=== PATIENT | female | born 1995 | race Caucasian/White ===

== ENCOUNTER 2024-03-01 08:25 | Outpatient (REF) | payer BC, SELFPAY ==
[2024-03-07 12:10] LABS: Age Gdln ACOG Testing Note (.); HPV Aptima Negative (Negative); IGP, Aptima HPV, rfx 16/18,45 Note (.)
== END 2024-03-01 08:26 | disposition home or self-care (01) ==
LOC: LAB 08:25
PROVIDERS: PCP Nurse Practitioner; Visit Provider Obstetrics & Gynecology
DX: Z01.419 Encounter for gynecological examination (general) (routine) without abnormal findings (principal)
CPT/HCPCS: 87624; 88175

== ENCOUNTER 2024-03-02 12:10 | Outpatient (OUT) | payer BC, SELFPAY ==
[2024-03-02 12:32] LABS: Basophils Absolute Auto 0.1 10^3/uL (0.0-0.1); Basophils Percent Auto 0.6 % (0.2-2.0); Eosinophils Absolute Auto 0.1 10^3/uL (0.0-0.7); Eosinophils Percent Auto 0.9 % (0.9-7.0); Hematocrit 43.4 % (36.0-48.0); Hemoglobin 14.5 g/dL (12.0-16.0); Immature Granulocytes Abs Auto 0.02 10^3/uL (0.00-0.03); Immature Granulocytes Pct Auto 0.2 % (0.0-0.5); Lymphocytes Absolute Auto 2.1 10^3/uL (1.2-3.8); Lymphocytes Percent Auto 23.8 % (20.5-60.0); Mean Corpuscular HGB Conc 33.4 g/dL (29.9-35.2); Mean Corpuscular Hemoglobin 29.8 pg (26.7-34.0); Mean Corpuscular Volume 89.1 fL (81.0-99.0); Mean Platelet Volume 10.6 fL (9.5-13.5); Monocytes Absolute Auto 0.6 10^3/uL (0.3-0.8); Monocytes Percent Auto 6.9 % (1.7-12.0); Neutrophils Absolute Auto 6.1 10^3/uL (1.4-6.5); Neutrophils Percent Auto 67.6 % (43.0-75.0); Platelet Count 177 10^3/uL (150-450); Red Blood Count 4.87 10^6/uL (4.20-5.40)
[2024-03-02 13:46] LABS: Free T4 0.86 ng/dL (0.76-1.46)
[2024-03-02 15:22] LABS: Thyroid Stimulating Hormone 0.876 uIU/mL (0.358-3.740)
== END 2024-03-02 12:11 | disposition home or self-care (01) ==
PROVIDERS: PCP Nurse Practitioner; Visit Provider Obstetrics & Gynecology
DX: N92.6 Irregular menstruation, unspecified (principal)
CPT/HCPCS: 36415; 84439; 84443; 85025

== ENCOUNTER 2024-03-05 07:34 | Outpatient (OUT) | payer BC, SELFPAY ==
--- NOTE | 2024-03-05 07:36 | US_ITS ---
[address] [address] Patient Name: GEORGE RUFF MRN: [id number] date: 1995 Sex: F Assigned Patient Location: Current Patient Location: [facility] Accession/Order Number: [id number] Exam Date: 03/05/2024 07:36 Report Date: 03/05/2024 12:10 At the request of: JUSTICE JUDD Procedure: US pelvis EXAMINATION: US pelvis HISTORY: IRREGULAR MENSTRUAL CYCLE COMPARISON: No relevant comparison available. TECHNIQUE: Transabdominal and/or transvaginal sonographic examination was performed as indicated by examination type. FINDINGS: UTERUS: Normal size and appearance. Uterus size: 11.2 x 2.5 x 6.1 cm ENDOMETRIUM: Normal homogeneous appearance. Endometrial thickness: 6 mm RIGHT OVARY: Normal size and appearance. Duplex Doppler demonstrates normal waveform and flow; resistive index 0.6. Ovary size: 3.7 x 1.5 x 3.2 cm LEFT OVARY: Normal size and appearance. Blood flow present within ovary on color Doppler. Ovary size: 3.1 x 1.7 x 2.0 cm CUL-DE-SAC: Trace amount of free fluid, likely physiologic. BLADDER: Unremarkable. OTHER: None. US/US pelvis IMPRESSION: 1. No abnormal or suspicious findings to account for patient's symptoms. Electronically authenticated by: MIGUEL BRONSON Date: 03/05/2024 12:10
--- OUTSIDE RECORDS SUMMARY | 2024-03-05 07:39 | XMS_ITS | CCD ---
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 Name Role Phone DR JUSTICE WHITMAN Admitting Unavailable DUTCH, DR RENDON Consulting Unavailable DUTCH, DR RENDON Attending Unavailable MISC, DR DOE Primary Care Unavailable AMY, JOSELINE Consulting Unavailable AMY, JOSELINE Attending Unavailable AMY, JOSELINE Admitting Unavailable MISC, DR DOE Primary Care Unavailable AMY, JOSELINE Consulting Unavailable AMY, JOSELINE Attending Unavailable AMY, JOSELINE Admitting Unavailable MISC, DR DOE Primary Care Unavailable AMY, JOSELINE Admitting Unavailable AMY, JOSELINE Consulting Unavailable AMY, JOSELINE Attending Unavailable MISC, DR DOE Primary Care Unavailable DUTCH, DR RENDON Admitting Unavailable DUTCH, DR RENDON Consulting Unavailable DUTCH, DR RENDON Attending Unavailable MISC, DR DOE Primary Care Unavailable Keily, Seble L Attending Unavailable Keily, Seble L Attending Unavailable Keily, Seble L Attending Unavailable Keily, Seble Clayton Attending Unavailable DUTCHJUSTICE Attending Unavailable Allergies Allergy Classification Reported Allergen(s) Allergy Type Date of Onset Reaction(s) Facility (1 source) No Known Medication Allergies; Translations: [No Known Medication Allergies] Propensity to adverse reactions (disorder) [facility] Repository Problems Active Problems Problem Classification Problem Date Documented Da te Episodic/Chronic Other screening for suspected conditions (not mental disorders or infectious disease) (5 sources) Encounter for screening for malignant neoplasm of cervix; Translations: [Encounter for screening for diseases of the blood and blood-forming organs and certain disorders involving the immune mechanism] Onset: 12-21-2021 Episodic Unclassified (3 sources) CONTACT W/AND (SUSP) EXPOS COVID-19; Translations: [CONTACT W/AND (SUSP) EXPOS COVID-19] Onset: 03-25-2022 Past or Other Problems Problem Classification Problem Date Documented Da te Episodic/Chronic Residual codes; unclassified (4 sources) Family history of diseases of the blood and blood-forming organs and certain disorders involving the immune mechanism; Translations: [FAM HX DZ BLOOD AND BFO D/O IMMUNE MECH] Onset: 12-09-2021 Episodic Unclassified (1 source) CONTACT W/AND (SUSP) EXPOS COVID-19; Translations: [CONTACT W/AND (SUSP) EXPOS COVID-19] Onset: 03-23-2022 Results Test Name Value Interpretation Reference Range Facil ity [facility] 01-23-2024 Consent [id number] 0TIFF Normal [facility] 07-14-2023 Consent [id number] 0TIFF Normal [facility] Family Medicine Office/Clini c Noteon 07-14-2023 Family Medicine Office/Clinic Note HPI Staff Rhea is a 27 year old female presenting for acute sick visit allergies Questions/Concerns: Had Kenalog in 01/2023 pt states this did work well. had been taking Benadryl every night for the last 5 days. Eyes were very red and swelled and c/o itching , congestion with dry cough having post nasal drip. Pt hasn't seen an corporate strategy intern before. States they are taking crops off of the [place] and here allergies are a lot worse. History of Present Illness pt presents with worsening allergy symptoms. Review of Systems PHQ Score Initial Depression Screen Score: 0 ROS - Provider Constitutional: no fever, no chills, no sweats, no fatigue Respiratory: no shortness of breath, no cough, no orthopnea, no wheezing. Cardiovascular: no chest pain, no palpitations, no edema. Neurologic: no headache, no dizziness, no numbness, no weakness. red swollen watery eyes Physical Exam Vitals & Measurements T: 37.1 ?C(Tympanic) HR: 98(Peripheral) RR: 18 BP: 118/68 SpO2: 98% HT: 62 in HT: 157.4 cm WT: 58.87 kg WT: 129.514 lb BMI: 23.76 General: alert, no acute distress ENMT: oral mucosa moist, no pharyngeal erythema or exudate Cardiovascular: regular rate and rhythm, normal peripheral perfusion Respiratory: Lungs CTA, respirations non labored Extremities: no deformity, no trauma Neurological: oriented x 4, LOC appropriate for age, CN II-XII intact, motor strength equal & normal bilaterally, speech normal eyes red, watery and swollen Assessment/Plan 1. Seasonal allergies (J30.2: Other seasonal allergic rhinitis) pt presents today with worsening allergy symptoms[place] which is causing eyes to be red and severely swollen. will give kenalog 40mg in office today. all questions answered. pt encouraged to just schedule nurse visit kenalog injection in 6 months Ordered: triamcinolone, 40 mg = 1 mL, Injection, IntraMuscular, Once, Stop date 07/13/23 17:48:00 EDT, Routine, Start date 07/13/23 17:48:00 EDT, 07/13/23 17:48:00 EDT Follow-up No qualifying data available Problem List/Past Medical History Ongoing No qualifying data Historical No qualifying data Procedure/Surgical History section, History of tooth extraction, Laparoscope. Medications No active medications Allergies No Known Medication Allergies Social History Tobacco Never (less than 100 in lifetime) Tobacco Use:. Never, Current vaping or e-cigarette use Smokeless Tobacco Use:. Household tobacco concerns: No., 07/13/2023 Family History Congenital heart disease: Grandparent. Immunizations Vaccine Date Status influenza virus vaccine, inactivated 07/18/2018 Recorded measles/mumps/rubella virus vaccine 02/06/1999 Recorded DTaP, unspecified formulation 02/06/1999 Recorded DTaP, unspecified formulation 05/09/1998 Recorded measles/mumps/rubella virus vaccine 05/25/1996 Recorded hepatitis B pediatric vaccine 05/25/1996 Recorded DTP-Hib 05/25/1996 Recorded hepatitis B pediatric vaccine 02/05/1994 Recorded Hib, unspecified formulation 02/05/1994 Recorded Normal [facility] Comment on above: Result Comment: Elec tronically Signed By: Seble Luna.romel\Date and Time Signed: 07/14/23 15:24 EDT Ambulatory Visit Summaryon 1 Ambulatory Visit Summary JESSICARHEA YOUSIF :1995 Visit Date:07/13/2023 Ambulatory Visit Instructions Your Diagnosis Seasonal allergies Your Care Team Attending Physician Seble oNrth Primary Care Physician - Seble Luna Procedures Performed section, History of tooth extraction, Laparoscope. Discharge Vitals Temperature (Tympanic) 37.1 ?C Heart Rate (Peripheral) 98 Respiratory Rate 18 Blood Pressure 118/68 Height 157.4 cm Height 62 in Weight 58.87 kg Weight 129.514 lb BMI 23.76 Allergies No Known Medication Allergies [facility] Ambulatory Visit Summary RHEA RUFF :1995 Visit Date:07/13/2023 Ambulatory Visit Instructions Your Diagnosis Seasonal allergies Your Care Team Attending Physician - Seble Luna Primary Care Physician - Seble Luna Procedures Performed section, History of tooth extraction, Laparoscope. Discharge Vitals Temperature (Tympanic) 37.1 ?C Heart Rate (Peripheral) 98 Respiratory Rate 18 Blood Pressure 118/68 Height 157.4 cm Height 62 in Weight 58.87 kg Weight 129.514 lb BMI 23.76 Allergies No Known Medication Allergies [facility] 01-31-2023 Consent [id number] 0CD:127 [facility] Ambulatory Visit Summaryon 0 01-28-2023 Ambulatory Visit Summary RHEA RUFF :1995 Visit Date:01/28/2023 Ambulatory Visit Instructions Your Diagnosis Conjunctivitis, viral Seasonal allergies BMI 23.0-23.9, adult Your Care Team Attending Physician - Seble Luna Primary Care Physician - Seble Luna Procedures Performed section, History of tooth extraction, Laparoscope. Discharge Vitals Heart Rate (Peripheral) 74 Respiratory Rate 16 Blood Pressure 118/76 Height 157.48 cm Height 62 in Weight 58.9 kg Weight 129.58 lb BMI 23.75 Medications and Immunizations Administered Given triamcinolone acetonide 40 mg/mL Inj Susp, 40 mg, IntraMuscular. For: Conjunctivitis, viral, Seasonal allergies triamcinolone acetonide 40 mg/mL Inj Susp, 40 mg, IntraMuscular. For: BMI 23.0-23.9, adult Allergies No Known Medication Allergies [facility] Medicine Office/Clini c Noteon 01-28-2023 Family Medicine Office/Clinic Note Chief Complaint pink eye vs allergies HPI Staff Establish Care: History: none Last provider:Dr. White Any recent labs: none Health Maintenance UTD: Pelvic/Pap: Nov 2022 Acute: Current issues/complaints:Poss ible pink eye or allergies currently on neomycin,polymyxin eye drops, saw you earlier this week with same sxs. dxed with allergies so she needs to be sure she does or doesn't have pink eye History of Present Illness pt presents today with MIREILLE eye redness and drainage Review of Systems PHQ Score Initial Depression Screen Score: 0 ROS - Provider Constitutional: no fever, no chills, no sweats, no fatigue Respiratory: no shortness of breath, no cough, no orthopnea, no wheezing. Cardiovascular: no chest pain, no palpitations, no edema. Neurologic: no headache, no dizziness, no numbness, no weakness. EENT: MIREILLE conjunctiva and sclera very red and itchy Physical Exam Vitals & Measurements HR: 74(Peripheral) RR: 16 BP: 118/76 SpO2: 98% HT: 62 in HT: 157.48 cm WT: 58.9 kg WT: 129.58 lb BMI: 23.75 General: alert, no acute distress EENMT: oral mucosa moist, no pharyngeal erythema or exudate, MIREILLE erythema to conjunctiva and sclera Cardiovascular: regular rate and rhythm, normal peripheral perfusion Respiratory: Lungs CTA, respirations non labored Extremities: no deformity, no trauma Neurological: oriented x 4, LOC appropriate for age, CN II-XII intact, motor strength equal & normal bilaterally, speech normal Assessment/Plan 1. Conjunctivitis, viral (B30.9: Viral conjunctivitis, unspecified) MIREILLE scleara and conjunctiva erythematous and watery. pt states they are very itchy too. she has eye drops that Dr. Whitman ordered for her yesterday. will give kenalog injection in office. she will continue eye drops Ordered: triamcinolone, 40 mg = 1 mL, Injection, IntraMuscular, Once, Stop date 01/28/23 15:13:00 EDT, Routine, Start date 01/28/23 15:13:00 EDT, 01/28/23 15:13:00 EDT 2. Seasonal allergies (J30.2: Other seasonal allergic rhinitis) kenalog given in office today Ordered: triamcinolone, 40 mg = 1 mL, Injection, IntraMuscular, Once, Stop date 01/28/23 15:13:00 EDT, Routine, Start date 01/28/23 15:13:00 EDT, 01/28/23 15:13:00 EDT 3. BMI 23.0-23.9, adult (Z68.23: Body mass index [BMI] 23.0-23.9, adult) BMI education complete Ordered: triamcinolone, 40 mg = 1 mL, Injection, IntraMuscular, Once, Stop date 01/28/23 15:13:00 EDT, Routine, Start date 01/28/23 15:13:00 EDT, 01/28/23 15:13:00 EDT triamcinolone, 40 mg = 1 mL, Injection, IntraMuscular, Once, Stop date 01/28/23 15:03:00 EDT, Routine, Start date 01/28/23 15:03:00 EDT, 01/28/23 15:03:00 EDT Follow-up No qualifying data available Problem List/Past Medical History Ongoing No qualifying data Historical No qualifying data Procedure/Surgical History section, History of tooth extraction, Laparoscope. Medications No active medications Allergies No Known Medication Allergies Social History Tobacco Never, Current vaping or e-cigarette use Smokeless Tobacco Use:., 01/28/2023 Family History Congenital heart disease: Grandparent. Immunizations Vaccine Date Status influenza virus vaccine, inactivated 07/18/2018 Recorded measles/mumps/rubella virus vaccine 02/06/1999 Recorded DTaP, unspecified formulation 02/06/1999 Recorded DTaP, unspecified formulation 05/09/1998 Recorded measles/mumps/rubella virus vaccine 05/25/1996 Recorded hepatitis B pediatric vaccine 05/25/1996 Recorded DTP-Hib 05/25/1996 Recorded hepatitis B pediatric vaccine 02/05/1994 Recorded Hib, unspecified formulation 02/05/1994 Recorded Normal [facility] Comment on above: Result Comment: Elec tronically Signed By: Keily ESPINOSA, Seble Clayton\.br\Date and Time Signed: 01/28/23 15:35 EDT PAP ACOG PANEL 2: 21 to 29on 11-18-2022 . . Normal [facility] Comment on above: Performed By: #### [id number] #### [facility] [address] [place] [address] Dr. Prashant Fletcher Age Gdln ACOG Testing 21-29 [facility] Comment on above: Performed By: #### [id number] #### [facility] [address] [place] [address] Dr. Prashant Fletcher DIAGNOSIS: Comment [facility] Comment on above: Result Comment: NEGA TIVE FOR INTRAEPITHELIAL LESION OR MALIGNANCY. Performed By: #### [id number] #### [facility] [address] [place] [address] Dr. Prashant Fletcher Methodology: Comment [facility] Comment on above: Result Comment: This liquid based ThinPrep(R) pap test was screened with the use of an image guided system. Performed By: #### [id number] #### [facility] [address] [place] [address] Dr. Prashant Fletcher Note: Comment [facility] Comment on above: Result Comment: The Pap smear is a screening test designed to aid in the detection of premalignant and malignant conditions of the uterine cervix. It is not a diagnostic procedure and should not be used as the sole means of detecting cervical cancer. Both false-positive and false-negative reports do occur. . Performed By: #### [id number] #### [facility] [address] [place] [address] Dr. Prashant Fletcher Performed by: Comment Normal [facility] Comment on above: Result Comment: Pati Johnson User Interface Artist (ASCP) Performed By: #### [id number] #### [facility] [address] [place] [address] Dr. Prashant Fletcher Reflex Criteria: Comment [facility] Comment on above: Result Comment: The HPV DNA reflex criteria were not met with this specimen result therefore, no HPV testing was performed. . Performed By: #### [id number] #### [facility] [address] [place] [address] Dr. Prashant Fletcher Specimen adequacy: Comment Normal [facility] Comment on above: Result Comment: Sati sfactory for evaluation. Endocervical and/or squamous metaplastic cells (endocervical component) are present. Performed By: #### [id number] #### [facility] [address] [place] [address] Dr. Prashant Fletcher SYMPTOMATIC COVID-19 ANTIGEN on 03-23-2022 EUA Statement SEE BELOW Normal [facility] Comment on above: Result Comment: This test has not been FDA cleared or approved, but has been authorized by the FDA under an Emergency Use Authorization (EUA) for use by authorized laboratories certified under CLIA that meet the requirements to perform moderate or high complexity testing. This test has been authorized only for the detection of proteins from SARS-CoV-2, not for any other viruses or pathogens. The emergency use of this test is authorized for the duration of the declaration that circumstances exist justifying the authorization of emergency use of in vitro diagnostic tests for detection and/or diagnosis of Covid-19 under section 564(b)(1) of the Act, 21 U.S.C. 360bbb-3(b)(1), unless the declaration is terminated or authorization is revoked sooner. Performed By: #### C VDAGS #### [facility] [address] [place] [address] Dr. Prashant Fletcher SARS-CoV-2 (COVID-19) RNA DIAMOND+probe Ql (Unsp spec) Negative Normal NEGATIVE [facility] Comment on above: Performed By: #### C VDAGS #### [facility] [address] [place] [address] Dr. Prashant Fletcher SYMPTOMATIC COVID-19 ANTIGEN on 03-22-2022 EUA Statement SEE BELOW Normal [facility] Comment on above: Result Comment: This test has not been FDA cleared or approved, but has been authorized by the FDA under an Emergency Use Authorization (EUA) for use by authorized laboratories certified under CLIA that meet the requirements to perform moderate or high complexity testing. This test has been authorized only for the detection of proteins from SARS-CoV-2, not for any other viruses or pathogens. The emergency use of this test is authorized for the duration of the declaration that circumstances exist justifying the authorization of emergency use of in vitro diagnostic tests for detection and/or diagnosis of Covid-19 under section 564(b)(1) of the Act, 21 U.S.C. 360bbb-3(b)(1), unless the declaration is terminated or authorization is revoked sooner. Performed By: #### C VDAGS #### [facility] [address] [place] [address] Dr. Prashant Fletcher SARS-CoV-2 (COVID-19) RNA DIAMOND+probe Ql (Unsp spec) Negative Normal NEGATIVE [facility] Comment on above: Performed By: #### C VDAGS #### [facility] [address] [place] [address] Dr. Prashant Fletcher Covid-19 PCR ([facility])on 01-01 SARS-CoV-2 (COVID-19) RNA DIAMOND+probe Ql (Unsp spec) Not detected Normal NOT DETECTED [facility] Comment on above: Result Comment: When diagnostic testing is negative, the possibility of a false negative should be considered in the context of a patient's recent exposures and the presence of clinical signs and symptoms consistent with SARS-CoV-2. This test is not yet approved or cleared by the [place] FDA. When there are no FDA-approved or cleared tests available, and other criteria are met, FDA can make tests available under an emergency access mechanism called an Emergency Use Authorization (EUA). The EUA for this test is supported by the [place] of Health and Human Service's declaration that circumstances exist to justify the emergency use of in vitro diagnostics for the detection and/or diagnosis of the virus that causes COVID-19. This EUA will remain in effect for the duration of the COVID-19 declaration justifying emergency of IVDs, unless it is terminated or revoked by the FDA (after which the test may no longer be used). Performed By: #### C VDTBH #### [facility] [address] [place] [address] Dr. Prashant Fletcher CBC AUTO DIFFon 12-09-2021 BASO # 0.0 103/ul Normal 0.0-0.1 [facility] Comment on above: Performed By: #### C BC #### [facility] [address] [address] [address] Prashant Fletcher Basophils/100 WBC (Bld) 0.7 % Normal 0.2-2.0 [facility] Comment on above: Performed By: #### C BC #### [facility] [address] [place] [address] Dr. Prashant Fletcher EO # 0.2 103/ul Normal 0.0-0.7 [facility] Comment on above: Performed By: #### C BC #### [facility] [address] [place] [address] Dr. Prashant Fletcher Eosinophils/100 WBC (Bld) 4.4 % Normal 0.9-7.0 [facility] Comment on above: Performed By: #### C BC #### [facility] [address] [place] [address] Dr. Prashant Fletcher Erythrocyte distribution width (RBC) [Ratio] 15.5 % Critically high 11.0-15.0 [facility] Comment on above: Performed By: #### C BC #### [facility] [address] [place] [address] Dr. Prashant Fletcher Hematocrit (Bld) [Volume fraction] 40.1 % Normal 36.0-48.0 [facility] Comment on above: Performed By: #### C BC #### [facility] [address] [place] [address] Dr. Prashant Fletcher Hemoglobin (Bld) [Mass/Vol] 12.4 g/dL Normal 12.0-16.0 [facility] Comment on above: Performed By: #### C BC #### [facility] [address] [place] [address] Dr. Prashant Fletcher IG # 0.01 10e3/ul Normal 0.00-0.03 [facility] Comment on above: Performed By: #### C BC #### [facility] [address] [place] [address] Dr. Prashant Fletcher IG % 0.2 % Normal 0.0-0.5 [facility] Comment on above: Performed By: #### C BC #### [facility] [address] [place] [address] Dr. Prashant Fletcher LYMPH # 1.8 103/ul Normal 1.2-3.8 [facility] Comment on above: Performed By: #### C BC #### [facility] [address] [place] [address] Dr. Prashant Fletcher Lymphocytes/100 WBC (Bld) 33.3 % Normal 20.5-60.0 [facility] Comment on above: Performed By: #### C BC #### [facility] [address] [place] [address] Dr. Prashant Fletcher MANUAL DIFF REQ NO Normal [facility] Comment on above: Performed By: #### C BC #### [facility] [address] [place] [address] Dr. Prashant Fletcher MCH (RBC) [Entitic mass] 26.1 pg Critically low 26.7-34.0 [facility] Comment on above: Performed By: #### C BC #### [facility] [address] [place] [address] Dr. Prashant Fletcher MCHC (RBC) [Mass/Vol] 30.9 g/dL Normal 29.9-35.2 [facility] Comment on above: Performed By: #### C BC #### [facility] [address] [place] [address] Dr. Prashant Fletcher MCV (RBC) [Entitic vol] 84.4 fL Normal 81.0-99.0 [facility] Comment on above: Performed By: #### C BC #### [facility] [address] [place] [address] Dr. Prashant Fletcher MONO # 0.6 103/ul Normal 0.3-0.8 [facility] Comment on above: Performed By: #### C BC #### [facility] [address] [place] [address] Dr. Prashant Fletcher Monocytes/100 WBC (Bld) 10.4 % Normal 1.7-12.0 [facility] Comment on above: Performed By: #### C BC #### [facility] [address] [address] [address] Prashant Fletcher NEUT # 2.8 103/ul Normal 1.4-6.5 [facility] Comment on above: Performed By: #### C BC #### [facility] [address] [address] [address] Prashant Fletcher Neutrophils/100 WBC (Bld) 51.0 % Normal 43.0-75.0 [facility] Comment on above: Performed By: #### C BC #### [facility] [address] [place] [address] Dr. Prashant Fletcher Platelet mean volume (Bld) [Entitic vol] 9.4 fL Critically low 9.5-13.5 [facility] Comment on above: Performed By: #### C BC #### [facility] [address] [place] [address] Dr. Prashant Fletcher PLT 184 103/ul Normal 150-450 [facility] Comment on above: Performed By: #### C BC #### [facility] [address] [place] [address] Dr. Prashant Fletcher RBC 4.75 106/ul Normal 4.20-5.40 [facility] Comment on above: Performed By: #### C BC #### [facility] [address] [place] [address] Dr. Prashant Fletcher WBC 5.5 103/ul Normal 4.0-11.0 [facility] Comment on above: Performed By: #### C BC #### [facility] [address] [place] [address] Dr. Prashant Fletcher FERRITINon 12-09-2021 Ferritin [Mass/Vol] 10.0 ng/mL Normal 6.2-137.0 [facility] Comment on above: Performed By: #### F ERR #### [facility] [address] [place] [address] Dr. Prashant Fletcher Encounters Encounter Date Encounter Type Care Provider Facility Start: 07-20-2024 ambulatory Seble Michaud Facility: [facility] Start: 03-01-2024 End: 03-01-2024 ambulatory JUSTICE WHITMAN Not Available Start: 01-20-2024 End: 01-21-2024 ambulatory Seble L Keily [facility] [facility] Start: 07-13-2023 End: 07-14-2023 ambulatory Seble L Keily [facility] [place] [facility] Start: 01-28-2023 End: 01-29-2023 ambulatory Seble L Keily [facility] [place] [facility] Start: 01-27-2023 ambulatory Seble Keily Facility:[facility] Start: 11-10-2022 End: 11-10-[address] JUSTICE WHITMAN Facility:[facility] Start: 03-23-2022 End: 03-23-2022 ambulatory JOSELINE REYES Facility:[facility] Start: 03-22-2022 End: 03-22-2022 ambulatory JOSELINE REYES Facility:[facility] Start: 01-12-2022 End: 01-12-2022 ambulatory JOSELINE REYES Facility:[facility] Start: 12-09-2021 End: 12-10-[address] JUSTICE WHITMAN Facility:[facility] Payers Date Payer Category Payer Unknown [id number] 1995 Unknown [id number] [id number] [id number] 1995 Unknown [id number] [id number] [id number] 1995 Unknown [id number] 2.16.84 0.1.987243.3.579.2.593 1993 Unknown [id number] 2.16.84 0.1.562723.3.579.2.593 1993 Unknown [id number] 2.16.84 0.1.248461.3.579.2.593 1993 Unknown [id number] 2.16.8 40.1.020480.3.579.2.727 1993 Unknown [id number] 2.16.8 40.1.216841.3.579.2.727 1993 Unknown [id number] 2.16.8 40.1.400496.3.579.2.727 1993 Unknown [id number] 2.16.8 40.1.413504.3.579.2.727 1993 Unknown [id number] 2.16.84 0.1.515931.3.579.2.1259 1959 Self-pay 1959 Unknown [id number] Summary Purpose Family History No Family History Records FoundNo Family History Records FoundNo Family History Records Found Advance Directives No Advanced Directives Records FoundNo Advanced Directives Records FoundNo Advanced Directives Records Found Additional Source Comments INFORMATION SOURCE (unrecogn ized section and content) DATE CREATED AUTHOR 11/19/[address] [facility] DATE CREATED AUTHOR AUTHOR'S ORGANIZ ATION 01/23/2024 [facility] DATE CREATED AUTHOR AUTHOR'S ORGANIZ ATION 03/02/2024 [facility] FOR RECORDS PERTAINING TO PATIENTS WHO ARE OR HAVE BEEN ENROLLED IN A CHEMICAL DEPENDENCY/SUBSTANCEABUSE PROGRAM, SOME INFORMATION MAY BE OMITTED. This clinical summary was aggregated from multiple sources. Caution should be exercised in using it in the provision of clinical care. This summary normalizes information from multiple sources, and as a consequence, information in this document may materially change the coding, format and clinical context of patient data. In addition, data may be omitted in some cases. CLINICAL DECISIONS SHOULD BE BASED ON THE PRIMARY CLINICAL RECORDS. [facility] [employer] provides no warranty or guarantee of the accuracy or completeness of information in this document.
== END 2024-03-05 07:35 | disposition home or self-care (01) ==
LOC: US 07:34 → NOMS 08:09
PROVIDERS: PCP Nurse Practitioner; Visit Provider Obstetrics & Gynecology
DX: N92.6 Irregular menstruation, unspecified (principal)
CPT/HCPCS: 76856; 88175

== ENCOUNTER 2024-12-25 09:23 | Outpatient (OUT) | payer BC, SELFPAY ==
--- OUTSIDE RECORDS SUMMARY | 2024-12-25 09:36 | XMS_ITS | CCD ---
Author Organization [facility] Care Team Providers Care Diversity Intern Name Role Phone DR JUSTICE JUDD Admitting Unavailable J CARLOS, DR RENDON Consulting Unavailable J CARLOS, DR RENDON Attending Unavailable MISC, DR DOE [...] Unavailable MISC, DR DOE Primary Care Unavailable J CARLOS, DR RENDON Admitting Unavailable J CARLOS, DR RENDON Consulting Unavailable J CARLOS, DR RENDON Attending Unavailable MISC, DR DOE Primary Care Unavailable Keily, CAN FEEDER Seble L Attending Unavailable Keily, CAN FEEDER Seble L Attending Unavailable Keily, JESÚS Seble L Attending Unavailable Unavailable Primary Care Provider Unavailabl e JUSTICE JUDD Attending Unavailable Allergies Allergy Classification Reported Allergen(s) Allergy Type Date of Onset Reaction(s) Facility (4 sources) Latex; Translations: [Latex] Propensity to adverse reactions (disorder) 4 Rash [facility] Repository (1 source) No Known Medication Allergies; Translations: [No Known Medication Allergies] Propensity to adverse reactions (disorder) [facility] Repository (1 source) Other Allergy to substance 3 [facility] Medications Current Medications Medication Drug Class(es) Dates Sig (Normalized) Sig (Original) methylPREDNISolone (3 sources) Corticosteroid Start: 07-10-2024 End: 11-23-2024 methylPREDNISolone (Medrol Dospak) 4 MG tablets Indications: Rash Day 1: 6 tablets Day 2: 5 tablets Day 3: 4 tablets Day 4: 3 tablets Day 5: 2 tablets Day 6: 1 tablet 21 tablet 07/10/2024 11/23/2024 Discontinued (Therapy completed) Start: 07-10-2024 methylPREDNISo lone (Medrol Dospak) 4 MG tablets Indications: Rash Day 1: 6 tablets Day 2: 5 tablets Day 3: 4 tablets Day 4: 3 tablets Day 5: 2 tablets Day 6: 1 tablet 21 tablet 07/10/2024 Active ondansetron 4 mg oral tablet (3 sources) Serotonin-3 Receptor Antagonist Start: 11-13-2024 End: 12-13-2024 take 1 tablet by mouth twice daily as needed for nausea ondansetron (Zofran) 4 MG tablet Indications: Nausea Take 1 tablet (4 mg) by mouth 2 (two) times a day as needed for nausea 20 tablet 5 11/13/2024 12/13/2024 Active Problems Active Problems Problem Classification Problem Date Documented Da te Episodic/Chronic Menstrual disorders (1 source) Missed period; Translations: [Irregular menstruation, unspecified] 11-23-2024 Chronic Nausea and vomiting (1 source) Nausea; Translations: [Nausea] 11-13-2024 Episodic Other and delivery including normal (2 sources) ; Translations: [Encounter for supervision of normal , unspecified, unspecified trimester] 11-23-2024 Episodic Other screening for suspected conditions (not mental disorders or infectious disease) (7 sources) Encounter for screening for malignant neoplasm [...] Results Test Name Value Interpretation Reference Range Facility US OB TRANSVAGINALon 025 US OB TRANSVAGINAL EXAM: US OB TRANSVAGINAL HISTORY: Dating. COMPARISON: None available. TECHNIQUE: Two-dimensional transabdominal grayscale ultrasound imaging of the pelvis was performed. Color Doppler evaluation of the ovaries was also performed. FINDINGS: The uterus demonstrates a normal homogeneous echotexture. The cervix measures 4.2 cm in length and the cervical os is closed. The right ovary measures 3.6 x 1.8 x 3.4 cm and demonstrates a normal echotexture. There is normal color Doppler flow. The left ovary measures 3.5 x 1.1 x 2.8 cm and demonstrates a normal echotexture. There is normal color Doppler flow. No fluid is present within the cul-de-sac. There is a single, live intrauterine gestation identified with a heart rate of 176 beats per minute and a crown-rump length measurement of 2.4 cm, correlating to a gestational age of 9 weeks 1 days (+/- 6 days). There is no subchorionic hemorrhage visualized. A yolk sac is visualized. IMPRESSION: 1. Single, live intrauterine gestation 9 weeks, 2 days by LMP. Today's ultrasound measurements correlate with a gestational age of 9 weeks 1 days (+/- 6 days). CLARISSA by today's ultrasound is 07/04/2025. 2. Normal color Doppler evaluation of the bilateral ovaries. Electronically Signed:Electronically signed by CAYLA SILVA II, MD, PHD at 01-Dec-2024 07:22:16 AM [facility] Normal Not Available Comment on above: Order Comment: US OB TRANSVAGINAL Patient's last menstrual period was 09/26/2024. HCG ( test) Ql (U)o n 11-23-2024 Interpretation and review of laboratory results Abnormal [facility] Preg Test, Ur Positive Negative [facility] CARDIOCHECK - LIPID AND GLUC OSEon 11-20-2024 Cholesterol [Mass/Vol] 115 mg/dL NINF - 200 [facility] Cholesterol in HDL [Mass/Vol] 55 mg/dL M: 35-65 F: 35-80 [facility]olesterol in LDL [Mass/Vol] 60 mg/dL NINF - 100 [facility] Glucose [Mass/Vol] 102 mg/dL NINF - 100 [facility] Interpretation and review of laboratory results [facility] [Mass/Vol] 170 mg/dL NINF - 150 [facility] Family Medicine Office/Clini c Noteon 07-20-2024 Family Medicine Office/Clinic Note Family Medicine Office/Clinic Note HPI Staff George is a 28 year old female presenting with kenalog shot For allergies started at beginning of June History of Present Illness pt presents today for kenalog injection due to allergy flare up Review of Systems PHQ Score Initial Depression Screen Score: 0 SCORE Physical Exam Vitals & Measurements T: 36.9 ?C(Temporal Artery) HR: 92(Peripheral) RR: 18 BP: 124/78 SpO2: 99% HT: 62 in HT: 157.4 cm WT: 49.3 kg WT: 108.46 lb BMI: 19.9 General: alert, no acute distress ENMT: oral mucosa moist, no pharyngeal erythema or exudate Cardiovascular: regular rate and rhythm, normal peripheral perfusion Respiratory: Lungs CTA, respirations non labored Extremities: no deformity, no trauma Neurological: oriented x 4, LOC appropriate for age, CN II-XII intact, motor strength equal & normal bilaterally, speech normal Assessment/Plan 1. Seasonal allergies (J30.2: Other seasonal allergic rhinitis) pt presents today for allergy shot. due to allergy flare up. 40mg kenalog given. she also has an area on her left hand that is red, dry and appears to be somewhat yeasty. will send in steroid/anti fungal cream to see if that helps. RTC 6 months for next kenalog injection. Ordered: betamethasone-clotrim azole topical, 1 glen, Topical, BID, 45 gram, Refill(s) 0, [facility] #[id number], 157.4, cm, 07/20/24 14:43:00 EDT, Height/Length Dosing, 49.3, kg, 07/20/24 14:43:00 EDT, Weight Dosing triamcinolone, 40 mg = 1 mL, Injection, IntraARTICULAR, Once, Stop date 07/20/24 14:52:00 EDT, Routine, Start date 07/20/24 14:52:00 EDT, 07/20/24 14:52:00 EDT 2. BMI less than 19,adult (Z68.1: Body mass index [BMI] 19.9 or less, adult) BMI education given 3. Vapes non-nicotine containing substance (Z72.89: Other problems related to lifestyle) consider not vaping Follow-up No qualifying data available Problem List/Past Medical History Ongoing Eczema Screening for malignant neoplasm of cervix done Seasonal allergies Historical No qualifying data Procedure/Surgical History section, History of tooth extraction, Laparoscope. Medications betamethasone-clotrim azole Top 0.05%-1% Crm 15 gram, 1 glen, Topical, BID Allergies Latex (Eruption) No Known Medication Allergies Social History Alcohol Never., 07/20/2024 Substance Abuse Never., 07/20/2024 Tobacco Vapes Tobacco Use:. Vaping, 07/20/2024 Family History Congenital heart disease: Grandparent. Immunizations Vaccine Date Status influenza virus vaccine, inactivated 07/18/2018 Recorded measles/mumps/rubella virus vaccine 02/06/1999 Recorded DTaP, unspecified formulation 02/06/1999 Recorded DTaP, unspecified formulation 05/09/1998 Recorded measles/mumps/rubella virus vaccine 05/25/1996 Recorded hepatitis B pediatric vaccine 05/25/1996 Recorded DTP-Hib 05/25/1996 Recorded hepatitis B pediatric vaccine 02/05/1994 Recorded Hib, unspecified formulation 02/05/1994 Recorded Normal [facility] Comment on above: Result Comment: Elec tronically Signed By: Seble Luna\.br\Date and Time Signed: 07/20/24 14:56 EDT RAD - Ultrasound Reporton RAD - Ultrasound Report [id number]. 00TIFF Normal [facility] Consenton 01-23-2024 Consent [id number] .[id number] Normal [facility] PAP ACOG PANEL 2: 21 to 29on 11-18-2022 . . Normal [facility] Comment on above: Performed By: #### [id number] #### [facility] [address] [place] [address] Dr. Prashant Fletcher Age Gdln ACOG Testing 21-29 Normal [facility] Comment on above: Performed By: #### 4 [id number] #### [facility] [address] [place] [address] Dr. Prashant Fletcher DIAGNOSIS: Comment Normal [facility] Comment on above: Result Comment: NEGA TIVE FOR INTRAEPITHELIAL LESION OR MALIGNANCY. Performed By: #### [id number] #### [facility] [address] [place] [address] Dr. Prashant Fletcher Methodology: Comment Normal [facility] Comment on above: Result Comment: This liquid based ThinPrep(R) pap test was screened with the use of an image guided system. Performed By: #### [id number] #### [facility] [address] [place] [address] Dr. Prashant Fletcher Note: Comment Normal [facility] Comment on above: Result Comment: The Pap smear is a screening test designed to aid in the detection of premalignant and malignant conditions of the uterine cervix. It is not a diagnostic procedure and should not be used as the sole means of detecting cervical cancer. Both false-positive and false-negative reports do occur. . Performed By: #### [id number] #### [facility] [address] [place] [address] Dr. Prashant Fletcher Performed by: Comment Normal [facility] Comment on above: Result Comment: Pati Johnson, Bingo Checker (ASCP) Performed By: #### [id number] #### [facility] [address] [place] [address] Dr. Prashant Fletcher Reflex Criteria: Comment Normal [facility] Comment on above: Result Comment: The HPV DNA reflex criteria were not met with this specimen result therefore, no HPV testing was performed. . Performed By: #### [id number] #### [facility] [address] [place] [address] Dr. Prashant Fletcher Specimen adequacy: Comment Normal [facility] Comment on above: Result Comment: Sati sfactory for evaluation. Endocervical and/or squamous metaplastic cells (endocervical component) are present. Performed By: #### [id number] #### [facility] [address] [place] [address] Dr. Prashant Fletcher SYMPTOMATIC COVID-19 ANTIGEN on 03-23-2022 EUA Statement SEE BELOW Normal [facility] Comment on above: Result Comment: This [...] sooner. Performed By: #### C VDAGS #### [facility] [address] [place] [address] Dr. Prashant Fletcher SARS-CoV-2 (COVID-19) RNA DIAMOND+probe Ql (Unsp spec) Negative Normal NEGATIVE [facility] Comment on above: Performed By: #### C VDAGS #### [facility] [address] [place] [address] Dr. Prashant Fletcher SYMPTOMATIC COVID-19 ANTIGEN on 03-22-2022 EUA Statement SEE BELOW Normal [facility] Comment on above: Result Comment: This [...] sooner. Performed By: #### C VDAGS #### [facility] [address] [place] [address] Dr. Prashant Fletcher SARS-CoV-2 (COVID-19) RNA DIAMOND+probe Ql (Unsp spec) Negative Normal NEGATIVE [facility] Comment on above: Performed By: #### C VDAGS #### [facility] [address] [place] [address] Dr. Prashant Fletcher Covid-19 PCR ([facility])on 01-01 SARS-CoV-2 (COVID-19) RNA DIAMOND+probe Ql (Unsp spec) Not detected Normal NOT DETECTED [facility] Comment on above: Result Comment: When [...] for this test is supported by the [employer] of [employer] and [employer] Service's declaration that [...] used). Performed By: #### C VDTBH #### [facility] [address] [place] [address] Dr. Prashant Fletcher CBC AUTO DIFFon 12-09-2021 BASO # 0.0 103/ul Normal 0.0-0.1 [facility] Comment on above: Performed By: #### C BC #### [facility] [address] [place] [address] Dr. Prashant Fletcher Basophils/100 WBC (Bld) 0.7 % Normal 0.2-2.0 [facility] Comment on above: Performed By: #### C BC #### [facility] [address] [place] [address] Dr. Prashant Fletcher EO # 0.2 103/ul Normal 0.0-0.7 [facility] Comment on above: Performed By: #### C BC #### [facility] [address] [place] [address] Dr. Prashant Fletcher Eosinophils/100 WBC (Bld) 4.4 % Normal 0.9-7.0 [facility] Comment on above: Performed By: #### C BC #### [facility] [address] [place] [address] Dr. Prashant Fletcher Erythrocyte distribution width (RBC) [Ratio] 15.5 % Critically high 11.0-15.0 [facility] Comment on above: Performed By: #### C BC #### [facility] [address] [place] [address] Dr. Prashant Fletcher Hematocrit (Bld) [Volume fraction] 40.1 % Normal 36.0-48.0 [facility] Comment on above: Performed By: #### C BC #### [facility] [address] [place] [address] Dr. Prashant Fletcher Hemoglobin (Bld) [Mass/Vol] 12.4 g/dL Normal 12.0-16.0 [facility] Comment on above: Performed By: #### C BC #### [facility] [address] [place] [address] Dr. Prashant Fletcher IG # 0.01 10e3/ul Normal 0.00-0.03 [facility] Comment on above: Performed By: #### C BC #### [facility] [address] [place] [address] Dr. Prashant Fletcher IG % 0.2 % Normal 0.0-0.[address] [facility] Comment on above: Performed By: #### C BC #### [facility] [address] [place] [address] Dr. Prashant Fletcher LYMPH # 1.8 103/ul Normal 1.2-3.[address] [facility] Comment on above: Performed By: #### C BC #### [facility] [address] [address] [address] Prashant Fletcher Lymphocytes/100 WBC (Bld) 33.3 % Normal 20.5-60.0 [facility] Comment on above: Performed By: #### C BC #### [facility] [address] [address] [address] Prashant Fletcher MANUAL DIFF REQ NO Normal [facility] Comment on above: Performed By: #### C BC #### [facility] [address] [place] [address] Dr. Prashant Fletcher MCH (RBC) [Entitic mass] 26.1 pg Critically low 26.7-34.[address] [facility] Comment on above: Performed By: #### C BC #### [facility] [address] [place] [address] Dr. Prashant Fletcher MCHC (RBC) [Mass/Vol] 30.9 g/dL Normal 29.9-35.[address] [facility] Comment on above: Performed By: #### C BC #### [facility] [address] [place] [address] Dr. Prashant Fletcher MCV (RBC) [Entitic vol] 84.4 fL Normal 81.0-99.0 [facility] Comment on above: Performed By: #### C BC #### [facility] [address] [place] [address] Dr. Prashant Fletcher MONO # 0.6 103/ul Normal 0.3-0.[address] [facility] Comment on above: Performed By: #### C BC #### [facility] [address] [place] [address] Dr. Prashant Fletcher Monocytes/100 WBC (Bld) 10.4 % Normal 1.7-12.[address] [facility] Comment on above: Performed By: #### C BC #### [facility] [address] [place] [address] Dr. Prashant Fletcher NEUT # 2.8 103/ul Normal 1.4-6.[address] [facility] Comment on above: Performed By: #### C BC #### [facility] [address] [place] [address] Dr. Prashant Fletcher Neutrophils/100 WBC (Bld) 51.0 % Normal 43.0-75.0 [facility] Comment on above: Performed By: #### C BC #### [facility] [address] [place] [address] Dr. Prashant Fletcher Platelet mean volume (Bld) [Entitic vol] 9.4 fL Critically low 9.5-13.5 [facility] Comment on above: Performed By: #### C BC #### [facility] [address] [place] [address] Dr. Prashant Fletcher PLT 184 103/ul Normal 150-450 [facility] Comment on above: Performed By: #### C BC #### [facility] [address] [place] [address] Dr. Prashant Fletcher RBC 4.75 106/ul Normal 4.20-5.40 [facility] Comment on above: Performed By: #### C BC #### [facility] [address] [place] [address] Dr. Prashant Fletcher WBC 5.5 103/ul Normal 4.0-11.0 [facility] Comment on above: Performed By: #### C BC #### [facility] [address] [place] [address] Dr. Prashant Fletcher FERRITINon 12-09-2021 Ferritin [Mass/Vol] 10.0 ng/mL Normal 6.2-137.0 [facility] Comment on above: Performed By: #### F ERR #### [facility] [address] [place] [address] Dr. Prashant Fletcher Vital Signs Date Time Vital Sign Value Performing Clinician Faci lity 11-23-2024 09:08-0500 Body mass index (BMI) [Ratio] 20.67 kg/m2 [facility] Nurse [facility] 11-23-2024 09:08-0500 Body weight 51.26 kg [facility] Nurse [facility] 11-23-2024 09:08-0500 Diastolic blood pressure 62 mm[Hg] [facility] Nurse [facility] 11-23-2024 09:08-0500 Systolic blood pressure 102 mm[Hg] [facility] Encounters Encounter Date Encounter Type Care Provider Facility Start: 01-18-2025 ambulatory CAN FEEDER Seble L Keily Facil ity:[facility] Start: 11-30-2024 End: 11-30-2024 ambulatory JUSTICE J CARLOS Not Available Start: 11-23-2024 End: 11-23-2024 Office outpatient visit 5 minutes [facility] Carlos Nurse [facility] Start: 11-23-2024 End: 11-23-2024 ambulatory JUSTICE J CARLOS Not Available Start: 11-20-2024 End: 11-20-2024 ambulatory JUSTICE J CARLOS Not Available Start: 11-20-2024 End: 11-20-2024 Patient encounter procedure [facility] Nurse [facility] Comment on above: Screening for lipoid disorders; Screening for diabetes mellitus Start: 11-13-2024 End: 11-13-2024 Telephone encounter Maribeth GRAY Work Phone: [facility] Start: 07-20-2024 End: 07-20-2024 ambulatory CAN FEEDER Seble L Keily Facility:[facility] Start: 03-01-2024 End: 03-01-2024 ambulatory JUSTICE J CARLOS Not Available Start: 01-20-2024 End: 01-20-2024 ambulatory CAN FEEDER Seble L Keily Facility:[facility] Start: 11-10-2022 End: 11-10-[address] JUSTICE JUDD Facility:[facility] Start: 03-23-2022 End: 03-23-2022 ambulatory JOSELINE REYES Facility:[facility] Start: 03-22-2022 End: 03-22-2022 ambulatory JOSELINE REYES Facility:[facility] Start: 01-12-2022 End: 01-12-2022 ambulatory JOSELINE REYES Facility:[facility] Start: 12-09-2021 End: 12-10-[address] JUSTICE JUDD Facility:[facility] Procedures Date Procedure Procedure Detail Performing Clinician Start: 11-23-2024 Urine test visual color cmprsn meths Justice J Carlos DO Work Phone: Start: 11-20-2024 Lipid panel Ruperto Galan DO Work Phone: Start: 02-29-2024 Microscopic observat ion [Identifier] in Cervix by Cyto stain Maribeth GRAY Work Phone: Plan of Treatment Date Care Activity Detail Author Start: 02-28-2027 Screening for malign ant neoplasm of cervix [facility] Start: 11-30-2024 End: 11-30-2024 Professional / ancillary services management 11/30/2024 8:00 AM EST Ancillary Procedure [facility] [address] [place] [address] [facility] Start: 11-23-2024 End: 11-23-2025 ABO/Rh ABO/Rh Lab Routine Missed menses , unspecified gestational age Expected: 11/23/2024 (Approximate), Expires: 11/23/2025 [facility] Comment on above: Expected: 11/23/2024 (Approximate), Expires: 11/23/2025 Start: 11-23-2024 End: 11-23-2025 Blood type and Indirect antibody screen panel - Blood Type and screen Lab Routine Missed menses , unspecified gestational age Expected: 11/23/2024 (Approximate), Expires: 11/23/2025 [facility] Work Phone: Comment on above: Expected: 11/23/2024 (Approximate), Expires: 11/23/2025 Start: 11-23-2024 End: 11-23-2025 Drugs of abuse panel - Urine by Screen method Rapid drug screen, urine Lab Routine , unspecified gestational age Encounter for supervision of normal first in first trimester Expected: 11/23/2024 (Approximate), Expires: 11/23/2025 [facility] Comment on above: Expected: 11/23/2024 (Approximate), Expires: 11/23/2025 Start: 11-23-2024 End: 11-23-2024 ambulatory 11/23/2024 9:00 AM EST Initial [facility] [address] [place] [address] [facility] Start: 06-03-2024 Influenza vaccination Influenza Vacc ine (#1) [facility] Start: 12-07-2023 Screening for malign ant neoplasm of cervix HPV/Cotest [facility] Bacteria identified in Urine by Culture Urine culture Microbiology Routine Missed menses Ordered: 11/23/2024 [facility] Comment on above: Ordered: 11/23/2024 CBC W Auto Different ial panel - Blood CBC and differential Lab Routine Missed menses , unspecified gestational age Ordered: 11/23/2024 [facility] Comment on above: Ordered: 11/23/2024 Hemoglobin A1c/Hemoglobin.total in Blood Hemoglobin A1c Lab Routine Missed menses , unspecified gestational age Ordered: 11/23/2024 [facility] Comment on above: Ordered: 11/23/2024 Hepatitis B virus surface Ag [Presence] in Serum or Plasma by Immunoassay Hepatitis B surface antigen Lab Routine Missed menses , unspecified gestational age Ordered: 11/23/2024 [facility] Comment on above: Ordered: 11/23/2024 Hepatitis C virus Ab [Presence] in Serum or Plasma by Immunoassay Hepatitis C antibody Lab Routine Missed menses , unspecified gestational age Ordered: 11/23/2024 [facility] Comment on above: Ordered: 11/23/2024 HIV-1/HIV-2 antigen/antibody combination immunoassay HIV-1 and HIV-2 antibodies Lab Routine Missed menses , unspecified gestational age Ordered: 11/23/2024 [facility] Comment on above: Ordered: 11/23/2024 Reagin Ab [Presence] in Serum by RPR RPR Lab Routine Missed menses , unspecified gestational age Ordered: 11/23/2024 [facility] Comment on above: Ordered: 11/23/2024 Rubella antibody, IgG Rubella an tibody, IgG Lab Routine Missed menses , unspecified gestational age Ordered: 11/23/2024 [facility] Comment on above: Ordered: 11/23/2024 Immunizations Immunization Date Immunization Notes [facility] influenza virus vacc ine, unspecified formulation Maribeth GRAY Work Phone: [facility] Payers Date Payer Category Payer Unknown [id number] 2022 Private Health Insurance [id number] 2022 Unknown [id number] 1993 Unknown [id number] 2.16.84 [id number] 1993 Unknown [id number] 2.16.84 [id number] 1993 Unknown [id number] 2.16.84 [id number] 1993 Unknown [id number] 2.16.84 [id number] 1993 Unknown [id number] 2.16.84 [id number] 1993 Unknown [id number] 2.16.8 [id number] 1993 Unknown [id number] 2.16.8 [id number] 1993 Unknown [id number] 2.16.8 [id number] 1993 Unknown [id number] 2.16.84 [id number] 1993 Unknown [id number] 2.16.84 [id number] 1993 Unknown [id number] 2.16.84 [id number] 1993 Unknown [id number] 2.16.84 [id number] 1959 Self-pay 1959 Unknown [id number] Social History Date Type Detail Facility Tobacco smoking stat [facility] Tobacco smoking consumption unknown [facility] Start: 1993 Sex assigned at Not on file [facility] Gender identity Not on file [facility] History of Present illness Narrative 11-23-2024 Sandra Romero MA - 11/23/2024 9:00 AM EST Note Date & Type Note Facility 11-23-2024 History of Presen t illness Narrative Reason for Appointment: Patient ID: George Mayorga is a 28 y.o. female who presents for Amenorrhea Patient presents today for a Nurse OB Intake appointment. Patient is Unknown with a Estimated Date of Delivery: None noted. OB History Para Term AB Living 2 1 SAB IAB Ectopic Multiple Live Births 1 # Outcome Date GA Lbr Enrique/2nd Weight Sex Type Anes PTL Lv 2 Current 1 09/29/21 M CS-LTranv CHERYL Current Medications: has a current medication list which includes the following prescription(s): ondansetron. Medical History: Active Ambulatory Problems Diagnosis Date Noted No Active Ambulatory Problems Resolved Ambulatory Problems Diagnosis Date Noted No Resolved Ambulatory Problems No Additional Past Medical History No family history on file. Social History Tobacco Use Smoking status: Not on file Smokeless tobacco: Not on file Substance Use Topics Alcohol use: Not on file Drug use: Not on file Past Surgical History: Procedure Laterality Date SECTION, LOW TRANSVERSE COLONOSCOPY LAPAROSCOPY DIAGNOSTIC / BIOPSY / ASPIRATION / LYSIS WISDOM TOOTH EXTRACTION Allergies Allergen Reactions Other Other Reaction(s): Other: See Comments animals Latex Rash Vitals: Estimated body mass index is 19.57 kg/m as calculated from the following: Height as of 03/01/24: 5' 2 . Weight as of 03/01/24: 107 lb. BP: Patient's last menstrual period was 09/26/2024. Assessment/Plan Diagnoses and all orders for this visit: Missed menses - Type and screen; Future - ABO/Rh; Future - CBC and differential - Hemoglobin A1c - RPR - Rubella antibody, IgG - Hepatitis B surface antigen - Hepatitis C antibody - HIV-1 and HIV-2 antibodies - Urine culture - POCT , urine manually resulted - POCT urinalysis dipstick manually resulted , unspecified gestational age - Type and screen; Future - ABO/Rh; Future - CBC and differential - Hemoglobin A1c - RPR - Rubella antibody, IgG - Hepatitis B surface antigen - Hepatitis C antibody - HIV-1 and HIV-2 antibodies - Rapid drug screen, urine; Future Encounter for supervision of normal first in first trimester - Rapid drug screen, urine; Future Nurse Note: OB Intake: Patient presents today for first OB visit. Patients history has been reviewed in great detail including any potential risks. Patient signed consent forms and patient desires testing in both trimesters. Patient currently has no complaints and has been advised to drink 6-8 glasses of water a day, eat no raw or undercooked meat, and stay away from [facility]. Patient has also been advised to not change litter boxes and eat 6 small meals a day. Patient has been consulted regarding the do's and don'ts of . Patient was given labs and all questions and concerns were answered. Follow Up: Patient is to return in 4 weeks for routine OB appointment. Follow Up: Patient is to have labs drawn at directed and return to office for initial OB appointment with provider. Patient may call office as needed with any concerns or questions. 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 documented in this encounter [facility] Telephone encounter Note 11-13-2024 Telephone Encounter - MARINA Hi - 11/13/2024 8:40 AM EST Note Date & Type Note Facility 11-13-2024 Telephone encount er Note Patient called stating she is nauseated and vomiting [facility] Note 11-13-2024 Telephone Encounter - MARINA Hi - 11/13/2024 8:40 AM EST Note Date & Type Note Facility 11-13-2024 Miscellaneous Notes Formattin g of this note might be different from the original. Patient called stating she is nauseated and vomiting documented in this encounter [facility] Evaluation note Note Date & Type Note Facility Evaluation note Diagnosis Nausea- Primary Nausea alone documented in this encounter [facility] Evaluation note Note Date & Type Note Facility Evaluation note Diagnosis Screening for lipoid disorders Screening for diabetes mellitus documented in this encounter [facility] Evaluation note Note Date & Type Note Facility Evaluation note Diagnosis Missed menses , unspecified gestational age Encounter for supervision of normal first in first trimester documented in this encounter [facility] Summary Purpose Family History No Family History Records FoundNo Family History Records FoundNo Family History Records Found Advance Directives No Advanced Directives Records FoundNo Advanced Directives Records FoundNo Advanced Directives Records Found Additional Source Comments INFORMATION SOURCE (unrecogn ized section and content) DATE CREATED AUTHOR 11/19/2022 [facility] DATE CREATED AUTHOR AUTHOR'S ORGANIZ ATION 07/22/2024 [facility] DATE CREATED AUTHOR AUTHOR'S ORGANIZ ATION 12/04/2024 [facility] EPIC Reason for Visit (unrecogniz ed section and content) Reason Comments Amenorrhea FOR RECORDS PERTAINING TO PATIENTS WHO ARE [...] BE BASED ON THE PRIMARY CLINICAL RECORDS. [facility] [employer] provides no warranty or guarantee of the accuracy or completeness of information in this document.
[2024-12-25 10:13] LABS: Basophils Percent Auto 0.3 % (0.2-2.0); Eosinophils Absolute Auto 0.2 10^3/uL (0.0-0.7); Eosinophils Percent Auto 2.1 % (0.9-7.0); Hematocrit 36.4 % (36.0-48.0); Hemoglobin 12.6 g/dL (12.0-16.0); Immature Granulocytes Abs Auto 0.02 10^3/uL (0.00-0.03); Immature Granulocytes Pct Auto 0.3 % (0.0-0.5); Lymphocytes Absolute Auto 1.5 10^3/uL (1.2-3.8); Lymphocytes Percent Auto 18.8 % (20.5-60.0); Mean Corpuscular HGB Conc 34.6 g/dL (29.9-35.2); Mean Corpuscular Hemoglobin 30.6 pg (26.7-34.0); Mean Corpuscular Volume 88.3 fL (81.0-99.0); Mean Platelet Volume 10.2 fL (9.5-13.5); Monocytes Absolute Auto 0.5 10^3/uL (0.3-0.8); Monocytes Percent Auto 6.1 % (1.7-12.0); Neutrophils Absolute Auto 5.8 10^3/uL (1.4-6.5); Neutrophils Percent Auto 72.4 % (43.0-75.0); Platelet Count 153 10^3/uL (150-450); Red Blood Count 4.12 10^6/uL (4.20-5.40); Red Cell Distribution Width 13.3 % (11.0-15.0)
[2024-12-25 11:17] LABS: Estimated Average Glucose 97 mg/dL
[2024-12-26 05:07] LABS: HCV Ab Non Reactive (Non Reactive); HIV Ab/p24 Ag Screen Non Reactive (Non Reactive); Rubella Antibodies, IgG 4.57 index (Immune >0.99)
[2024-12-26 06:12] LABS: HBsAg Screen Negative (Negative)
[2024-12-26 12:09] LABS: Rapid Plasma Reagin, Quant Non Reactive titer (NonRea<1:1)
== END 2024-12-25 09:24 | disposition home or self-care (01) ==
LOC: LAB 09:28
PROVIDERS: PCP Nurse Practitioner; Visit Provider Obstetrics & Gynecology
DX: Z34.01 Encounter for supervision of normal first pregnancy, first trimester (principal)
CPT/HCPCS: 36415; 83036; 85025; 86592; 86762; 86803; 86850; 86900; 86901; 87086; 87340; 87389

== ENCOUNTER 2025-03-23 06:40 | Outpatient (OUT) | payer BC, MEDICAID, SELFPAY ==
--- OUTSIDE RECORDS SUMMARY | 2025-03-23 06:41 | XMS_ITS | CCD ---
Author Organization [facility] Care Team Providers Care Mower Mechanic Name Role Phone DR JUSTICE WHITMAN Admitting Unavailable J CARLOS, DR RENDON Consulting Unavailable J CARLOS, DR RENDON Attending Unavailable MISC, DR DOE Primary Care Unavailable DIDIER, DESIREE Consulting Unavailable DIDIER, DESIREE Attending Unavailable DIDIER, DESIREE Admitting Unavailable MISC, DR DOE Primary Care Unavailable DIDIER, DESIREE Consulting Unavailable DIDIER, DESIREE Attending Unavailable DIDIER, DESIREE Admitting Unavailable MISC, DR DOE Primary Care Unavailable DIDIER, DESIREE Admitting Unavailable DIDIER, DESIREE Consulting Unavailable DIDIER, DESIREE Attending Unavailable MISC, DR DOE Primary Care Unavailable J CARLOS, DR RENDON Admitting Unavailable J CARLOS, DR RENDON Consulting Unavailable J CARLOS, DR RENDON Attending Unavailable MISC, DR DOE Primary Care Unavailable Keily, SURVEY RESEARCH TEACHER Seble L Attending Unavailable Keily, SURVEY RESEARCH TEACHER Seble L Attending Unavailable Keily, SURVEY RESEARCH TEACHER Seble L Attending Unavailable Unavailable Primary Care Provider Unavaillinda e JUSTICE WHITMAN Attending Unavailable DIDIER, DESIREE Attending Unavailable J CARLOSJUSTICE Attending Unavailable J CARLOS, JUSTICE Attending Unavailable Unavailable Primary Care Provider UnavailJUSTICE Carney R Referring Unavailable REID RAI Attending Unavailable , CORDELIA Referring Unavailable Allergies Allergy Classification Reported Allergen(s) Allergy Type Date of Onset Reaction(s) Facility (14 sources) Latex; Translations: [Latex] Propensity to adverse reactions (disorder) 4 Rash [facility] Repository (1 source) No Known Medication Allergies; Translations: [No Known Medication Allergies] Propensity to adverse reactions (disorder) [facility] Repository (11 sources) Other; Translations: [OTHER] Allergy to substance 3 [facility] Medications Current Medications Medication Drug Class(es) Dates Sig (Normalized) Sig (Original) clobetasol propionate 0.5 mg/ml topical cream (1 source) Corticosteroid clobetasoL (CAL VATE) 0.05 % cream Apply 1 Application topically in the morning and 1 Application before bedtime. Active diphenhydrAMINE hydrochloride 25 mg oral capsule (1 source) Histamine-1 Receptor Antagonist take 1 capsule by mouth every six hours as needed diphenhydrAMINE (BENADRYL) 25 mg capsule Take 1 capsule (25 mg total) by mouth every 6 (six) hours as needed for itching. Active methylPREDNISolone (4 sources) Corticosteroid Start: End: methylPREDNISolone (Medrol Dospak) 4 MG tablets Indications: [...] 6: 1 tablet 21 tablet 07/10/2024 Active take 1 tablet by steve th in the morning methylPREDNISolone (MEDROL) 4 mg tablet Take 1 tablet (4 mg total) by mouth in the morning. Active omeprazole 20 mg delayed release oral capsule (4 sources) Proton Pump Inhibitor Start: 02-26-2025 End: 05-27-2025 take 1 capsule by mouth before mealtime omeprazole (PriLOSEC) [address] capsule Indications: Gastroesophageal reflux disease without esophagitis Take 1 capsule (20 mg) by mouth in the morning. Take before meals. Do not crush or chew. 90 capsule 3 02/26/2025 05/27/2025 Active ondansetron 4 mg oral tablet (4 sources) Serotonin-3 Receptor Antagonist Start: 11-13-2024 End: 12-13-2024 take 1 tablet by mouth twice daily as needed for nausea ondansetron (Zofran) 4 MG tablet Indications: Nausea Take 1 tablet (4 mg) by mouth 2 (two) times a day as needed for nausea 20 tablet 5 11/13/2024 12/13/2024 Active take 1 tablet by steve th every eight hours as needed for nausea and vomiting ondansetron (ZOFRAN) 4 mg tablet Take 1 tablet (4 mg total) by mouth every 8 (eight) hours as needed for nausea or vomiting. Active Completed/Discontinued Medications Medication Drug Class(es) Dates Sig (Normalized) Sig (Original) azithromycin 250 mg oral tablet (2 sources) Macrolide Antimicrobial Start: 12-07-2024 End: 12-27-2024 azithromycin (Zithromax Z-Ken) 250 MG tablet Indications: Upper respiratory tract infection, unspecified type , Sinusitis, unspecified chronicity, unspecified location As directed 6 tablet 12/07/2024 12/27/2024 Discontinued (Therapy completed) Problems Active Problems Problem Classification Problem Date Documented Date Episodic/Chronic Esophageal disorders (3 sources) Gastroesophageal reflux disease without esophagitis; Translations: [Gastro-esophageal reflux disease without esophagitis] Onset: 02-26-2025 02-26-2025 Chronic Menstrual disorders (1 source) Missed period; Translations: [Irregular menstruation, unspecified] 11-23-2024 Chronic Nausea and vomiting (1 source) Nausea; Translations: [Nausea] 11-13-2024 Episodic Other and delivery including normal (8 sources) ; Translations: [Encounter for supervision of normal , unspecified, unspecified trimester] 11-23-2024 Episodic Other screening for suspected conditions (not mental disorders or infectious disease) (10 sources) Encounter for screening for malignant neoplasm of cervix; Translations: [Encounter for screening for diseases of the blood and blood-forming organs and certain disorders involving the immune mechanism] Onset: 12-21-2021 Episodic Residual codes; unclassified (2 sources) Gestation period, 13 weeks; Translations: [13 weeks gestation of ] 12-27-2024 Episodic Residual codes; unclassified (2 sources) Gestation period, 17 weeks; Translations: [17 weeks gestation of ] 01-23-2025 Episodic Residual codes; unclassified (2 sources) Gestation period, 25 weeks; Translations: [25 weeks gestation of ] 03-21-2025 Episodic Unclassified (3 sources) CONTACT W/AND (SUSP) EXPOS COVID-19; Translations: [CONTACT W/AND (SUSP) EXPOS COVID-19] Onset: 03-25-2022 Unclassified (1 source) Abnormal Ultrasound Onset: 03-12-2025 Past or Other Problems Problem Classification Problem [...] Value Interpretation Reference Range Facility US OB 14+ WEEKS ANATOMY SCAN on 02-13-2025 US OB 14+ WEEKS ANATOMY SCAN EXAM: US OB 14+ WEEKS ANATOMY SCAN HISTORY: anatomy. COMPARISON: Ob ultrasound 11/30/2024. TECHNIQUE: Two-dimensional transabdominal grayscale ultrasound imaging of the pelvis was performed. FINDINGS: Gestation: Single Presentation: Cephalic Cardiac Activity: 133 beats per minute Placental Location: Posterior with no sonographic abnormalities identified. Distance from Placental Tip to Cervix: 3.2 cm Cervical Length: 4.7 cm Amniotic Fluid: Appears adequate MEASUREMENTS: BPD: 4.9 cm EGA: 20 weeks 6 days HC: 17.1 cm EGA: 19 weeks 5 days AC: 15.5 cm EGA: 20 weeks 4 days FL: 3.2 cm EGA: 20 weeks 0 days HC/AC Ratio: 1.11 The gestational age by today's ultrasound is 20 weeks 2 days (+/- 10 days gestation). Estimated Weight: 346 grams, +/- 52 grams ( 0 lb 12 oz). Weight Percentile for gestational age: 64 % ANATOMY C-Spine: Unremarkable T-Spine: Unremarkable L-Spine: Unremarkable Sacrum: Unremarkable Four Chamber Heart: Limited -Performing technologist notes abnormal axis of the heart. LVOT: Limited RVOT: Limited Stomach: Unremarkable Kidneys: Unremarkable Bladder: Unremarkable Diaphragm: Unremarkable Cord insertion: Unremarkable Cord vessels: Three Lateral Ventricles: Unremarkable Cerebellum: Unremarkable Cisterna Magna: Unremarkable Posterior Fossa: Unremarkable Right Femur: Unremarkable Left Femur: Unremarkable Right Tib/Fib: Unremarkable Left Tib/Fib: Unremarkable Right Rad/Ulnar: Unremarkable Left Rad/Ulnar: Unremarkable Right Humerus: Unremarkable Left Humerus: Unremarkable Nose/Lips: Unremarkable Profile: Unremarkable Orbits: Unremarkable IMPRESSION: 1. Single, live intrauterine gestation 20 weeks, 0 days by LMP. Today's ultrasound measurements correlate with a gestational age of 20 weeks 2 days. Estimated weight is 346 grams, +/- 52 grams ( 0 lb 12 oz) which correlates to 64 %. CLARISSA is 07/01/2025. 2. Unremarkable anatomy with limited visualization of the four-chamber heart and outflow tracts. The performing technologist noted abnormal axis of the heart; however, limited in visualization. Interpreted by: Electronically signed by CAYLA SILVA II, MD, PHD at 14-Feb-2025 11:33:18 AM [facility] Normal Not Available Comment on above: Order Comment: US OB ANATOMY SINGLE W US OB CERVICAL LENGTH Estimated Date of Delivery: 07/03/25 Gestational Age as of 01/23/2025: 17w0d Urinalysis macro (dipstick) panel (U)on 12-27-2024 Bilirubin, UA Negative Negative - 4(70) +++ mg/dL [facility] Blood, UA Negative Negative - 50 Toni/mcL [facility] Clarity, UA Clear [facility] re Color, UA Yellow [facility] [employer] e Glucose, UA Negative Negative - 1999(110) ++++ mg/dL [facility] Interpretation and review of laboratory results Normal [facility] re Ketones, UA Negative Negative - 160(16) ++++ mg/dL [facility] Leukocytes, UA Positive Negative - 500+++ Amish/mcL [facility] Nitrite, UA Negative Negative - Positive [facility] pH, UA 6.5 5 - 9 [facility] Protein, UA Negative Negative - 2000(20) ++++ mg/dL [facility] Spec Grav, UA 1.02 1 - 1.03 [facility] Urobilinogen, UA 0.2 0.2 - 12 mg/dL [facility] OB TRANSVAGINALon 025 US OB TRANSVAGINAL [...] PHD at 01-Dec-2024 07:22:16 AM [facility] Normal Not Available Comment on above: Order Comment: US OB TRANSVAGINAL Patient's last menstrual period was 09/26/2024. HCG ( test) Ql (U)o n 11-23-2024 Interpretation and review of laboratory results Abnormal [facility] Preg Test, Ur Positive Negative [facility] CARDIOCHECK - LIPID AND GLUC OSEon 11-20-2024 Cholesterol [Mass/Vol] 115 mg/dL NINF - 200 [facility] Healthcare Cholesterol in HDL [Mass/Vol] 55 mg/dL M: 35-65 F: 35-80 [facility] Cholesterol in LDL [Mass/Vol] 60 mg/dL NINF - 100 [facility] Healthcare Glucose [Mass/Vol] 102 mg/dL NINF - 100 [facility] Interpretation and review of laboratory results Abnormal [facility] re Triglyceride [Mass/Vol] 170 mg/dL NINF - 150 [facility] Family Medicine Office/Clini c Noteon 07-20-2024 Family Medicine Office/Clinic Note Family Medicine Office/Clinic Note HPI Staff Rhea is a 28 year old female presenting [...] glen, Topical, BID, 45 gram, Refill(s) 0, [facility]/pharmacy #[id number], 157.4, cm, 07/20/24 14:43:00 EDT, Height/Length [...] Recorded Hib, unspecified formulation 02/05/1994 Recorded Normal [facility] Comment on above: Result Comment: Elec tronically Signed By: Keily ESPINOSA, Seble Clayton\.br\Date and Time Signed: 07/20/24 14:56 EDT RAD - Ultrasound Reporton RAD - Ultrasound Report [id number]. [id number] [facility] Consenton 01-23-2024 Consent [id number] .00TIFF [facility] PAP ACOG PANEL 2: 21 to 29on 11-18-2022 . . Normal [facility] Comment on above: Performed By: #### [id number] #### [facility] [address] [place] [address] Dr. Prashant Fletcher Age Gdln ACOG Testing 19- [facility] Comment on above: Performed By: #### [id number] #### [facility] [address] [address] [address] Prashant Fletcher DIAGNOSIS: Comment [facility] Comment on above: Result Comment: NEGA TIVE FOR INTRAEPITHELIAL LESION OR MALIGNANCY. Performed By: #### [id number] #### [facility] [address] [place] [address] Dr. Prashant Fletcher Methodology: Comment Normal [facility] Comment on above: Result Comment: This liquid based ThinPrep(R) pap test was screened with the use of an image guided system. Performed By: #### [id number] #### [facility] [address] [place] [address] Dr. Prashant Fletcher Note: Comment Normal [facility] Comment on above: Result Comment: The Pap smear is a screening test designed to aid in the detection of premalignant and malignant conditions of the uterine cervix. It is not a diagnostic procedure and should not be used as the sole means of detecting cervical cancer. Both false-positive and false-negative reports do occur. . Performed By: #### [id number] #### [facility] [address] [place] [address] Dr. Prashant Fletcher Performed by: Comment Normal [facility] Comment on above: Result Comment: Pati Johnson, Director Of Litigation (ASCP) Performed By: #### [id number] #### [facility] [address] [place] [address] Dr. Prashant Fletcher Reflex Criteria: Comment Normal [facility] Comment on above: Result Comment: The HPV DNA reflex criteria were not met with this specimen result therefore, no HPV testing was performed. . Performed By: #### [id number] #### [facility] [address] [place] [address] Dr. Prashant Fletcher Specimen adequacy: Comment Normal [facility] Comment on above: Result Comment: Sati sfactory for evaluation. Endocervical and/or squamous metaplastic cells (endocervical component) are present. Performed By: #### [id number] #### [facility] [address] [place] [address] Dr. Prashant Fletcher SYMPTOMATIC COVID-19 ANTIGEN on 03-23-2022 EUA Statement SEE BELOW [facility] Comment on above: Result Comment: This test [...] sooner. Performed By: #### C VDAGS #### [facility] [address] [place] [address] Dr. Prashant Fletcher SARS-CoV-2 (COVID-19) RNA DIAMOND+probe Ql (Unsp spec) Negative Normal NEGATIVE [facility] Comment on above: Performed By: #### C VDAGS #### [facility] [address] [place] [address] Dr. Prashant Fletcher SYMPTOMATIC COVID-19 ANTIGEN on 03-22-2022 EUA Statement SEE BELOW Normal [facility] Comment on above: Result Comment: This test [...] sooner. Performed By: #### C VDAGS #### [facility] [address] [place] [address] Dr. Prashant Fletcher SARS-CoV-2 (COVID-19) RNA DIAMOND+probe Ql (Unsp spec) Negative Normal NEGATIVE [facility] Comment on above: Performed By: #### C VDAGS #### [facility] [address] [place] [address] Dr. Prashant Fletcher [facility]01 SARS-CoV-2 (COVID-19) RNA DIAMOND+probe Ql (Unsp spec) Not detected Normal NOT DETECTED [facility] Comment on above: Result Comment: When [...] for this test is supported by the Freedom of Health and Human Service's declaration that [...] used). Performed By: #### C VDTBH #### [facility] [address] [place] [address] Dr. Prashant Fletcher CBC AUTO DIFFon 12-09-2021 BASO # 0.0 103/ul Normal 0.0-0.1 [facility] Comment on above: Performed By: #### C BC #### [facility] [address] [place] [address] Dr. Prashant Fletcher Basophils/100 WBC (Bld) 0.7 % Normal 0.2-2.0 [facility] Comment on above: Performed By: #### C BC #### [facility] [address] [place] [address] Dr. Prashant Fletcher EO # 0.2 103/ul Normal 0.0-0.7 [facility] Comment on above: Performed By: #### C BC #### [facility] [address] [place] [address] Dr. Prashant Fletcher Eosinophils/100 WBC (Bld) 4.4 % Normal 0.9-7.0 [facility] Comment on above: Performed By: #### C BC #### [facility] [address] [place] [address] Dr. Prashant Fletcher Erythrocyte distribution width (RBC) [Ratio] 15.5 % Critically high 11.0-15.0 [facility] Comment on above: Performed By: #### C BC #### [facility] [address] [place] [address] Dr. Prashant Fletcher Hematocrit (Bld) [Volume fraction] 40.1 % Normal 36.0-48.0 [facility] Comment on above: Performed By: #### C BC #### [facility] [address] [place] [address] Dr. Prashant Fletcher Hemoglobin (Bld) [Mass/Vol] 12.4 g/dL Normal 12.0-16.0 [facility] Comment on above: Performed By: #### C BC #### [facility] [address] [place] [address] Dr. Prashant Fletcher IG # 0.01 10e3/ul Normal 0.00-0.03 [facility] Comment on above: Performed By: #### C BC #### [facility] [address] [place] [address] Dr. Prashant Fletcher IG % 0.2 % Normal 0.0-0.5 [facility] Comment on above: Performed By: #### C BC #### [facility] [address] [place] [address] Dr. Prashant Fletcher LYMPH # 1.8 103/ul Normal 1.2-3.8 [facility] Comment on above: Performed By: #### C BC #### [facility] [address] [place] [address] Dr. Prashant Fletcher Lymphocytes/100 WBC (Bld) 33.3 % Normal 20.5-60.0 [facility] Comment on above: Performed By: #### C BC #### [facility] [address] [place] [address] Dr. Prashant Fletcher MANUAL DIFF REQ NO Normal [facility] Comment on above: Performed By: #### C BC #### [facility] [address] [address] [address] Prashant Fletcher MCH (RBC) [Entitic mass] 26.1 pg Critically low 26.7-34.0 [facility] Comment on above: Performed By: #### C BC #### [facility] [address] [address] [address] Prashant Fletcher MCHC (RBC) [Mass/Vol] 30.9 g/dL Normal 29.9-35.2 [facility] Comment on above: Performed By: #### C BC #### [facility] [address] [place] [address] Dr. Prashant Fletcher MCV (RBC) [Entitic vol] 84.4 fL Normal 81.0-99.0 [facility] Comment on above: Performed By: #### C BC #### [facility] [address] [place] [address] Dr. Prashant Fletcher MONO # 0.6 103/ul Normal 0.3-0.8 [facility] Comment on above: Performed By: #### C BC #### [facility] [address] [place] [address] Dr. Prashant Fletcher Monocytes/100 WBC (Bld) 10.4 % Normal 1.7-12.0 [facility] Comment on above: Performed By: #### C BC #### [facility] [address] [place] [address] Dr. Prashant Fletcher NEUT # 2.8 103/ul Normal 1.4-6.5 [facility] Comment on above: Performed By: #### C BC #### [facility] [address] [place] [address] Dr. Prashant Fletcher Neutrophils/100 WBC (Bld) 51.0 % Normal 43.0-75.0 [facility] Comment on above: Performed By: #### C BC #### [facility] [address] [place] [address] Dr. Prashant Fletcher Platelet mean volume (Bld) [Entitic vol] 9.4 fL Critically low 9.5-13.5 [facility] Comment on above: Performed By: #### C BC #### [facility] [address] [address] [address] Prashant Fletcher PLT 184 103/ul Normal 150-450 [facility] Comment on above: Performed By: #### C BC #### [facility] [address] [place], [place] [address] Dr. Prashant Fletcher RBC 4.75 106/ul Normal 4.20-5.40 [facility] Comment on above: Performed By: #### C BC #### [facility] [address] [place], [place] [address] Dr. Prashant Fletcher WBC 5.5 103/ul Normal 4.0-11.0 [facility] Comment on above: Performed By: #### C BC #### [facility] [address] [place] [address] Dr. Prashant Fletcher FERRITINon 12-09-2021 Ferritin [Mass/Vol] 10.0 ng/mL Normal 6.2-137.0 [facility] Comment on above: Performed By: #### F ERR #### [facility] [address] [place] [address] Dr. Prashant Fletcher Vital Signs Date Time Vital Sign Value Performing Clinician Angelica rosenbaum 03-21-2025 09:10-0400 Body mass index (BMI) [Ratio] 26.89 kg/m2 Maribeth GRAY Work Phone: [facility] 03-21-2025 09:10-0400 Body weight 66.68 kg Maribeth GRAY Work Phone: [facility] 03-21-2025 09:10-0400 Diastolic blood pressure 72 mm[Hg] Maribeth GRAY Work Phone: [facility] 03-21-2025 09:10-0400 Systolic blood pressure 110 mm[Hg] Maribeth GRAY Work Phone: [facility] 03-12-2025 07:57-0400 Body height 157.5 cm Reid Rai MD Work Phone: [facility] 03-12-2025 07:57-0400 Body mass index (BMI) [Ratio] 26.15 kg/m2 Reid Rai MD Work Phone: [facility] 03-12-2025 07:57-0400 Body weight 64.86 kg Reid Rai MD Work Phone: [facility] 03-12-2025 07:57-0400 Diastolic blood pressure 73 mm[Hg] Reid Rai MD Work Phone: [facility] 03-12-2025 07:57-0400 Heart rate 88 /min Reid Rai MD Work Phone: [facility] 03-12-2025 07:57-0400 Systolic blood pressure 111 mm[Hg] Reid Rai MD Work Phone: [facility] 01-23-2025 08:54-0400 Body mass index (BMI) [Ratio] 23.23 kg/m2 Desiree Velásquez DYNAMITE PACKING MACHINE OPERATOR Work Phone: [facility] 01-23-2025 08:54-0400 Body weight 57.61 kg Desiree Velásquez DYNAMITE PACKING MACHINE OPERATOR Work Phone: [facility] 01-23-2025 08:54-0400 Diastolic blood pressure 72 mm[Hg] Desiree Didier DYNAMITE PACKING MACHINE OPERATOR Work Phone: [facility] 01-23-2025 08:54-0400 Systolic blood pressure 118 mm[Hg] Desiree Velásquez DYNAMITE PACKING MACHINE OPERATOR Work Phone: [facility] 12-27-2024 08:50-0400 Body mass index (BMI) [Ratio] 21.4 kg/m2 Justice J Carlos DO Work Phone: [facility] 12-27-2024 08:50-0400 Body weight 53.07 kg Justice J Carlos DO Work Phone: [facility] 12-27-2024 08:50-0400 Diastolic blood pressure 58 mm[Hg] Justice J Carlos DO Work Phone: [facility] 12-27-2024 08:50-0400 Systolic blood pressure 102 mm[Hg] Justice J Carlos DO Work Phone: [facility] 11-23-2024 09:08-0500 Body mass index (BMI) [Ratio] 20.67 kg/m2 [facility] 11-23-2024 09:08-0500 Body weight 51.26 kg [facility] 11-23-2024 09:08-0500 Diastolic blood pressure 62 mm[Hg] [facility] 11-23-2024 09:08-0500 Systolic blood pressure 102 mm[Hg] [facility] Nurse [facility] Healthcare Encounters Encounter Date Encounter Type Care Provider Facility Start: 03-21-2025 End: 03-21-2025 Bamboo flowsheet Maribeth GRAY Work Phone: [facility] Start: 03-21-2025 End: 03-21-2025 Bamboo flowsheet Maribeth GRAY Work Phone: [facility] Start: 03-21-2025 End: 03-21-2025 Office outpatient visit 15 minutes Maribeth GRAY Work Phone: [facility] Comment on above: Second trimester pre gnancy ([employer] [facility] (Primary Dx); 25 weeks gestation of ([facility]) Start: 03-12-2025 End: 03-12-2025 Office consultation new/estab patient 60 min Cordelia Hamilton MD Work Phone: Maternal- Medicine at [facility] Comment on above: Encounter for observ ation of suspected anomaly not found (Primary Dx) Start: 03-12-2025 End: 03-12-2025 ambulatory JUSTICE R J CARLOS [facility] Start: 02-21-2025 End: 02-21-2025 ambulatory JUSTICE J CARLOS Not Available Start: 02-13-2025 End: 02-13-2025 ambulatory JUSTICE J CARLOS Not Available Start: 01-23-2025 End: 01-23-2025 Bamboo flowsheet Desiree Velásquez NP Work Phone: [facility] Start: 01-23-2025 End: 01-23-2025 Bamboo flowsheet Desiree Velásquez DYNAMITE PACKING MACHINE OPERATOR Work Phone: [facility] Start: 01-23-2025 End: 01-23-2025 flow sheet Desiree Velásquez DYNAMITE PACKING MACHINE OPERATOR Work Phone: [facility] Comment on above: Second trimester pre gnancy; 17 weeks gestation of Start: 01-23-2025 End: 01-23-2025 ambulatory DESIREE DIDIER Not Available Start: 01-18-2025 ambulatory SURVEY RESEARCH TEACHER Sbele L Keily Facil ity:[facility] Start: 12-27-2024 End: 12-27-2024 flow sheet Justice J Carlos DO Work Phone: [facility] Comment on above: Second trimester pre gnancy; 13 weeks gestation of Start: 12-27-2024 End: 12-27-2024 ambulatory JUSTICE J CARLOS Not Available Start: 11-30-2024 End: 11-30-2024 ambulatory JUSTICE J CARLOS Not Available Start: 11-23-2024 End: 11-23-2024 Office outpatient visit 5 minutes [facility] Carlos Nurse [facility] Start: 11-23-2024 End: 11-23-2024 ambulatory JUSTICE J CARLOS Not Available Start: 11-20-2024 End: 11-20-2024 ambulatory JUSTICE J CARLOS Not Available Start: 11-20-2024 End: 11-20-2024 Patient encounter procedure [facility] Nurse [facility] Comment on above: Screening for lipoid disorders; Screening for diabetes mellitus Start: 11-13-2024 End: 11-13-2024 Telephone encounter Maribeth GRAY Work Phone: [facility] Start: 07-20-2024 End: 07-20-2024 ambulatory SURVEY RESEARCH TEACHER Seble L Keily Facility:[facility] Start: 03-01-2024 End: 03-01-2024 ambulatory JUSTICE J CARLOS Not Available Start: 01-20-2024 End: 01-20-2024 ambulatory SURVEY RESEARCH TEACHER Seble L Keily Facility:[facility] Start: 11-10-2022 End: 11-10-[address] JUSTICE WHITMAN Facility:[facility] Start: 03-23-2022 End: 03-23-2022 ambulatory DESIREE VELÁSQUEZ Facility:[facility] Start: 03-22-2022 End: 03-22-2022 ambulatory DESIREE VELÁSQUEZ Facility:[facility] Start: 01-12-2022 End: 01-12-2022 ambulatory DESIREE VELÁSQUEZ Facility:[facility] Start: 12-09-2021 End: 12-10-[address] JUSTICE WHITMAN Facility:[facility] Procedures Date Procedure Procedure Detail Performing Clinician Start: 12-27-2024 Urnls dip stick/tabl et rgnt non-auto w/o micrscp Justice Whitman DO Work Phone: Start: 11-23-2024 Urine test visual color cmprsn meths Justice Whitman DO Work Phone: Start: 11-20-2024 Lipid panel Ruperto Galan DO Work Phone: Start: 02-29-2024 Microscopic observat ion [Identifier] in Cervix by Cyto stain Maribeth GRAY Work Phone: Plan of Treatment Date Care Activity Detail Author Start: 02-28-2027 Screening for malign ant neoplasm of cervix [facility] Start: 03-12-2026 Adult BMI Screening Adult BMI Screen ing [facility] Start: 06-03-2025 Influenza vaccination [facility] Start: 04-18-2025 End: 04-18-2025 Patient encounter procedure 04/18/2025 8:40 AM EDT Routine [facility] [address] [place] [address] Justice Whitman, DO [address], [place] [id number] [facility] Start: 02-21-2025 End: 02-21-2025 Patient encounter procedure 02/21/2025 8:40 AM EDT Routine [facility] [address] [place] [phone] Justice Whitman DO [address] [facility] [place] [address] [place] [address] [facility] Start: 02-13-2025 End: 02-13-2025 Professional / ancillary services management 02/13/2025 8:00 AM EDT Ancillary Procedure [facility] [address] [address] [facility] Start: 01-24-2025 End: 01-24-2025 Patient encounter procedure 01/24/2025 8:50 AM EDT Routine [facility] [address] [id number] Maribeth Carrillo PA [address] [facility] [place] [address] [facility] Start: 01-23-2025 End: 01-23-2025 Patient encounter procedure 01/23/2025 8:40 AM EDT Routine [facility] [address] [phone] Desiree Velásquez, SHARRI [address] [facility] [place] [address] [place] [phone] Arrived [facility] Comment on above: Arrived Start: 11-30-2024 End: 11-30-2024 Professional / ancillary services management 11/30/2024 8:00 AM EST Ancillary Procedure [facility] [address] [phone] [facility] Start: 11-23-2024 End: 11-23-2025 ABO/Rh ABO/Rh Lab Routine Missed menses , unspecified gestational age Expected: 11/23/2024 (Approximate), Expires: 11/23/2025 [facility] Comment on above: Expected: 11/23/2024 (Approximate), Expires: 11/23/2025 Start: 11-23-2024 End: 11-23-2025 Blood type and Indirect antibody screen panel - Blood Type and screen Lab Routine Missed menses , unspecified gestational age Expected: 11/23/2024 (Approximate), Expires: 11/23/[address] [facility] Work Phone: Comment on above: Expected: 11/23/2024 (Approximate), Expires: 11/23/2025 Start: 11-23-2024 End: 11-23-2025 Drugs of abuse panel - Urine by Screen method Rapid drug screen, urine Lab Routine , unspecified gestational age Encounter for supervision of normal first in first trimester Expected: 11/23/2024 (Approximate), Expires: 11/23/[address] [facility] Comment on above: Expected: 11/23/2024 (Approximate), Expires: 11/23/2025 Start: 11-23-2024 End: 11-23-2024 ambulatory 11/23/2024 9:00 AM EST Initial [facility] [address] [place] [address] [place] [phone] [facility] Start: 06-03-2024 Influenza vaccination Influenza Vacc ine (#1) [facility] Start: 12-07-2023 Screening for malign ant neoplasm of cervix HPV/Cotest [facility] Start: 12-07-2011 Adult BMI Follow Up Plan Adult BMI Follow Up Plan [facility] Start: 2005 Depression Screening Depression Scre ening [facility] Start: 2005 Tobacco Screening Tobacco Screening [facility] Start: 2004 DTaP,Tdap and Td Vaccines (5 - Tdap) DTaP,Tdap and Td Vaccines (5 - Tdap) [facility] Bacteria identified in Urine by Culture Urine culture Microbiology Routine Missed menses Ordered: 11/23/[address] [facility] Comment on above: Ordered: 11/23/2024 CBC W Auto Different ial panel - Blood CBC and differential Lab Routine Missed menses , unspecified gestational age Ordered: 11/23/[address] [facility] Comment on above: Ordered: 11/23/2024 Hemoglobin A1c/Hemoglobin.total in Blood Hemoglobin A1c Lab Routine Missed menses , unspecified gestational age Ordered: 11/23/[address] [facility] Comment on above: Ordered: 11/23/2024 Hepatitis B virus surface Ag [Presence] in Serum or Plasma by Immunoassay Hepatitis B surface antigen Lab Routine Missed menses , unspecified gestational age Ordered: 11/23/[address] [facility] Comment on above: Ordered: 11/23/2024 Hepatitis C virus Ab [Presence] in Serum or Plasma by Immunoassay Hepatitis C antibody Lab Routine Missed menses , unspecified gestational age Ordered: 11/23/[address] [facility] Comment on above: Ordered: 11/23/2024 HIV-1/HIV-2 antigen/antibody combination immunoassay HIV-1 and HIV-2 antibodies Lab Routine Missed menses , unspecified gestational age Ordered: 11/23/[address] [facility] Comment on above: Ordered: 11/23/2024 Reagin Ab [Presence] in Serum by RPR RPR Lab Routine Missed menses , unspecified gestational age Ordered: 11/23/[address] [facility] Comment on above: Ordered: 11/23/2024 Rubella antibody, IgG Rubella an tibody, IgG Lab Routine Missed menses , unspecified gestational age Ordered: 11/23/[address] [facility] Comment on above: Ordered: 11/23/2024 Immunizations Immunization Date Immunization Notes Care Provider Jonathon law 07-18-2018 influenza virus vacc ine, unspecified formulation Maribeth GRAY Work Phone: [facility] Payers Date Payer Category Payer Medicaid ..[id number] 2024 Medicaid [id number] 2024 [facility]M [id number] 2024 Unknown [id number] 2022 Private Health Insurance [id number] 2022 Unknown [id number] 1993 Unknown [id number] 2.16.840.1.708794.3.579.2. 593 1993 Unknown [id number] 2.16.840.1.330965.3.579.2. 593 1993 Unknown [id number] 2.16.840.1.576450.3.579.2. 593 1993 Unknown [id number] 2.16.840.1.495986.3.579.2. 593 1993 Unknown [id number] 2.16.840.1.530251.3.579.2. 593 1993 Unknown [id number] 2.16.840.1.338762.3.579.2. 727 1993 Unknown [id number] 2.16.840.1.551837.3.579.2. 727 1993 Unknown [id number] 2.16.840.1.163993.3.579.2. 727 1993 Unknown [id number] 2.16.840.1.888465.3.579.2. 1259 1993 Unknown [id number] 2.16.840.1.968611.3.579.2. 1259 1993 Unknown [id number] 2.16.840.1.880823.3.579.2. 1259 1993 Unknown [id number] 2.16.840.1.982548.3.579.2. 1259 1993 Unknown [id number] 2.16.840.1.754121.3.579.2. 1259 1993 Unknown [id number] 2.16.840.1.120692.3.579.2. 1259 1993 Unknown [id number] 2.16.840.1.010468.3.579.2. 1259 1993 Unknown [id number] 2.16.840.1.153307.3.579.2. 1259 1993 Unknown [id number] 2.16.840.1.555471.3.579.2. 1286 1993 Unknown [id number] 2.16.840.1.953604.3.579.2. 1286 1959 Self-pay 1959 Unknown [id number] Social History Date Type Detail Facility Tobacco smoking stat [facility] Tobacco smoking consumption unknown [facility] Start: 1993 Sex assigned at Not on file [facility] Start: 03-12-2025 Gender identity Not on file [facility] Start: 10-10-2024 [facility] Start: 03-12-2025 Tobacco smoking stat [facility] Never smoked tobacco [facility] Start: 03-12-2025 Tobacco use and exposure Smokeless tobacco non-user [facility] Start: 03-12-2025 Alcoholic beverage intake Ex-drinker (finding) [facility] Start: 03-12-2025 History of Social function [facility] Within the past 12 months we worried whether our food would run out before we got money to buy more. Never True [facility] Start: 02-15-2025 Sex Female (finding) [facility] Clinical Notes 11-13-2024 to 03-21-2025 MARINA Hi - 03/21/2025 8:50 AM Yann Mark RN - 03/12/2025 8:45 AM Kendra Rai MD - 03/12/2025 8:45 AM Brian Velásquez NP - 01/23/2025 8:40 AM EDT Note Date & Type Note Facility 03-21-2025 History of Presen t illness Narrative Reason for Appointment: Patient ID: Rhea Mayorga is a 29 y.o. female who presents for No chief complaint on file. Patient presents today for Return OB appointment. MEDICATIONS Current Outpatient Medications Medication Instructions omeprazole (PRILOSEC) 20 mg, Oral, Daily before breakfast, Do not crush or chew. ALLERGIES Allergies Allergen Reactions Other Other Reaction(s): Other: See Comments animals Latex Rash PROBLEMS Active Ambulatory Problems Diagnosis Date Noted Gastroesophageal reflux disease without esophagitis 02/26/2025 Resolved Ambulatory Problems Diagnosis Date Noted No Resolved Ambulatory Problems No Additional Past Medical History HISTORY PAST MEDICAL HISTORY SOCIAL HISTORY No past medical history on file. Social History Tobacco Use Smoking status: Not on file Smokeless tobacco: Not on file Substance Use Topics Alcohol use: Not on file Drug use: Not on file FAMILY HISTORY No family history on file. SURGICAL HISTORY Past Surgical History: Procedure Laterality Date SECTION, LOW TRANSVERSE COLONOSCOPY LAPAROSCOPY DIAGNOSTIC / BIOPSY / ASPIRATION / LYSIS WISDOM TOOTH EXTRACTION REVIEW OF SYSTEMS Review of Systems: Review of Systems Constitutional: Negative. HENT: Negative. Eyes: Negative. Respiratory: Negative. Cardiovascular: Negative. Gastrointestinal: Negative. Genitourinary: Negative. Musculoskeletal: Negative. Skin: Negative. Neurological: Negative. All other systems reviewed and are negative. Hematological: Negative. Endocrine: Negative. Allergic/Immunologic: Negative. OBJECTIVE Objective: Physical Exam Constitutional: Appearance: Normal appearance. She is normal weight. HENT: Head: Normocephalic. Cardiovascular: Rate and Rhythm: Normal rate. Pulses: Normal pulses. Pulmonary: Effort: Pulmonary effort is normal. Breath sounds: Normal breath sounds. Abdominal: Palpations: Abdomen is soft. Musculoskeletal: General: Normal range of motion. Neurological: General: No focal deficit present. Mental Status: She is alert and oriented to person, place, and time. Psychiatric: Mood and Affect: Mood normal. Behavior: Behavior normal. Thought Content: Thought content normal. Judgment: Judgment normal. Vitals and nursing note reviewed. Vitals: Estimated body mass index is 26.89 kg/m as calculated from the following: Height as of 03/01/24: 5' 2 . Weight as of this encounter: 147 lb. BP: 110/72 Patient's last menstrual period was 09/26/2024. ASSESSMENT & PLAN ICD-10-CM 1. Second trimester ([facility]) Z34.92 2. 25 weeks gestation of ([facility]) Z3A.25 Return OB: Patient presents today for a routine obstetrics appointment. Patient is currently 25w1d . Patient states she is doing well but has complaints of being tired due to current . Patient has verbalizes frequent movement. No orders of the defined types were placed in this encounter. Follow Up: Patient is to return to office in 3 week for routine OB appointment. Documented by MARINA Hi on behalf of: MARINA Hi documented in this encounter [facility] 03-12-2025 History of Presen t illness Narrative Headache/epigastric pain/blurry vision/swelling? No Cramping/contractions? No Abnormal vaginal discharge? No Spotting/vaginal bleeding? No Loss or gush of fluid like your water may have broken? No Do you have cats at home? No Do you change the litter box (reason: risk of toxoplasmosis)? N/A Genetic testing done this here or other office? No Have you been seen here at [facility] in a previous ? No Recent ER visits or hospitalizations? No Bring blood sugar log or meter with you today? (Please bring them with you for every visit at [facility]) N/A Flu vaccine (Aug-December)? N/A Any concerns that you would like me to mention to the provider today? No REASON FOR CONSULTATION: Suspected abnormal cardiac axis ruled out. HISTORY OF PRESENT ILLNESS: Rhea Mayorga is a pleasant 29 y.o. G 2 P1 001. at 23w6d due on Estimated Date of Delivery: 07/03/25 . Patient was seen today due to the following 1. Suspected abnormal cardiac axis ruled out. Normal echocardiography. Normal anatomy. Normal interval growth. Currently the patient has no complaints. The patient denies nausea, vomiting, abdominal pain, vaginal bleeding, SOB or chest pain. Patient's PMH/PSH,SH,PSYCH Hx, MEDs, ALLERGIES, and ROS were all reviewed and updated in the appropriate sections. Patient Active Problem List Diagnosis Encounter for observation of suspected anomaly not found No past medical history on file. PAST OBSTETRICAL HISTORY: OB History 2 Para 1 Term 1 AB Living 1 SAB IAB Ectopic Multiple Live Births 1 SURGICAL HISTORY: Past Surgical History: Procedure Laterality Date ASPIRATION BIOPSY SECTION COLONOSCOPY DIAGNOSTIC LAPAROSCOPY WISDOM TOOTH EXTRACTION ALLERGIES: Allergies Allergen Reactions Other Animals Latex Rash CURRENT MEDICATIONS: Current Outpatient Medications: diphenhydrAMINE (BENADRYL) 25 mg capsule, Take 1 capsule (25 mg total) by mouth every 6 (six) hours as needed for itching., Disp: , Rfl: omeprazole (PriLOSEC) 20 mg capsule, Take 1 capsule (20 mg total) by mouth in the morning., Disp: , Rfl: clobetasoL (TEMOVATE) 0.05 % cream, Apply 1 Application topically in the morning and 1 Application before bedtime. (Patient not taking: Reported on 03/12/2025), Disp: , Rfl: methylPREDNISolone (MEDROL) 4 mg tablet, Take 1 tablet (4 mg total) by mouth in the morning. (Patient not taking: Reported on 03/12/2025), Disp: , Rfl: ondansetron (ZOFRAN) 4 mg tablet, Take 1 tablet (4 mg total) by mouth every 8 (eight) hours as needed for nausea or vomiting. (Patient not taking: Reported on 03/12/2025), Disp: , Rfl: FAMILY/GENETIC HISTORY: No family history of VTE, cardiac defects and mental retardation . RECENT HOSPITALIZATION: none I did review all the labs results available in addition to labs which were ordered by the primary care physician, and the other consultants, we search on [employer] and all the available care everywhere [facility] I did review all the imaging studies of the patient available on EMR, ordered by the primary care physician and the other financial services consultant HABITS: Patient activity no restrictions, diet no restrictions REVIEW OF SYSTEM: Head and Neck: Negative for any dizziness and headaches. Cardiovascular and Respiratory System: Denies any chest pain, shortness of breath, and coughing. Abdominal and System: Denies any abdominal pain, nausea, vomiting, vaginal bleeding, and vaginal discharge PHYSICAL EXAMINATION: BP 111/73 Pulse 88 Ht 157.5 cm (5' 2.01 ) Wt 64.9 kg (143 lb) LMP 09/26/2024 BMI 26.15 kg/m . Gravid abdomen, Respirations not labored. Well oriented time place person, normal gait RECOMMENDATION: 1. Normal targeted anatomy with normal echocardiography. 2. Normal cardiac axis. DISPOSITION: At this point the patient is in complete care of her ems coordinator. Patient does not have any future appointment scheduled with us Thank you for allowing me to participate in Rhea Mayorga . If there any questions please do not hesitate to contact us. Sincerely, REID RAI MD documented in this encounter [facility] 01-23-2025 History of Presen t illness Narrative Reason for Appointment: Patient ID: Rhea Mayorga is a 29 y.o. female who presents for Routine Visit Patient presents today for Return OB appointment. MEDICATIONS No current outpatient medications ALLERGIES Allergies Allergen Reactions Other Other Reaction(s): Other: See Comments animals Latex Rash PROBLEMS Active Ambulatory Problems Diagnosis Date Noted No Active Ambulatory Problems Resolved Ambulatory Problems Diagnosis Date Noted No Resolved Ambulatory Problems No Additional Past Medical History HISTORY PAST MEDICAL HISTORY SOCIAL HISTORY History reviewed. No pertinent past medical history. Social History Tobacco Use Smoking status: Not on file Smokeless tobacco: Not on file Substance Use Topics Alcohol use: Not on file Drug use: Not on file FAMILY HISTORY No family history on file. SURGICAL HISTORY Past Surgical History: Procedure Laterality Date SECTION, LOW TRANSVERSE COLONOSCOPY LAPAROSCOPY DIAGNOSTIC / BIOPSY / ASPIRATION / LYSIS WISDOM TOOTH EXTRACTION REVIEW OF SYSTEMS Review of Systems: Review of Systems Constitutional: Negative. HENT: Negative. Eyes: Negative. Respiratory: Negative. Cardiovascular: Negative. Gastrointestinal: Negative. Genitourinary: Negative. Musculoskeletal: Negative. Skin: Negative. Neurological: Negative. All other systems reviewed and are negative. Hematological: Negative. Endocrine: Negative. Allergic/Immunologic: Negative. OBJECTIVE Objective: Physical Exam Constitutional: Appearance: Normal appearance. She is well-developed. Cardiovascular: Rate and Rhythm: Normal rate and regular rhythm. Pulmonary: Effort: Pulmonary effort is normal. Breath sounds: Normal breath sounds. Abdominal: General: Bowel sounds are normal. There is no distension. Palpations: Abdomen is soft. Tenderness: There is no abdominal tenderness. There is no guarding or rebound. Musculoskeletal: General: No swelling. Normal range of motion. Right lower leg: No edema. Left lower leg: No edema. Neurological: Mental Status: She is alert and oriented to person, place, and time. Skin: General: Skin is warm and dry. Psychiatric: Mood and Affect: Mood normal. Behavior: Behavior normal. Vitals and nursing note reviewed. Exam conducted with a mail clerks supervisor present. Vitals: Estimated body mass index is 23.23 kg/m as calculated from the following: Height as of 24: 5' 2 . Weight as of this encounter: 127 lb. BP: 118/72 Patient's last menstrual period was 09/26/2024. ASSESSMENT & PLAN ICD-10-CM 1. Second trimester Z34.92 2. 17 weeks gestation of Z3A.17 Documented by Desiree Velásquez NP on behalf of: Desiree Velásquez NP documented in this encounter [facility] 12-27-2024 History of Presen t illness Narrative Reason for Appointment: Patient ID: Rhea Mayorga is a 29 y.o. female who presents for Routine Visit Patient presents today for Return OB appointment. MEDICATIONS No current outpatient medications ALLERGIES Allergies Allergen Reactions Other Other Reaction(s): Other: See Comments animals Latex Rash PROBLEMS Active Ambulatory Problems Diagnosis Date Noted No Active Ambulatory Problems Resolved Ambulatory Problems Diagnosis Date Noted No Resolved Ambulatory Problems No Additional Past Medical History HISTORY PAST MEDICAL HISTORY SOCIAL HISTORY No past medical history on file. Social History Tobacco Use Smoking status: Not on file Smokeless tobacco: Not on file Substance Use Topics Alcohol use: Not on file Drug use: Not on file FAMILY HISTORY No family history on file. SURGICAL HISTORY Past Surgical History: Procedure Laterality Date SECTION, LOW TRANSVERSE COLONOSCOPY LAPAROSCOPY DIAGNOSTIC / BIOPSY / ASPIRATION / LYSIS WISDOM TOOTH EXTRACTION REVIEW OF SYSTEMS Review of Systems: Review of Systems All other systems reviewed and are negative. OBJECTIVE Objective: Physical Exam Constitutional: Appearance: Normal appearance. She is well-developed. Cardiovascular: Rate and Rhythm: Normal rate and regular rhythm. Pulmonary: Effort: Pulmonary effort is normal. Breath sounds: Normal breath sounds. Abdominal: General: Bowel sounds are normal. There is no distension. Palpations: Abdomen is soft. Tenderness: There is no abdominal tenderness. There is no guarding or rebound. Musculoskeletal: General: No swelling. Normal range of motion. Right lower leg: No edema. Left lower leg: No edema. Neurological: Mental Status: She is alert and oriented to person, place, and time. Skin: General: Skin is warm and dry. Psychiatric: Mood and Affect: Mood normal. Behavior: Behavior normal. Vitals and nursing note reviewed. Exam conducted with a mail clerks supervisor present. Vitals: Estimated body mass index is 21.4 kg/m as calculated from the following: Height as of 03/01/24: 5' 2 . Weight as of this encounter: 117 lb. BP: 102/58 Patient's last menstrual period was 09/26/2024. ASSESSMENT & PLAN ICD-10-CM 1. Second trimester Z34.92 POCT urinalysis dipstick manually resulted 2. 13 weeks gestation of Z3A.13 New OB: Patient presents today for 1st time obstetrics appointment with provider. Patient is currently Unknown . Patients history has been reviewed in great detail including any potential risks. Patient stated she currently has no complaints. Expectations throughout regarding labs, ultrasounds, and appointments have been discussed with the patient in detail. It was reiterated that the patient is to drink 6-8 glasses of water a day, eat 6 small meals a day, do not consume raw or undercooked meat, and stay away from [facility]. Patient has been consulted regarding any further do's and don'ts of . Patient voiced understanding and all questions and concerns were answered. Discussed medication to be taken prior to delivery to help with depression/ baby Blues . Orders Placed This Encounter Procedures POCT urinalysis dipstick manually resulted Follow Up: Patient is to return in 4 weeks for routine OB appointment. Repeat to be scheduled for 06/26/2025. Documented by Zahra Myrick LPN on behalf of: Justice Whitman DO documented in this encounter [facility] 11-23-2024 History of Presen t illness Narrative Reason for Appointment: Patient ID: Rhea Mayorga is a 28 y.o. female who [...] or undercooked meat, and stay away from [facility]. Patient has also been advised to not [...] Sandra Romero MA documented in this encounter 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 documented in this encounter [facility] 11-13-2024 Telephone encount er Note Patient called stating she is nauseated and vomiting [facility] 11-13-2024 Miscellaneous Notes Formattin g of this note might be different from the original. Patient called stating she is nauseated and vomiting documented in this encounter [facility] Evaluation note Diagnosis Nausea- Primary Nausea alone documented in this encounter [facility] HealthcareEvaluation note* Diagnosis Screening for lipoid disorders Screening for diabetes mellitus documented in this encounter [facility] HealthcareEvaluation note* Diagnosis Missed menses , unspecified gestational age Encounter for supervision of normal first in first trimester documented in this encounter [facility] HealthcareEvaluation note* Diagnosis Second trimester state, incidental 13 weeks gestation of documented in this encounter [facility] HealthcareEvaluation note* Diagnosis Second trimester state, incidental 17 weeks gestation of [facility] Diagnosis Encounter for observation of suspected anomaly not found- Primary Suspected anomaly not found documented [facility] this encounter [facility]* Diagnosis Second trimester ([facility]HS-HCC)- Primary state, incidental 25 weeks gestation of (HHS-HCC) [facility]ructions[facility] on filedocumented [facility] Summary Purpose Family History No Family History [...] DATE CREATED AUTHOR AUTHOR'S ORGANIZ ATION 07/22/2024 [facility] DATE CREATED AUTHOR AUTHOR'S ORGANIZ ATION 02/27/2025 [facility] dical Specialists [facility] DATE CREATED AUTHOR AUTHOR'S ORGANIZ ATION 03/13/2025 [facility] Reason for Visit (unrecogniz ed section and content) Reason Comments Amenorrhea Reason Comments Routine Visit Reason Comments Abnormal Ultrasound FOR RECORDS PERTAINING TO PATIENTS WHO ARE [...] BE BASED ON THE PRIMARY CLINICAL RECORDS. [facility] [employer] provides no warranty or guarantee of the accuracy or completeness of information in this document.
[2025-03-23 07:49] LABS: Basophils Percent Auto 0.4 % (0.2-2.0); Eosinophils Absolute Auto 0.2 10^3/uL (0.0-0.7); Eosinophils Percent Auto 1.6 % (0.9-7.0); Hematocrit 31.1 % (36.0-48.0); Hemoglobin 10.7 g/dL (12.0-16.0); Immature Granulocytes Abs Auto 0.06 10^3/uL (0.00-0.03); Immature Granulocytes Pct Auto 0.7 % (0.0-0.5); Lymphocytes Absolute Auto 1.4 10^3/uL (1.2-3.8); Lymphocytes Percent Auto 15.2 % (20.5-60.0); Mean Corpuscular HGB Conc 34.4 g/dL (29.9-35.2); Mean Corpuscular Hemoglobin 30.9 pg (26.7-34.0); Mean Corpuscular Volume 89.9 fL (81.0-99.0); Mean Platelet Volume 9.8 fL (9.5-13.5); Monocytes Absolute Auto 0.5 10^3/uL (0.3-0.8); Neutrophils Absolute Auto 7.1 10^3/uL (1.4-6.5); Neutrophils Percent Auto 77.1 % (43.0-75.0); Platelet Count 146 10^3/uL (150-450); Red Blood Count 3.46 10^6/uL (4.20-5.40); Red Cell Distribution Width 13.2 % (11.0-15.0); White Blood Count 9.2 10^3/uL (4.0-11.0)
[2025-03-23 08:01] LABS: Glucose 1 Hour 126 mg/dL (<130)
== END 2025-03-23 06:41 | disposition home or self-care (01) ==
LOC: LAB 06:40
PROVIDERS: PCP Nurse Practitioner; Visit Provider Obstetrics & Gynecology
DX: Z13.1 Encounter for screening for diabetes mellitus (principal)
CPT/HCPCS: 36415; 82950; 85025

== ENCOUNTER 2025-05-31 13:39 | Outpatient (OUT) | payer BC, MEDICAID, SELFPAY ==
--- OUTSIDE RECORDS SUMMARY | 2025-05-29 09:20 | XMS_ITS | Encounter Summary ---
Author Organization [facility] Address [address] [place] [address] Care Team Providers Care Lift Electrician Name Role Phone Kannan Whitman DO Unavailable Reason for Visit * Reason Comments Routine Visit Encounter Details Date Type Department Care Team (Late st Contact Info) Description 05/29/2025 9:20 AM EDT Routine [facility] [address] [address] Maribeth Carrillo PA [address] [place], [facility] Third trimester ([facility]); 35 weeks gestation of ([facility]); Weakness generalized; Hot flashes Social History Tobacco Use Types Packs/Day Years Used Date Smoking Tobacco: Never Assessed Estimated Date of Delivery Comme nts Yes 07/03/2025 Based on last me nstrual period of 09/26/2024 Sex and Gender Information Value Date Recorded Sex Assigned at Not on file Legal Sex Female 6:54 PM EDT Gender Identity Not on file Sexual Orientation Not on file documented as of this encounter Last Filed Vital Signs Vital Sign Reading Time Taken Comments Blood Pressure 112/68 05/29/2025 8:47 AM EDT Pulse - - Temperature - - Respiratory Rate - - Oxygen Saturation - - Inhaled Oxygen Concentration - - Weight 73.5 kg (162 lb) 05/29/2025 8:47 AM EDT Height - - Body Mass Index 29.63 03/01/2024 8:00 AM EDT documented in this encounter Progress Notes * MARINA Hi - 05/29/2025 9:20 AM EDT Reason for Appointment: Patient ID: Rhea Mayorga is a 29 y.o. female who presents for Routine Visit Patient presents today for Return OB appointment. MEDICATIONS Current Outpatient Medications Medication Instructions magnesium oxide (MAG-OX) 400 mg, Oral, Daily pantoprazole (PROTONIX) 40 mg, Oral, Daily before breakfast, Do not crush, chew, or split. ALLERGIES Allergies Allergen Reactions Other Other Reaction(s): Other: See Comments animals Animals Latex Rash PROBLEMS Active Ambulatory Problems Diagnosis [...] Exam Constitutional: Appearance: Normal appearance. She is well-developed and normal weight. HENT: Head: Normocephalic. Cardiovascular: Rate and Rhythm: Normal rate and regular rhythm. Pulses: Normal pulses. Pulmonary: Effort: Pulmonary effort is normal. Breath sounds: Normal breath sounds. Abdominal: General: Bowel sounds are normal. There is no distension. Palpations: Abdomen is soft. Tenderness: There is no abdominal tenderness. There is no guarding or rebound. Musculoskeletal: General: No swelling. Normal range of motion. Right lower leg: No edema. Left lower leg: No edema. Neurological: General: No focal deficit present. Mental Status: She is alert and oriented to person, place, and time. Skin: General: Skin is warm and dry. Psychiatric: Mood and Affect: Mood normal. Behavior: Behavior normal. Thought Content: Thought content normal. Judgment: Judgment normal. Vitals and nursing note reviewed. Exam conducted with a commercial crabber present. Vitals: Estimated body mass index is 28.94 kg/m?? as calculated from the following: Height as of 03/01/24: 5' 2 . Weight as of 05/15/25: 158 lb 4 oz. BP: Patient's last menstrual period was 09/26/2024. ASSESSMENT & PLAN ICD-10-CM 1. Third trimester ([facility]) Z34.93 2. 35 weeks gestation of ([facility]) Z3A.35 Return OB: Patient presents today for a routine obstetrics appointment. Patient is currently 35w0d . Patient states she is doing well but has complaints of being tired due to current . Patient has verbalizes frequent movement. labor precautions was discussed/given and patient was instructed to perform kick counts three times a day. Patient states she is having hot flashes and episodes of weakness . We will order an EKG and follow up as needed. No orders of the defined types were placed in this encounter. Follow Up: Patient is to return to office in 2 week for routine OB appointment. Documented by Sandra Romero MA on behalf of: MARINA Hi documented in this encounter Plan of Treatment Upcoming Encounters Date Type Department Care Team (Late st Contact Info) Description 06/04/2025 8:30 AM EDT Routine NOMDeepak BARRETT [address] [place] [address] Kannan Whitman, [address] [place], [place] [id number] 07/03/2025 10:30 AM EDT Office Visit DEBORAH BARRETT [address] [place] [address] Desiree Velásquez, SHARRI [address] [place] [phone] Scheduled Orders Name Type Priority Associated Diagnoses Orde r Schedule ECG 12 lead unit performed ECG Routine Third trimester ([facility]) 35 weeks gestation of ([facility]) Weakness generalized Hot flashes Expected: 05/29/2025 (Approximate), Expires: 05/29/2026 documented as of this encounter Procedures Procedure Name Priority Date/Time Associated Diagnosis Comments POCT URINALYSIS DIPSTICK Routine 05/29/2025 8:46 AM EDT Third trimester ([facility]) documented in this encounter Results * (ABNORMAL) POCT urinalysis dipstick manually resulted (05/29/2025 8:46 AM EDT) Color, UA Yellow Clarity, UA Clear Glucose, UA Negative Negative - 2000(110) ++++ mg/dL Bilirubin, UA Negative Negative - 4(70) +++ mg/dL Ketones, UA Negative Negative - 160(16) ++++ mg/dL Spec Grav, UA 1.015 1 - 1.03 Blood, UA Positive Negative - 50 Toni/mcL pH, UA 6.0 5 - 9 Protein, UA 1+ Negative - 2000(20) ++++ mg/dL Urobilinogen, UA 1.0 0.2 - 12 mg/dL Leukocytes, UA 3+ Negative - 500+++ Amish/mcL Nitrite, UA Negative Negative - Positive Urine 05/29/2025 8:46 AM EDT Maribeth GRAY POINT OF CARE TEST ENTER/EDIT OR DERABLES Final Result documented in this encounter Visit Diagnoses Diagnosis Third trimester ([facility]) state, incidental 35 weeks gestation of ([facility]) Weakness generalized Other malaise and fatigue Hot flashes documented in this encounter Care Teams Lift Electrician Relationship Specialty Start Date End Date Kannan Whitman DO [address] [place] [address] PCP - [employer] 03/03/25 documented as of this encounter
--- OUTSIDE RECORDS SUMMARY | 2025-05-31 13:41 | XMS_ITS | Encounter Summary ---
Author Organization [facility] Address [address] [place] [address] Care Team Providers Care Tool And Die Assembler Name Role Phone Justice Whitman DO Unavailable Encounter Details Date Type Department Care Team (Late st Contact Info) Description 03/05/2024 Clinisync Result Encounter [facility] External Department Unsolicited Justice Whitman DO [address], [facility] Social History Tobacco Use Types Packs/Day Years Used Date Smoking Tobacco: Never Assessed Comments Unknown Sex and Gender Information Value Date Recorded Sex Assigned at Not on file Legal Sex Female 6:54 PM EDT Gender Identity Not on file Sexual Orientation Not on file documented as of this encounter Plan of Treatment Upcoming Encounters Date Type Department Care Team (Late st Contact Info) Description 06/04/2025 8:30 AM EDT Routine DEBORAH BARRETT [address] [place] [place] [address] Justice Whitman DO [address], [facility] 07/03/2025 10:30 AM EDT Office Visit DEBORAH BARRETT [address] [place] [address] Desiree Velásquez, HANDLE AND VENT MACHINE OPERATOR [address] [place] [place] [address] (work) documented as of this encounter Procedures Procedure Name Priority Date/Time Associated Diagnosis Comments US PELVIS 03/05/2024 12:10 PM EDT documented in this encounter Results * US PELVIS (03/05/2024 12:10 PM EDT) Anatomical Region Laterality Modality Other 03/05/2024 12:1 0 PM EDT Narrative 03/05/2024 12:12 [place] [address] Ultrasound Report Signed Patient: RHEA MAYORGA MR#: [id number] : 1995 Acct:[id number] Age/Sex: 28 / F ADM Date: 03/05/24 Loc: [facility] Attending Dr: Justice Whitman D.O. Ordering Physician: Justice Whitman D.O. Date of Service: 03/05/24 Procedure(s): US pelvis Accession Number(s): [id number] cc: Justice Whitman D.O.; TINO ASHER [address] [address] Patient Name: RHEA MAYORGA MRN: [id number] date: 1995 Sex: F Assigned Patient Location: Current Patient Location: [facility] Accession/Order Number: [id number] Exam Date: 03/05/2024 07:36 Report Date: 03/05/2024 12:10 At the request of: JUSTICE WHITMAN Procedure: US pelvis EXAMINATION: US pelvis HISTORY: IRREGULAR MENSTRUAL CYCLE COMPARISON: No relevant comparison available. TECHNIQUE: Transabdominal and/or transvaginal sonographic examination was performed as indicated by examination type. FINDINGS: UTERUS: Normal size and appearance. Uterus size: 11.2 x 2.5 x 6.1 cm ENDOMETRIUM: Normal homogeneous appearance. Endometrial thickness: 6 mm RIGHT OVARY: Normal size and appearance. Duplex Doppler demonstrates normal waveform and flow; resistive index 0.6. Ovary size: 3.7 x 1.5 x 3.2 cm LEFT OVARY: Normal size and appearance. Blood flow present within ovary on color Doppler. Ovary size: 3.1 x 1.7 x 2.0 cm CUL-DE-SAC: Trace amount of free fluid, likely physiologic. BLADDER: Unremarkable. OTHER: None. US/US pelvis IMPRESSION: 1. No abnormal or suspicious findings to account for patient's symptoms. Electronically authenticated by: DONNIE LANZA Date: 03/05/2024 12:10 Dictated By: Donnie Lanza M.D. Signed By: 03/05/24 1212 DD/ 1210 TD/TT: Buttonhole Maker: Procedure Note Radiology, Radiologist, MD - 03/05/2024 [place] [address] Ultrasound Report Signed Patient: RHEA MAYORGA MMR#: [id number] : 1995Acct:[id number] Age/Sex: 28 / FADM Date: 03/05/24 Loc: [facility] Attending Dr: Justice Whitman D.O. Ordering Physician: Justice Whitman D.O. Date of Service: 03/05/24 Procedure(s): US pelvis Accession Number(s): [id number] cc: Justice Whitman D.O.; TINO ASHER [place] [id number] Patient Name: RHEA MAYORGA MRN: [id number] date: 1995 Sex: F Assigned Patient Location: Current Patient Location: [facility] Accession/Order Number: [id number] Exam Date: 03/05/2024 07:36 Report Date: 03/05/2024 12:10 At the request of: JUSTICE WHITMAN Procedure: US pelvis EXAMINATION: US pelvis HISTORY: IRREGULAR MENSTRUAL CYCLE COMPARISON: No relevant comparison available. TECHNIQUE: Transabdominal and/or transvaginal sonographic examination was performed as indicated by examination type. FINDINGS: UTERUS: Normal size and appearance. Uterus size: 11.2 x 2.5 x 6.1 cm ENDOMETRIUM: Normal homogeneous appearance. Endometrial thickness: 6 mm RIGHT OVARY: Normal size and appearance. Duplex Doppler demonstratesnormal waveform and flow; resistive index 0.6. Ovary size: 3.7 x 1.5 x 3.2 cm LEFT OVARY: Normal size and appearance. Blood flow present within ovary on color Doppler. Ovary size: 3.1 x 1.7 x 2.0 cm CUL-DE-SAC: Trace amount of free fluid, likely physiologic. BLADDER: Unremarkable. OTHER: None. US/US pelvis IMPRESSION: 1. No abnormal or suspicious findings to account for patient's symptoms. Electronically authenticated by: DONNIE LANZA Date: 03/05/2024 12:10 Dictated By: Donnie Lanza M.D. Signed By:03/05/24 1212 DD/ 1210 TD/TT: Buttonhole Maker: us Justice Whitman DO [facility] Final Result documented in this encounter Visit Diagnoses Not on filedocumented in this encounter Care Teams Tool And Die Assembler Relationship Specialty Start Date End Date Justice Whitman DO [address] [place] [address] [place] [address] PCP - [employer] 03/03/25 documented as of this encounter
--- OUTSIDE RECORDS SUMMARY | 2025-05-31 13:41 | XMS_ITS | Encounter Summary ---
Author Organization [facility] Address [address] [place] [address] Care Team Providers Care Experimental Electronics Developer Name Role Phone Kannan Whitman DO Unavailable Encounter Details Date Type Department Care Team (Late Contact Info) Description 03/08/2024 Orders Only DEBORAH BARRETT [address] [place] [address] Manuela Jones LPN [address] [facility] [address] [place], [place] [address] Social History Tobacco Use Types Packs/Day Years Used Date Smoking Tobacco: Never Assessed Comments Unknown Sex and Gender Information Value Date Recorded Sex Assigned at Not on file Legal Sex Female 6:54 PM EDT Gender Identity Not on file Sexual Orientation Not on file documented as of this encounter Plan of Treatment Upcoming Encounters Date Type Department Care Team (Late Contact Info) Description 06/04/2025 8:30 AM EDT Routine NOMDeepak [facility]RETT [address] [facility] [place] [place] [address] Kannan Whitman DO [address] [place], [facility] 07/03/2025 10:30 AM EDT Office Visit DEBORAH BARRETT [address] [place] [address] Desiree Velásquez, STRIP POLISHER [address] [place] [place] [address] documented as of this encounter Procedures Procedure Name Priority Date/Time Associated Diagnosis Comments PAP SMEAR Routine 02/29/2024 12:00 AM EDT documented in this encounter Results * Pap Smear (02/29/2024 12:00 AM EDT) Swab Cervical swab / Unknown J Carlos Nurse [facility] Ob LAB CYTOLOGY ORDERABLES Final Result EXTERNAL LAB documented in this encounter Visit Diagnoses Not on filedocumented in this encounter Care Teams Experimental Electronics Developer Relationship Specialty Start Date End Date Kannan Whitman DO [address] [place] [place] [address] PCP - [employer] 03/03/25 documented as of this encounter
--- OUTSIDE RECORDS SUMMARY | 2025-05-31 13:41 | XMS_ITS | Encounter Summary ---
Author Organization [facility] [employer] [facility] tem Address [id number] [address] [place] [address] Care Team Providers Care Clinic Physician Name Role Phone Unavailable Primary Care Provider Unavailabl e Encounter Details Date Type Department Care Team (Late st Contact Info) Description 02/21/2025 Orders Only Maternal- Medicine at [facility] [address] [place] [phone] Ref Prov, [place] [address] Social History Tobacco Use Types Packs/Day Years Used Date Smoking Tobacco: Never Assessed Estimated Date of Delivery Comme nts Yes 07/03/2025 Based on last me nstrual period of 09/26/2024 Sex and Gender Information Value Date Recorded Sex Assigned at Not on file Legal Sex Female 8:47 AM EDT Gender Identity Not on file Sexual Orientation Not on file documented as of this encounter Plan of Treatment Not on file documented as of this encounter Procedures Procedure Name Priority Date/Time Associated Diagnosis Comments US PREG LMTD 1 OR MORE FETUS Routine 02/21/2025 11:08 AM EDT US PREG LMTD 1 OR MORE FETUS Routine 02/21/2025 11:07 AM EDT documented in this encounter Results * Ultrasound limited 1 or more fetus (02/21/2025 11:08 AM EDT) Anatomical Region Laterality Modality OB-GAMING CAGE WORKER Ultrasound us Not In System Ref Prov IMG US ORDERABLES Final R esult * Ultrasound limited 1 or more fetus (02/21/2025 11:07 AM EDT) Anatomical Region Laterality Modality OB-GAMING CAGE WORKER Ultrasound us Not In System Ref Prov IMG US ORDERABLES Final R esult documented in this encounter Visit Diagnoses Not on filedocumented in this encounter
--- OUTSIDE RECORDS SUMMARY | 2025-05-31 13:41 | XMS_ITS | Encounter Summary ---
Author Organization [facility] Address [address] [facility] [place] [address] Care Team Providers Care Gymnastic Teacher Name Role Phone Kannan Whitman DO Unavailable Encounter Details Date Type Department Care Team (Latest Contact Info) Description 05/22/2025 Travel Social History Tobacco Use Types Packs/Day Years [...] 8:30 AM EDT Routine NOMDeepak BARRETT [address] [place] [address] Kannan Whitman DO [address] [place], [facility] 07/03/2025 10:30 AM EDT Office Visit DEBORAH BARRETT [address] [place] [address] Desiree Velásquez, SHARRI [address] [place] [address] documented as of this encounter Visit Diagnoses Not on filedocumented in this encounter Care Teams Gymnastic Teacher Relationship Specialty Start Date End Date Kannan Whitman DO [address] [place] [id number] PCP - Jeremiah Luu 03/03/25 documented as of this encounter
--- OUTSIDE RECORDS SUMMARY | 2025-05-31 13:41 | XMS_ITS | Encounter Summary ---
Author Organization [facility] Address [address] [place] [address] Care Team Providers Care Medical Research Associate Name Role Phone Justice Whitman DO Unavailable Encounter Details Date Type Department Care Team (Late Contact Info) Description 03/12/2025 External Result Encounter [facility] [address] [place] [address] Justice Whitman DO [address], [place] [address] Social History Tobacco Use Types Packs/Day Years [...] Info) Description 06/04/2025 8:30 AM EDT Routine [facility] [address] [place] [address] Justice Whitman DO [address], [facility] 07/03/2025 10:30 AM EDT [place] [address] Desiree Velásquez, SHARRI [address] [place] [address] documented as of this encounter Procedures Procedure Name Priority Date/Time Associated Diagnosis Comments US OB 14+ WEEKS ANATOMY SCAN 03/12/2025 10:27 AM EDT documented in this encounter Results * US OB 14+ weeks anatomy scan (03/12/2025 10:27 AM EDT) Anatomical Region Laterality Modality Body Ultrasound 03/12/2025 10:2 7 AM EDT Narrative 03/12/2025 10:27 AM EDT THIS EXAM WAS PERFORMED AT [facility] NAME: ELZBIETA VAZQUEZ : 1995 SEX: F Accession Number: [id number] ORDERING PHYSICIAN: MIHIR RAI REFERRING PHYSICIAN: JUSTICE WHITMAN Coding ----- --------- Procedures [id number]: Ultrasound, uterus, real time with image documentation, and maternal evaluation plus detailed anatomic examination, transabdominal approach;single or first gestation [id number]: Transvaginal Ultrasound (OB) 04574: Echocardiography, , cardiovascular system, real time with image documentation (2D), with or without M-mode recording Indication ----- --------- Screening for Anatomic Survey, Screening for cervical length, Screening for congenital cardiac abnormality, Supervision of high risk (abnormal heart axis at office), Previous History ----- --------- OB History 2. Para 1 [id number] Maternal Assessment ----- --------- Physical Exam Height 157 cm, 5 ft 2 in. Weight 65 kg, 143 lb. Initial weight 51 kg, 113 lb. BMI 26.16 kg/m???. Initial BMI 20.67 kg/m???. Weight gain 14 kg, 30 lb Method ----- --------- Transabdominal and transvaginal ultrasound examination. View: Suboptimal view: limited by position ----- --------- Carter . Number of fetuses: 1 Dating ----- --------- LMP on: 09/26/2024 GA by LMP 23 w + 6 d CLARISSA by LMP: 07/03/2025 Ultrasound examination on: 03/12/2025 GA by U/S based upon: AC, BPD, Femur, HC GA by U/S 24 w + 2 d CLARISSA by U/S: 06/30/2025 Assigned: based on the LMP, selected on 03/12/2025 Assigned GA 23 w + 6 d Assigned CLARISSA: 07/03/2025 General Evaluation ----- --------- Cardiac activity Present. FHR 140 bpm. Presentation: cephalic Placenta: Placental site: posterior, away from cervical os Umbilical cord: Cord vessels: 3 vessel cord. Insertion site: normal insertion Amniotic fluid: Amount of AF: normal amount Biometry ----- --------- Standard BPD 62.6 mm 25w 3d 90% Hadlock OFD 72.9 mm 24w 2d 62% Iesha HC 217.5 mm 23w 6d 30% Hadlock Cerebellum tr 25.2 mm 22w 6d 39% Hill AC 198.6 mm 24w 4d 63% Hadlock Femur 40.4 mm 23w 0d 16% Hadlock Humerus 38.3 mm 23w 4d 29% Iesha HC / AC 1.10 EFW 646 g 46% Hadlock EFW (lb) 1 lb EFW (oz) 7 oz EFW by: Hadlock (YUM-[id number]-FL) Extended Tibia 36.9 mm 23w 6d 53% Iesha Radiological Equipment Specialist 5.5 mm CM 3.1 mm <1% Nicolaides Inner IOD 17.6 mm Outer IOD 38.9 mm Nasal bone 7.7 mm Head / Face / Neck Cephalic index 0.86 98% Nicolaides Nasal bone: present Extremities / Bony Struc FL / BPD 0.65 FL / HC 0.19 FL / AC 0.20 Other Structures FHR 140 bpm Anatomy ----- --------- The following structures appear normal: Head/Neck: Cranium. Lateral ventricles. Choroid plexus. Midline falx. Cavum septi pellucidi. Cerebellum. Cisterna magna. Parenchyma. Vermis. Neck. Nuchal fold. Face: Lips. Profile. Nose. Nasal bone. Maxilla. Mandible. Orbits. Heart/Thorax: 4-chamber view. RVOT view. LVOT view. 3-vessel view. 2-naztbx-zfuywjs view. Great vessels. Right lung. Left lung. Diaphragm. Abdomen: Abdom. wall. Cord insertion. Stomach. Kidneys. Bladder. Small bowel. Large bowel. Right renal artery. Left renal artery. Genitals. Spine: Cervical spine. Thoracic spine. Lumbar spine. Sacral spine. Extremities/Skeleton: Right upper arm. Right forearm. Left upper arm. Left forearm. Left hand. Right upper leg. Right lower leg. Right foot. Left upper leg. Left lower leg. Left foot. The following structures could not be adequately visualized: Extremities / Right hand. Skeleton Echocardiogram ----- --------- Situs situs solitus (normal) Cardiac position normal Cardiac axis normal Cardiac size normal (approx. 1/3 of thoracic area) Cardiac rhythm regular (normal) 4-chamber view normal LVOT view normal RVOT view normal 3-vessel view normal 7-qloacn-iifmffu view normal Aortic arch view normal Ductal arch view normal Bicaval view normal Interventricular septum normal Venous-atrial connections normal AV connections normal VA connections normal Pulmonary veins normal Right atrium normal Left atrium normal Atrial septum normal Foramen ovale normal Right ventricle normal Left ventricle normal Ventricular septum normal Cross-over gr. arteries anterior great artery (confirmed to be the pulmonary artery by its branching) which crosses the course of the proximal aorta, indicative of normal relationship of the great arteries Main PA the main pulmonary artery can be seen bifurcating into the ductus arteriosus and the right pulmonary artery Pulmonary arteries normal Linear insertion of AV valves no Pericardial effusion no Maternal Structures ----- --------- Uterus Visualized Cervix Visualized Approach - Transvaginal: Cervical length 4.42 cm Right Ovary Not visualized Left Ovary Not visualized Cul de Sac Visualized. No free fluid visualized Impression ----- --------- Single viable intrauterine consistent with 23w 6d with an CLARISSA of 07/03/2025. Transvaginal cervical length measures 4.42 cm. heart axis measures 45 degrees which is within normal limits. echocardiogram did not reveal sonographic evidence of any gross structural abnormalities. Recommendations ----- --------- Please see M documentation from today. anatomic survey is incomplete due to suboptimal visualization. Patient is not scheduled to return for additional ultrasound. Please reschedule for specific concerns or indications. Subsequent follow up or other follow up as clinically determined by primary OB provider unless otherwise specified by [facility]. Results forwarded to ordering provider so they can follow up with the patient as necessary. The copy-to physician of this order is JUSTICE Martinez The ordering physician of this order is MIHIR Rivera Procedure Note Radiology, Radiologist, MD - 03/12/2025 THIS EXAM WAS PERFORMED AT [facility] NAME: ELZBIETA VAZQUEZ : 1995 SEX: F Accession Number: [id number] ORDERING PHYSICIAN: MIHIR RAI REFERRING PHYSICIAN: JUSTICE WHITMAN Coding ----- --------- Procedures [id number]: Ultrasound, uterus, real time with imagedocumentation, and maternal evaluation plus detailed anatomic examination, transabdominalapproach;single or first gestation [id number]: Transvaginal Ultrasound (OB) 67134: Echocardiography, , cardiovascular system, real timewith image documentation (2D), with or without M-mode recording Indication ----- --------- Screening for Anatomic Survey, Screening for cervical length, Screeningfor congenital cardiac abnormality, Supervision of high risk (abnormal heart axis at office), Previous History ----- --------- OB History 2. Para 1 [id number] Maternal Assessment ----- --------- Physical Exam Height 157 cm, 5 ft 2 in. Weight 65 kg, 143 lb. Initialweight 51 kg, 113 lb. BMI 26.16 kg/m???. Initial BMI 20.67 kg/m???. Weight gain 14 kg, 30 lb Method ----- --------- Transabdominal and transvaginal ultrasound examination. View: Suboptimalview: limited by position ----- --------- Carter . Number of fetuses: 1 Dating ----- --------- LMP on: 09/26/2024 GA by LMP 23 w + 6 d CLARISSA by LMP: 07/03/2025 Ultrasound examination on: 03/12/2025 GA by U/S based upon: AC, BPD, Femur, HC GA by U/S 24 w + 2 d CLARISSA by U/S: 06/30/2025 Assigned: based on the LMP, selected on 03/12/2025 Assigned GA 23 w + 6 d Assigned CLARISSA: 07/03/2025 General Evaluation ----- --------- Cardiac activity Present. FHR 140 bpm. Presentation: cephalic Placenta: Placental site: posterior, away from cervical os Umbilical cord: Cord vessels: 3 vessel cord. Insertion site: normalinsertion Amniotic fluid: Amount of AF: normal amount Biometry ----- --------- Standard BPD 62.6 mm 25w 3d 90% Hadlock OFD 72.9 mm 24w 2d 62% Iesha HC 217.5 mm 23w 6d 30% Hadlock Cerebellum tr 25.2 mm 22w 6d 39% Hill AC 198.6 mm 24w 4d 63% Hadlock Femur 40.4 mm 23w 0d 16% Hadlock Humerus 38.3 mm 23w 4d 29% Iesha HC / AC 1.10 EFW 646 g 46% Hadlock EFW (lb) 1 lb EFW (oz) 7 oz EFW by: Hadlock ([id number]-FL) Extended Tibia 36.9 mm 23w 6d 53% Iesha Radiological Equipment Specialist 5.5 mm CM 3.1 mm <1% Nicolaides Inner IOD 17.6 mm Outer IOD 38.9 mm Nasal bone 7.7 mm Head / Face / Neck Cephalic index 0.86 98% Nicolaides Nasal bone: present Extremities / Bony Struc FL / BPD 0.65 FL / HC 0.19 FL / AC 0.20 Other Structures FHR 140 bpm Anatomy ----- --------- The following structures appear normal: Head/Neck: Cranium. Lateral ventricles. Choroid plexus. Midline falx.Cavum septi pellucidi. Cerebellum. Cisterna magna. Parenchyma. Vermis. Neck. Nuchal fold. Face: Lips. Profile. Nose. Nasal bone. Maxilla. Mandible. Orbits. Heart/Thorax: 4-chamber view. RVOT view. LVOT view. 3-vessel view.6-cauqwa-eundpkj view. Great vessels. Right lung. Left lung. Diaphragm. Abdomen: Abdom. wall. Cord insertion. Stomach. Kidneys. Bladder. Smallbowel. Large bowel. Right renal artery. Left renal artery. Genitals. Spine: Cervical spine. Thoracic spine. Lumbar spine. Sacral spine. Extremities/Skeleton: Right upper arm. Right forearm. Left upper arm. Leftforearm. Left hand. Right upper leg. Right lower leg. Right foot. Left upper leg. Left lower leg. Left foot. The following structures could not be adequately visualized: Extremities / Right hand. Skeleton Echocardiogram ----- --------- Situs situs solitus (normal) Cardiac position normal Cardiac axis normal Cardiac size normal (approx. 1/3 of thoracic area) Cardiac rhythm regular (normal) 4-chamber view normal LVOT view normal RVOT view normal 3-vessel view normal 7-ytruqn-dupydha view normal Aortic arch view normal Ductal arch view normal Bicaval view normal Interventricular septum normal Venous-atrial connections normal AV connections normal VA connections normal Pulmonary veins normal Right atrium normal Left atrium normal Atrial septum normal Foramen ovale normal Right ventricle normal Left ventricle normal Ventricular septum normal Cross-over gr. arteries anterior great artery (confirmed to be thepulmonary artery by its branching) which crosses the course of the proximal aorta, indicative ofnormal relationship of the great arteries Main PA the main pulmonary artery can be seen bifurcatinginto the ductus arteriosus and the right pulmonary artery Pulmonary arteries normal Linear insertion of AV valves no Pericardial effusion no Maternal Structures ----- --------- Uterus Visualized Cervix Visualized Approach - Transvaginal: Cervical length 4.42 cm Right Ovary Not visualized Left Ovary Not visualized Cul de Sac Visualized. No free fluid visualized Impression ----- --------- Single viable intrauterine consistent with 23w 6d with an CLARISSA of07/03/2025. Transvaginal cervical length measures 4.42 cm. heart axis measures 45 degrees which is within normal limits. echocardiogram did not reveal sonographic evidence of any grossstructural abnormalities. Recommendations ----- --------- Please see [facility] documentation from today. anatomic survey is incomplete due to suboptimal visualization.Patient is not scheduled to return for additional ultrasound. Please reschedule for specific concerns or indications. Subsequent follow up or other follow up as clinically determined byprimary OB provider unless otherwise specified by [facility]. Results forwarded to ordering provider so they can follow up with thepatient as necessary. The copy-to physician of this order is JUSTICE Martinez The ordering physician of this order is MIHIR Rivera us Justice Whitman DO IMG OB US PROCEDURES Final Resul t documented in this encounter Visit Diagnoses Not on filedocumented in this encounter Care Teams Medical Research Associate Relationship Specialty Start Date End Date Justice Whitman DO [address] [place] [address] [place] [address] PCP - [place] [employer] 03/03/25 documented as of this encounter
--- OUTSIDE RECORDS SUMMARY | 2025-05-31 13:41 | XMS_ITS | Clinical Summary ---
Author [id number] [address] [place] [address] Care Team Providers Care Human Resource Intern Name Role Phone Unavailable Primary Care Provider Unavailabl e Allergies Active Allergy Reactions Criticality Noted Date Comments Latex Rash Low 02/21/2025 Other 02/21/2025 Animals Medications clobetasoL (TEMOVATE) 0.05 % cream Apply 1 Application topically in the morning and 1 Application before bedtime. Active ondansetron (ZOFRAN) 4 mg tablet Take 1 tablet (4 mg total) by mouth every 8 (eight) hours as needed for nausea or vomiting. Active methylPREDNISol one (MEDROL) 4 mg tablet Take 1 tablet (4 mg total) by mouth in the morning. Active diphenhydrAMINE (BENADRYL) 25 mg capsule Take 1 capsule (25 mg total) by mouth every 6 (six) hours as needed for itching. Active omeprazole (PriLOSEC) 20 mg capsule Take 1 capsule (20 mg total) by mouth in the morning. Active Active Problems Problem Noted Date Diagnosed Date Encounter for observation of suspected anomaly not found 03/12/2025 Estimated Date of Delivery Comme nts Yes 07/03/2025 Based on last me nstrual period of 09/26/2024 Encounters Date Type Department Care Team Description 03/12/2025 8:45 AM EDT Office Visit Maternal- Medicine at [facility] [address] [place] [id number] Marjan Hamilton MD Khurshid, Nauman, MD Encounter for observation of suspected anomaly not found (Primary Dx) 03/12/2025 7:15 AM EDT - 03/12/2025 11:59 PM EDT Hospital Encounter [facility] [address] [place] [address] Encounter for anatomic survey Discharge Disposition: Home 03/12/2025 Travel from Last 3 Months Social History Tobacco Use Types Packs/Day Years Used Date Smoking Tobacco: Never Smokeless Tobacco: Never Tobacco Cessation:Counseling Given: Not Answered Alcohol Use Standard Drinks/Week Comments Not Currently 0 (1 standard drink = 0.6 oz pur e alcohol) Hunger Screening Answer Date Recorded Within the past 12 months we worried whether our food would run out before we got money to buy more. Never True 03/12/2025 Within the past 12 months th e food we bought just didn't last and we didn't have money to get more. Never True 03/12/2025 Estimated Date of Delivery Comme nts Yes 07/03/2025 Based on last me nstrual period of 09/26/2024 Sex and Gender Information Value Date Recorded Sex Assigned at Not on file Legal Sex Female 8:47 AM EDT Gender Identity Not on file Sexual Orientation Not on file Last Filed Vital Signs Vital Sign Reading Time Taken Comments Blood Pressure 111/73 03/12/2025 7:57 AM EDT Pulse 88 03/12/2025 7:57 AM EDT Temperature - - Respiratory Rate - - Oxygen Saturation - - Inhaled Oxygen Concentration - - Weight 64.9 kg (143 lb) 03/12/2025 7:57 AM EDT Height 157.5 cm (5' 2.01 ) 03/12/2025 7:57 AM ED T Body Mass Index 26.15 03/12/2025 7:57 AM EDT Plan of Treatment Health Maintenance Due Date Last Done Comments DTaP,Tdap and Td Vaccines (5 - Tdap) 2004 02/06/1999, 05/09/1998, 05/25/1996, Additional history exists Depression Screening 2005 Tobacco Screening 2005 Adult BMI Follow Up Plan 12/07/2011 Influenza Vaccine 06/03/2025 07/18/2018 Adult BMI Screening 03/12/2026 03/12/2025 Pap Smear 02/28/2027 02/29/2024 Medical Devices Not on file Procedures Procedure Name Priority Date/Time Associated Diagnosis Comments [facility] COMPREHENSIVE ANATOMIC SURVEY Routine 03/12/2025 9:08 AM EDT Encounter for anatomic survey from Last 3 Months Results * US [facility] COMPREHENSIVE ANATOMIC SURVEY (03/12/2025 9:08 AM EDT) Anatomical Region Laterality Modality OB-SWITCH ADJUSTER Ultrasound 03/12/2025 7:31 AM EDT Narrative 03/12/2025 10:27 AM EDT NAME: ELZBIETA VAZQUEZ : 1995 SEX: F Accession Number: [id number] ORDERING PHYSICIAN: MIHIR RAI REFERRING PHYSICIAN: JUSTICE JUDD Coding ----- --------- Procedures [id number]: Ultrasound, uterus, real time with image documentation, and maternal evaluation plus detailed anatomic examination, transabdominal approach;single or first gestation [id number]: Transvaginal Ultrasound (OB) 00226: Echocardiography, , cardiovascular system, real time with image documentation (2D), with or without M-mode recording Indication ----- --------- Screening for Anatomic Survey, Screening for cervical length, Screening for congenital cardiac abnormality, Supervision of high risk (abnormal heart axis at office), Previous History ----- --------- OB History 2. Para 1 [id number] Maternal Assessment ----- --------- Physical Exam Height 157 cm, 5 ft 2 in. Weight 65 kg, 143 lb. Initial weight 51 kg, 113 lb. BMI 26.16 kg/m . Initial BMI 20.67 kg/m . Weight gain 14 kg, 30 lb Method [...] EFW (oz) 7 oz EFW by: Hadlock ([id number]-FL) Extended Tibia 36.9 mm 23w 6d 53% Iesha Combat Engineer 5.5 mm CM 3.1 mm <1% Nicolaides [...] view. RVOT view. LVOT view. 3-vessel view. 8-hfaghy-cpvvrgu view. Great vessels. Right lung. Left lung. [...] normal RVOT view normal 3-vessel view normal 2-nbnrzh-rdmztyl view normal Aortic arch view normal Ductal [...] structural abnormalities. Recommendations ----- --------- Please see [facility] documentation from today. anatomic survey is incomplete due to suboptimal visualization. Patient is not scheduled to return for additional ultrasound. Please reschedule for specific concerns or indications. Subsequent follow up or other follow up as clinically determined by primary OB provider unless otherwise specified by [facility]. Results forwarded to ordering provider so they can follow up with the patient as necessary. Procedure Note Mihir Rai MD - 03/12/2025 NAME: ELZBIETA VAZQUEZ : 1995 SEX: F Accession Number: [id number] ORDERING PHYSICIAN: MIHIR RAI REFERRING PHYSICIAN: JUSTICE JUDD Coding ----- --------- Procedures [id number]: Ultrasound, uterus, real time with imagedocumentation, and maternal evaluation plus detailed anatomic examination, transabdominalapproach;single or first gestation [id number]: Transvaginal Ultrasound (OB) 26589: Echocardiography, , cardiovascular system, real timewith image documentation (2D), with or without M-mode recording Indication ----- --------- Screening for Anatomic Survey, Screening for cervical length, Screeningfor congenital cardiac abnormality, Supervision of high risk (abnormal heart axis at office), Previous History ----- --------- OB History 2. Para 1 [id number] Maternal Assessment ----- --------- Physical Exam Height 157 cm, 5 ft 2 in. Weight 65 kg, 143 lb. Initialweight 51 kg, 113 lb. BMI 26.16 kg/m . Initial BMI 20.67 kg/m . Weight gain 14 kg, 30 lb Method [...] EFW (oz) 7 oz EFW by: Hadlock ([id number]-FL) Extended Tibia 36.9 mm 23w 6d 53% Iesha Combat Engineer 5.5 mm CM 3.1 mm <1% Nicolaides [...] 4-chamber view. RVOT view. LVOT view. 3-vessel view.5-gbernz-yzwzftj view. Great vessels. Right lung. Left lung. [...] normal RVOT view normal 3-vessel view normal 4-xsmjmn-noinhkp view normal Aortic arch view normal Ductal [...] grossstructural abnormalities. Recommendations ----- --------- Please see [facility] documentation from today. anatomic survey is incomplete due to suboptimal visualization.Patient is not scheduled to return for additional ultrasound. Please reschedule for specific concerns or indications. Subsequent follow up or other follow up as clinically determined byprimary OB provider unless otherwise specified by [facility]. Results forwarded to ordering provider so they can follow up with thepatient as necessary. us Mihir Rai MD IM US ORDERABLES Final Resul t from Last [place] [address] [facility]
--- OUTSIDE RECORDS SUMMARY | 2025-05-31 13:42 | XMS_ITS | Clinical Summary ---
Author Organization [facility] Address [address] [place] [address] Care Team Providers Care Lead Enterprise Architect Name Role Phone Justice Whitman DO Unavailable Allergies Active Allergy Reactions Criticality Noted Date Comments Latex Rash Low 03/01/2024 Other 06/27/2013 Other Reaction(s): Other: See Comments animals Animals Medications pantoprazole (Protonix) 40 MG EC tabletIndications:G astroesophageal reflux disease without esophagitis Take 1 tablet (40 mg) by mouth in the morning. Take before meals. Do not crush, chew, or split. 30 tablet 11 5 04/18/20 26 Active magnesium oxide (Mag-Ox) 400 MG tabletIndications:T hird trimester ([facility]),30 weeks gestation of ([facility]) Take 1 tablet (400 mg) by mouth Daily 30 tablet 2 5 05/31/20 25 Active iron polysaccharides (ProFe) 391.3 (180 Fe) MG capsuleIndications: 29 weeks gestation of ([facility]),Third trimester ([facility]) Take 1 capsule (391.3 mg) by mouth Daily 30 capsule 6 5 05/18/20 25 predniSONE (Deltasone) 10 MG tabletIndications:S inusitis, unspecified chronicity, unspecified location Take 1 tablet (10 mg) by mouth Daily for 5 days 5 tablet 5 05/13/20 25 azithromycin (Zithromax) 250 MG tabletIndications:S inusitis, unspecified chronicity, unspecified location Take 1 tablet (250 mg) by mouth Daily for 5 days 6 tablet 5 05/13/20 Active Problems Problem Noted Date Diagnosed Date Gastroesophageal reflux disease without esophagi tis 02/26/2025 Estimated Date of Delivery Comme nts Yes 07/03/2025 Based on last me nstrual period of 09/26/2024 Encounters Date Type Department Care Team Description 05/29/2025 9:20 [place] [address] Maribeth Carrillo PA Third trimester ([facility]); 35 weeks gestation of ([facility]); Weakness generalized; Hot flashes 05/29/2025 Bamboo flowsheet [facility] [place] [address] Maribeth Carrillo PA 05/22/2025 Travel 05/15/2025 10:50 AM EDT Routine [facility] [place] [address] Justice Whitman DO Third trimester ([facility]); 33 weeks gestation of ([facility]); Request for sterilization 05/14/2025 Travel 05/08/2025 Telephone [facility] [address] [place], [place] [address] [address] Sandra Romero MA 05/01/2025 8:30 AM EDT Routine [facility] [place] [address] Desiree Velásquez NP Third trimester ([facility]); 30 weeks gestation of ([facility]) 05/01/2025 Bamboo flowsheet DEBOR[facility] BARRETT [address] [place], [place] [address] [address] Desiree Velásquez NP 04/30/2025 8:00 AM EDT Ancillary Procedure [facility] [place] [phone] size inconsistent with dates ([facility]) 04/30/2025 Telephone [facility] [address] [facility] [place] [phone] Katerin Nash, [employer] 04/23/2025 Travel 04/18/2025 8:40 AM EDT Routine [facility] [address] [facility] [place] [phone] Justice Whitman, DO 29 weeks gestation of ([facility]); Third trimester ([facility]); Gastroesophageal reflux disease without esophagitis 04/18/2025 Bamboo flowsheet [facility] [address] [facility] [place] [phone] Justice Whitman, DO 04/04/2025 Refill [facility] [address] [facility] [place] [phone] Chelita Romerosol PA Tooth infection 04/03/2025 Telephone [facility] [address] [facility] [place] [phone] Katerin Nash, ALPESH 03/29/2025 Telephone [facility] [address] [facility] [place] [phone] Bonnie Lyle MA 03/26/2025 Refill [facility] [address] [facility] [place] [address] Maribeth Carrillo PA Gastroesophageal reflux disease without esophagitis 03/23/2025 Clinisync Result Encounter NOM[facility] External Department Unsolicited Justice Whitman, DO 03/21/2025 8:50 AM EDT Routine [facility] [facility] [address] [place] [phone] Maribeth Carrillo PA Second trimester ([facility]) (Primary Dx); 25 weeks gestation of ([facility] 03/21/2025 Bamboo flowsheet [facility] [address] [facility] [place] [address] Maribeth Carrillo PA 03/12/2025 Abstract [facility] [address] [place] [address] Bonnie Lyle MA 03/12/2025 External Result Encounter [facility] [address] [place] [address] Justice Whitman DO from Last 3 Months Social History Tobacco [...] (162 lb) 05/29/2025 8:47 AM EDT Height 157.5 cm (5' 2 ) 03/01/2024 8:00 AM EDT Body Mass Index 29.63 03/01/2024 8:00 AM EDT Plan of Treatment Upcoming Encounters Date Type Department Care Team (Late st Contact Info) Description 06/04/2025 8:30 AM EDT Routine [facility] [address] [place] [address] Justice Whitman DO [address], [place] [phone] 07/03/2025 10:30 [place] [address] Desiree Velásquez, SHARRI [address] [facility] [address] [place] [address] Health Maintenance Due Date Last Done Comments HPV/Cotest 12/07/2023 Influenza Vaccine (#1) 2025 07/18/2018 Cervical Cancer Screening 02/28/2027 Pap Smear 02/28/2027 02/29/2024, 11/11/2022 Procedures Procedure Name Priority Date/Time Associated Diagnosis Comments POCT URINALYSIS DIPSTICK Routine 05/29/2025 8:46 AM EDT Third trimester ([facility]) POCT URINALYSIS DIPSTICK Routine 05/15/2025 10:19 AM EDT Third trimester ([facility]) POCT URINALYSIS DIPSTICK Routine 05/01/2025 9:00 AM EDT Third trimester ([facility]) US OB FOLLOW UP TRANSABDOMINAL APPROACH Routine 04/30/2025 8:20 AM EDT size inconsistent with dates ([facility]) CULTURE, URINE, ROUTINE Routine 04/18/2025 11:18 AM EDT Urinary tract infection without hematuria, site unspecified GLUCOSE 1 HOUR Routine 03/23/2025 7:40 AM EDT ALL CBC WITH AUTO DIFF Routine 7:40 AM EDT US OB 14+ WEEKS ANATOMY SCAN 03/12/2025 10:27 AM EDT PAP SMEAR Routine 02/29/2024 12:00 AM EDT from Last 3 Months or Most Recently Relevant to Health Maintenance Results * (ABNORMAL) POCT urinalysis dipstick manually resulted (05/29/2025 8:46 AM EDT) Only the most recent of3 resultswithin the time period is included. Color, UA Yellow Clarity, UA Clear Glucose, [...] - Positive Urine 05/29/2025 8:46 AM EDT us Maribeth GRAY POINT OF CARE TEST ENTER/EDIT OR DERABLES Final Result * US OB follow up transabdominal approach (04/30/2025 8:20 AM EDT) Anatomical Region Laterality Modality Body Ultrasound 05/01/2025 7:35 AM EDT Narrative 05/01/2025 7:35 AM EDT EXAM: US OB FOLLOW UP TRANSABDOMINAL APPROACH HISTORY: Inconsistent size. COMPARISON: Ob ultrasound 02/13/2025. TECHNIQUE: Two-dimensional transabdominal grayscale ultrasound imaging of the pelvis was performed. FINDINGS: Gestation: Single Presentation: Cephalic Cardiac Activity: 138 beats per minute Amniotic Fluid Index: 11.7 cm MEASUREMENTS: BPD: 7.9 cm EGA: 31 weeks 5 days HC: 28.8 cm EGA: 31 weeks 5 days AC: 27.5 cm EGA: 31 weeks 4 days FL: 5.8 cm EGA: 30 weeks 3 days HC/AC Ratio: 1.05 The gestational age by today's ultrasound is 31 weeks 3 days (+/- 15 days gestation). Estimated Weight: 1728 grams, +/- 259 grams ( 3 lb 13 oz). Weight Percentile for gestational age: 51 % IMPRESSION: 1. Single, live intrauterine gestation 30 weeks, 6 days by LMP. Today's ultrasound measurements correlate with a gestational age of 31 weeks 3 days. Estimated weight is 1728 grams, +/- 259 grams ( 3 lb 13 oz) which correlates to 51 %. CLARISSA by today's ultrasound is 06/29/2025. Interpreted by: Electronically signed by CAYLA SAUCEDO II, MD, PHD at 01-May-2025 07:33:44 AM [facility] Procedure Note Cayla Saucedo MD - 05/01/2025 EXAM: US OB FOLLOW UP TRANSABDOMINAL APPROACH HISTORY: Inconsistent size. COMPARISON: Ob ultrasound 02/13/2025. TECHNIQUE: Two-dimensional transabdominal grayscale ultrasound imaging ofthe pelvis was performed. FINDINGS: Gestation: Single Presentation: Cephalic Cardiac Activity: 138 beats per minute Amniotic Fluid Index: 11.7 cm MEASUREMENTS: BPD: 7.9 cm EGA: 31 weeks 5 days HC: 28.8 cm EGA: 31 weeks 5 days AC: 27.5 cm EGA: 31 weeks 4 days FL: 5.8 cm EGA: 30 weeks 3 days HC/AC Ratio: 1.05 The gestational age by today's ultrasound is 31 weeks 3 days (+/- 15 daysgestation). Estimated Weight: 1728 grams, +/- 259 grams ( 3 lb 13 oz). Weight Percentile for gestational age: 51 % IMPRESSION: 1. Single, live intrauterine gestation 30 weeks, 6 days by LMP. Today'sultrasound measurements correlate with a gestational age of 31 weeks 3days. Estimated weight is 1728 grams, +/- 259 grams ( 3 lb 13 oz)which correlates to 51 %. CLARISSA by today's ultrasound is 06/29/2025. Interpreted by: Electronically signed by CAYLA SAUCEDO II, MD, PHD [id number] 07:33:44 AM [facility] us Justice J Carlos DO IMG OB US PROCEDURES Final Resul t * Urine culture (04/18/2025 11:18 AM EDT) Urine Urine specimen obtained by clean catch procedure / Unknown us Justice J Carlos DO LAB MICROBIOLOGY - GENERAL ORDER MARIMAR Final Result EXTERNAL LAB * GLUCOSE 1 HOUR (03/23/2025 7:40 AM EDT) GLUCOSE 1 HOUR 126 <130 mg/dL [facility] 03/23/2025 7:40 AM EDT 03/23/2025 7:40 AM EDT Narrative VERONICA - 03/23/2025 8:02 AM EDT us Justice J Carlos DO LAB BLOOD ORDERABLES Final Resul t [facility] * (ABNORMAL) ALL CBC WITH AUTO DIFF (03/23/2025 7:40 AM EDT) [facility] WBC 9.2 4.0 - 11.0 10 3/uL TBH TBH RBC 3.46(L) 4.20 - 5.40 10 6/uL TBH TBH HGB 10.7(L) 12.0 - 16.0 g/dL TBH TBH HCT 31.1(L) 36.0 - 48.0 % TBH TB[facility] MCV 89.9 81.0 - 99.0 fL TBH TBH MCH 30.9 26.7 - 34.0 pg TBH TBH MCHC 34.4 29.9 - 35.2 g/dL TBH TBH RDW 13.2 11.0 - 15.0 % TBH TBH PLT 146(L) 150 - 450 10 3/uL TBH TBH MPV 9.8 9.5 - 13.5 fL TBH NEUTROPHILS PERCENT AUTO 77.1(H) 43.0 - 75.0 % TBH LYMPHOCYTES PERCENT AUTO 15.2(L) 20.5 - 60.0 % TBH MONOCYTES PERCENT AUTO 5.0 1.7 - 12.0 % TBH TBH EO % 1.6 0.9 - 7.0 % TBH BASOPHILS PERCENT AUTO 0.4 0.2 - 2.0 % TBH IMMATURE GRANULOCYTES PCT AUTO 0.7(H) 0.0 - 0.5 % TBH NEUTROPHILS ABSOLUTE AUTO 7.1(H) 1.4 - 6.5 10 3/uL TBH LYMPHOCYTES ABSOLUTE AUTO 1.4 1.2 - 3.8 10 3/uL TBH MONOCYTES ABSOLUTE AUTO 0.5 0.3 - 0.8 10 3/uL TBH TBH EO # 0.2 0.0 - 0.7 10 3/uL TBH BASOPHILS ABSOLUTE AUTO 0.0 0.0 - 0.1 10 3/uL TBH IMMATURE GRANULOCYTES ABS AUTO 0.06(H) 0.00 - 0.03 10 3/uL [facility] 03/23/2025 7:40 AM EDT 03/23/2025 7:40 AM EDT Narrative [facility]IN[facility] - 03/23/2025 7:51 AM EDT us Justice Whitman DO [facility] Final Result [facility] * US OB 14+ weeks anatomy scan (03/12/2025 10:27 AM EDT) Anatomical Region Laterality Modality Body Ultrasound 03/12/2025 10:2 7 AM EDT Narrative 03/12/2025 10:27 AM EDT THIS EXAM WAS PERFORMED AT [facility] NAME: ELZBIETA VAZQUEZ : 1995 SEX: F Accession Number: [id number] ORDERING PHYSICIAN: REID RAI REFERRING PHYSICIAN: JUSTICE WHITMAN Coding ----- --------- Procedures [id number]: Ultrasound, uterus, real time with image documentation, and maternal evaluation plus detailed anatomic examination, transabdominal approach;single or first gestation 90789: Transvaginal Ultrasound (OB) 06488: Echocardiography, , cardiovascular system, real time with image documentation (2D), with or without M-mode recording Indication ----- --------- Screening for Anatomic Survey, Screening for cervical length, Screening for congenital cardiac abnormality, Supervision of high risk (abnormal heart axis at office), Previous History ----- --------- OB History 2. Para 1 [id number] Maternal Assessment ----- --------- Physical Exam Height [...] EFW (oz) 7 oz EFW by: Hadlock ([id number]) Extended Tibia 36.9 mm 23w 6d 53% Iesha Lathe Turner 5.5 mm CM 3.1 mm <1% Nicolaides [...] view. RVOT view. LVOT view. 3-vessel view. 0-ohfxpe-hggriog view. Great vessels. Right lung. Left lung. [...] normal RVOT view normal 3-vessel view normal 2-beoobv-zlkxuzg view normal Aortic arch view normal Ductal [...] structural abnormalities. Recommendations ----- --------- Please see [facility] documentation from today. anatomic survey is incomplete due to suboptimal visualization. Patient is not scheduled to return for additional ultrasound. Please reschedule for specific concerns or indications. Subsequent follow up or other follow up as clinically determined by primary OB provider unless otherwise specified by [facility]. Results forwarded to ordering provider so they can follow up with the patient as necessary. The copy-to physician of this order is JUSTICE Martinez The ordering physician of this order is REID Rivera Procedure Note Radiology, Radiologist, - 03/12/2025 THIS EXAM WAS PERFORMED AT [facility] NAME: ELZBIETA VAZQUEZ : 1995 SEX: F Accession Number: [id number] ORDERING PHYSICIAN: REID RAI REFERRING PHYSICIAN: JUSTICE WHITMAN Coding ----- --------- Procedures [id number]: Ultrasound, uterus, real time with imagedocumentation, and maternal evaluation plus detailed anatomic examination, transabdominalapproach;single or first gestation 32634: Transvaginal Ultrasound (OB) 45690: Echocardiography, , cardiovascular system, real timewith image documentation (2D), with or without M-mode recording Indication ----- --------- Screening for Anatomic Survey, Screening for cervical length, Screeningfor congenital cardiac abnormality, Supervision of high risk (abnormal heart axis at office), Previous History ----- --------- OB History 2. Para 1 [id number] Maternal Assessment ----- --------- Physical Exam Height [...] EFW (oz) 7 oz EFW by: Hadlock ([id number]) Extended Tibia 36.9 mm 23w 6d 53% Iesha Lathe Turner 5.5 mm CM 3.1 mm <1% Nicolaides [...] 4-chamber view. RVOT view. LVOT view. 3-vessel view.1-rmomjy-eekttdv view. Great vessels. Right lung. Left lung. [...] normal RVOT view normal 3-vessel view normal 0-rtzsfq-uvztdch view normal Aortic arch view normal Ductal [...] grossstructural abnormalities. Recommendations ----- --------- Please see [facility] documentation from today. anatomic survey is incomplete due to suboptimal visualization.Patient is not scheduled to return for additional ultrasound. Please reschedule for specific concerns or indications. Subsequent follow up or other follow up as clinically determined byprimary OB provider unless otherwise specified by [facility]. Results forwarded to ordering provider so they can follow up with thepatient as necessary. The copy-to physician of this order is JUSTICE Martinez The ordering physician of this order is REID Rivera us Justice Whitman DO IMG OB US PROCEDURES Final Resul t * Pap Smear (02/29/2024 12:00 AM EDT) Swab Cervical swab / Unknown us J Carlos Nurse [facility] LAB CYTOLOGY ORDERABLES Final Result EXTERNAL LAB from Last 3 Months or Most Recently Relevant to Health Maintenance Insurance [facility] BCBS MEDICAID [place] Care Teams Lead Enterprise Architect Relationship Specialty Start Date End Date Justice Whitman DO [address] [place] [address] [place] [address] PCP - [facility] [employer] 03/03/25
--- OUTSIDE RECORDS SUMMARY | 2025-05-31 13:42 | XMS_ITS | Encounter Summary ---
Author Organization [facility] Address [address] [place] [address] Care Team Providers Care Fuel Distribution System Operator Name Role Phone Kannan Whitman DO Unavailable Encounter Details Date Type Department Care Team (Late Contact Info) Description 05/29/2025 Bamboo flowsheet [facility] [address] [place] [address] Maribeth Carrillo PA [address] [place], [place] [address] Social History Tobacco Use Types Packs/Day Years [...] Routine [facility] [address] [place] [address] Kannan Whitman DO [address], [place] [address] 07/03/2025 10:30 AM EDT Office Visit [facility] [address] [address] Desiree Velásquez, SHARRI [address] [place] [address] documented as of this encounter Visit Diagnoses Not on filedocumented in this encounter Care Teams Fuel Distribution System Operator Relationship Specialty Start Date End Date Kannan Whitman DO [address] [place] [address] PCP - [place] [employer] 03/03/25 documented as of this encounter
--- OUTSIDE RECORDS SUMMARY | 2025-05-31 13:46 | XMS_ITS | CCD ---
Author Organization [facility] Care Team Providers Care Machine Assembler Supervisor Name Role Phone DR JUSTICE WHITMAN Admitting Unavailable J CARLOS, DR RENDON Consulting Unavailable J CARLOS, DR RENDON Attending Unavailable MISC, DR DOE Primary Care Unavailable DIDIERDESIREE Consulting Unavailable DIDIERDESIREE LOBO Attending Unavailable DIDIER, DESIREE Admitting Unavailable MISC, DR DOE Primary Care Unavailable DIDIERDESIREE Consulting Unavailable DIDIER, DESIREE Attending Unavailable DIDIERDESIREE LOBO Admitting Unavailable MISC, DR DOE Primary Care Unavailable DIDIERDESIREE LOBO Admitting Unavailable DIDIER, DESIREE Consulting Unavailable DIDIERDESIREE FUNES Attending Unavailable MISC, DR DOE Primary Care Unavailable J CARLOS, DR RENDON Admitting Unavailable J CARLOS, DR RENDON Consulting Unavailable J CARLOS, DR RENDON Attending Unavailable MISC, DR DOE Primary Care Unavailable Keily, CERTIFIED NEURODIAGNOSTIC TECHNOLOGIST Seble L Attending Unavailable Keily, CERTIFIED NEURODIAGNOSTIC TECHNOLOGIST Seble L Attending Unavailable Keily, CERTIFIED NEURODIAGNOSTIC TECHNOLOGIST Seble L Attending Unavailable Unavailable Primary Care Provider Unavailabl e Unavailable Primary Care Provider Unavailabl e JUSTICE WHITMAN R Referring Unavailable REID RAI Attending Unavailable CORDELIA HAMILTON Referring Unavailable Justice Whitman DO Unavailable JUSTICE WHITMAN Attending Unavailable DESIREE VELÁSQUEZ Attending Unavailable JUSTICE WHITMAN Attending Unavailable MARIBETH MCRAE Attending Unavailable JUSTICE WHITMAN Attending Unavailable DIDIERDESIREE FUNES Attending Unavailable JUSTICE WHITMAN Attending Unavailable MARIBETH MCRAE Attending Unavailable Allergies Allergy Classification Reported Allergen(s) Allergy Type Date of Onset Reaction(s) Facility (20 sources) Latex; Translations: [Latex] Propensity to adverse reactions (disorder) 4 Rash [facility] Repository (1 source) No Known Medication Allergies; Translations: [No Known Medication Allergies] Propensity to adverse reactions (disorder) [facility] Repository (20 sources) Other; Translations: [OTHER] Allergy to substance [...] (six) hours as needed for itching. Active magnesium oxide 400 mg oral tablet (7 sources) Start: 5 End: 5 take 1 tablet by mouth once daily magnesium oxide (Mag-Ox) 400 MG tablet Indications: Third trimester ([facility]) , 30 weeks gestation of ([facility]) Take 1 tablet (400 mg) by mouth Daily 30 tablet 2 05/01/2025 05/31/2025 Active methylPREDNISolone (4 sources) Corticosteroid Start: 4 End: 5 methylPREDNISolone (Medrol Dospak) 4 MG tablets Indications: [...] omeprazole 20 mg delayed release oral capsule (11 sources) Proton Pump Inhibitor Start: 02-26-2025 End: 06-24-2025 take 1 capsule by mouth in the morning omeprazole (PriLOSEC) [address] capsule Indications: Gastroesophageal reflux disease without esophagitis Take 1 capsule (20 mg) by mouth in the morning and 1 capsule (20 mg) before bedtime. 180 capsule 2 03/26/2025 06/24/2025 Active ondansetron 4 mg oral tablet (4 [...] as needed for nausea or vomiting. Active pantoprazole 40 mg delayed release oral tablet (10 sources) Proton Pump Inhibitor Start: 04-18-2025 End: 04-18-2026 take 1 tablet by mouth before mealtime pantoprazole (Protonix) 40 MG EC tablet Indications: Gastroesophageal reflux disease without esophagitis Take 1 tablet (40 mg) by mouth in the morning. Take before meals. Do not crush, chew, or split. 30 tablet 11 04/18/2025 04/18/2026 Active polysaccharide iron complex 391 mg oral capsule (7 sources) Start: 04-18-2025 End: 05-18-2025 take 1 capsule by mouth once daily iron polysaccharides (ProFe) 391.3 (180 Fe) MG capsule Indications: 29 weeks gestation of ([facility]) , Third trimester ([facility]) Take 1 capsule (391.3 mg) by mouth Daily 30 capsule 6 04/18/2025 05/18/2025 Active Completed/Discontinued Medications Medication Drug Class(es) Dates Sig (Normalized) Sig (Original) azithromycin 250 mg oral tablet (2 sources) Macrolide Antimicrobial Start: 12-07-2024 End: 12-27-2024 azithromycin (Zithromax Z-Ken) 250 MG tablet Indications: Upper respiratory tract infection, unspecified type , Sinusitis, unspecified chronicity, unspecified location As directed 6 tablet 12/07/2024 12/27/2024 Discontinued (Therapy completed) Problems Active Problems Problem Classification Problem Date Documented Date Episodic/Chronic Contraceptive and procreative management (2 sources) Sterilization requested; Translations: [Encounter for sterilization] 05-15-2025 Episodic Esophageal disorders (17 sources) Gastroesophageal reflux disease without esophagitis; Translations: [Gastro-esophageal reflux disease without esophagitis] Onset: 02-26-2025 02-26-2025 Chronic Malaise and fatigue (2 sources) Asthenia; Translations: [Weakness] 05-29-2025 Episodic Menstrual disorders (1 source) Missed period; Translations: [Irregular menstruation, unspecified] 11-23-2024 Chronic Nausea and vomiting (1 source) Nausea; Translations: [Nausea] 11-13-2024 Episodic Other and delivery including normal (16 sources) ; Translations: [Encounter for supervision of [...] [25 weeks gestation of ] 03-21-2025 Episodic Residual codes; unclassified (2 sources) Gestation period, 29 weeks; Translations: [29 weeks gestation of ] 04-18-2025 Episodic Residual codes; unclassified (2 sources) Gestation period, 30 weeks; Translations: [30 weeks gestation of ] 05-01-2025 Episodic Residual codes; unclassified (2 sources) Gestation period, 33 weeks; Translations: [33 weeks gestation of ] 05-15-2025 Episodic Residual codes; unclassified (2 sources) Gestation period, 35 weeks; Translations: [35 weeks gestation of ] 05-29-2025 Episodic Residual codes; unclassified (2 sources) Flushing; Translations: [Flushing] 05-29-2025 Episodic Unclassified (3 sources) CONTACT W/AND (SUSP) [...] Test Name Value Interpretation Reference Range Facility Urinalysis macro (dipstick) panel (U)on 05-29-2025 Bilirubin, UA Negative Negative - 4(70) +++ mg/dL [facility] Blood, UA Positive Negative - 50 Toni/mcL [facility] Clarity, UA Clear [facility] re Color, UA Yellow [facility] Health[facility] e Glucose, UA Negative Negative - 1999(110) ++++ mg/dL [facility] Interpretation and review of laboratory results Abnormal [facility] re Ketones, UA Negative Negative - 160(16) ++++ mg/dL [facility] Leukocytes, UA 3+ Negative - 500+++ Amish/mcL [facility] Nitrite, UA Negative Negative - Positive [facility] pH, UA 6 5 - 9 [facility] Protein, UA 1+ Negative - 1999(20) ++++ mg/dL [facility] Spec Grav, UA 1.015 1 - 1.03 [facility] Urobilinogen, UA 1.0 0.2 - 12 mg/dL [facility] Urinalysis macro (dipstick) panel (U)on 05-15-2025 Bilirubin, UA Negative Negative - 4(70) +++ mg/dL [facility] Blood, UA Positive Negative - 50 Toni/mcL [facility] Comment on above: trace Clarity, UA Clear [facility] Color, UA Yellow [facility] Glucose, UA Negative Negative - 1999(110) ++++ mg/dL [facility] Interpretation and review of laboratory results Abnormal [facility] re Ketones, UA Negative Negative - 160(16) ++++ mg/dL [facility] Leukocytes, UA Moderate Negative - 500+++ Amish/mcL [facility] Nitrite, UA Negative Negative - Positive [facility] pH, UA 6 5 - 9 [facility] Health[facility] e Protein, UA Positive Negative - 1999(20) ++++ mg/dL [facility] Comment on above: Trace Spec Grav, UA 1.015 1 - 1.03 [facility] Urobilinogen, UA 0.2 0.2 - 12 mg/dL [facility] Urinalysis macro (dipstick) panel (U)on 05-01-2025 Bilirubin, UA Negative Negative - 4(70) +++ mg/dL [facility] Blood, UA Negative Negative - 50 Toni/mcL [facility] Clarity, UA Clear [facility] re Color, UA Yellow [facility] Health[facility] e Glucose, UA Negative Negative - 1999(110) ++++ mg/dL [facility] Interpretation and review of laboratory results Abnormal [facility] re Ketones, UA Negative Negative - 160(16) ++++ mg/dL [facility] Leukocytes, UA Moderate Negative - 500+++ Amish/mcL [facility] Nitrite, UA Negative Negative - Positive [facility] pH, UA 6.5 5 - 9 [facility] Health[facility] e Protein, UA Negative Negative - 1999(20) ++++ mg/dL [facility] Spec Grav, UA 1.01 1 - 1.03 [facility] Urobilinogen, UA 0.2 0.2 - 12 mg/dL [facility] FOLLOW UP TRANSABDOMIN AL APPROACHon 04-30-2025 US OB FOLLOW UP TRANSABDOMINAL APPROACH EXAM: US OB FOLLOW UP TRANSABDOMINAL APPROACH [...] 06/29/2025. Interpreted by: Electronically signed by CAYLA SILVA II, MD, PHD at 01-May-2025 07:33:44 AM [facility] Normal Not Available Comment on above: Order Comment: US OB SCAN FOR GROWTH Estimated Date of Delivery: 07/03/25 Gestational Age as of 04/30/2025: 30w6d ALL CBC WITH AUTO DIFFon BASOPHILS ABSOLUTE AUTO 0 [facility] Basophils/100 WBC (Bld) 0.4 % 0.2 - 2.0 % [facility] Eosinophils/100 WBC (Bld) 1.6 % 0.9 - 7.0 % [facility] Erythrocyte distribution width (RBC) [Ratio] 13.2 % 11.0 - 15.0 % [facility] Hematocrit (Bld) [Volume fraction] 31.1 % Low 36.0 - 48.0 % [facility] Hemoglobin (Bld) [Mass/Vol] 10.7 g/dL Low 12.0 - 16.0 g/dL [facility] IMMATURE GRANULOCYTES ABS AUTO 0.06 High [facility] Immature granulocytes/100 WBC (Bld) 0.7 % High 0.0 - 0.5 % [facility] and review of laboratory results Abnormal [facility] LYMPHOCYTES ABSOLUTE AUTO 1.4 [facility] Lymphocytes/100 WBC (Bld) 15.2 % Low 20.5 - 60.0 % [facility] MCH (RBC) [Entitic mass] 30.9 pg 26.7 - 34.0 pg [facility] MCHC (RBC) [Mass/Vol] 34.4 g/dL 29.9 - 35.2 g/dL [facility] MCV (RBC) [Entitic vol] 89.9 fL 81.0 - 99.0 fL [facility] MONOCYTES ABSOLUTE AUTO 0.5 [facility] Monocytes/100 WBC (Bld) 5 % 1.7 - 12.0 % [facility] NEUTROPHILS ABSOLUTE AUTO 7.1 High [facility] Neutrophils/100 WBC (Bld) 77.1 % High 43.0 - 75.0 % [facility] Platelet mean volume (Bld) [Entitic vol] 9.8 fL 9.5 - 13.5 fL [facility] TBH EO # 0.2 [facility] TBH PLT 146 Low [facility] RBC 3.46 Low [facility] WBC 9.2 [facility] US OB 14+ WEEKS ANATOMY SCAN on [...] II, MD, PHD at 14-Feb-2025 11:33:18 AM [facility] Normal Not Available Comment on above: Order Comment: US OB ANATOMY SINGLE W US OB CERVICAL LENGTH Estimated Date of Delivery: 07/03/25 Gestational Age as of 01/23/2025: 17w0d Urinalysis macro (dipstick) panel (U)on 12-27-2024 Bilirubin, UA Negative Negative - 4(70) +++ mg/dL [facility] Blood, UA Negative Negative - 50 Toni/mcL [facility] Clarity, UA Clear [facility] re Color, UA Yellow [facility] Health[facility] e Glucose, UA Negative Negative - 1999(110) ++++ mg/dL [facility] Interpretation and review of laboratory results Normal [facility] re Ketones, UA Negative Negative - 160(16) ++++ mg/dL [facility] Leukocytes, UA Positive Negative - 500+++ Amish/mcL [facility] Nitrite, UA Negative Negative - Positive [facility] pH, UA 6.5 5 - 9 [facility] Healthcar e Protein, UA Negative Negative - 1999(20) ++++ mg/dL [facility] Spec Grav, UA 1.02 1 - 1.03 [facility] Urobilinogen, UA 0.2 0.2 - 12 mg/dL [facility] OB TRANSVAGINALon 025 US [...] II, MD, PHD at 01-Dec-2024 07:22:16 AM [facility] Normal Not Available Comment on above: Order Comment: US OB TRANSVAGINAL Patient's last menstrual period was 09/26/2024. HCG ( test) Ql (U)o n 11-23-2024 Interpretation and review of laboratory results Abnormal [facility] re Preg Test, Ur Positive Negative [facility] e CARDIOCHECK - LIPID AND GLUC OSEon 11-20-2024 Cholesterol [Mass/Vol] 115 mg/dL NINF - 200 [facility] Cholesterol in HDL [Mass/Vol] 55 mg/dL M: 35-65 F: 35-80 [facility] Cholesterol in LDL [Mass/Vol] 60 mg/dL NINF - 100 [facility] Glucose [Mass/Vol] 102 mg/dL NINF - 100 [facility] Interpretation and review of laboratory results Abnormal [facility] re Triglyceride [Mass/Vol] 170 mg/dL NINF - 150 [facility] Office/Clini c Noteon 07-20-2024 [...] glen, Topical, BID, 45 gram, Refill(s) 0, [facility]/pharmacy #[id number], 157.4, cm, 07/20/24 14:43:00 EDT, Height/Length [...] Recorded Hib, unspecified formulation 02/05/1994 Recorded Normal [facility] Comment on above: Result Comment: Elec tronically Signed By: Seble Luna\.br\Date and Time Signed: 07/20/24 14:56 EDT RAD - Ultrasound Reporton RAD - Ultrasound Report [id number]. [id number] [facility] Consenton 01-23-2024 Consent [id number] .00TIFF [facility] PAP ACOG PANEL 2: 21 to 29on 11-18-2022 . . Normal [facility] Comment on above: Performed By: #### [id number] #### [facility] [address] [address] [address] Prashant Fletcher Age Gdln ACOG Testing - [facility] Comment on above: Performed By: #### [id number] #### [facility] [address] [address] [address] Prashant Fletcher DIAGNOSIS: Comment [facility] Comment on above: Result Comment: NEGA TIVE FOR INTRAEPITHELIAL LESION OR MALIGNANCY. Performed By: #### [id number] #### [facility] [address] [place] [address] Dr. Prashant Feltcher Methodology: Comment Normal [facility] Comment on above: Result Comment: This liquid based ThinPrep(R) pap test was screened with the use of an image guided system. Performed By: #### [id number] #### [facility] [address] [place] [address] Dr. Prashant Fletcher Note: Comment Normal [facility] Comment on above: Result Comment: The Pap smear is a screening test designed to aid in the detection of premalignant and malignant conditions of the uterine cervix. It is not a diagnostic procedure and should not be used as the sole means of detecting cervical cancer. Both false-positive and false-negative reports do occur. . Performed By: #### [id number] #### [facility] [address] [place] [address] Dr. Prashant Fletcher Performed by: Comment Normal [facility] Comment on above: Result Comment: Pati Johnson, Film And Video Editor (ASCP) Performed By: #### [id number] #### [facility] [address] [place] [address] Dr. Prashant Fletcher Reflex Criteria: Comment Normal [facility] Comment on above: Result Comment: The HPV DNA reflex criteria were not met with this specimen result therefore, no HPV testing was performed. . Performed By: #### [id number] #### [facility] [address] [place] [address] Dr. Prashant Fletcher Specimen adequacy: Comment Normal [facility] Comment on above: Result Comment: Sati sfactory for evaluation. Endocervical and/or squamous metaplastic cells (endocervical component) are present. Performed By: #### [id number] #### [facility] [address] [place] [address] Dr. Prashant Fletcher SYMPTOMATIC COVID-19 ANTIGEN on 03-23-2022 EUA Statement SEE BELOW [facility] Comment on above: Result Comment: This [...] sooner. Performed By: #### C VDAGS #### [facility] [address] [place] [address] Dr. Prashant Fletcher SARS-CoV-2 (COVID-19) RNA DIAMOND+probe Ql (Unsp spec) Negative Normal NEGATIVE [facility] Comment on above: Performed By: #### C VDAGS #### [facility] [address] [place] [address] Dr. Prashant Fletcher SYMPTOMATIC COVID-19 ANTIGEN on 03-22-2022 EUA Statement SEE BELOW Normal [facility] Comment on above: Result Comment: This [...] sooner. Performed By: #### C VDAGS #### [facility] [address] [place] [address] Dr. Prashant Fletcher SARS-CoV-2 (COVID-19) RNA DIAMOND+probe Ql (Unsp spec) Negative Normal NEGATIVE [facility] Comment on above: Performed By: #### C VDAGS #### [facility] [address] [place] [address] Dr. Prashant Fletcher Covid-19 PCR ([facility])on 01-01 SARS-CoV-2 (COVID-19) RNA DIAMOND+probe Ql (Unsp spec) Not detected Normal NOT DETECTED [facility] Comment on above: Result Comment: When [...] for this test is supported by the String Winding Machine Operator of Health and Human Service's declaration that [...] longer be used). Performed By: #### C VDTB #### [facility] [address] [place] [address] Dr. Prashant Fletcher CBC AUTO DIFFon 12-09-2021 BASO # 0.0 103/ul Normal 0.0-0.1 [facility] Comment on above: Performed By: #### C BC #### [facility] [address] [place] [address] Dr. Prashant Fletcher Basophils/100 WBC (Bld) 0.7 % Normal 0.2-2.0 [facility] Comment on above: Performed By: #### C BC #### [facility] [address] [place] [address] Dr. Prashant Fletcher EO # 0.2 103/ul Normal 0.0-0.7 [facility] Comment on above: Performed By: #### C BC #### [facility] [address] [place] [address] Dr. Prashant Fletcher Eosinophils/100 WBC (Bld) 4.4 % Normal 0.9-7.0 [facility] Comment on above: Performed By: #### C BC #### [facility] [address] [place] [address] Dr. Prashant Fletcher Erythrocyte distribution width (RBC) [Ratio] 15.5 % Critically high 11.0-15.0 [facility] Comment on above: Performed By: #### C BC #### [facility] [address] [place] [address] Dr. Prashant Fletcher Hematocrit (Bld) [Volume fraction] 40.1 % Normal 36.0-48.0 [facility] Comment on above: Performed By: #### C BC #### [facility] [address] [place] [address] Dr. Prashant Fletcher Hemoglobin (Bld) [Mass/Vol] 12.4 g/dL Normal 12.0-16.0 [facility] Comment on above: Performed By: #### C BC #### [facility] [address] [place] [address] Dr. Prashant Fletcher IG # 0.01 10e3/ul Normal 0.00-0.03 [facility] Comment on above: Performed By: #### C BC #### [facility] [address] [place] [address] Dr. Prashant Fletcher IG % 0.2 % Normal 0.0-0.5 [facility] Comment on above: Performed By: #### C BC #### [facility] [address] [place] [address] Dr. Prashant Fletcher LYMPH # 1.8 103/ul Normal 1.2-3.8 [facility] Comment on above: Performed By: #### C BC #### [facility] [address] [place] [address] Dr. Prashant Fletcher Lymphocytes/100 WBC (Bld) 33.3 % Normal 20.5-60.0 [facility] Comment on above: Performed By: #### C BC #### [facility] [address] [place] [address] Dr. Prashant Fletcher MANUAL DIFF REQ NO Normal [facility] Comment on above: Performed By: #### C BC #### [facility] [address] [place] [address] Dr. Prashant Fletcher MCH (RBC) [Entitic mass] 26.1 pg Critically low 26.7-34.0 [facility] Comment on above: Performed By: #### C BC #### [facility] [address] [place] [address] Dr. Prashant Fletcher MCHC (RBC) [Mass/Vol] 30.9 g/dL Normal 29.9-35.2 [facility] Comment on above: Performed By: #### C BC #### [facility] [address] [place] [address] Dr. Prashant Fletcher MCV (RBC) [Entitic vol] 84.4 fL Normal 81.0-99.0 [facility] Comment on above: Performed By: #### C BC #### [facility] [address] [place] [address] Dr. Prashant Fletcher MONO # 0.6 103/ul Normal 0.3-0.8 [facility] Comment on above: Performed By: #### C BC #### [facility] [address] [place] [address] Dr. Prashant Fletcher Monocytes/100 WBC (Bld) 10.4 % Normal 1.7-12.0 [facility] Comment on above: Performed By: #### C BC #### [facility] [address] [place] [address] Dr. Prashant Fletcher NEUT # 2.8 103/ul Normal 1.4-6.5 [facility] Comment on above: Performed By: #### C BC #### [facility] [address] [place] [address] Dr. Prashant Fletcher Neutrophils/100 WBC (Bld) 51.0 % Normal 43.0-75.0 [facility] Comment on above: Performed By: #### C BC #### [facility] [address] [place], [place] [id number] Dr. Prashant Fletcher Platelet mean volume (Bld) [Entitic vol] 9.4 fL Critically low 9.5-13.5 [facility] Comment on above: Performed By: #### C BC #### [facility] [address] [place] [address] Dr. Prashant Fletcher PLT 184 103/ul Normal 150-450 [facility] Comment on above: Performed By: #### C BC #### [facility] [address] [address] [address] Prashant Fletcher RBC 4.75 106/ul Normal 4.20-5.40 [facility] Comment on above: Performed By: #### C BC #### [facility] [address] [place] [address] Dr. Prashant Fletcher WBC 5.5 103/ul Normal 4.0-11.0 [facility] Comment on above: Performed By: #### C BC #### [facility] [address] [place] [address] Dr. Prashant Fletcher FERRITINon 12-09-2021 Ferritin [Mass/Vol] 10.0 ng/mL Normal 6.2-137.0 [facility] Comment on above: Performed By: #### F ERR #### [facility] [address] [place] [address] Dr. Prashant Fletcher Vital Signs Date Time Vital Sign Value Performing Clinician Angelica rosenbaum 05-29-2025 08:47-0400 Body mass index (BMI) [Ratio] 29.63 kg/m2 Maribeth GRAY Work Phone: [facility] 05-29-2025 08:47-0400 Body weight 73.48 kg Maribeth GRAY Work Phone: [facility] 05-29-2025 08:47-0400 Diastolic blood pressure 68 mm[Hg] Maribeth GRAY Work Phone: [facility] 05-29-2025 08:47-0400 Systolic blood pressure 112 mm[Hg] Maribeth GRAY Work Phone: [facility] 05-15-2025 10:17-0400 Body mass index (BMI) [Ratio] 28.94 kg/m2 Justice J Carlos DO Work Phone: [facility] 05-15-2025 10:17-0400 Body weight 71.78 kg Justice J Carlos DO Work Phone: [facility] 05-15-2025 10:17-0400 Diastolic blood pressure 60 mm[Hg] Justice J Carlos DO Work Phone: [facility] 05-15-2025 10:17-0400 Systolic blood pressure 120 mm[Hg] Justice J Carlos DO Work Phone: [facility] 05-01-2025 08:55-0400 Body mass index (BMI) [Ratio] 28.44 kg/m2 Desiree Velásquez BRAKE MACHINE OPERATOR Work Phone: [facility] 05-01-2025 08:55-0400 Body weight 70.53 kg Desiree Velásquez BRAKE MACHINE OPERATOR Work Phone: [facility] 05-01-2025 08:55-0400 Diastolic blood pressure 64 mm[Hg] Desiree Velásquez BRAKE MACHINE OPERATOR Work Phone: [facility] 05-01-2025 08:55-0400 Systolic blood pressure 120 mm[Hg] Desiree Didier BRAKE MACHINE OPERATOR Work Phone: [facility] 04-18-2025 08:40-0400 Body mass index (BMI) [Ratio] 27.98 kg/m2 Justice J Carlos DO Work Phone: [facility] 04-18-2025 08:40-0400 Body weight 69.4 kg Justice J Carlos DO Work Phone: [facility] 04-18-2025 08:40-0400 Diastolic blood pressure 70 mm[Hg] Justice J Carlos DO Work Phone: [facility] 04-18-2025 08:40-0400 Systolic blood pressure 120 mm[Hg] Justice J Carlos DO Work Phone: [facility] 03-21-2025 09:10-0400 Body mass index (BMI) [Ratio] 26.89 kg/m2 Maribeth Mcrae PA Work Phone: [facility] 03-21-2025 09:10-0400 Body weight 66.68 kg Maribeth Mcrae PA Work Phone: [facility] 03-21-2025 09:10-0400 Diastolic blood pressure 72 mm[Hg] Maribeth Mcrae PA Work Phone: [facility] 03-21-2025 09:10-0400 Systolic blood pressure 110 mm[Hg] Maribeth Mcrae PA Work Phone: [facility] 03-12-2025 07:57-0400 Body height 157.5 cm Reid Rai MD Work Phone: [facility] 03-12-2025 07:57-0400 Body mass index (BMI) [Ratio] 26.15 kg/m2 Reid Rai MD Work Phone: [facility] 03-12-2025 07:57-0400 Body weight 64.86 kg Reid Rai MD Work Phone: [facility] 03-12-2025 07:57-0400 Diastolic blood pressure 73 mm[Hg] Reid Rai MD Work Phone: [facility] 03-12-2025 07:57-0400 Heart rate 88 /min Reid Ria MD Work Phone: [facility] 03-12-2025 07:57-0400 Systolic blood pressure 111 mm[Hg] Reid Rai MD Work Phone: [facility] 01-23-2025 08:54-0400 Body mass index (BMI) [Ratio] 23.23 kg/m2 Desiree Velásquez NP Work Phone: [facility] 01-23-2025 08:54-0400 Body weight 57.61 kg Desiree Velásquez NP Work Phone: [facility] 01-23-2025 08:54-0400 Diastolic blood pressure 72 mm[Hg] Desiree Didier BRAKE MACHINE OPERATOR Work Phone: [facility] 01-23-2025 08:54-0400 Systolic blood pressure 118 mm[Hg] Desiree Didier BRAKE MACHINE OPERATOR Work Phone: [facility] 12-27-2024 08:50-0400 Body mass index (BMI) [Ratio] 21.4 kg/m2 Justice J Carlos DO Work Phone: [facility] 12-27-2024 08:50-0400 Body weight 53.07 kg Justice J Carlos DO Work Phone: [facility] 12-27-2024 08:50-0400 Diastolic blood pressure 58 mm[Hg] Justice J Carlos DO Work Phone: [facility] 12-27-2024 08:50-0400 Systolic blood pressure 102 mm[Hg] Justice J Carlos DO Work Phone: [facility] 11-23-2024 09:08-0500 Body mass index (BMI) [Ratio] 20.67 kg/m2 [facility] 11-23-2024 09:08-0500 Body weight 51.26 kg [facility] 11-23-2024 09:08-0500 Diastolic blood pressure 62 mm[Hg] [facility] 11-23-2024 09:08-0500 Systolic blood pressure 102 mm[Hg] [facility] Nurse [facility] Healthcare Encounters Encounter Date Encounter Type Care Provider Facility Start: 05-29-2025 End: 05-29-2025 Bamboo flowsheet Maribeth GRAY Work Phone: [facility] Start: 05-29-2025 End: 05-29-2025 Bamboo flowsheet Maribeth GRAY Work Phone: [facility] Start: 05-29-2025 End: 05-29-2025 flow sheet Maribeth GRAY Work Phone: [facility] Comment on above: Third trimester preg subha ([facility]); 35 weeks gestation of ([facility]); Weakness generalized; Hot flashes Start: 05-29-2025 End: 05-29-2025 ambulatory MARIBETH MCRAE Not Available Start: 05-15-2025 End: 05-15-2025 Office outpatient visit 15 minutes Justice J Carlos DO Work Phone: [facility] Comment on above: Third trimester preg subha ([facility]); 33 weeks gestation of ([facility]); Request for sterilization Start: 05-15-2025 End: 05-15-2025 ambulatory JUSTICE J CARLOS Not Available Start: 05-01-2025 End: 05-01-2025 Bamboo flowsheet Desiree Velásquez BRAKE MACHINE OPERATOR Work Phone: [facility] Start: 05-01-2025 End: 05-01-2025 Bamboo flowsheet Desiree Velásquez BRAKE MACHINE OPERATOR Work Phone: [facility] Start: 05-01-2025 End: 05-01-2025 ambulatory DESIREE VELÁSQUEZ Not Available Start: 05-01-2025 End: 05-01-2025 flow sheet Desiree Velásquez BRAKE MACHINE OPERATOR Work Phone: [facility] Comment on above: Third trimester preg subha ([facility]); 30 weeks gestation of ([facility]) Start: 04-30-2025 End: 04-30-2025 ambulatory JUSTICE J CARLOS Not Available Start: 04-18-2025 End: 04-18-2025 Bamboo flowsheet Justice J Carlos DO Work Phone: [facility] Start: 04-18-2025 End: 04-18-2025 Bamboo flowsheet Justice J Carlos DO Work Phone: [facility] Start: 04-18-2025 End: 04-18-2025 flow sheet Justice J Carlos DO Work Phone: [facility] Comment on above: 29 weeks gestation o f ([facility]); Third trimester ([facility]); Gastroesophageal reflux disease without esophagitis Start: 04-18-2025 End: 04-18-2025 ambulatory JUSTICE J CARLOS Not Available Start: 03-23-2025 End: 03-23-2025 Clinisync Result Encounter Justice J Carlos DO Work Phone: [facility] Unsolicited Start: 03-23-2025 End: 03-23-2025 Clinisync Result Encounter Justice J Carlos DO Work Phone: [facility] Unsolicited Start: 03-21-2025 End: 03-21-2025 Bamboo flowsheet Maribeth GRAY Work Phone: [facility] Start: 03-21-2025 End: 03-21-2025 Bamboo flowsheet Maribeth GRAY Work Phone: [facility] Start: 03-21-2025 End: 03-21-2025 ambulatory MARIBETH MCRAE Not Available Start: 03-21-2025 End: 03-21-2025 Office outpatient visit 15 minutes Maribeth GRAY Work Phone: [facility] Comment on above: Second trimester pre gnancy ([facility]) (Primary Dx); 25 weeks gestation of ([facility]) Start: 03-12-2025 End: 03-12-2025 Office consultation new/estab patient 60 min Cordelia Hamilton MD Work Phone: [facility] Comment on above: Encounter for observ ation of suspected anomaly not found (Primary Dx) Start: 03-12-2025 End: 03-12-2025 ambulatory JUSTICE R J CARLOS [facility] Start: 02-21-2025 End: 02-21-2025 ambulatory JUSTICE J CARLOS Not Available Start: 02-13-2025 End: 02-13-2025 ambulatory JUSTICE J CARLOS Not Available Start: 01-23-2025 End: 01-23-2025 Bamboo flowsheet Desiree Velásquez NP Work Phone: [facility] Start: 01-23-2025 End: 01-23-2025 Bamboo flowsheet Desiree Velásquez BRAKE MACHINE OPERATOR Work Phone: [facility] Start: 01-23-2025 End: 01-23-2025 flow sheet Desiree Velásquez BRAKE MACHINE OPERATOR Work Phone: [facility] Comment on above: Second trimester pre gnancy; 17 weeks gestation of Start: 01-23-2025 End: 01-23-2025 ambulatory DESIREE VELÁSQUEZ Not Available Start: 01-18-2025 ambulatory CERTIFIED NEURODIAGNOSTIC TECHNOLOGIST Seble L Keily Facil ity:[facility] Start: 12-27-2024 [...] 11-20-2024 End: 11-20-2024 Patient encounter procedure [facility] Nurse [facility] Comment on above: Screening for lipoid disorders; Screening for diabetes mellitus Start: 11-13-2024 End: 11-13-2024 Telephone encounter Maribeth GRAY Work Phone: [facility] Start: 07-20-2024 End: 07-20-2024 ambulatory CERTIFIED NEURODIAGNOSTIC TECHNOLOGIST Seble L Keily Facility:[facility] Start: 01-20-2024 End: 01-20-2024 ambulatory CERTIFIED NEURODIAGNOSTIC TECHNOLOGIST Seble L Keily Facility:[facility] Start: 11-10-2022 End: 11-10-[address] JUSTICE WHITMAN Facility: Start: 03-23-2022 End: 03-23-2022 ambulatory DESIREE VELÁSQUEZ Facility:[facility] Start: 03-22-2022 End: 03-22-2022 ambulatory DESIREE VELÁSQUEZ Facility:[facility] Start: 01-12-2022 End: 01-12-2022 ambulatory DESIREE VELÁSQUEZ Facility:[facility] Start: 12-09-2021 End: 12-10-[address] JUSTICE WHITMAN Facility:[facility] Procedures Date Procedure Procedure Detail Performing Clinician Start: 05-29-2025 Urnls dip stick/tabl et rgnt non-auto w/o micrscp Maribeth GRAY Work Phone: Start: 05-15-2025 Urnls dip stick/tabl et rgnt non-auto w/o micrscp Justice J Carlos DO Work Phone: Start: 05-01-2025 Urnls dip stick/tabl et rgnt non-auto w/o micrscp Desiree Velásquez NP Work Phone: Start: 03-23-2025 ALL CBC WITH AUTO DIFF Justice J Carlos DO Work Phone: Start: 12-27-2024 Urnls dip stick/tabl et rgnt non-auto w/o micrscp Justice J Carlos DO Work Phone: Start: 11-23-2024 Urine test visual color cmprsn meths Justice J Carlos DO Work Phone: Start: 11-20-2024 Lipid panel Ruperto Galan DO Work Phone: Start: 02-29-2024 Microscopic observat ion [Identifier] in Cervix by Cyto stain Maribeth GRAY Work Phone: Plan of Treatment Date Care Activity Detail Author Start: 02-28-2027 Screening for malign ant neoplasm of cervix [facility] Start: 03-12-2026 Adult BMI Screening Adult BMI Screen [facility] [employer] [facility] Start: 07-03-2025 End: 07-03-2025 Patient encounter procedure 07/03/2025 10:30 AM EDT Office Visit [facility] [address] [place] [address] [place] [id number] Desiree Velásquez, BRAKE MACHINE OPERATOR [address] [place] [address] [facility] Start: 06-04-2025 End: 06-04-2025 Patient encounter procedure 06/04/2025 8:30 AM EDT Routine [facility] [address] [place] [address] Justice Whitman DO [address] [place], [facility] Start: 06-03-2025 Influenza vaccination [facility] Start: 05-29-2025 End: 05-29-2026 12 lead ECG ECG 12 lead unit performed ECG Routine Third trimester ([facility]) 35 weeks gestation of ([facility]) Weakness generalized Hot flashes Expected: 05/29/2025 (Approximate), Expires: 05/29/2026 [facility] Work Phone: Comment on above: Expected: 05/29/2025 (Approximate), Expires: 05/29/2026 Start: 05-29-2025 End: 05-29-2025 Patient encounter procedure 05/29/2025 9:20 AM EDT Routine [facility] [address] [place] [address] Maribeth Mcrae PA [address] [place], [facility]11 Arrived [facility] Comment on above: Arrived Start: 05-01-2025 End: 05-01-2025 Patient encounter procedure 05/01/2025 8:30 AM EDT Routine [facility] [address] [place] [address] Desiree Velásquez, BRAKE MACHINE OPERATOR [address] [place] [address] [facility] Start: 04-30-2025 End: 04-30-2025 Professional / ancillary services management 04/30/2025 8:00 AM EDT Ancillary Procedure [facility] [address] [place] [phone] [facility] Start: 04-18-2025 End: 04-18-2025 Patient encounter procedure [facility] Comment on above: Arrived Start: 02-21-2025 End: 02-21-2025 Patient encounter procedure 02/21/2025 8:40 AM EDT Routine [facility] [address] [place] [phone] Justice Whitman DO [address] [place] [address] [facility] Start: 02-13-2025 End: 02-13-2025 Professional / ancillary services management 02/13/2025 8:00 AM EDT Ancillary Procedure [facility] [address] [place] [id number] [facility] Start: 01-24-2025 End: 01-24-2025 Patient encounter procedure 01/24/2025 8:50 AM EDT Routine [facility] [address] [place] [id number] Maribeth Mcrae PA [address] [place] [address] [facility] Start: 01-23-2025 End: 01-23-2025 Patient encounter procedure 01/23/2025 8:40 AM EDT Routine [facility] [address] [place] [phone] Desiree Velásquez, BRAKE MACHINE OPERATOR [address] [place] [id number] Arrived [facility] Comment on above: Arrived Start: 11-30-2024 End: 11-30-2024 Professional / ancillary services management 11/30/2024 8:00 AM EST Ancillary Procedure [facility] [address] [place] [address] [facility] Start: 11-23-2024 End: 11-23-2025 ABO/Rh ABO/Rh Lab Routine Missed menses , unspecified gestational age Expected: 11/23/2024 (Approximate), Expires: 11/23/2025 [facility] Comment on above: Expected: 11/23/2024 (Approximate), Expires: 11/23/2025 Start: 11-23-2024 End: 11-23-2025 Blood type and Indirect antibody screen panel - Blood Type and screen Lab Routine Missed menses , unspecified gestational age Expected: 11/23/2024 (Approximate), Expires: 11/23/2025 [facility] Work Phone: Comment on above: Expected: 11/23/2024 (Approximate), Expires: 11/23/2025 Start: 11-23-2024 End: 11-23-2025 Drugs of abuse panel - Urine by Screen method Rapid drug screen, urine Lab Routine , unspecified gestational age Encounter for supervision of normal first in first trimester Expected: 11/23/2024 (Approximate), Expires: 11/23/2025 [facility] Comment on above: Expected: 11/23/2024 (Approximate), Expires: 11/23/2025 Start: 11-23-2024 End: 11-23-2024 ambulatory 11/23/2024 9:00 AM EST Initial [facility] [address] [place] [address] [facility] Start: 06-03-2024 Influenza vaccination Influenza Vacc ine (#1) [facility] Start: 12-07-2023 Screening for malign ant neoplasm of cervix HPV/Cotest [facility] Start: 12-07-2011 Adult BMI Follow Up Plan Adult BMI Follow Up Plan [facility] Start: 2005 Depression Screening Depression Scre [facility] Start: 2005 Tobacco Screening Tobacco Screening [facility] Start: 2004 DTaP,Tdap and Td Vaccines (5 - Tdap) DTaP,Tdap and Td Vaccines (5 - Tdap) [facility] Bacteria identified in Urine by Culture Urine culture Microbiology Routine Missed menses Ordered: 11/23/2024 [facility] Comment on above: Ordered: 11/23/2024 CBC W Auto Different ial panel - Blood CBC and differential Lab Routine Missed menses , unspecified gestational age Ordered: 11/23/2024 [facility] Comment on above: Ordered: 11/23/2024 Hemoglobin A1c/Hemoglobin.total in Blood Hemoglobin A1c Lab Routine Missed menses , unspecified gestational age Ordered: 11/23/2024 [facility] Comment on above: Ordered: 11/23/2024 Hepatitis B virus surface Ag [Presence] in Serum or Plasma by Immunoassay Hepatitis B surface antigen Lab Routine Missed menses , unspecified gestational age Ordered: 11/23/2024 [facility] Comment on above: Ordered: 11/23/2024 Hepatitis C virus Ab [Presence] in Serum or Plasma by Immunoassay Hepatitis C antibody Lab Routine Missed menses , unspecified gestational age Ordered: 11/23/2024 [facility] Comment on above: Ordered: 11/23/2024 HIV-1/HIV-2 antigen/antibody combination immunoassay HIV-1 and HIV-2 antibodies Lab Routine Missed menses , unspecified gestational age Ordered: 11/23/2024 [facility] Comment on above: Ordered: 11/23/2024 Reagin Ab [Presence] in Serum by RPR RPR Lab Routine Missed menses , unspecified gestational age Ordered: 11/23/2024 [facility] Comment on above: Ordered: 11/23/2024 Rubella antibody, IgG Rubella an tibody, IgG Lab Routine Missed menses , unspecified gestational age Ordered: 11/23/2024 [facility] Comment on above: Ordered: 11/23/2024 Immunizations Immunization Date Immunization Notes Care Provider Jonathon law 07-18-2018 influenza virus vacc ine, unspecified formulation Maribeth GRAY Work Phone: [facility] Healthcare Payers Date Payer Category Payer Medicaid [id number] 2024 Medicaid [id number] 2024 [employer] - O ANTH [id number] 2024 Unknown [id number] 2022 Private Health Insurance [id number] 2022 Unknown [id number] 1993 Unknown [id number] 2.16.840.1.623677.3.579.2. 593 1993 Unknown [id number] 2.16840.1.131036.3.579.2. 593 1993 Unknown [id number] 2.16840.1.365860.3.579.2. 593 1993 Unknown [id number] 2.16.840.1.329275.3.579.2. 593 1993 Unknown [id number] 2.16.840.1.339738.3.579.2. 593 1993 Unknown [id number] 2.16.840.1.158840.3.579.2. 727 1993 Unknown [id number] 2.16.840.1.487371.3.579.2. 727 1993 Unknown [id number] 2.16.840.1.985392.3.579.2. 727 1993 Unknown [id number] 2.16.840.1.811678.3.579.2. 1286 1993 Unknown [id number] 2.16.840.1.094478.3.579.2. 1286 1993 Unknown [id number] 2.16.840.1.274850.3.579.2. 1259 1993 Unknown [id number] 2.16.840.1.089604.3.579.2. 1259 1993 Unknown [id number] 2.16.840.1.775583.3.579.2. 1259 1993 Unknown [id number] 2.16.840.1.310671.3.579.2. 1259 1993 Unknown [id number] 2.16.840.1.672938.3.579.2. 9 1993 Unknown [id number] 2.16.840.1.634018.3.579.2. 1259 1993 Unknown [id number] 2.16.840.1.033825.3.579.2. 9 1993 Unknown [id number] 2.16.840.1.169641.3.579.2. 1259 1993 Unknown [id number] 2.16.840.1.067543.3.579.2. 1258 1993 Unknown [id number] 2.16.840.1.382334.3.579.2. 1259 1993 Unknown [id number] 2.16.840.1.916580.3.579.2. 125 1993 Unknown [id number] 2.16.840.1.904299.3.579.2. 1259 1993 Unknown [id number] 2.16.840.1.966171.3.579.2. 1259 1959 Self-pay 1959 Unknown [id number] Social History Date Type Detail Facility Tobacco smoking stat [facility] Tobacco smoking consumption unknown [facility] Start: 1993 Sex assigned at Not on file [facility] Start: 03-12-2025 Gender identity Not on file [facility] Start: 10-10-2024 [facility] Start: 03-12-2025 Tobacco smoking stat [facility] Never smoked tobacco [facility] Start: 03-12-2025 Tobacco use and exposure Smokeless tobacco non-user [facility] Start: 03-12-2025 Alcoholic beverage intake Ex-drinker (finding) [facility] Start: 03-12-2025 History of Social function [facility] Within the past 12 months we worried whether our food would run out before we got money to buy more. Never True [facility] Start: 02-15-2025 Sex Female (finding) [facility] Clinical Notes 11-13-2024 to 05-29-2025 MARINA Hi - 05/29/2025 9:20 AM Jaison Nash LPN - 05/15/2025 10:50 AM Brian Velásquez NP - 05/01/2025 8:30 AM Jun Myrick LPN - 04/18/2025 8:40 AM EDT Note Date & Type Note Facility 05-29-2025 History of Presen t illness Narrative Reason [...] nursing note reviewed. Exam conducted with a stewardesses teacher present. Vitals: Estimated body mass index is 28.94 kg/m as calculated from the following: Height as of 03/01/24: 5' 2 . Weight as of 05/15/25: 158 lb 4 oz. BP: Patient's last menstrual period was 09/26/2024. ASSESSMENT & PLAN ICD-10-CM 1. Third trimester ([facility]) Z34.93 2. 35 weeks gestation of ([facility]) Z3A.35 Return OB: Patient presents today for [...] of: MARINA Hi documented in this encounter [facility] 05-15-2025 History of Presen t illness Narrative Reason for Appointment: Patient ID: Rhea Mayorga is a 29 y.o. female who presents for Routine Visit Patient presents today for Return OB appointment. MEDICATIONS Current Outpatient Medications Medication Instructions iron polysaccharides (PROFE) 391.3 mg, Oral, Daily magnesium oxide (MAG-OX) 400 mg, Oral, Daily [...] nursing note reviewed. Exam conducted with a stewardesses teacher present. Vitals: Estimated body mass index is 28.94 kg/m as calculated from the following: Height as of 03/01/24: 5' 2 . Weight as of this encounter: 158 lb 4 oz. BP: 120/60 Patient's last menstrual period was 09/26/2024. ASSESSMENT & PLAN ICD-10-CM 1. Third trimester ([facility]) Z34.93 POCT urinalysis dipstick manually resulted 2. 33 weeks gestation of ([facility]) Z3A.33 Return OB: Patient presents today for a routine obstetrics appointment. Patient is currently 33w0d . Patient states she is doing well but has complaints of being tired due to current . Patient has verbalizes frequent movement. labor precautions was discussed/given and patient was instructed to perform kick counts three times a day. Orders Placed This Encounter Procedures POCT urinalysis dipstick manually resulted Follow Up: Patient is to return to office in 2 week for routine OB appointment. Documented by Katerin Nash LPN on behalf of: Justice Whitman DO documented in this encounter [facility] 05-01-2025 History of Presen t illness Narrative Reason for Appointment: Patient ID: Rhea Mayorga is a 29 y.o. female who presents for Routine Visit Patient presents today for Return OB appointment. MEDICATIONS Current Outpatient Medications Medication Instructions iron polysaccharides (PROFE) 391.3 mg, Oral, Daily pantoprazole (PROTONIX) 40 mg, [...] of Systems: Review of Systems Constitutional: Negative. Complaints of leg cramping at night making it difficult to sleep. HENT: Negative. Eyes: Negative. Respiratory: Negative. Cardiovascular: [...] nursing note reviewed. Exam conducted with a stewardesses teacher present. Vitals: Estimated body mass index is 28.44 kg/m as calculated from the following: Height as of 03/01/24: 5' 2 . Weight as of this encounter: 155 lb 8 oz. BP: 120/64 Patient's last menstrual period was 09/26/2024. ASSESSMENT & PLAN ICD-10-CM 1. Third trimester ([facility]) Z34.93 POCT urinalysis dipstick manually resulted 2. 30 weeks gestation of ([facility]) Z3A.30 Return OB: Patient presents today for a routine obstetrics appointment. Patient is currently 31w0d . Patient states she is doing well but has complaints of being tired due to current . Patient has verbalizes frequent movement. labor precautions was discussed/given and patient was instructed to perform kick counts three times a day. Orders Placed This Encounter Procedures POCT urinalysis dipstick manually resulted Follow Up: Patient with complaints of leg cramps especially at night will start on Magnesium Oxide 400mg. Will continue with Gatorade zero to replace electrolytes. Patient is to return to office in 2 week for routine OB appointment. Documented by Desiree Velásquez NP on behalf of: Desiree Velásquez NP documented in this encounter [facility] 04-18-2025 History of Presen t illness Narrative Reason for Appointment: Patient ID: Rhea Mayorga is a 29 y.o. female who presents for Routine Visit Patient presents today for Return OB appointment. MEDICATIONS Current Outpatient Medications Medication Instructions omeprazole (PRILOSEC) 20 mg, Oral, 2 times daily ALLERGIES Allergies Allergen Reactions Other Other Reaction(s): [...] nursing note reviewed. Exam conducted with a stewardesses teacher present. Vitals: Estimated body mass index is 27.98 kg/m as calculated from the following: Height as of 03/01/24: 5' 2 . Weight as of this encounter: 153 lb. BP: 120/70 Patient's last menstrual period was 09/26/2024. ASSESSMENT & PLAN ICD-10-CM 1. 29 weeks gestation of ([facility]) Z3A.29 POCT urinalysis dipstick manually resulted 2. Third trimester ([facility]) Z34.93 POCT urinalysis dipstick manually resulted Patient presents today for a routine obstetrics appointment. Patient is currently 29w1d with a Estimated Date of Delivery: 07/03/25. Patient complaints of reflux and Protonix 40mg sent to pharmacy & patient advised to take Tums throughout the day. Sent ProFe to pharmacy due to possible anemia, and patient eating ice. Patient to return to clinic in 2 weeks for return OB appointment. Patient has growth scan scheduled for in a few weeks. Patient aware to inform surgical no adhesive at time of due to adverse reaction. Documented by Zahra Myrick LPN on behalf of: Justice Whitman DO documented in this encounter [facility] 03-21-2025 History of Presen t illness Narrative [...] ASSESSMENT & PLAN ICD-10-CM 1. Second trimester ([facility]) Z34.92 2. 25 weeks gestation of ([facility]) Z3A.25 Return OB: Patient presents today [...] of: MARINA Hi documented in this encounter [facility] 03-12-2025 History of Presen t illness Narrative [...] No Have you been seen here at [facility] in a previous ? No Recent ER visits or hospitalizations? No Bring blood sugar log or meter with you today? (Please bring them with you for every visit at [facility]) N/A Flu vaccine (Aug-December)? 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 Patient does not have any future appointment scheduled with us Thank you for allowing me to participate in Rhea Mayorga . If there any questions please do not hesitate to contact us. Sincerely, REID RAI MD documented in this encounter [employer] 01-23-2025 History of Presen t illness Narrative [...] nursing note reviewed. Exam conducted with a stewardesses teacher present. Vitals: Estimated body mass index is 23.23 kg/m as calculated from the following: Height as of 5/30/24: 5' 2 . Weight as of this encounter: 127 lb. BP: 118/72 Patient's last menstrual period was 09/26/2024. ASSESSMENT & PLAN ICD-10-CM 1. Second trimester Z34.92 2. 17 weeks gestation of Z3A.17 Documented by Desiree Velásquez NP on behalf of: Desiree Velásquez NP documented in this encounter [facility] 12-27-2024 History of Presen t illness Narrative [...] nursing note reviewed. Exam conducted with a stewardesses teacher present. Vitals: Estimated body mass index is [...] or undercooked meat, and stay away from [facility]. Patient has been consulted regarding any [...] [place] Whitman DO documented in this encounter [facility] 11-23-2024 History of Presen t illness Narrative [...] or undercooked meat, and stay away from [facility]. Patient has also been advised to [...] Sandra Romero MA documented in this encounter [facility] 11-20-2024 History of Presen t illness Narrative Employee presents for Biometric Screening. documented in this encounter [facility] 11-13-2024 Telephone encount er Note Patient called stating she is nauseated and vomiting [facility] 11-13-2024 Miscellaneous Notes Formattin g of this note might be different from the original. Patient called stating she is nauseated and vomiting documented in this encounter [facility] Evaluation note Diagnosis Nausea- Primary Nausea alone [...] [facility] HealthcareEvaluation note* Diagnosis Encounter for observation of suspected anomaly not found- Primary Suspected anomaly not found documented [facility] Diagnosis Second trimester (HHS-HCC)- Primary state, incidental 25 weeks gestation of (HHS-HCC) documented in this encounter [facility] HealthcareEvaluation note* Diagnosis 29 weeks gestation of (HHS-HCC) Third trimester (HHS-HCC) state, incidental Gastroesophageal reflux disease without esophagitis Esophageal reflux documented in this encounter [facility] HealthcareEvaluation note* Diagnosis Third trimester (HHS-HCC) state, incidental 30 weeks gestation of (HHS-HCC) documented in this encounter [facility] HealthcareEvaluation note* Diagnosis Third trimester (HHS-HCC) state, incidental 33 weeks gestation of (HHS-HCC) Request for sterilization [facility] Diagnosis Third trimester (HHS-HCC) state, incidental 35 weeks gestation of (HHS-HCC) Weakness generalized Other malaise and fatigue Hot flashes documented in this encounter [facility] HealthcareInstructionsNot on filedocumented in this [facility] Summary Purpose Family History No Family History Records FoundNo Family History Records FoundNo Family History Records FoundNo Family History Records Found Advance Directives No Advanced Directives Records FoundNo Advanced Directives Records FoundNo Advanced Directives Records FoundNo Advanced Directives Records Found Additional Source Comments INFORMATION SOURCE (unrecogn ized section and content) DATE CREATED AUTHOR 11/19/2022 [facility] DATE CREATED AUTHOR AUTHOR'S ORGANIZ ATION 07/22/2024 [facility] DATE CREATED AUTHOR AUTHOR'S ORGANIZ ATION 03/13/2025 [facility] DATE CREATED AUTHOR AUTHOR'S ORGANIZ ATION 05/30/2025 [facility] EPIC Reason for Visit (unrecogniz ed section and content) Reason Comments Amenorrhea Reason Comments Routine Visit Reason Comments Abnormal Ultrasound Care Teams (unrecognized sec tion and content) Machine Assembler Supervisor Relationship Specialty Start Date End Date [place] Whitman, [address] [place] [place] [address] PCP - [place] [employer] 03/03/25 Machine Assembler Supervisor Relationship Specialty Start Date End Date [place] Whitman DO [facility] [address] [place] [address] PCP - [place] [employer] 03/03/25 Machine Assembler Supervisor Relationship Specialty Start Date End Date [place] Whitman DO [facility] [address] [place] [address] PCP - [place] [employer] 03/03/25 Machine Assembler Supervisor Relationship Specialty Start Date End Date [place] Whitman DO [facility] [place] [place] [address] DOE Luu 03/03/25 FOR RECORDS PERTAINING TO PATIENTS WHO ARE [...] BE BASED ON THE PRIMARY CLINICAL RECORDS. [facility]. provides no warranty or guarantee of the accuracy or completeness of information in this document.
--- NOTE | 2025-05-31 13:56 | ECG_ITS ---
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
== END 2025-05-31 13:40 | disposition home or self-care (01) ==
LOC: CARD 13:39
PROVIDERS: PCP Nurse Practitioner; Visit Provider Physician Assistant
DX: Z34.93 Encounter for supervision of normal pregnancy, unspecified, third trimester (principal); Z3A.35 35 weeks gestation of pregnancy; R53.1 Weakness; R23.2 Flushing
CPT/HCPCS: 93005

== ENCOUNTER 2025-06-04 12:29 | Outpatient (REF) | payer BC, MEDICAID, SELFPAY ==
--- OUTSIDE RECORDS SUMMARY | 2025-05-29 09:20 | XMS_ITS | Encounter Summary ---
Author Organization [facility] Address [address] [place] [address] Care Team Providers Care Development Planner Name Role Phone Kannan Whitman DO Unavailable Reason for Visit * Reason Comments Routine Visit Encounter Details Date Type Department Care Team (Late st Contact Info) Description 05/29/2025 9:20 AM EDT Routine [facility]ona [facility] [address] [place] [address] Maribeth Carrillo PA [address] [place], [facility] Third trimester ([facility]); 35 weeks gestation of ([facility]); Weakness generalized; Hot flashes Social History Tobacco [...] nursing note reviewed. Exam conducted with a drop wirer present. Vitals: Estimated body mass index is 28.94 kg/m?? as calculated from the following: Height as of 03/01/24: 5' 2 . Weight as of 05/15/25: 158 lb 4 oz. BP: Patient's last menstrual period was 09/26/2024. ASSESSMENT & PLAN ICD-10-CM 1. Third trimester ([facility]) Z34.93 2. 35 weeks gestation of ([facility]) Z3A.35 Return OB: Patient presents today for [...] Care Team (Late st Contact Info) Description 06/11/2025 8:30 AM EDT Routine NOMDeepak BARRETT [address] [place] [address] Kannan Whitman, [address] [place], [place] [id number] 07/03/2025 10:30 AM EDT Office Visit DEBORAH BARRETT [address] [address] Desiree Velásquez, SHARRI [address] [place] [phone] Scheduled Orders Name Type Priority Associated Diagnoses Orde r Schedule ECG 12 lead unit performed ECG Routine Third trimester ([facility]) 35 weeks gestation of ([facility]) Weakness generalized Hot flashes Expected: 05/29/2025 (Approximate), Expires: 05/29/2026 documented as of this encounter Procedures Procedure Name Priority Date/Time Associated Diagnosis Comments POCT URINALYSIS DIPSTICK Routine 05/29/2025 8:46 AM EDT Third trimester ([facility]) documented in this encounter Results * (ABNORMAL) [...] this encounter Visit Diagnoses Diagnosis Third trimester ([facility]) state, incidental 35 weeks gestation of ([facility]) Weakness generalized Other malaise and fatigue Hot flashes documented in this encounter Care Teams Development Planner Relationship Specialty Start Date End Date Kannan Whitman DO [address] [place] [address] PCP - [employer] 03/03/25 documented as of this encounter
--- OUTSIDE RECORDS SUMMARY | 2025-06-04 12:32 | XMS_ITS | Clinical Summary ---
Author Organization [facility] tem Address [id number] [address] [place] [address] Care Team Providers Care Gameplay Programmer Name Role Phone Unavailable Primary Care Provider [...] AM EDT Office Visit Maternal- Medicine at [facility] [address] [place] [phone] Marjan Hamilton MD Khurshid, Nauman, MD Encounter for observation of suspected anomaly not found (Primary Dx) 03/12/2025 7:15 AM EDT - 03/12/2025 11:59 PM EDT Hospital Encounter [facility] Imaging [address] [place] [address] Encounter for anatomic survey Discharge [...] Procedure Name Priority Date/Time Associated Diagnosis Comments [facility] COMPREHENSIVE ANATOMIC SURVEY Routine 03/12/2025 9:08 AM EDT Encounter for anatomic survey from Last 3 Months Results * US [facility] COMPREHENSIVE ANATOMIC SURVEY (03/12/2025 9:08 AM EDT) Anatomical Region Laterality Modality OB-LANGUAGE INTERPRETER Ultrasound 03/12/2025 7:31 AM EDT Narrative 03/12/2025 10:27 AM EDT NAME: ELZBIETA VAZQUEZ : 1995 SEX: F Accession Number: [id number] ORDERING PHYSICIAN: MIHIR RAI REFERRING PHYSICIAN: JUSTICE JUDD Coding ----- --------- Procedures 48805: Ultrasound, uterus, real time with image documentation, and maternal evaluation plus detailed anatomic examination, transabdominal approach;single or first gestation 60078: Transvaginal Ultrasound (OB) 75342: Echocardiography, , cardiovascular system, real time with image documentation (2D), with or without M-mode recording Indication ----- --------- Screening for Anatomic Survey, Screening for cervical length, Screening for congenital cardiac abnormality, Supervision of high risk (abnormal heart axis at office), Previous History ----- --------- OB History 2. Para 1 [id number] Maternal Assessment ----- --------- Physical Exam Height [...] EFW (oz) 7 oz EFW by: Hadlock ([id number]) Extended Tibia 36.9 mm 23w 6d 53% Iesha Adult Neurologist 5.5 mm CM 3.1 mm <1% Nicolaides [...] view. RVOT view. LVOT view. 3-vessel view. 3-piygcc-ypnwryw view. Great vessels. Right lung. Left lung. [...] normal RVOT view normal 3-vessel view normal 8-hvtuhs-qltrlsy view normal Aortic arch view normal Ductal [...] structural abnormalities. Recommendations ----- --------- Please see [facility] documentation from today. anatomic survey is incomplete due to suboptimal visualization. Patient is not scheduled to return for additional ultrasound. Please reschedule for specific concerns or indications. Subsequent follow up or other follow up as clinically determined by primary OB provider unless otherwise specified by [facility]. Results forwarded to ordering provider so they can follow up with the patient as necessary. Procedure Note Mihir Rai MD - 03/12/2025 NAME: ELZBIETA VAZQUEZ : 1995 SEX: F Accession Number: [id number] ORDERING PHYSICIAN: MIHIR RAI REFERRING PHYSICIAN: JUSTICE JUDD Coding ----- --------- Procedures 90865: Ultrasound, uterus, real time with imagedocumentation, and maternal evaluation plus detailed anatomic examination, transabdominalapproach;single or first gestation 37012: Transvaginal Ultrasound (OB) 52653: Echocardiography, , cardiovascular system, real timewith image documentation (2D), with or without M-mode recording Indication ----- --------- Screening for Anatomic Survey, Screening for cervical length, Screeningfor congenital cardiac abnormality, Supervision of high risk (abnormal heart axis at office), Previous History ----- --------- OB History 2. Para 1 [id number] Maternal Assessment ----- --------- Physical Exam Height [...] EFW (oz) 7 oz EFW by: Hadlock ([id number]) Extended Tibia 36.9 mm 23w 6d 53% Iesha Adult Neurologist 5.5 mm CM 3.1 mm <1% Nicolaides [...] 4-chamber view. RVOT view. LVOT view. 3-vessel view.9-omwqlr-ikybeyo view. Great vessels. Right lung. Left lung. [...] normal RVOT view normal 3-vessel view normal 1-zijwjb-obltitr view normal Aortic arch view normal Ductal [...] grossstructural abnormalities. Recommendations ----- --------- Please see [facility] documentation from today. anatomic survey is incomplete due to suboptimal visualization.Patient is not scheduled to return for additional ultrasound. Please reschedule for specific concerns or indications. Subsequent follow up or other follow up as clinically determined byprimary OB provider unless otherwise specified by [facility]. Results forwarded to ordering provider so they can follow up with thepatient as necessary. us Mihir Rai MD IM US ORDERABLES Final Resul t from [place] [address] [place] [address] [employer], [facility]1983 MEDICAID
--- OUTSIDE RECORDS SUMMARY | 2025-06-04 12:32 | XMS_ITS | Encounter Summary ---
Author Organization [facility] Address [address] [place] [address] Care Team Providers Care Screen Printing Inspector Name Role Phone Kannan Whitman DO Unavailable Encounter Details Date Type Department Care Team (Late Contact Info) Description 05/29/2025 Bamboo flowsheet [facility]TT [address] [place] [address] Maribeth Carrillo PA [address] [place], [place] [address] Social History Tobacco Use Types Packs/Day Years [...] Info) Description 06/11/2025 8:30 AM EDT Routine [facility]TT [address] [address] Kannan Whitman DO [address], [place] [address] 07/03/2025 10:30 AM EDT Office Visit [facility] BARRETT [address] [address] Desiree Velásquez, SHARRI [address] [place] [address] documented as of this encounter Visit Diagnoses Not on filedocumented in this encounter Care Teams Screen Printing Inspector Relationship Specialty Start Date End Date Kannan Whitman DO [address] [place] [address] PCP - [place] [employer] 03/03/25 documented as of this encounter
--- OUTSIDE RECORDS SUMMARY | 2025-06-04 12:32 | XMS_ITS | Encounter Summary ---
Author Organization [facility] tem Address [id number] [address] [place] [address] Care Team Providers Care Inspector Final Assembly Electrical Name Role Phone Unavailable Primary Care Provider Unavailabl e Encounter Details Date Type Department Care Team (Late st Contact Info) Description 02/21/2025 Orders Only Maternal- Medicine at [facility] [address] [place] [phone] Ref Prov, [place] [address] Social History Tobacco Use Types Packs/Day Years [...] 11:08 AM EDT) Anatomical Region Laterality Modality OB-SODA FOUNTAIN MANAGER Ultrasound us Not In System Ref Prov IMG US ORDERABLES Final R esult * Ultrasound limited 1 or more fetus (02/21/2025 11:07 AM EDT) Anatomical Region Laterality Modality OB-SODA FOUNTAIN MANAGER Ultrasound us Not In System Ref Prov IMG US ORDERABLES Final R esult documented in this encounter Visit Diagnoses Not on filedocumented in this encounter
--- OUTSIDE RECORDS SUMMARY | 2025-06-04 12:32 | XMS_ITS | Encounter Summary ---
Author Organization [facility] Address [address] [place] [address] Care Team Providers Care Instructional Manager Name Role Phone [place] Whitman DO Unavailable Encounter Details Date Type Department Care Team (Late Contact Info) Description 03/12/2025 External Result Encounter [facility] Rona [facility]TT [address] [place] [address] [place] Whitman DO [address], [place] [address] Social History Tobacco Use Types Packs/Day Years [...] Routine [facility] Rona BARRETT [address] [address] [place] Whitman DO [address], [facility] 07/03/2025 10:30 AM [place] [address] Desiree Velásquez, SHARRI [address] [place] [address] documented as of this encounter Procedures Procedure Name Priority Date/Time Associated Diagnosis Comments US OB 14+ WEEKS ANATOMY SCAN 03/12/2025 10:27 AM EDT documented in this encounter Results * US OB 14+ weeks anatomy scan (03/12/2025 10:27 AM EDT) Anatomical Region Laterality Modality Body Ultrasound 03/12/2025 10:2 7 AM EDT Narrative 03/12/2025 10:27 AM EDT THIS EXAM WAS PERFORMED AT [facility] NAME: ELZBIETA VAZQUEZ : 1995 SEX: F Accession Number: [id number] ORDERING PHYSICIAN: MIHIR RAI REFERRING PHYSICIAN: JUSTICE WHITMAN Coding ----- --------- Procedures 02702: Ultrasound, uterus, real time with image documentation, and maternal evaluation plus detailed anatomic examination, transabdominal approach;single or first gestation 73833: Transvaginal Ultrasound (OB) 51307: Echocardiography, , cardiovascular system, real time with image documentation (2D), with or without M-mode recording Indication ----- --------- Screening for Anatomic Survey, Screening for cervical length, Screening for congenital cardiac abnormality, Supervision of high risk (abnormal heart axis at office), Previous History ----- --------- OB History 2. Para 1 [id number] Maternal Assessment ----- --------- Physical Exam Height [...] EFW (oz) 7 oz EFW by: Hadlock ([id number]) Extended Tibia 36.9 mm 23w 6d 53% Iesha Call Center Specialist 5.5 mm CM 3.1 mm <1% [...] view. RVOT view. LVOT view. 3-vessel view. 1-npvihd-hityyjl view. Great vessels. Right lung. Left lung. [...] normal RVOT view normal 3-vessel view normal 9-pfqufu-cibjisi view normal Aortic arch view normal Ductal [...] primary OB provider unless otherwise specified by [facility]. Results forwarded to ordering provider so they can follow up with the patient as necessary. The copy-to physician of this order is JUSTICE Martinez The ordering physician of this order is MIHIR Rivera Procedure Note Radiology, Radiologist, MD - 03/12/2025 THIS EXAM WAS PERFORMED AT [facility] NAME: ELZBIETA VAZQUEZ : 1995 SEX: F Accession Number: [id number] ORDERING PHYSICIAN: MIHIR RAI REFERRING PHYSICIAN: JUSTICE WHITMAN Coding ----- --------- Procedures 70051: Ultrasound, uterus, real time with imagedocumentation, and maternal evaluation plus detailed anatomic examination, transabdominalapproach;single or first gestation 58770: Transvaginal Ultrasound (OB) 60218: Echocardiography, , cardiovascular system, real timewith image documentation (2D), with or without M-mode recording Indication ----- --------- Screening for Anatomic Survey, Screening for cervical length, Screeningfor congenital cardiac abnormality, Supervision of high risk (abnormal heart axis at office), Previous History ----- --------- OB History 2. Para 1 [id number] Maternal Assessment ----- --------- Physical Exam Height [...] EFW (oz) 7 oz EFW by: Hadlock ([id number]) Extended Tibia 36.9 mm 23w 6d 53% Iesha Call Center Specialist 5.5 mm CM 3.1 mm <1% [...] 4-chamber view. RVOT view. LVOT view. 3-vessel view.0-sbictd-dzxdzsc view. Great vessels. Right lung. Left lung. [...] normal RVOT view normal 3-vessel view normal 0-moxgjo-rpallls view normal Aortic arch view normal Ductal [...] grossstructural abnormalities. Recommendations ----- --------- Please see [facility] documentation from today. anatomic survey is incomplete due to suboptimal visualization.Patient is not scheduled to return for additional ultrasound. Please reschedule for specific concerns or indications. Subsequent follow up or other follow up as clinically determined byprimary OB provider unless otherwise specified by [facility]. Results forwarded to ordering provider so they can follow up with thepatient as necessary. The copy-to physician of this order is JUSTICE Martinez The ordering physician of this order is MIHIR Rivera us [place] Whitman DO IMG OB US PROCEDURES Final Resul t documented in this encounter Visit Diagnoses Not on filedocumented in this encounter Care Teams Instructional Manager Relationship Specialty Start Date End Date [place] Whitman DO [address] [place] [address] [place] [address] PCP - [place] [employer] 03/03/25 documented as of this encounter
--- OUTSIDE RECORDS SUMMARY | 2025-06-04 12:32 | XMS_ITS | Encounter Summary ---
Author Organization [facility] Address [address] [place] [address] Care Team Providers Care Pipe Out Worker Name Role Phone Kannan Whitman DO Unavailable [...] Info) Description 06/11/2025 8:30 AM EDT Routine DEBORAH BARRETT [address] [place] [address] Kannan Whitman DO [address], [facility] 07/03/2025 10:30 AM EDT Office Visit DEBORAH BARRETT [address] [place] [address] Desiree Velásquez, SHARRI [address] [place] [address] documented as of this encounter Visit Diagnoses Not on filedocumented in this encounter Care Teams Pipe Out Worker Relationship Specialty Start Date End Date Kannan Whitman DO [address] [place] [id number] PCP - Jeremiah Luu 03/03/25 documented as of this encounter
--- OUTSIDE RECORDS SUMMARY | 2025-06-04 12:32 | XMS_ITS | Encounter Summary ---
Author Organization [facility] Address [address] [place] [address] Care Team Providers Care Grinding Wheel Facer Name Role Phone Kannan Whitman DO Unavailable Encounter Details Date Type Department Care Team (Late st Contact Info) Description 03/12/2025 Abstract [facility]OM[facility]ak BARRETT [address] [place] [address] Bonnie Lyle MA Social History Tobacco Use Types Packs/Day Years [...] Department Care Team (Late Contact Info) Description 06/11/2025 8:30 AM EDT Routine NOMDeepak BARRETT [address] [place] [address] Kannan Whitman DO [address], [place] [id number] 07/03/2025 10:30 AM EDT Office Visit DEBORAH BARRETT [address] [place] [address] Desiree Velásquez, SHARRI [address] [place] [address] documented as of this encounter Visit Diagnoses Not on filedocumented in this encounter Care Teams Grinding Wheel Facer Relationship Specialty Start Date End Date Kannan Whitman DO [address] [place] [address] [address] [place], [place] [id number] PCP - [place] [employer] 03/03/25 documented as of this encounter
--- OUTSIDE RECORDS SUMMARY | 2025-06-04 12:32 | XMS_ITS | Encounter Summary ---
Author Organization [facility] Address [address] [facility] [place] [address] Care Team Providers Care Track Worker Name Role Phone Kannan Whitman DO Unavailable Encounter Details Date Type Department Care Team (Latest Contact Info) Description 06/03/2025 Travel Social History Tobacco Use Types Packs/Day [...] 8:30 AM EDT Routine DEBORAH BARRETT [address] [place] [address] Kannan Whitman DO [address], [facility] 07/03/2025 10:30 AM EDT Office Visit DEBORAH BARRETT [address] [place] [address] Desiree Velásquez, SHARRI [address] [place] [address] documented as of this encounter Visit Diagnoses Not on filedocumented in this encounter Care Teams Track Worker Relationship Specialty Start Date End Date Kannan Whitman DO [address] [place] [id number] PCP - Jeremiah Luu 03/03/25 documented as of this encounter
--- OUTSIDE RECORDS SUMMARY | 2025-06-04 12:32 | XMS_ITS | Encounter Summary ---
Author Organization [facility] Address [address] [facility] [place] [address] Care Team Providers Care Air Pollution Auditor Name Role Phone Justice Whitman DO Unavailable Encounter Details Date Type Department Care Team (Late st Contact Info) Description 03/05/2024 Clinisync Result Encounter [facility] External Department Unsolicited Justice Whitman DO [address], [facility] Social History Tobacco Use Types Packs/Day Years [...] 8:30 AM EDT Routine DEBORAH BARRETT [address] [place] [address] Justice Whitman DO [address], [place] [address] 07/03/2025 10:30 AM EDT Office Visit DEBORAH BARRETT [address] [address] Desiree Velásquez, FLEXO OPERATOR [address] [place] [address] (work) documented as of this encounter Procedures Procedure Name Priority Date/Time Associated Diagnosis Comments US PELVIS 03/05/2024 12:10 PM EDT documented in this encounter Results * US PELVIS (03/05/2024 12:10 PM EDT) Anatomical Region Laterality Modality Other 03/05/2024 12:1 0 PM EDT Narrative 03/05/2024 12:12 [place] [address] Ultrasound Report Signed Patient: RHEA MAYORGA MR#: [id number] : 1995 Acct:[id number] Age/Sex: 28 / F ADM Date: 03/05/24 Loc: [facility] Attending Dr: Justice Whitman D.O. Ordering Physician: Justice Whitman D.O. Date of Service: 03/05/24 Procedure(s): US pelvis Accession Number(s): [id number] cc: Justice Whitman D.O.; TINO ASHER [address] [address] Patient Name: RHEA MAYORGA MRN: [id number] date: 1995 Sex: F Assigned Patient Location: Current Patient Location: [facility] Accession/Order Number: [id number] Exam Date: 03/05/2024 07:36 Report Date: 03/05/2024 [...] Signed By: 03/05/24 1212 DD/ 1210 TD/TT: Game Artist: Procedure Note Radiology, Radiologist, MD - 03/05/2024 [place] [address] Ultrasound Report Signed Patient: RHEA MAYORGA MMR#: [id number] : 1995Acct:[id number] Age/Sex: 28 / FADM Date: 03/05/24 Loc: [facility] Attending Dr: Justice Whitman D.O. Ordering Physician: Justice Whitman D.O. Date of Service: 03/05/24 Procedure(s): US pelvis Accession Number(s): [id number] cc: Justice Whitman D.O.; TINO ASHER [place] [id number] Patient Name: RHEA MAYORGA MRN: [id number] date: 1995 Sex: F Assigned Patient Location: Current Patient Location: [facility] Accession/Order Number: [id number] Exam Date: 03/05/2024 07:36 Report Date: 03/05/2024 [...] M.D. Signed By:03/05/24 1212 DD/ 1210 TD/TT: Game Artist: us Justice Whitman DO [facility] Final Result documented in this encounter Visit Diagnoses Not on filedocumented in this encounter Care Teams Air Pollution Auditor Relationship Specialty Start Date End Date Justice Whitman DO [address] [place] [address] [place] [address] PCP - [employer] 03/03/25 documented as of this encounter
--- OUTSIDE RECORDS SUMMARY | 2025-06-04 12:32 | XMS_ITS | Clinical Summary ---
Author Organization [facility] Address [address] [place] [address] Care Team Providers Care Laundry Agent Name Role Phone Justice Whitman DO Unavailable Allergies Active Allergy Reactions Criticality Noted Date Comments Latex Rash Low 03/01/2024 Other 06/27/2013 Other Reaction(s): Other: See Comments animals Animals Wound Dressing Adhesive 06/04/2025 Medications pantoprazole (Protonix) 40 MG EC tabletIndications:G astroesophageal reflux disease without esophagitis Take 1 tablet (40 mg) by mouth in the morning. Take before meals. Do not crush, chew, or split. 30 tablet 11 5 04/18/20 26 Active iron polysaccharides (ProFe) 391.3 (180 Fe) MG capsuleIndications: 29 weeks gestation of ([facility]),Third trimester ([facility]) Take 1 capsule (391.3 mg) by mouth Daily 30 capsule 6 5 05/18/20 25 magnesium oxide (Mag-Ox) 400 MG tabletIndications:T hird trimester ([facility]),30 weeks gestation of ([facility]) Take 1 tablet (400 mg) by mouth Daily 30 tablet 2 5 05/31/20 25 predniSONE (Deltasone) 10 MG tabletIndications:S inusitis, unspecified chronicity, unspecified location Take 1 tablet (10 mg) by mouth Daily for 5 days 5 tablet 5 05/13/20 25 azithromycin (Zithromax) 250 MG tabletIndications:S inusitis, unspecified chronicity, unspecified location Take 1 tablet (250 mg) by mouth Daily for 5 days 6 tablet 05/13/20 Active Problems Problem Noted Date Diagnosed Date Gastroesophageal reflux disease without esophagi tis 02/26/2025 Estimated Date of Delivery Comme nts Yes 07/03/2025 Based on last me nstrual period of 09/26/2024 Encounters Date Type Department Care Team Description 06/04/2025 8:30 [place] [address] Justice Whitman DO 35 weeks gestation of ([facility]); Third trimester ([facility]); Exposure to STD 06/03/2025 Travel 05/29/2025 9:20 [place] [address] Maribeth Carrillo PA Third trimester ([facility]); 35 weeks gestation of ([facility]); Weakness generalized; Hot flashes 05/29/2025 Bamboo flowsheet [facility] [place] [address] Maribeth Carrillo PA 05/22/2025 Travel 05/15/2025 10:50 [place] [address] Justice Whitman DO Third trimester ([facility]); 33 weeks gestation of ([facility]); Request for sterilization 05/14/2025 Travel 05/08/20[place] [id number] Sandra Romero MA 05/01/2025 8:30 [place] [address] Desiree Velásquez NP Third trimester ([facility]); 30 weeks gestation of ([facility]) 05/01/2025 Bamboo flowsheet [facility] [address] [place] [address] Desiree Velásquez NP 04/30/2025 8:00 AM EDT Ancillary Procedure [facility] [address] [place] [address] size inconsistent with dates ([facility]) 04/30/2025 Telephone [facility] [address] [place] [address] Katerin Nash LPN 04/23/2025 Travel 04/18/2025 8:40 AM EDT Routine [facility] [address] [place] [address] Justice Whitman DO 29 weeks gestation of ([facility]); Third trimester ([facility]); Gastroesophageal reflux disease without esophagitis 04/18/2025 Bamboo flowsheet [facility] [address] [place] [address] Justice Whitman DO 04/04/2025 Refill [facility] [address] [place] [address] Sandra Romero MA Tooth infection 04/03/2025 Telephone [facility] [address] [place] [address] Katerin Nash LPN 03/29/2025 Telephone [facility] [address] [place] [address] Bonnie Lyle MA 03/26/2025 Refill [facility] [address] [place] [address] Maribeth Carrillo PA Gastroesophageal reflux disease without esophagitis 03/23/2025 Clinisync Result Encounter [facility] External Department Unsolicited Justice Whitman DO 03/21/2025 8:50 [place] [address] Maribeth Carrillo PA Second trimester ([facility]) (Primary Dx); 25 weeks gestation of ([facility]) 03/21/2025 [place] [address] Maribeth Carrillo PA 03/12/2025 [place] [address] Bonnie Lyle MA 03/12/2025 External [place] [address] Justice Whitman DO from Last 3 [...] Sign Reading Time Taken Comments Blood Pressure 114/64 06/04/2025 8:23 AM EDT Pulse - - Temperature - - Respiratory Rate - - Oxygen Saturation - - Inhaled Oxygen Concentration - - Weight 72.6 kg (160 lb) 06/04/2025 8:23 AM EDT Height 157.5 cm (5' 2 ) 03/01/2024 8:00 AM EDT Body Mass Index 29.26 03/01/2024 8:00 AM EDT Plan of Treatment Upcoming Encounters Date Type Department Care Team (Late st Contact Info) Description 06/11/2025 8:30 [place] [address] Justcie Whitman, [address] [place] [address] 07/03/2025 10:30 AM EDT Office Visit [facility] [address] [place] [address] Desiree Velásquez, NAIL CUTTER [address] [address] Health Maintenance Due Date Last Done Comments HPV/Cotest 12/07/2023 Influenza Vaccine (#1) 2025 07/18/2018 Cervical Cancer Screening 02/28/2027 Pap Smear 02/28/2027 02/29/2024, 11/11/2022 Procedures Procedure Name Priority Date/Time Associated Diagnosis Comments POCT URINALYSIS DIPSTICK Routine 06/04/2025 8:26 AM EDT Third trimester ([facility]) POCT URINALYSIS DIPSTICK Routine 05/29/2025 8:46 AM EDT Third trimester ([facility]) POCT URINALYSIS DIPSTICK Routine 05/15/2025 10:19 AM EDT Third trimester ([facility]) POCT URINALYSIS DIPSTICK Routine 05/01/2025 9:00 AM EDT Third trimester ([facility]) US OB FOLLOW UP TRANSABDOMINAL APPROACH Routine 04/30/2025 8:20 AM EDT size inconsistent with dates ([facility]) CULTURE, URINE, ROUTINE Routine 04/18/2025 11:18 AM [...] * (ABNORMAL) POCT urinalysis dipstick manually resulted (06/04/2025 8:26 AM EDT) Only the most recent of4 resultswithin the time period is included. Color, UA Yellow Clarity, UA Clear Glucose, UA Negative Negative - 2000(110) ++++ mg/dL Bilirubin, UA Negative Negative - 4(70) +++ mg/dL Ketones, UA Positive Negative - 160(16) ++++ mg/dL Spec Grav, UA 1.010 1 - 1.03 Blood, UA Positive Negative - 50 Toni/mcL pH, UA 6.0 5 - 9 Protein, UA Positive Negative - 2000(20) ++++ mg/dL Urobilinogen, UA 1.0 0.2 - 12 mg/dL Leukocytes, UA 1+ Negative - 500+++ Amish/mcL Nitrite, UA Negative Negative - Positive Urine 06/04/2025 8:26 AM EDT [facility] J Carlos DO POINT OF CARE TEST ENTER/EDIT OR DERABLES [...] II, MD, PHD at 01-May-2025 07:33:44 AM [facility] Procedure Note Cayla Saucedo MD - [...] signed by CAYLA SAUCEDO II, MD, PHD [id number] 07:33:44 AM [facility] us Justice J Carlos DO IMG OB US PROCEDURES Final Resul t * Urine culture (04/18/2025 11:18 AM EDT) Urine Urine specimen obtained by clean catch procedure / Unknown Justice J Carlos DO LAB MICROBIOLOGY - GENERAL ORDER MARIMAR Final Result EXTERNAL LAB * GLUCOSE 1 HOUR (03/23/2025 7:40 AM EDT) GLUCOSE 1 HOUR 126 <130 mg/dL [facility] 03/23/2025 7:40 AM EDT 03/23/2025 7:40 AM EDT Narrative [facility] - 03/23/2025 8:02 AM EDT Justice J Carlos DO LAB BLOOD ORDERABLES Final Resul t [facility] * (ABNORMAL) ALL CBC WITH AUTO DIFF [...] 7:51 AM EDT us Justice Whitman DO VERONICA Final Result [facility] * US OB 14+ weeks anatomy scan (03/12/2025 10:27 AM EDT) Anatomical Region Laterality Modality Body Ultrasound 03/12/2025 10:2 7 AM EDT Narrative 03/12/2025 10:27 AM EDT THIS EXAM WAS PERFORMED AT [facility] NAME: ELZBIETA VAZQUEZ : 1995 SEX: F Accession Number: [id number] ORDERING PHYSICIAN: REID RAI REFERRING PHYSICIAN: JUSTICE WHITMAN Coding ----- --------- Procedures [id number]: Ultrasound, uterus, real time with image documentation, and maternal evaluation plus detailed anatomic examination, transabdominal approach;single or first gestation [id number]: Transvaginal Ultrasound (OB) 19788: Echocardiography, , cardiovascular system, real time with image documentation (2D), with or without M-mode recording Indication ----- --------- Screening for Anatomic Survey, Screening for cervical length, Screening for congenital cardiac abnormality, Supervision of high risk (abnormal heart axis at office), Previous History ----- --------- OB History 2. Para 1 [id number] Maternal Assessment ----- --------- Physical Exam Height [...] EFW (oz) 7 oz EFW by: Hadlock (JMR-AD-RO-FL) Extended Tibia 36.9 mm 23w 6d 53% Iesha Cook Railroad 5.5 mm CM 3.1 mm <1% Nicolaides [...] view. RVOT view. LVOT view. 3-vessel view. 9-xjxmea-smjgbbb view. Great vessels. Right lung. Left lung. [...] normal RVOT view normal 3-vessel view normal 0-nncywn-shrfspl view normal Aortic arch view normal Ductal [...] structural abnormalities. Recommendations ----- --------- Please see [facility] documentation from today. anatomic survey is incomplete due to suboptimal visualization. Patient is not scheduled to return for additional ultrasound. Please reschedule for specific concerns or indications. Subsequent follow up or other follow up as clinically determined by primary OB provider unless otherwise specified by [facility]. Results forwarded to ordering provider so they can follow up with the patient as necessary. The copy-to physician of this order is JUSTICE Martinez The ordering physician of this order is REID Rivera Procedure Note Radiology, Radiologist, - 03/12/2025 THIS EXAM WAS PERFORMED AT [facility] NAME: ELZBIETA VAZQUEZ : 1995 SEX: F Accession Number: [id number] ORDERING PHYSICIAN: REID RAI REFERRING PHYSICIAN: JUSTICE WHITMAN Coding ----- --------- Procedures [id number]: Ultrasound, uterus, real time with imagedocumentation, and maternal evaluation plus detailed anatomic examination, transabdominalapproach;single or first gestation 97657: Transvaginal Ultrasound (OB) 10692: Echocardiography, , cardiovascular system, real timewith image documentation (2D), with or without M-mode recording Indication ----- --------- Screening for Anatomic Survey, Screening for cervical length, Screeningfor congenital cardiac abnormality, Supervision of high risk (abnormal heart axis at office), Previous History ----- --------- OB History 2. Para 1 [id number] Maternal Assessment ----- --------- Physical Exam Height [...] Cerebellum tr 25.2 mm 22w 6d 39% Kris AC 198.6 mm 24w 4d 63% Hadlock Femur 40.4 mm 23w 0d 16% Hadlock Humerus 38.3 mm 23w 4d 29% Iesha HC / AC 1.10 EFW 646 g 46% Hadlock EFW (lb) 1 lb EFW (oz) 7 oz EFW by: Hadlock (ESD-TP-ES-FL) Extended Tibia 36.9 mm 23w 6d 53% Iesha Cook Railroad 5.5 mm CM 3.1 mm <1% Nicolaides [...] 4-chamber view. RVOT view. LVOT view. 3-vessel view.3-lrkpee-ozsgosq view. Great vessels. Right lung. Left lung. [...] normal RVOT view normal 3-vessel view normal 8-xgfzhn-tktrlfz view normal Aortic arch view normal Ductal [...] grossstructural abnormalities. Recommendations ----- --------- Please see [facility] documentation from today. anatomic survey is incomplete due to suboptimal visualization.Patient is not scheduled to return for additional ultrasound. Please reschedule for specific concerns or indications. Subsequent follow up or other follow up as clinically determined byprimary OB provider unless otherwise specified by [facility]. Results forwarded to ordering provider so [...] Most Recently Relevant to Health Maintenance Insurance [employer]DC[employer]osphate [facility] [place] Care Teams Laundry Agent Relationship Specialty Start Date End Date Justice Whitman DO [address] [place] [address] PCP - [employer] 03/03/25
--- OUTSIDE RECORDS SUMMARY | 2025-06-04 12:32 | XMS_ITS | Encounter Summary ---
Author Organization [facility] Address [address] [place] [address] Care Team Providers Care Microsoft Exchange Administrator Name Role Phone Kannan Whitman DO Unavailable Encounter Details Date Type Department Care Team (Late Contact Info) Description 03/08/2024 Orders Only DEBORAH BARRETT [address] [place] [address] Manuela Jones LPN [address] [facility] [address] [place] [address] Social History Tobacco Use Types Packs/Day Years [...] 8:30 AM EDT Routine [facility] BARRETT [address] [place] [address] Kannan Whitman DO [address] [place], [facility] 07/03/2025 10:30 AM EDT Office Visit DEBORAH BARRETT [address] [place] [address] Desiree Velásquez, SILVERWARE BUFFER [address] [place] [address] documented as of this encounter Procedures Procedure [...] on filedocumented in this encounter Care Teams Microsoft Exchange Administrator Relationship Specialty Start Date End Date Kannan Whitman DO [address] [place] [address] PCP - [employer] [employer] 03/03/25 documented as of this encounter
--- OUTSIDE RECORDS SUMMARY | 2025-06-04 12:40 | XMS_ITS | CCD ---
Author Organization [facility] Care Team Providers Care Mower Mechanic [...] MISC, DR DOE Primary Care Unavailable Keily, SALT LIFTER Seble L Attending Unavailable Keily, SALT LIFTER Seble L Attending Unavailable Keily, SALT LIFTER Seble L Attending Unavailable Unavailable Primary Care [...] Propensity to adverse reactions (disorder) 4 [facility] Repository (1 source) No Known Medication Allergies; Translations: [No Known Medication Allergies] Propensity to adverse reactions (disorder) [facility] Repository (20 sources) Other; Translations: [OTHER] Allergy to substance 3 [facility] Healthcare (2 sources) Wound Dressing Adhesive Propensity to adverse reactions 5 [facility] Medications Current Medications Medication Drug Class(es) [...] (Mag-Ox) 400 MG tablet Indications: Third trimester ([facility]) , 30 weeks gestation of ([facility]) Take 1 tablet (400 mg) by mouth [...] pantoprazole 40 mg delayed release oral tablet (12 sources) Proton Pump Inhibitor Start: 04-18-2025 End: 04-18-2026 take 1 tablet by mouth before mealtime pantoprazole (Protonix) 40 MG EC tablet Indications: Gastroesophageal reflux disease without esophagitis Take 1 tablet (40 mg) by mouth in the morning. Take before meals. Do not crush, chew, or split. 30 tablet 04/18/2025 04/18/2026 Active polysaccharide iron complex 391 mg oral capsule (7 sources) Start: 04-18-2025 End: 05-18-2025 take 1 capsule by mouth once daily iron polysaccharides (ProFe) 391.3 (180 Fe) MG capsule Indications: 29 weeks gestation of ([facility]) , Third trimester ([facility]) Take 1 capsule (391.3 mg) by mouth [...] [Encounter for sterilization] 05-15-2025 Episodic Esophageal disorders (19 sources) Gastroesophageal reflux disease without esophagitis; Translations: [Gastro-esophageal reflux disease without esophagitis] Onset: 02-26-2025 02-26-2025 Chronic Immunizations and screening for infectious disease (2 sources) Exposure to sexually transmissible disorder; Translations: [Contact with and (suspected) exposure to infections with a predominantly sexual mode of transmission] 06-04-2025 Episodic Malaise and fatigue (2 sources) Asthenia; Translations: [Weakness] 05-29-2025 Episodic Menstrual disorders (1 source) Missed period; Translations: [Irregular menstruation, unspecified] 11-23-2024 Chronic Nausea and vomiting (1 source) Nausea; Translations: [Nausea] 11-13-2024 Episodic Other and delivery including normal (18 sources) ; Translations: [Encounter for supervision of [...] of ] 05-15-2025 Episodic Residual codes; unclassified (4 sources) Gestation period, 35 weeks; Translations: [35 [...] Range Facility Urinalysis macro (dipstick) panel (U)on 06-04-2025 Bilirubin, UA Negative Negative - 4(70) +++ mg/dL [facility] Blood, UA Positive Negative - 50 Toni/mcL [facility] Clarity, UA Clear [facility] re Color, UA Yellow [facility] e Glucose, UA Negative Negative - 1999(110) ++++ mg/dL [facility] Interpretation and review of laboratory results Abnormal [facility] re Ketones, UA Positive Negative - 160(16) ++++ mg/dL [facility] Leukocytes, UA 1+ Negative - 500+++ Amish/mcL [facility] Nitrite, UA Negative Negative - Positive [facility] pH, UA 6 5 - 9 [facility] e Protein, UA Positive Negative - 1999(20) ++++ mg/dL [facility] Spec Grav, UA 1.01 1 - 1.03 [facility] care Urobilinogen, UA 1.0 0.2 - 12 mg/dL [facility] Urinalysis macro (dipstick) panel (U)on 05-29-2025 Bilirubin, UA Negative Negative - 4(70) +++ mg/dL [facility] Blood, UA Positive Negative - 50 Toni/mcL [facility] Clarity, UA Clear [facility] Color, UA Yellow [facility] Glucose, UA Negative Negative - 1999(110) ++++ mg/dL [facility] Interpretation and review of laboratory results Abnormal [facility] Ketones, UA Negative Negative - 160(16) ++++ mg/dL [facility] Leukocytes, UA 3+ Negative - 500+++ Amish/mcL [facility] Nitrite, UA Negative Negative - Positive [facility] pH, UA 6 5 - 9 [facility] Protein, UA 1+ Negative - 1999(20) ++++ mg/dL [facility] Spec Grav, UA 1.015 1 - 1.03 [facility] care Urobilinogen, UA 1.0 0.2 - 12 mg/dL [facility] macro (dipstick) panel (U)on 05-15-2025 Bilirubin, UA Negative Negative - 4(70) +++ mg/dL [facility] Blood, UA Positive Negative - 50 Toni/mcL [facility] Comment on above: trace Clarity, UA Clear [facility] Color, UA Yellow [facility] Glucose, UA Negative Negative - 1999(110) ++++ mg/dL [facility] Interpretation and review of laboratory results Abnormal [facility] Ketones, UA Negative Negative - 160(16) ++++ mg/dL [facility] Leukocytes, UA Moderate Negative - 500+++ Amish/mcL [facility] Nitrite, UA Negative Negative - Positive [facility] pH, UA 6 5 - 9 [facility] Protein, UA Positive Negative - 1999(20) ++++ mg/dL [facility] Comment on above: Trace Spec Grav, UA 1.015 1 - 1.03 [facility] care Urobilinogen, UA 0.2 0.2 - 12 mg/dL [facility] Urinalysis macro (dipstick) panel (U)on 05-01-2025 Bilirubin, UA Negative Negative - 4(70) +++ mg/dL [facility] Blood, UA Negative Negative - 50 Toni/mcL [facility] Clarity, UA Clear [facility] Color, UA Yellow [facility] Glucose, UA Negative Negative - 1999(110) ++++ mg/dL [facility] Interpretation and review of laboratory results Abnormal [facility] re Ketones, UA Negative Negative - 160(16) ++++ mg/dL [facility] Leukocytes, UA Moderate Negative - 500+++ Amish/mcL [facility] Nitrite, UA Negative Negative - Positive [facility] pH, UA 6.5 5 - 9 [facility] Protein, UA Negative Negative - 1999(20) ++++ mg/dL [facility] Spec Grav, UA 1.01 1 - 1.03 [facility] Urobilinogen, UA 0.2 0.2 - 12 mg/dL [facility] FOLLOW UP [...] II, MD, PHD at 01-May-2025 07:33:44 AM [facility] Normal Not Available Comment on above: Order Comment: US OB SCAN FOR GROWTH Estimated Date of Delivery: 07/03/25 Gestational Age as of 04/30/2025: 30w6d ALL CBC WITH AUTO DIFFon BASOPHILS ABSOLUTE AUTO 0 [facility] Basophils/100 WBC (Bld) 0.4 % 0.2 - 2.0 % [facility] WBC (Bld) 1.6 % 0.9 - 7.0 % [facility] Erythrocyte distribution width (RBC) [Ratio] 13.2 % 11.0 - 15.0 % [facility] Hematocrit (Bld) [Volume fraction] 31.1 % Low 36.0 - 48.0 % [facility] Hemoglobin (Bld) [Mass/Vol] 10.7 g/dL Low 12.0 - 16.0 g/dL [facility] IMMATURE GRANULOCYTES ABS AUTO 0.06 High [facility] Immature granulocytes/100 WBC (Bld) 0.7 % High 0.0 - 0.5 % [facility] Interpretation and review of laboratory results Abnormal [facility] LYMPHOCYTES ABSOLUTE AUTO 1.4 [facility] Lymphocytes/100 WBC (Bld) 15.2 % Low 20.5 - 60.0 % [facility] MCH (RBC) [Entitic mass] 30.9 pg 26.7 - 34.0 pg [facility] MCHC (RBC) [Mass/Vol] 34.4 g/dL 29.9 - 35.2 g/dL [facility] MCV (RBC) [Entitic vol] 89.9 fL 81.0 - 99.0 fL [facility] MONOCYTES ABSOLUTE AUTO 0.5 [facility] Monocytes/100 WBC (Bld) 5 % 1.7 - 12.0 % [facility] NEUTROPHILS ABSOLUTE AUTO 7.1 High [facility] Neutrophils/100 WBC (Bld) 77.1 % High 43.0 - 75.0 % [facility] Platelet mean volume (Bld) [Entitic vol] 9.8 fL 9.5 - 13.5 fL [facility] TBH EO # 0.2 [facility] [...] visualization. Interpreted by: Electronically signed by CAYLA SIVLA II, MD, PHD at 14-Feb-2025 11:33:18 AM [facility] Normal Not Available Comment on above: Order Comment: US OB ANATOMY SINGLE W US OB CERVICAL LENGTH Estimated Date of Delivery: 07/03/25 Gestational Age as of 01/23/2025: 17w0d Urinalysis macro (dipstick) panel (U)on 12-27-2024 Bilirubin, UA Negative Negative - 4(70) +++ mg/dL [facility] Blood, UA Negative Negative - 50 Toni/mcL [facility] Clarity, UA Clear [facility] Color, UA Yellow [facility] Glucose, UA Negative Negative - 1999(110) ++++ mg/dL [facility] Interpretation and review of laboratory results Normal [facility] re Ketones, UA Negative Negative - 160(16) ++++ mg/dL [facility] Leukocytes, UA Positive Negative - 500+++ Amish/mcL [facility] Nitrite, UA Negative Negative - Positive [facility] pH, UA 6.5 5 - 9 [facility] e Protein, UA Negative Negative - 1999(20) ++++ mg/dL [facility] Spec Grav, UA 1.02 1 - 1.03 [facility] Urobilinogen, UA 0.2 0.2 - 12 mg/dL [facility] US OB TRANSVAGINALon 025 US [...] II, MD, PHD at 01-Dec-2024 07:22:16 AM [facility] Normal Not Available Comment on above: Order Comment: US OB TRANSVAGINAL Patient's last menstrual period was 09/26/2024. HCG ( test) Ql (U)o n 11-23-2024 Interpretation and review of laboratory results Abnormal [facility] Preg Test, Ur Positive Negative [facility] CARDIOCHECK - LIPID AND GLUC OSEon 11-20-2024 Cholesterol [Mass/Vol] 115 mg/dL NINF - 200 [facility] Cholesterol in HDL [Mass/Vol] 55 mg/dL M: 35-65 F: 35-80 [facility] Cholesterol in LDL [Mass/Vol] 60 mg/dL NINF - 100 [facility] Glucose [Mass/Vol] 102 mg/dL NINF - 100 [facility] Interpretation and review of laboratory results Abnormal [facility] Triglyceride [Mass/Vol] 170 mg/dL NINF - 150 [facility]/Clini [...] Topical, BID, 45 gram, Refill(s) 0, [facility]/pharmacy #[id number], 157.4, cm, 07/20/24 14:43:00 EDT, Height/Length [...] Recorded Hib, unspecified formulation 02/05/1994 Recorded Normal [facility] Comment on above: Result Comment: Elec tronically Signed By: Seble Luna.romel\Date and Time Signed: 07/20/24 14:56 EDT RAD - Ultrasound Reporton RAD - Ultrasound Report [id number]. [id number] Normal [facility] Consenton 01-23-2024 Consent [id number] .[id number] Normal [facility] PAP ACOG PANEL 2: 21 to 29on 11-18-2022 . . Normal [facility] Comment on above: Performed By: #### [id number] #### [facility] [address] [address] [address] Prashant Fletcher Age Gdln ACOG Testing [facility] Comment on above: Performed By: #### [id number] #### [facility] [address] [address] [address] Prashant Fletcher DIAGNOSIS: Comment [facility] Comment on above: Result Comment: NEGA TIVE FOR INTRAEPITHELIAL LESION OR MALIGNANCY. Performed By: #### [id number] #### [facility] [address] [address] [address] Prashant Fletcher Methodology: Comment [facility] Comment on above: Result Comment: This liquid based ThinPrep(R) pap test was screened with the use of an image guided system. Performed By: #### 4 [id number] #### [facility] [address] [address] [address] Prashant Fletcher Note: Comment [facility] Comment on above: Result Comment: The Pap smear is a screening test designed to aid in the detection of premalignant and malignant conditions of the uterine cervix. It is not a diagnostic procedure and should not be used as the sole means of detecting cervical cancer. Both false-positive and false-negative reports do occur. . Performed By: #### [id number] #### [facility] [address] [place] [address] Dr. Prashant Fletcher Performed by: Comment Normal [facility] Comment on above: Result Comment: Pati Johnson, Transitions Manager Rn (ASCP) Performed By: #### [id number] #### [facility] [address] [place] [address] Dr. Prashant Fletcher Reflex Criteria: Comment Normal [facility] Comment on above: Result Comment: The HPV DNA reflex criteria were not met with this specimen result therefore, no HPV testing was performed. . Performed By: #### [id number] #### [facility] [address] [place] [address] Dr. Prashant Fletcher Specimen adequacy: Comment Normal [facility] Comment on above: Result Comment: Sati sfactory for evaluation. Endocervical and/or squamous metaplastic cells (endocervical component) are present. Performed By: #### [id number] #### [facility] [address] [place] [address] Dr. Prashant Fletcher SYMPTOMATIC COVID-19 ANTIGEN on 03-23-2022 EUA Statement SEE BELOW Normal [facility] Comment on above: Result Comment: This [...] sooner. Performed By: #### C VDAGS #### [facility] [address] [place] [address] Dr. Prashant Fletcher SARS-CoV-2 (COVID-19) RNA DIAMOND+probe Ql (Unsp spec) Negative Normal NEGATIVE [facility] Comment on above: Performed By: #### C VDAGS #### [facility] [address] [place], [place] [address] Dr. Prashant Fletcher SYMPTOMATIC COVID-19 ANTIGEN on 03-22-2022 EUA Statement SEE BELOW Normal [facility] Comment on above: Result Comment: This [...] sooner. Performed By: #### C VDAGS #### [facility] [address] [place], [place] [id number] Dr. Prashant Fletcher SARS-CoV-2 (COVID-19) RNA DIAMOND+probe Ql (Unsp spec) Negative Normal NEGATIVE [facility] Comment on above: Performed By: #### C VDAGS #### [facility] [address] [place], [place] [id number] Dr. Prashant Fletcher Covid-19 PCR (CVDTB)on 01-01 SARS-CoV-2 (COVID-19) RNA DIAMOND+probe Ql (Unsp spec) Not detected Normal NOT DETECTED [facility] Comment on above: Result Comment: When diagnostic [...] for this test is supported by the Screen Cleaner of Health and Human Service's declaration that [...] used). Performed By: #### C VDTB #### [facility] [address] [place] [address] Dr. Prashant Fletcher CBC AUTO DIFFon 12-09-2021 BASO # 0.0 103/ul Normal 0.0-0.1 [facility] Comment on above: Performed By: #### C BC #### [facility] [address] [place] [address] Dr. Prashant Fletcher Basophils/100 WBC (Bld) 0.7 % Normal 0.2-2.0 [facility] Comment on above: Performed By: #### C BC #### [facility] [address] [place] [address] Dr. Prashant Fletcher EO # 0.2 103/ul Normal 0.0-0.7 [facility] Comment on above: Performed By: #### C BC #### [facility] [address] [place] [address] Dr. Prashant Fletcher Eosinophils/100 WBC (Bld) 4.4 % Normal 0.9-7.0 [facility] Comment on above: Performed By: #### C BC #### [facility] [address] [place] [address] Dr. Prashant Fletcher Erythrocyte distribution width (RBC) [Ratio] 15.5 % Critically high 11.0-15.0 [facility] Comment on above: Performed By: #### C BC #### [facility] [address] [place] [address] Dr. Prashant Fletcher Hematocrit (Bld) [Volume fraction] 40.1 % Normal 36.0-48.0 [facility] Comment on above: Performed By: #### C BC #### [facility] [address] [place] [address] Dr. Prashant Fletcher Hemoglobin (Bld) [Mass/Vol] 12.4 g/dL Normal 12.0-16.0 [facility] Comment on above: Performed By: #### C BC #### [facility] [address] [place] [address] Dr. Prashant Fletcher IG # 0.01 10e3/ul Normal 0.00-0.03 [facility] Comment on above: Performed By: #### C BC #### [facility] [address] [place] [address] Dr. Prashant Fletcher IG % 0.2 % Normal 0.0-0.5 [facility] Comment on above: Performed By: #### C BC #### [facility] [address] [place] [address] Dr. Prashant Fletcher LYMPH # 1.8 103/ul Normal 1.2-3.8 [facility] Comment on above: Performed By: #### C BC #### [facility] [address] [place] [address] Dr. Prashant Fletcher Lymphocytes/100 WBC (Bld) 33.3 % Normal 20.5-60.0 [facility] Comment on above: Performed By: #### C BC #### [facility] [address] [place] [address] Dr. Prashant Fletcher MANUAL DIFF REQ NO Normal [facility] Comment on above: Performed By: #### C BC #### [facility] [address] [place] [address] Dr. Prashant Fletcher MCH (RBC) [Entitic mass] 26.1 pg Critically low 26.7-34.0 [facility] Comment on above: Performed By: #### C BC #### [facility] [address] [place] [address] Dr. Prashant Fletcher MCHC (RBC) [Mass/Vol] 30.9 g/dL Normal 29.9-35.2 [facility] Comment on above: Performed By: #### C BC #### [facility] [address] [place] [address] Dr. Prashant Fletcher MCV (RBC) [Entitic vol] 84.4 fL Normal 81.0-99.0 [facility] Comment on above: Performed By: #### C BC #### [facility] [address] [place] [address] Dr. Prashant Fletcher MONO # 0.6 103/ul Normal 0.3-0.8 [facility] Comment on above: Performed By: #### C BC #### [facility] [address] [place] [address] Dr. Prashant Fletcher Monocytes/100 WBC (Bld) 10.4 % Normal 1.7-12.0 [facility] Comment on above: Performed By: #### C BC #### [facility] [address] [place] [address] Dr. Prashant Fletcher NEUT # 2.8 103/ul Normal 1.4-6.5 [facility] Comment on above: Performed By: #### C BC #### [facility] [address] [place] [address] Dr. Prashant Fletcher Neutrophils/100 WBC (Bld) 51.0 % Normal 43.0-75.0 [facility] Comment on above: Performed By: #### C BC #### [facility] [address] [place] [address] Dr. Prashant Fletcher Platelet mean volume (Bld) [Entitic vol] 9.4 fL Critically low 9.5-13.5 [facility] Comment on above: Performed By: #### C BC #### [facility] [address] [place] [address] Dr. Prashant Fletcher PLT 184 103/ul Normal 150-450 [facility] Comment on above: Performed By: #### C BC #### [facility] [address] [place] [address] Dr. Prashant Fletcher RBC 4.75 106/ul Normal 4.20-5.40 [facility] Comment on above: Performed By: #### C BC #### [facility] [address] [place] [address] Dr. Prashant Fletcher WBC 5.5 103/ul Normal 4.0-11.0 [facility] Comment on above: Performed By: #### C BC #### [facility] [address] [place], [place] [address] Dr. Prashant Fletcher FERRITINon 12-09-2021 Ferritin [Mass/Vol] 10.0 ng/mL Normal 6.2-137.0 [facility] Comment on above: Performed By: #### F ERR #### [facility] [id number] Prashant Fletcher Vital Signs Date Time Vital Sign Value Performing Clinician Faci lity 06-04-2025 08:23-0400 Body mass index (BMI) [Ratio] 29.26 kg/m2 Justice J Carlos DO Work Phone: [facility] 06-04-2025 08:23-0400 Body weight 72.58 kg Justice J Carlos DO Work Phone: [facility] 06-04-2025 08:23-0400 Diastolic blood pressure 64 mm[Hg] Justice J Carlos DO Work Phone: [facility] 06-04-2025 08:23-0400 Systolic blood pressure 114 mm[Hg] Justice J Carlos DO Work Phone: [facility] 05-29-2025 08:47-0400 Body mass index (BMI) [Ratio] 29.63 kg/m2 Maribeth GRAY Work Phone: [facility] 05-29-2025 08:47-0400 Body weight 73.48 kg Maribeth GRAY Work Phone: [facility] 05-29-2025 08:47-0400 Diastolic blood pressure 68 mm[Hg] Maribeth Mcrae PA Work Phone: [facility] 05-29-2025 08:47-0400 Systolic blood pressure 112 mm[Hg] Maribeth Mcrae PA Work Phone: [facility] 05-15-2025 10:17-0400 Body mass index (BMI) [Ratio] 28.94 kg/m2 Justice J Carlos DO Work Phone: [facility] 05-15-2025 10:17-0400 Body weight 71.78 kg Justice J Carlos DO Work Phone: [facility] 05-15-2025 10:17-0400 Diastolic blood pressure 60 mm[Hg] Justice J Carlos DO Work Phone: [facility] 05-15-2025 10:17-0400 Systolic blood pressure 120 mm[Hg] Justice J Carlos DO Work Phone: [facility] 05-01-2025 08:55-0400 Body mass index (BMI) [Ratio] 28.44 kg/m2 Desiree Didier TERMINAL SYSTEM OPERATOR Work Phone: [facility] 05-01-2025 08:55-0400 Body weight 70.53 kg Desiree Didier TERMINAL SYSTEM OPERATOR Work Phone: [facility] 05-01-2025 08:55-0400 Diastolic blood pressure 64 mm[Hg] Desiree Didier TERMINAL SYSTEM OPERATOR Work Phone: [facility] 05-01-2025 08:55-0400 Systolic blood pressure 120 mm[Hg] Desiree Didier TERMINAL SYSTEM OPERATOR Work Phone: [facility] 04-18-2025 08:40-0400 Body mass index (BMI) [Ratio] 27.98 kg/m2 Justice J Carlos DO Work Phone: [facility] 04-18-2025 08:40-0400 Body weight 69.4 kg Justice J Carlos DO Work Phone: [facility] 04-18-2025 08:40-0400 Diastolic blood pressure 70 mm[Hg] Justice J Carlos DO Work Phone: [facility] 04-18-2025 08:40-0400 Systolic blood pressure 120 mm[Hg] Justice J Carlos DO Work Phone: [facility] 03-21-2025 09:10-0400 Body mass index (BMI) [Ratio] 26.89 kg/m2 Maribeth GRAY Work Phone: [facility] 03-21-2025 09:10-0400 Body weight 66.68 kg Maribeth GRAY Work Phone: [facility] 03-21-2025 09:10-0400 Diastolic blood pressure 72 mm[Hg] Maribeth GRAY Work Phone: [facility] 03-21-2025 09:10-0400 Systolic blood pressure 110 mm[Hg] Mraibeth GRAY Work Phone: [facility] 03-12-2025 07:57-0400 Body height 157.5 cm Reid Rai MD Work Phone: [facility] 03-12-2025 07:57-0400 Body mass index (BMI) [Ratio] 26.15 kg/m2 Reid Rai MD Work Phone: [facility] 03-12-2025 07:57-0400 Body weight 64.86 kg Reid Rai MD Work Phone: [facility] 03-12-2025 07:57-0400 Diastolic blood pressure 73 mm[Hg] Reid Rai MD Work Phone: [facility] 03-12-2025 07:57-0400 Heart rate 88 /min Reid Rai MD Work Phone: [facility] 03-12-2025 07:57-0400 Systolic blood pressure 111 mm[Hg] Reid Rai MD Work Phone: [facility] 01-23-2025 08:54-0400 Body mass index (BMI) [Ratio] 23.23 kg/m2 Dseiree Velásquez NP Work Phone: [facility] 01-23-2025 08:54-0400 Body weight 57.61 kg Desiree Velásquez TERMINAL SYSTEM OPERATOR Work Phone: [facility] 01-23-2025 08:54-0400 Diastolic blood pressure 72 mm[Hg] Desiree Velásquez TERMINAL SYSTEM OPERATOR Work Phone: [facility] 01-23-2025 08:54-0400 Systolic blood pressure 118 mm[Hg] Desiree Velásquez NP Work Phone: [facility] 12-27-2024 08:50-0400 Body mass index (BMI) [Ratio] 21.4 kg/m2 Justice J Carlos DO Work Phone: [facility] 12-27-2024 08:50-0400 Body weight 53.07 kg Justice J Carlos DO Work Phone: [facility] 12-27-2024 08:50-0400 Diastolic blood pressure 58 mm[Hg] Justice J Carlos DO Work Phone: [facility] 12-27-2024 08:50-0400 Systolic blood pressure 102 mm[Hg] Justice J Carlos DO Work Phone: [facility] 11-23-2024 09:08-0500 Body mass index (BMI) [Ratio] 20.67 kg/m2 [facility] Nurse [facility] 11-23-2024 09:08-0500 Body weight 51.26 kg Noms Nurse [facility] 11-23-2024 09:08-0500 Diastolic blood pressure 62 mm[Hg] Noms Nurse [facility] 11-23-2024 09:08-0500 Systolic blood pressure 102 mm[Hg] Nom Nurse [facility] Healthcare Encounters Encounter Date Encounter Type Care Provider Facility Start: 06-04-2025 End: 06-04-2025 flow sheet Justice J Carlos DO Work Phone: [facility] Rona BARRETT Comment on above: 35 weeks gestation o f ([facility]); Third trimester ([facility]); Exposure to STD Start: 05-29-2025 End: 05-29-2025 Bamboo flowsheet Maribeth GRAY Work Phone: [facility] Start: 05-29-2025 End: 05-29-2025 Bamboo flowsheet Maribeth GRAY Work Phone: [facility] Start: 05-29-2025 End: 05-29-2025 flow sheet Maribeth GRAY Work Phone: [facility] BARRETT Comment on above: Third trimester preg subha ([facility]); 35 weeks gestation of ([facility]); Weakness generalized; Hot flashes Start: 05-29-2025 End: 05-29-2025 ambulatory MARIBETH MCRAE Not Available Start: 05-15-2025 End: 05-15-2025 Office outpatient visit 15 minutes Justice J Carlos DO Work Phone: [facility] BARRETT Comment on above: Third trimester preg subha ([facility]); 33 weeks gestation of ([facility]); Request for sterilization Start: 05-15-2025 End: 05-15-2025 ambulatory JUSTICE J CARLOS Not Available Start: 05-01-2025 End: 05-01-2025 Bamboo flowsheet Desiree Velásquez TERMINAL SYSTEM OPERATOR Work Phone: [facility] BARRETT Start: 05-01-2025 End: 05-01-2025 Bamboo flowsheet Desiree Velásquez TERMINAL SYSTEM OPERATOR Work Phone: [facility] Start: 05-01-2025 End: 05-01-2025 ambulatory DESIREE VELÁSQUEZ Not Available Start: 05-01-2025 End: 05-01-2025 flow sheet Desiree Didier TERMINAL SYSTEM OPERATOR Work Phone: [facility] BARRETT Comment on above: Third trimester preg subha ([facility]); 30 weeks gestation of ([facility]) Start: 04-30-2025 End: 04-30-2025 ambulatory JUSTICE J CARLOS Not Available Start: 04-18-2025 End: 04-18-2025 Bamboo flowsheet Justice J Carlos DO Work Phone: [facility] Start: 04-18-2025 End: 04-18-2025 Bamboo flowsheet Justice J Carlos DO Work Phone: [facility] Start: 04-18-2025 End: 04-18-2025 flow sheet Justice J Carlos DO Work Phone: [facility] Comment on above: 29 weeks gestation o f ([facility]); Third trimester ([facility]); Gastroesophageal reflux disease without esophagitis Start: 04-18-2025 End: 04-18-2025 ambulatory JUSTICE J CARLOS Not Available Start: 03-23-2025 End: 03-23-2025 Clinisync Result Encounter Justice J Carlos DO Work Phone: [facility] Department Unsolicited Start: 03-23-2025 End: 03-23-2025 Clinisync Result Encounter Justice J Carlos DO Work Phone: [facility] Unsolicited Start: 03-21-2025 End: 03-21-2025 Bamboo flowsheet Maribeth GRAY Work Phone: [facility] Start: 03-21-2025 End: 03-21-2025 Bamboo flowsheet Maribeth GRAY Work Phone: [facility] Start: 03-21-2025 End: 03-21-2025 ambulatory MARIBETH MCRAE Not Available Start: 03-21-2025 End: 03-21-2025 Office outpatient visit 15 minutes Maribeth GRAY Work Phone: [facility] Comment on above: Second trimester pre gnancy ([facility]) (Primary Dx); 25 weeks gestation of ([facility]) Start: 03-12-2025 End: 03-12-2025 Office consultation new/estab patient 60 min Cordelia Hamilton MD Work Phone: [facility] Comment on above: Encounter for observ ation of suspected anomaly not found (Primary Dx) Start: 03-12-2025 End: 03-12-2025 ambulatory JUSTICE R J CARLOS [facility] Start: 02-21-2025 End: 02-21-2025 ambulatory JUSTICE J CARLOS Not Available Start: 02-13-2025 End: 02-13-2025 ambulatory JUSTICE J CARLOS Not Available Start: 01-23-2025 End: 01-23-2025 Bamboo flowsheet Desiree Velásquez NP Work Phone: [facility] Start: 01-23-2025 End: 01-23-2025 Bamboo flowsheet Desiree Velásquez TERMINAL SYSTEM OPERATOR Work Phone: [facility] Start: 01-23-2025 End: 01-23-2025 flow sheet Desiree Didier TERMINAL SYSTEM OPERATOR Work Phone: [facility] Comment on above: Second trimester pre gnancy; 17 weeks gestation of Start: 01-23-2025 End: 01-23-2025 ambulatory DESIREE DIDIER Not Available Start: 01-18-2025 ambulatory S[place] LIFTER Seble L Ke[facility] Facil ity:[facility] Start: [...] 11-20-2024 End: 11-20-2024 Patient encounter procedure [facility] Comment on above: Screening for lipoid disorders; Screening for diabetes mellitus Start: 11-13-2024 End: 11-13-2024 Telephone encounter Maribeth GRAY Work Phone: [facility] Start: 07-20-2024 End: 07-20-2024 ambulatory S[place]TER Seble L Keily Facility:[facility] [place] Start: 01-20-2024 End: 01-20-2024 ambulatory S[place] L[place]TER Seble L Keily Facility:[facility] Start: 11-10-2022 End: 11-10-[address] JUSTICE WHITMAN Facility:[facility] Start: 03-23-2022 End: 03-23-2022 ambulatory DESIREE VELÁSQUEZ Facility:[facility] Start: 03-22-2022 End: 03-22-2022 ambulatory DESIREE VELÁSQUEZ Facility:[facility] Start: 01-12-2022 End: 01-12-2022 ambulatory DESIREE VELÁSQUEZ Facility:[facility] Start: 12-09-2021 End: 12-10-[address] JUSTICE WHITMAN Facility:[facility] Procedures Date Procedure Procedure Detail Performing Clinician Start: 06-04-2025 Urnls dip stick/tabl et rgnt non-auto w/o micrscp Justice J Carlos DO Work Phone: Start: 05-29-2025 Urnls dip stick/tabl et rgnt non-auto w/o micrscp Maribeth GRAY Work Phone: Start: 05-15-2025 Urnls dip stick/tabl et rgnt non-auto w/o micrscp Justice J Carlos DO Work Phone: Start: 05-01-2025 Urnls dip stick/tabl et rgnt non-auto w/o micrscp Desiree Velásquez TERMINAL SYSTEM OPERATOR Work Phone: Start: 03-23-2025 ALL CBC WITH [...] Adult BMI Screening Adult BMI Screen ing [facility] Start: 07-03-2025 End: 07-03-2025 Patient encounter procedure 07/03/2025 10:30 AM EDT Office Visit [facility] [address] [place] [phone] Desiree Velásquez, TERMINAL SYSTEM OPERATOR [address] [place] [phone] [facility] Start: 06-11-2025 End: 06-11-2025 Patient encounter procedure 06/11/2025 8:30 AM EDT Routine [facility] [address] [place] [address] Justice Whitman, DO [address], [place] [id number] [facility] Start: 06-04-2025 End: 06-04-2026 CULTURE, GROUP B STREP WITH SUSCEPTIBLITY CULTURE, GROUP B STREP WITH SUSCEPTIBLITY Lab Routine Third trimester ([facility]) Expected: 06/04/2025, Expires: 06/04/2026 [facility] Work Phone: Comment on above: Expected: 06/04/2025 , Expires: 06/04/2026 Start: 06-04-2025 End: 06-04-2025 Patient encounter procedure 06/04/2025 8:30 AM EDT Routine [facility] [address] [place] [address] Justice Whitman, DO [address], [place] [id number] [facility] [place] [facility] Start: 06-03-2025 Influenza vaccination [facility] Start: 05-29-2025 End: 05-29-2026 12 lead ECG ECG 12 lead unit performed ECG Routine Third trimester ([facility]) 35 weeks gestation of ([facility]) Weakness generalized Hot flashes Expected: 05/29/2025 (Approximate), Expires: 05/29/2026 [facility] Work Phone: Comment on above: Expected: 05/29/2025 (Approximate), Expires: 05/29/2026 Start: 05-29-2025 End: 05-29-2025 Patient encounter procedure 05/29/2025 9:20 AM EDT Routine [facility] [address] [place] [phone] Maribeth Mcrae PA [address] [place], [facility] Arrived [facility] Comment on above: Arrived Start: 05-01-2025 End: 05-01-2025 Patient encounter procedure 05/01/2025 8:30 AM EDT Routine [facility] [address] [place] [address] Desiree Velásquez, SHARRI [address] [address] [facility] Start: 04-30-2025 End: 04-30-2025 Professional / ancillary services management 04/30/2025 8:00 AM EDT Ancillary Procedure [facility] [address] [facility] [place] [address] [facility] Start: 04-18-2025 End: 04-18-2025 Patient encounter procedure [facility] Comment on above: Arrived Start: 02-21-2025 End: 02-21-2025 Patient encounter procedure 02/21/2025 8:40 AM EDT Routine [facility] [address] [facility] [place] [address] Justice Whitman, [address], [place] [id number] [facility] Start: 02-13-2025 End: 02-13-2025 Professional / ancillary services management 02/13/2025 8:00 AM EDT Ancillary Procedure [facility] [address] [place] [phone] [facility] Start: 01-24-2025 End: 01-24-2025 Patient encounter procedure 01/24/2025 8:50 AM EDT Routine [facility] [address] [place] [phone] Maribeth Mcrae PA [address] [place] [address] [facility] Start: 01-23-2025 End: 01-23-2025 Patient encounter procedure 01/23/2025 8:40 AM EDT Routine [facility] [address] [place] [address] Desiree Velásquez, SHARRI [address] [phone] Arrived [facility] Comment on above: Arrived Start: 11-30-2024 End: 11-30-2024 Professional / ancillary services management 11/30/2024 8:00 AM EST Ancillary Procedure [facility] [address] [place] [address] [facility] Start: 11-23-2024 End: 11-23-2025 ABO/Rh ABO/Rh Lab Routine Missed menses , unspecified gestational age Expected: 11/23/2024 (Approximate), Expires: 11/23/2025 [facility] Comment on above: Expected: 11/23/2024 (Approximate), Expires: 11/23/2025 Start: 11-23-2024 End: 11-23-2025 Blood type and Indirect antibody screen panel - Blood Type and screen Lab Routine Missed menses , unspecified gestational age Expected: 11/23/2024 (Approximate), Expires: 11/23/2025 [facility] Work Phone: Comment on above: Expected: 11/23/2024 (Approximate), Expires: 11/23/2025 Start: 11-23-2024 End: 11-23-2025 Drugs of abuse panel - Urine by Screen method Rapid drug screen, urine Lab Routine , unspecified gestational age Encounter for supervision of normal first in first trimester Expected: 11/23/2024 (Approximate), Expires: 11/23/2025 [facility] Comment on above: Expected: 11/23/2024 (Approximate), Expires: 11/23/2025 Start: 11-23-2024 End: 11-23-2024 ambulatory 11/23/2024 9:00 AM EST Initial [facility] [address] [place] [address] [facility] Start: 06-03-2024 Influenza vaccination Influenza Vacc ine (#1) [facility] Start: 12-07-2023 Screening for malign ant neoplasm of cervix HPV/Cotest [facility] Start: 12-07-2011 Adult BMI Follow Up Plan Adult BMI Follow Up Plan [facility] Start: 2005 Depression Screening Depression Scre ening [facility] Start: 2005 Tobacco Screening Tobacco Screening [facility] Start: 2004 DTaP,Tdap and Td Vaccines (5 - Tdap) DTaP,Tdap and Td Vaccines (5 - Tdap) [facility] Bacteria identified in Urine by Culture Urine culture Microbiology Routine Missed menses Ordered: 11/23/2024 [facility] Comment on above: Ordered: 11/23/2024 CBC W Auto Different ial panel - Blood CBC and differential Lab Routine Missed menses , unspecified gestational age Ordered: 11/23/2024 [facility] Comment on above: Ordered: 11/23/2024 CHLAMYDIA TRACHOMATI S (GENITO/STI) CHLAMYDIA TRACHOMATIS (GENITO/STI) Lab Routine Exposure to STD Ordered: 06/04/2025 [facility] Comment on above: Ordered: 06/04/2025 Hemoglobin A1c/Hemoglobin.total in Blood Hemoglobin A1c Lab Routine Missed menses , unspecified gestational age Ordered: 11/23/2024 [facility] Comment on above: Ordered: 11/23/2024 Hepatitis B virus surface Ag [Presence] in Serum or Plasma by Immunoassay Hepatitis B surface antigen Lab Routine Missed menses , unspecified gestational age Ordered: 11/23/2024 [facility] Comment on above: Ordered: 11/23/2024 Hepatitis C virus Ab [Presence] in Serum or Plasma by Immunoassay Hepatitis C antibody Lab Routine Missed menses , unspecified gestational age Ordered: 11/23/2024 [facility] Comment on above: Ordered: 11/23/2024 HIV-1/HIV-2 antigen/antibody combination immunoassay HIV-1 and HIV-2 antibodies Lab Routine Missed menses , unspecified gestational age Ordered: 11/23/2024 [facility] Comment on above: Ordered: 11/23/2024 Neisseria gonorrhoea e DNA [Presence] in Unspecified specimen by DIAMOND with probe detection Neisseria gonorrhea DNA probe, direct Lab Routine Exposure to STD Ordered: 06/04/2025 [facility] Comment on above: Ordered: 06/04/2025 Reagin Ab [Presence] in Serum by RPR RPR Lab Routine Missed menses , unspecified gestational age Ordered: 11/23/2024 [facility] Comment on above: Ordered: 11/23/2024 Rubella antibody, IgG Rubella an tibody, IgG Lab Routine Missed menses , unspecified gestational age Ordered: 11/23/2024 [facility] Comment on above: Ordered: 11/23/2024 SURESWAB(R) ADVANCED VAGINITIS PLUS, TMA SURESWAB(R) ADVANCED VAGINITIS PLUS, TMA Pathology and Cytology Routine Exposure to STD Ordered: 06/04/2025 [facility] Comment on above: Ordered: 06/04/2025 Immunizations Immunization Date Immunization Notes Care Provider Fa ani 07-18-2018 influenza virus vacc ine, unspecified formulation Maribeth GRAY Work Phone: [facility] Healthcare Payers Date Payer Category Payer Medicaid [id number] 2024 Medicaid [id number] 2024 [employer] - PPO ANTHEM [id number] 2024 Unknown [id number] 2022 Private Health Insurance [id number] 2022 Unknown [id number] 1993 Unknown [id number] 2.16840.1.374127.3.579.2. 593 1993 Unknown [id number] 2.16840.1.349287.3.579.2. 593 1993 Unknown [id number] 2.16840.1.477780.3.579.2. 593 1993 Unknown [id number] 2.16840.1.853016.3.579.2. 593 1993 Unknown [id number] 2.16840.1.430609.3.579.2. 593 1993 Unknown [id number] 2.16.840.1.829935.3.579.2. 727 1993 Unknown [id number] 2.16.840.1.030408.3.579.2. 727 1993 Unknown [id number] 2.16840.1.691279.3.579.2. 727 1993 Unknown [id number] 2.16840.1.992701.3.579.2. 1286 1993 Unknown [id number] 2.16.840.1.198457.3.579.2. 1286 1993 Unknown [id number] 2.16.840.1.339958.3.579.2. 9 1993 Unknown [id number] 2.16.840.1.488598.3.579.2. 1259 1993 Unknown [id number] 2.16.840.1.182610.3.579.2. 9 1993 Unknown [id number] 2.16.840.1.473592.3.579.2. 9 1993 Unknown [id number] 2.16.840.1.508910.3.579.2. 9 1993 Unknown [id number] 2.16840.1.900936.3.579.2. 9 1993 Unknown [id number] 2.16840.1.659611.3.579.2. 9 1993 Unknown [id number] 2.16840.1.917613.3.579.2. 9 1993 Unknown [id number] 2.16.840.1.814635.3.579.2. 9 1993 Unknown [id number] 2.16840.1.375798.3.579.2. 9 1993 Unknown [id number] 2.16840.1.493849.3.579.2. 9 1993 Unknown [id number] 2.16840.1.973571.3.579.2. 9 1993 Unknown [id number] 2.16840.1.457948.3.579.2. 1259 1959 Self-pay 1959 Unknown [id number] Social History Date Type Detail Facility Tobacco smoking stat [facility] Tobacco smoking consumption unknown [facility] Start: 1993 Sex assigned at Not on file [facility] Start: 03-12-2025 Gender identity Not on file [facility] Start: 10-10-2024 [facility] Start: 03-12-2025 Tobacco smoking stat us [facility] Never smoked tobacco [facility] Start: 03-12-2025 Tobacco use and exposure Smokeless tobacco non-user [facility] Start: 03-12-2025 Alcoholic beverage intake Ex-drinker (finding) [facility] Start: 03-12-2025 History of Social function [facility] Within the past 12 months we worried whether our food would run out before we got money to buy more. Never True [facility] Start: 02-15-2025 Sex Female (finding) [facility] Clinical Notes 11-13-2024 to 06-04-2025 Katerin Nash LPN - 06/04/2025 8:30 AM MARINA Alexander - 05/29/2025 9:20 AM Jaison Nash LPN - 05/15/2025 10:50 AM Brian Velásquez NP - 05/01/2025 8:30 AM EDT Note Date & Type Note Facility 06-04-2025 History of Presen t illness Narrative Reason for Appointment: Patient ID: Rhea Mayorga is a 29 y.o. female who presents for Routine Visit Patient presents today for Return OB appointment. MEDICATIONS Current Outpatient Medications Medication Instructions pantoprazole (PROTONIX) 40 mg, Oral, Daily before breakfast, Do not crush, chew, or split. ALLERGIES Allergies Allergen Reactions Other Other Reaction(s): Other: See Comments animals Animals Wound Dressing Adhesive Latex Rash PROBLEMS Active Ambulatory Problems Diagnosis [...] Constitutional: Appearance: Normal appearance. She is well-developed. Genitourinary: Vulva normal. Cardiovascular: Rate and Rhythm: Normal rate and [...] nursing note reviewed. Exam conducted with a school cafeteria cook head present. Vitals: Estimated body mass index is 29.26 kg/m as calculated from the following: Height as of 03/01/24: 5' 2 . Weight as of this encounter: 160 lb. BP: 114/64 Patient's last menstrual period was 09/26/2024. ASSESSMENT & PLAN ICD-10-CM 1. 35 weeks gestation of ([facility]) Z3A.35 2. Third trimester ([facility]) Z34.93 POCT urinalysis dipstick manually resulted CULTURE, GROUP B STREP WITH SUSCEPTIBLITY CULTURE, GROUP B STREP WITH SUSCEPTIBLITY 3. Exposure to STD Z20.2 SURESWAB(R) ADVANCED VAGINITIS PLUS, TMA CHLAMYDIA TRACHOMATIS (GENITO/STI) Neisseria gonorrhea DNA probe, direct Patient is doing well but has complaints of being tired and having maternal discomfort due to . Patient verbalized frequent movement and was instructed to perform kick counts three times per day. labor precautions were given, LARC consent was signed/declined, and GBS was obtained. Orders Placed This Encounter Procedures CULTURE, GROUP B STREP WITH SUSCEPTIBLITY CHLAMYDIA TRACHOMATIS (GENITO/STI) Neisseria gonorrhea DNA probe, direct POCT urinalysis dipstick manually resulted Follow Up: Patient is to return to office in 1 week for routine OB appointment Documented by Katerin Nash LPN on behalf of: Justice Whitman DO documented in this encounter [facility] 05-29-2025 History of Presen t illness Narrative [...] nursing note reviewed. Exam conducted with a school cafeteria cook head present. Vitals: Estimated body mass index is 28.94 kg/m as calculated from the following: Height as of 03/01/24: 5' 2 . Weight as of 05/15/25: 158 lb 4 oz. BP: Patient's last menstrual period was 09/26/2024. ASSESSMENT & PLAN ICD-10-CM 1. Third trimester ([facility]) Z34.93 2. 35 weeks gestation of ([facility]) Z3A.35 Return OB: Patient presents today for [...] of: MARINA Hi documented in this encounter [facility] 05-15-2025 History of Presen t illness [...] nursing note reviewed. Exam conducted with a school cafeteria cook head present. Vitals: Estimated body mass index is 28.94 kg/m as calculated from the following: Height as of 03/01/24: 5' 2 . Weight as of this encounter: 158 lb 4 oz. BP: 120/60 Patient's last menstrual period was 09/26/2024. ASSESSMENT & PLAN ICD-10-CM 1. Third trimester ([facility]) Z34.93 POCT urinalysis dipstick manually resulted 2. 33 weeks gestation of ([facility]) Z3A.33 Return OB: Patient presents today for [...] Justice Whitman DO documented in this encounter [facility] 05-01-2025 History of Presen t illness [...] nursing note reviewed. Exam conducted with a school cafeteria cook head present. Vitals: Estimated body mass index is 28.44 kg/m as calculated from the following: Height as of 24: 5' 2 . Weight as of this encounter: 155 lb 8 oz. BP: 120/64 Patient's last menstrual period was 09/26/2024. ASSESSMENT & PLAN ICD-10-CM 1. Third trimester ([facility]) Z34.93 POCT urinalysis dipstick manually resulted 2. 30 weeks gestation of ([facility]) Z3A.30 Return OB: Patient presents today for [...] Desiree Velásquez NP documented in this encounter [facility] 04-18-2025 History of Presen t illness [...] nursing note reviewed. Exam conducted with a school cafeteria cook head present. Vitals: Estimated body mass index is 27.98 kg/m as calculated from the following: Height as of 03/01/24: 5' 2 . Weight as of this encounter: 153 lb. BP: 120/70 Patient's last menstrual period was 09/26/2024. ASSESSMENT & PLAN ICD-10-CM 1. 29 weeks gestation of ([facility]) Z3A.29 POCT urinalysis dipstick manually resulted 2. Third trimester ([facility]) Z34.93 POCT urinalysis dipstick manually resulted Patient [...] Justice Whitman DO documented in this encounter [facility] 03-21-2025 History of Presen t illness [...] ASSESSMENT & PLAN ICD-10-CM 1. Second trimester ([facility]) Z34.92 2. 25 weeks gestation of ([facility]) Z3A.25 Return OB: Patient presents today for [...] of: MARINA Hi documented in this encounter [facility] 03-12-2025 History of Presen t illness [...] No Have you been seen here at [facility] in a previous ? No Recent ER visits or hospitalizations? No Bring blood sugar log or meter with you today? (Please bring them with you for every visit at [facility]) N/A Flu vaccine (Aug-December)? N/A Any [...] and the other consultants, we search on epic and all the available care everywhere epic I did review all the imaging studies of the patient available on EMR, ordered by the primary care physician and the other design studio consultant HABITS: Patient activity no restrictions, diet [...] patient is in complete care of her dredge pump operator. Patient does not have any future appointment scheduled with us Thank you for allowing me to participate in Rhea Mayorga . If there any questions please do not hesitate to contact us. Sincerely, REID RAI MD documented in this encounter [facility] 01-23-2025 History of Presen t illness Narrative [...] nursing note reviewed. Exam conducted with a school cafeteria cook head present. Vitals: Estimated body mass index is [...] Desiree Velásquez NP documented in this encounter [facility] 12-27-2024 History of Presen t illness [...] nursing note reviewed. Exam conducted with a school cafeteria cook head present. Vitals: Estimated body mass index is [...] or undercooked meat, and stay away from [facility]. Patient has been consulted regarding any [...] Justice Whitman DO documented in this encounter [facility] 11-23-2024 History of Presen t illness [...] or undercooked meat, and stay away from [facility]. 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 documented in this encounter [facility] 11-13-2024 Telephone encount er Note Patient called stating she is nauseated and vomiting [facility] 11-13-2024 Miscellaneous Notes Formattin g of this note might be different from the original. Patient called stating she is nauseated and vomiting documented in this encounter [facility] Evaluation note Diagnosis Nausea- Primary Nausea alone documented in this encounter [facility]* Diagnosis Screening for lipoid disorders Screening for diabetes mellitus [facility] Diagnosis Missed menses , unspecified gestational age Encounter for supervision of normal first in first trimester [facility] this [facility]* Diagnosis Second trimester state, incidental 13 weeks gestation of documented [facility] this [facility]* Diagnosis Second trimester state, incidental 17 weeks gestation of [facility]* Diagnosis Encounter for observation of suspected anomaly not found- Primary Suspected anomaly not found [facility] Diagnosis Second trimester ([facility]-H[facility])- Primary state, incidental 25 weeks gestation of (HHS-HCC) documented in this encounter [facility]* Diagnosis 29 weeks gestation of (HHS-HCC) Third trimester (HHS-HCC) state, incidental Gastroesophageal reflux disease without esophagitis Esophageal reflux documented in this encounter [facility]* Diagnosis Third trimester (HHS-HCC) state, incidental 30 weeks gestation of (HHS-HCC) documented in this encounter [facility]* Diagnosis Third trimester (HHS-HCC) state, incidental 33 weeks gestation of (HHS-HCC) Request for sterilization [facility] Diagnosis Third trimester (HHS-HCC) state, incidental 35 weeks gestation of (HHS-HCC) Weakness generalized Other malaise and fatigue Hot flashes documented in this encounter [facility]* Diagnosis 35 weeks gestation of (HHS-HCC) Third trimester (HHS-HCC) state, incidental Exposure to STD documented in this [facility] filed[facility]ed [facility] Summary Purpose Family History No Family History Records FoundNo Family History Records FoundNo Family History Records FoundNo Family History Records Found Advance Directives No Advanced Directives Records FoundNo Advanced Directives Records FoundNo Advanced Directives Records FoundNo Advanced Directives Records Found Additional Source Comments INFORMATION SOURCE (unrecogn ized section and content) DATE CREATED AUTHOR 11/19/2022 [facility] DATE CREATED AUTHOR AUTHOR'S ORGANIZ ATION 07/22/2024 [facility] DATE CREATED AUTHOR AUTHOR'S ORGANIZ ATION 03/13/2025 [facility] DATE CREATED AUTHOR AUTHOR'S ORGANIZ ATION 05/30/2025 [facility] dical Specialists EPIC Reason for Visit (unrecogniz ed section and content) Reason Comments Amenorrhea Reason Comments Routine Visit Reason Comments Abnormal Ultrasound Care Teams (unrecognized sec tion and content) Mower Mechanic Relationship Specialty Start Date End Date Justice Whitman, DO [address] [place] [address] PCP - [place] [employer] 03/03/25 Mower Mechanic Relationship Specialty Start Date End Date Justice Whitman, DO [address] [place] [address] PCP - [place] [employer] 03/03/25 Mower Mechanic Relationship Specialty Start Date End Date Justice Whitman, DO [address] [place] [address] PCP [place] [employer] 03/03/25 Mower Mechanic Relationship Specialty Start Date End Date Justice Whitman, DO [address] [place] [address] PCP - [place] [employer] 03/03/25 FOR RECORDS PERTAINING TO PATIENTS WHO [...] BE BASED ON THE PRIMARY CLINICAL RECORDS. [employer] provides no warranty or guarantee of the accuracy or completeness of information in this document.
== END 2025-06-04 12:30 | disposition home or self-care (01) ==
LOC: LAB 12:29
PROVIDERS: PCP Nurse Practitioner; Visit Provider Obstetrics & Gynecology
DX: Z34.93 Encounter for supervision of normal pregnancy, unspecified, third trimester (principal)
CPT/HCPCS: 87081; 87184

== ENCOUNTER 2025-06-25 06:58 | Inpatient (IN) | payer BC, MEDICAID, SELFPAY ==
--- OUTSIDE RECORDS SUMMARY | 2025-06-11 08:30 | XMS_ITS | Encounter Summary ---
Author Organization [facility] Address [address] [facility] [address] Care Team Providers Care Ductfixing Plumber Name Role Phone Kannan Whitman DO Unavailable Reason for Visit * Reason Comments Routine Visit Encounter Details Date Type Department Care Team (Late st Contact Info) Description 06/11/2025 8:30 AM EDT Routine [facility] [address] [address] Kannan Whitman DO [address] [facility] [address] [place], [id number] Third trimester ([facility]); 36 weeks gestation of ([facility]) Social History Tobacco Use Types Packs/Day Years [...] Sign Reading Time Taken Comments Blood Pressure 122/62 06/11/2025 8:48 AM EDT Pulse - - Temperature - - Respiratory Rate - - Oxygen Saturation - - Inhaled Oxygen Concentration - - Weight 73.7 kg (162 lb 6.4 oz) 06/11/2025 8:48 A M EDT Height - - Body Mass Index 29.7 03/01/2024 8:00 AM EDT documented in this encounter Progress Notes * Katerin Nash GOLF COURSE KEEPER - 06/11/2025 8:30 AM EDT Reason for Appointment: Patient ID: [...] nursing note reviewed. Exam conducted with a technical customer support specialist present. Vitals: Estimated body mass index is 29.26 kg/m?? as calculated from the following: Height as of 5/30/24: 5' 2 . Weight as of 06/04/25: 160 lb. BP: Patient's last menstrual period was 09/26/2024. ASSESSMENT & PLAN ICD-10-CM 1. Third trimester ([facility]) Z34.93 POCT urinalysis dipstick manually resulted 2. 36 weeks gestation of ([facility]) Z3A.36 Return OB: Patient presents today for a routine obstetrics appointment. Patient is currently 36w6d . Patient states she is doing well but has complaints of being tired due to current . Patient has verbalizes frequent movement. labor precautions was discussed/given and patient was instructed to perform kick counts three times a day. Pt was GBS positive, cannot have pcn, will take cleocin IV Orders Placed This Encounter Procedures POCT urinalysis dipstick manually resulted Follow Up: Patient is to return to office in 1 week for routine OB appointment. Documented by Katerin Nash LPN on behalf of: Kannan Whitman DO documented in this encounter Plan of Treatment Upcoming Encounters Date Type Department Care Team (Late st Contact Info) Description 07/03/2025 10:30 AM EDT Office Visit [facility] [address] [place] [address] Desiree Velásquez NP [address] [facility] [place] [address] documented as of this encounter Procedures Procedure Name Priority Date/Time Associated Diagnosis Comments POCT URINALYSIS DIPSTICK Routine 06/11/2025 8:29 AM EDT Third trimester ([facility]) documented in this encounter Results * (ABNORMAL) POCT urinalysis dipstick manually resulted (06/11/2025 8:29 AM EDT) Color, UA Yellow Clarity, UA Clear Glucose, UA Negative Negative - 2000(110) ++++ mg/dL Bilirubin, UA Negative Negative - 4(70) +++ mg/dL Ketones, UA Negative Negative - 160(16) ++++ mg/dL Spec Grav, UA 1.020 1 - 1.03 Blood, UA Positive Negative - 50 Toni/mcL Comment:Trace pH, UA 6.0 5 - 9 Protein, UA Positive Negative - 2000(20) ++++ mg/dL Comment:Trace Urobilinogen, UA 0.2 0.2 - 12 mg/dL Leukocytes, UA Positive Negative - 500+++ Amish/mcL Comment:3+ Nitrite, UA Negative Negative - Positive Urine 06/11/2025 8:29 AM EDT Kannan Whitman DO POINT OF CARE TEST ENTER/EDIT OR DERABLES Final Result documented in this encounter Visit Diagnoses Diagnosis Third trimester ([facility]) state, incidental 36 weeks gestation of ([facility]) documented in this encounter Care Teams Ductfixing Plumber Relationship Specialty Start Date End Date Kannan Whitman DO [address] [place] [address] [place] [address] PCP - [place] [employer] 03/03/25 documented as of this encounter
--- OUTSIDE RECORDS SUMMARY | 2025-06-19 08:50 | XMS_ITS | Encounter Summary ---
Author Organization [facility] Address [address] [place] [address] Care Team Providers Care Ink Maker Name Role Phone Kannan Whitman DO Unavailable Reason for Visit * Reason Comments Routine Visit Encounter Details Date Type Department Care Team (Late st Contact Info) Description 06/19/2025 8:50 AM EDT Routine [facility] [address] [place] [address] Desiree Velásquez, FIRE EXTINGUISHER REPAIRER INSPECTOR [address] [place] [address] Third trimester ([facility]); 38 weeks gestation of ([facility]) Social History Tobacco Use Types Packs/Day [...] Sign Reading Time Taken Comments Blood Pressure 108/60 06/19/2025 8:28 AM EDT Pulse - - Temperature - - Respiratory Rate - - Oxygen Saturation - - Inhaled Oxygen Concentration - - Weight 72.8 kg (160 lb 8 oz) 06/19/2025 8:28 AM EDT Height - - Body Mass Index 29.36 03/01/2024 8:00 AM EDT documented in this encounter Progress Notes * Desiree Velásquez, SHARRI - 06/19/2025 8:50 AM EDT Reason for Appointment: Patient ID: [...] nursing note reviewed. Exam conducted with a contract mail carrier present. Vitals: Estimated body mass index is 29.36 kg/m?? as calculated from the following: Height as of 24: 5' 2 . Weight as of this encounter: 160 lb 8 oz. BP: 108/60 Patient's last menstrual period was 09/26/2024. ASSESSMENT & PLAN ICD-10-CM 1. Third trimester ([facility]) Z34.93 POCT urinalysis dipstick manually resulted 2. 38 weeks gestation of ([facility]) Z3A.38 Return OB: Patient presents today for a routine obstetrics appointment. Patient is currently 38w0d . Patient states she is doing well [...] Desiree Velásquez NP documented in this encounter Plan of Treatment Upcoming Encounters Date Type Department Care Team (Late st Contact Info) Description 07/03/2025 10:30 AM EDT Office Visit [facility] [address] [place] [address] Desiree Velásquez NP [address] [facility] [address] [place] [address] documented as of this encounter Procedures Procedure Name Priority Date/Time Associated Diagnosis Comments POCT URINALYSIS DIPSTICK Routine 06/19/2025 8:29 AM EDT Third trimester ([facility]) documented in this encounter Results * (ABNORMAL) POCT urinalysis dipstick manually resulted (06/19/2025 8:29 AM EDT) Color, UA Yellow Clarity, [...] Nitrite, UA Negative Negative - Positive Urine 06/19/2025 8:29 AM EDT Desiree Velásquez NP POINT OF CARE TEST ENTER/EDIT ORDERABLES Final Result documented in this encounter Visit Diagnoses Diagnosis Third trimester ([facility]) state, incidental 38 weeks gestation of ([facility]) documented in this encounter Care Teams Ink Maker Relationship Specialty Start Date End Date Kannan Whitman DO [address] [place], [place] [address] [address] PCP - [place] [employer] 03/03/25 documented as of this encounter
[2025-06-25] VITALS (32 sets, daily range): BP systolic 85–128; BP diastolic 55–81; PULSE 79–118; TEMP 36.4–36.8; O2SAT 97–100
--- OUTSIDE RECORDS SUMMARY | 2025-06-25 07:02 | XMS_ITS | Encounter Summary ---
Author Organization [facility] Address [address] [place] [address] Care Team Providers Care Solutions Analyst Name Role Phone Kannan Whitman DO Unavailable Encounter Details Date Type Department Care Team (Late Contact Info) Description 03/08/2024 Orders Only [facility] [address] [address] Manuela Jones LPN [address] [facility] [place] [address] Social History Tobacco Use Types Packs/Day Years Used Date Smoking Tobacco: Never Assessed Comments Unknown Sex and Gender Information Value Date Recorded Sex Assigned at Not on file Legal Sex Female 6:54 PM EDT Gender Identity Not on file Sexual Orientation Not on file documented as of this encounter Plan of Treatment Upcoming Encounters Date Type Department Care Team (Late Contact Info) Description 07/03/2025 10:30 AM EDT Office Visit [facility] [email or web address] [place] [address] Desiree Velásquez, SHARRI [address] [facility] [place] [address] documented as of this encounter [...] on filedocumented in this encounter Care Teams Solutions Analyst Relationship Specialty Start Date End Date Kannan Whitman DO [address] [place] [id number] PCP - [place] [employer] 03/03/25 documented as of this encounter
--- OUTSIDE RECORDS SUMMARY | 2025-06-25 07:02 | XMS_ITS | Encounter Summary ---
Author Organization [facility] Address [address] [place] [address] Care Team Providers Care Market Development Manager Name Role Phone Kannan Whitman DO Unavailable Encounter Details Date Type Department Care Team (Late Contact Info) Description 06/11/2025 Bamboo flowsheet [facility] [address] [place] [address] Kannan Whitman DO [address] [facility] [address], [facility]11 Social History Tobacco Use Types Packs/Day Years [...] 10:30 AM EDT Office Visit [facility] [address] [facility] [place] [place] [address] Desiree Velásquez, SHARRI [address] [facility] [place] [address] documented as of this encounter Visit Diagnoses Not on filedocumented in this encounter Care Teams Market Development Manager Relationship Specialty Start Date End Date Kannan Whitman DO [address] [place] [address] PCP - Jeremiah Luu 03/03/25 documented as of this encounter
--- OUTSIDE RECORDS SUMMARY | 2025-06-25 07:02 | XMS_ITS | Encounter Summary ---
Author Organization [facility] Address [address] [facility] [address] [place] [address] Care Team Providers Care Marble Polisher Name Role Phone Justice Whitman DO Unavailable Encounter Details Date Type Department Care Team (Late Contact Info) Description 03/12/2025 External Result Encounter [facility] [address] [place] [address] Justice Whitman DO [address], [place] [address] Social History Tobacco Use Types Packs/Day Years [...] EDT Office Visit [facility] [address] [address] Desiree Velásquez, SHARRI [address] [place] [address] documented as of this encounter Procedures Procedure Name Priority Date/Time Associated Diagnosis Comments RECURRENT VAGINITIS (HTRX) Routine 06/04/2025 11:56 AM EDT US OB 14+ WEEKS ANATOMY SCAN 03/12/2025 10:27 AM EDT documented in this encounter Results * RECURRENT VAGINITIS (HTRX) (06/04/2025 11:56 AM EDT) [facility] ATOPOBIUM VAGINAE 0 19.961 - 24.689 ppm 06/05/2025 6:07 AM EDT [facility] ATOPOBIUM VAGINAE Not Detected 19.961 - 24.689 ppm 06/05/2025 6:07 AM EDT [facility] BVAB 2,3 (BACTERIAL VAGINOSIS ASSOCIATED BACTERIA 2, 3); MOBILUNCUS SPP 0 19.961 - 24.689 ppm 06/05/2025 6:07 AM EDT [facility] BVAB 2,3 (BACTERIAL VAGINOSIS ASSOCIATED BACTERIA 2, 3); MOBILUNCUS SPP Not Detected 19.961 - 24.689 ppm 06/05/2025 6:07 AM EDT [facility] ALBERTO ALBICANS, PARAPSILOSIS, TROPICALIS 0 23.000 - 30.347 ppm 06/05/2025 6:07 AM EDT [facility] ALBERTO ALBICANS, PARAPSILOSIS, TROPICALIS Not Detected 23.000 - 30.347 ppm 06/05/2025 6:07 AM EDT [facility] ALBERTO GLABRATA 0 23.000 - 31.618 ppm 06/05/2025 6:07 AM EDT [facility] ALBERTO GLABRATA Not Detected 23.000 - 31.618 ppm 06/05/2025 6:07 AM EDT [facility] ALBERTO KRUSEI 0 23.000 - 30.873 ppm 06/05/2025 6:07 AM EDT [facility] ALBERTO KRUSEI Not Detected 23.000 - 30.873 ppm 06/05/2025 6:07 AM EDT [facility] CHLAMYDIA TRACHOMATIS 0 23.000 - 31.586 ppm 06/05/2025 6:07 AM EDT [facility] CHLAMYDIA TRACHOMATIS Not Detected 23.000 - 31.586 ppm 06/05/2025 6:07 AM EDT [facility] GARDNERELLA VAGINALIS 0 19.961 - 24.689 ppm 06/05/2025 6:07 AM EDT [facility] GARDNERELLA VAGINALIS Not Detected 19.961 - 24.689 ppm 06/05/2025 6:07 AM EDT [facility] MEGASPHAERA (TYPES 1, 2) 0 19.961 - 24.689 ppm 06/05/2025 6:07 AM EDT [facility] HOSPITAL[facility] (TYPES 1, 2) Not Detected 19.961 - 24.689 ppm 06/05/2025 6:07 AM EDT [facility] NEISSERIA GONORRHOEAE 0 23.000 - 32.587 ppm 06/05/2025 6:07 AM EDT [facility] NEISSERIA GONORRHOEAE Not Detected 23.000 - 32.587 ppm 06/05/2025 6:07 AM EDT [facility] TRICHOMONAS VAGINALIS 0 23.000 - 31.995 ppm 06/05/2025 6:07 AM EDT [facility] TRICHOMONAS VAGINALIS Not Detected 23.000 - 31.995 ppm 06/05/2025 6:07 AM EDT [facility] MYCOPLASMA GENITALIUM 0 19.961 - 24.689 ppm 06/05/2025 6:07 AM EDT [facility] MYCOPLASMA GENITALIUM Not Detected 19.961 - 24.689 ppm 06/05/2025 6:07 AM EDT [facility] Tissue 06/04/2025 11:5 6 AM EDT 06/05/2025 1:42 AM EDT us Justice J Carlos DO LAB BLOOD ORDERABLES Final Resul t [facility] [address] [place] [address] * US OB 14+ weeks anatomy scan (03/12/2025 10:27 AM EDT) Anatomical Region Laterality Modality Body Ultrasound 03/12/2025 10:2 7 AM EDT Narrative 03/12/2025 10:27 AM EDT THIS EXAM WAS PERFORMED AT [facility] NAME: ELZBIETA VAZQUEZ : 1995 SEX: F Accession Number: [id number] ORDERING PHYSICIAN: REID RAI REFERRING PHYSICIAN: JUSTICE WHITMAN Coding ----- --------- Procedures [id number]: Ultrasound, uterus, real time with image documentation, and maternal evaluation plus detailed anatomic examination, transabdominal approach;single or first gestation [id number]: Transvaginal Ultrasound (OB) 44891: Echocardiography, , cardiovascular system, real time with image documentation (2D), with or without M-mode recording Indication ----- --------- Screening for Anatomic Survey, Screening for cervical length, Screening for congenital cardiac abnormality, Supervision of high risk (abnormal heart axis at office), Previous History ----- --------- OB History 2. Para 1 [id number] Maternal Assessment ----- --------- Physical Exam Height [...] EFW (oz) 7 oz EFW by: Hadlock ([id number]) Extended Tibia 36.9 mm 23w 6d 53% Iesha Production Helper 5.5 mm CM 3.1 mm <1% Nicolaides [...] view. RVOT view. LVOT view. 3-vessel view. 7-glnqha-zhfgnss view. Great vessels. Right lung. Left lung. [...] normal RVOT view normal 3-vessel view normal 0-dxkthk-nocjiic view normal Aortic arch view normal Ductal [...] structural abnormalities. Recommendations ----- --------- Please see [facility] documentation from today. anatomic survey is incomplete due to suboptimal visualization. Patient is not scheduled to return for additional ultrasound. Please reschedule for specific concerns or indications. Subsequent follow up or other follow up as clinically determined by primary OB provider unless otherwise specified by [facility]. Results forwarded to ordering provider so they can follow up with the patient as necessary. The copy-to physician of this order is JUSTICE Martinez The ordering physician of this order is REID Rivera Procedure Note Radiology, Radiologist, MD - 03/12/2025 THIS EXAM WAS PERFORMED AT [facility] NAME: ELZBIETA VAZQUEZ : 1995 SEX: F Accession Number: [id number] ORDERING PHYSICIAN: REID RAI REFERRING PHYSICIAN: JUSTICE WHITMAN Coding ----- --------- Procedures 40152: Ultrasound, uterus, real time with imagedocumentation, and maternal evaluation plus detailed anatomic examination, transabdominalapproach;single or first gestation 58054: Transvaginal Ultrasound (OB) 92493: Echocardiography, , cardiovascular system, real timewith image documentation (2D), with or without M-mode recording Indication ----- --------- Screening for Anatomic Survey, Screening for cervical length, Screeningfor congenital cardiac abnormality, Supervision of high risk (abnormal heart axis at office), Previous History ----- --------- OB History 2. Para 1 [id number] Maternal Assessment ----- --------- Physical Exam Height [...] EFW (oz) 7 oz EFW by: Hadlock ([id number]) Extended Tibia 36.9 mm 23w 6d 53% Iesha Production Helper 5.5 mm CM 3.1 mm <1% Nicolaides [...] 4-chamber view. RVOT view. LVOT view. 3-vessel view.7-iyevcd-weblrts view. Great vessels. Right lung. Left lung. [...] normal RVOT view normal 3-vessel view normal 3-oxcbva-rvuxyia view normal Aortic arch view normal Ductal [...] grossstructural abnormalities. Recommendations ----- --------- Please see [facility] documentation from today. anatomic survey is incomplete due to suboptimal visualization.Patient is not scheduled to return for additional ultrasound. Please reschedule for specific concerns or indications. Subsequent follow up or other follow up as clinically determined byprimary OB provider unless otherwise specified by [facility]. Results forwarded to ordering provider so they can follow up with thepatient as necessary. The copy-to physician of this order is JUSTICE Martinez The ordering physician of this order is REID Rivera us Justice Whitman DO IMG OB US PROCEDURES Final Resul t documented in this encounter Visit Diagnoses Not on filedocumented in this encounter Care Teams Marble Polisher Relationship Specialty Start Date End Date Justice Whitman DO [address] [place] [address] [place] [address] PCP - Jeremiah Luu 03/03/25 documented as of this encounter
--- OUTSIDE RECORDS SUMMARY | 2025-06-25 07:02 | XMS_ITS | Encounter Summary ---
Author Organization [facility] Address [address] [place] [address] Care Team Providers Care Clerk Operator Name Role Phone J CarlosSabrina michaely Unavailable Encounter Details Date Type Department Care Team (Late st Contact Info) Description 03/05/2024 Clinisync Result Encounter [facility] External Department Unsolicited Justice Whitman, [address] [place] [id number] Social History Tobacco Use Types Packs/Day Years [...] Description 07/03/2025 10:30 AM EDT Office Visit DEBORAH BARRETT [address] [facility] [place] [address] Desiree Velásquez, SHARRI [address] [place] [address] documented as of this encounter Procedures Procedure Name Priority Date/Time Associated Diagnosis Comments US PELVIS 03/05/2024 12:10 PM EDT documented in this encounter Results * US PELVIS (03/05/2024 12:10 PM EDT) Anatomical Region Laterality Modality Other 03/05/2024 12:1 0 PM EDT Narrative 03/05/2024 12:12 [place] [address] Ultrasound Report Signed Patient: RHEA MAYORGA MR#: [id number] : 1995 Acct:[id number] Age/Sex: 28 / F ADM Date: 03/05/24 Loc: [facility] Attending Dr: Justice Whitman D.O. Ordering Physician: Justice Whitman D.O. Date of Service: 03/05/24 Procedure(s): US pelvis Accession Number(s): [id number] cc: Justice Whitman D.O.; [place] [address] Patient Name: RHEA MAYORGA MRN: [id number] date: 1995 Sex: F Assigned Patient Location: Current Patient Location: [facility] Accession/Order Number: [id number] Exam Date: 03/05/2024 07:36 Report Date: 03/05/2024 [...] Signed By: 03/05/24 1212 DD/ 1210 TD/TT: Furniture Technician: Procedure Note Radiology, Radiologist, - 03/05/2024 [place] [address] Ultrasound Report Signed Patient: RHEA MAYORGA MMR#: [id number] : 1995Acct:[id number] Age/Sex: 28 / FADM Date: 03/05/24 Loc: [facility] Attending Dr: Justice Whitman D.O. Ordering Physician: Justice Whitman D.O. Date of Service: 03/05/24 Procedure(s): US pelvis Accession Number(s): [id number] cc: Justice Whitman D.O.; [place] [address] Patient Name: RHEA MAYORGA MRN: [id number] date: 1995 Sex: F Assigned Patient Location: [place] Current Patient Location: [facility] Accession/Order Number: [id number] Exam Date: 03/05/2024 07:36 Report Date: 03/05/2024 [...] M.D. Signed By:03/05/24 1212 DD/ 1210 TD/TT: Furniture Technician: us Justice J Carlos [facility] Final Result documented in this encounter Visit Diagnoses Not on filedocumented in this encounter Care Teams Clerk Operator Relationship Specialty Start Date End Date Justice Whitman DO [address] [place] [address] PCP - Jeremiah Luu 03/03/25 documented as of this encounter
--- OUTSIDE RECORDS SUMMARY | 2025-06-25 07:02 | XMS_ITS | Encounter Summary ---
Author Organization [facility] Address [address] [place] [address] Care Team Providers Care Manager Provider Relations Name Role Phone Kannan Whitman DO Unavailable Encounter Details Date Type Department Care Team (Late Contact Info) Description 06/19/2025 Bamboo flowsheet [facility] Rona BARRETT [address] [facility] [place] [place] [address] Desiree Velásquez, REHAB ASSISTANT [address] [place] [address] Social History Tobacco Use Types Packs/Day Years [...] EDT Office Visit [facility] Rona BARRETT [address] [place] [address] Desiree Velásquez, REHAB ASSISTANT [address] [place] [address] documented as of this encounter Visit Diagnoses Not on filedocumented in this encounter Care Teams Manager Provider Relations Relationship Specialty Start Date End Date Kannan Whitman DO [address] [place] [address] [place] [address] PCP - Jeremiah Luu 03/03/25 documented as of this encounter
--- OUTSIDE RECORDS SUMMARY | 2025-06-25 07:02 | XMS_ITS | Encounter Summary ---
Author Organization [facility] Address [address] [place] [address] Care Team Providers Care Wildlife Enforcement Major Name Role Phone Kannan Whitman DO Unavailable Encounter Details Date Type Department Care Team (Late Contact Info) Description 03/12/2025 Abstract NOMDeepak BARRETT [address] [place] [address] Bonnie Lyle MA Social History Tobacco [...] Office Visit DEBORAH BARRETT [address] [place] [address] Desiree Velásquez NP [address] [place] [address] documented as of this encounter Visit Diagnoses Not on filedocumented in this encounter Care Teams Wildlife Enforcement Major Relationship Specialty Start Date End Date Kannan Whitman DO [address] [place] [address] PCP - [place] [employer] 03/03/25 documented as of this encounter
--- OUTSIDE RECORDS SUMMARY | 2025-06-25 07:03 | XMS_ITS | Encounter Summary ---
Author Organization [facility] tem Address [id number] [address] [place] [address] Care Team Providers Care Assayer Helper Name Role Phone Unavailable Primary Care Provider Unavailabl e Encounter Details Date Type Department Care Team (Late st Contact Info) Description 02/21/2025 Orders Only [facility] [address] [place] [phone] Ref Prov, [place] [address] Social History Tobacco Use Types Packs/Day Years [...] 11:08 AM EDT) Anatomical Region Laterality Modality OB-NEEDLE STRAIGHTENER Ultrasound us Not In System Ref Prov IMG US ORDERABLES Final R esult * Ultrasound limited 1 or more fetus (02/21/2025 11:07 AM EDT) Anatomical Region Laterality Modality OB-NEEDLE STRAIGHTENER Ultrasound us Not In System Ref Prov IMG US ORDERABLES Final R esult documented in this encounter Visit Diagnoses Not on filedocumented in this encounter
--- OUTSIDE RECORDS SUMMARY | 2025-06-25 07:03 | XMS_ITS | Clinical Summary ---
Author Organization [facility] Address [address] [place] [address] Care Team Providers Care Business Editor Name Role Phone Kannan Whitman DO Unavailable Allergies Active Allergy Reactions Criticality Noted Date Comments Latex Rash Low 03/01/2024 Other 06/27/2013 Other Reaction(s): Other: See Comments animals Animals Wound Dressing Adhesive 06/04/2025 Medications pantoprazole (Protonix) 40 MG EC tabletIndication s:Gastroesophage al reflux disease without esophagitis Take 1 tablet (40 mg) by mouth in the morning. Take before meals. Do not crush, chew, or split. 30 tablet 11 04/18/2025 04/18/20 26 Active magnesium oxide (Mag-Ox) 400 MG tabletIndication s:Third trimester ([facility]),30 weeks gestation of ([facility]) Take 1 tablet (400 mg) by mouth Daily 30 tablet 2 05/01/2025 05/31/20 25 Active Problems Problem Noted Date Diagnosed Date Gastroesophageal reflux disease without esophagi tis 02/26/2025 Estimated Date of Delivery Comme nts Yes 07/03/2025 Based on last me nstrual period of 09/26/2024 Encounters Date Type Department Care Team Description 06/19/2025 8:50 AM EDT Routine [facility] [address] [place] [address] [place] [address] Desiree Velásquez NP Third trimester ([facility]); 38 weeks gestation of ([facility]) 06/19/2025 Bamboo flowsheet [facility] [address] [place] [address] Desiree Velásquez NP 06/11/2025 8:30 AM EDT Routine [facility] [address] [place] [address] Kannan Whitman, Third trimester ([facility]); 36 weeks gestation of ([facility]) 06/11/2025 Bamboo flowsheet [facility] [address] [place] [place] [address] Kannan Whitman DO 06/04/2025 8:30 AM EDT Routine [facility] [address] [place] [address] Kannan Whitman DO 35 weeks gestation of ([facility]); Third trimester ([facility]); Exposure to STD 06/03/2025 Travel 05/31/2025 Clinisync Result Encounter [facility] External Department Unsolicited Maribeth Carrillo PA 05/29/2025 9:20 AM EDT Routine [facility] [address] [place] [address] Maribeth Carrillo PA Third trimester ([facility]); 35 weeks gestation of ([facility]); Weakness generalized; Hot flashes 05/29/2025 Bamboo flowsheet [facility] [address] [place] [address] Maribeth Carrillo PA 05/22/2025 Travel 05/15/2025 10:50 AM EDT Routine [facility] [address] [place] [address] Kannan Whitman DO Third trimester ([facility]); 33 weeks gestation of ([facility]); Request for sterilization 05/14/2025 Travel 05/08/2025 Telephone [facility] [address] [place] [address] Sandra Romero MA 05/01/2025 8:30 AM EDT Routine [facility] [address] [place] [address] Desiree Velásquez, SHARRI Third trimester ([facility]); 30 weeks gestation of ([facility]) 05/01/2025 Bamboo flowsheet [facility] [address] [place] [address] Desiree Velásquez, SHARRI 04/30/2025 8:00 AM EDT Ancillary Procedure [facility] [address] [place] [address] size inconsistent with dates ([facility]) 04/30/2025 Telephone [facility] [address] [place] [place] [address] Katerin Nash, ALPESH 04/23/2025 Travel 04/18/2025 8:40 AM EDT Routine [facility] [address] [place] [address] Kannan Whitman, DO 29 weeks gestation of ([facility]); Third trimester ([facility]); Gastroesophageal reflux disease without esophagitis 04/18/2025 Bamboo flowsheet [facility] [address] [place] [address] Kannan Whitman DO 04/04/2025 Refill [facility] [address] [place] [address] Sandra Romero MA Tooth infection 04/03/2025 Telephone [facility] [address] [place] [address] Katerin Nash, ALPESH 03/29/2025 Telephone [facility] BARRETT [address] [facility] [place] [address] Bonine Lyle MA 03/26/2025 Refill [facility] [address] [facility] [place] [address] Maribeth Carrillo PA Gastroesophageal reflux disease without esophagitis from Last 3 Months Social History Tobacco [...] 8 oz) 06/19/2025 8:28 AM EDT Height 157.5 cm (5' 2 ) 03/01/2024 8:00 AM EDT Body Mass Index 29.36 03/01/2024 8:00 AM EDT Plan of Treatment Upcoming Encounters Date Type Department Care Team (Late st Contact Info) Description 07/03/2025 10:30 AM EDT Office Visit NOMDeepak BARRETT [address] [facility] [place] [address] Desiree Velásquez, SHARRI [address] [place] [address] Health Maintenance Due Date Last Done Comments HPV/Cotest 12/07/2023 Influenza Vaccine (#1) 2025 07/18/2018 Cervical Cancer Screening 02/28/2027 Pap Smear 02/28/2027 02/29/2024, 11/11/2022 Procedures Procedure Name Priority Date/Time Associated Diagnosis Comments POCT URINALYSIS DIPSTICK Routine 06/19/2025 8:29 AM EDT Third trimester ([facility]) POCT URINALYSIS DIPSTICK Routine 06/11/2025 8:29 AM EDT Third trimester ([facility]) RECURRENT VAGINITIS (HTRX) Routine 06/04/2025 11:56 AM EDT CULTURE, GROUP B STREP WITH SUSCEPTIBLITY Routine 06/04/2025 8:30 AM EDT Third trimester ([facility]) POCT URINALYSIS DIPSTICK Routine 06/04/2025 8:26 AM EDT Third trimester ([facility]) ECG 12-LEAD 05/31/2025 12:04 PM EDT POCT URINALYSIS DIPSTICK Routine 05/29/2025 8:46 AM EDT Third trimester ([facility]) POCT URINALYSIS DIPSTICK Routine 05/15/2025 10:19 AM EDT Third trimester ([facility]) POCT URINALYSIS DIPSTICK Routine 05/01/2025 9:00 AM EDT Third trimester ([facility]) US OB FOLLOW UP TRANSABDOMINAL APPROACH Routine 04/30/2025 8:20 AM EDT size inconsistent with dates ([facility]) CULTURE, URINE, ROUTINE Routine 04/18/2025 11:18 AM EDT Urinary tract infection without hematuria, site unspecified PAP SMEAR Routine 02/29/2024 12:00 AM EDT from Last 3 Months or Most Recently Relevant to Health Maintenance Results * (ABNORMAL) POCT urinalysis dipstick manually resulted (06/19/2025 8:29 AM EDT) Only the most recent of6 resultswithin the time period is included. Color, [...] OF CARE TEST ENTER/EDIT ORDERABLES Final Result * RECURRENT VAGINITIS (HTRX) (06/04/2025 11:56 AM EDT) [facility] ATOPOBIUM VAGINAE 0 19.961 - 24.689 ppm 06/05/2025 6:07 AM EDT [facility] ATOPOBIUM VAGINAE Not Detected 19.961 - 24.689 ppm 06/05/2025 6:07 AM EDT [facility] BVAB 2,3 (BACTERIAL VAGINOSIS ASSOCIATED BACTERIA 2, 3); MOBILUNCUS SPP 0 19.961 - 24.689 ppm 06/05/2025 6:07 AM EDT [facility]BACTERIAL VAGINOSIS ASSOCIATED BACTERIA 2, 3); MOBILUNCUS SPP Not Detected 19.961 - 24.689 ppm 06/05/2025 6:07 AM EDT [facility] ALBERTO ALBICANS, PARAPSILOSIS, TROPICALIS 0 23.000 - 30.347 ppm 06/05/2025 6:07 AM EDT [facility] ALBERTO ALBICANS, PARAPSILOSIS, TROPICALIS Not Detected 23.000 - 30.347 ppm 06/05/2025 6:07 AM EDT [facility] ALBERTO GLABRATA 0 23.000 - 31.618 ppm 06/05/2025 6:07 AM EDT [facility] ALBERTO GLABRATA Not Detected 23.000 - 31.618 ppm 06/05/2025 6:07 AM EDT [facility] ALBERTO KRUSEI 0 23.000 - 30.873 ppm 06/05/2025 6:07 AM EDT [facility] ALBERTO KRUSEI Not Detected 23.000 - 30.873 ppm 06/05/2025 6:07 AM EDT [facility] CHLAMYDIA TRACHOMATIS 0 23.000 - 31.586 ppm 06/05/2025 6:07 AM EDT [facility] CHLAMYDIA TRACHOMATIS Not Detected 23.000 - 31.586 ppm 06/05/2025 6:07 AM EDT [facility] GARDNERELLA VAGINALIS 0 19.961 - 24.689 ppm 06/05/2025 6:07 AM EDT [facility] GARDNERELLA VAGINALIS Not Detected 19.961 - 24.689 ppm 06/05/2025 6:07 AM EDT [facility] MEGASPHAERA (TYPES 1, 2) 0 19.961 - 24.689 ppm 06/05/2025 6:07 AM EDT [facility] MEGASPHAERA (TYPES 1, 2) Not Detected 19.961 - 24.689 ppm 06/05/2025 6:07 AM EDT [facility] NEISSERIA GONORRHOEAE 0 23.000 - 32.587 ppm 06/05/2025 6:07 AM EDT [facility] NEISSERIA GONORRHOEAE Not Detected 23.000 - 32.587 ppm 06/05/2025 6:07 AM EDT [facility] TRICHOMONAS VAGINALIS 0 23.000 - 31.995 ppm 06/05/2025 6:07 AM EDT [facility] TRICHOMONAS VAGINALIS Not Detected 23.000 - 31.995 ppm 06/05/2025 6:07 AM EDT [facility] MYCOPLASMA GENITALIUM 0 19.961 - 24.689 ppm 06/05/2025 6:07 AM EDT [facility] MYCOPLASMA GENITALIUM Not Detected 19.961 - 24.689 ppm 06/05/2025 6:07 AM EDT [facility] Tissue 06/04/2025 11:5 6 AM EDT 06/05/2025 1:42 AM EDT us Kannan J Carlos DO LAB BLOOD ORDERABLES Final Resul t Performing Organization Address City/[facility] Co de Phone Number [facility] [address] [address] * CULTURE, GROUP B STREP WITH SUSCEPTIBLITY (06/04/2025 8:30 AM EDT) Swab 06/04/2025 8:30 AM EDT Kannan J Carlos DO LAB BLOOD ORDERABLES Final Resul t Performing Organization Address City/[facility] Co de Phone Number EXTERNAL LAB * ECG 12-LEAD (05/31/2025 12:04 PM EDT) Anatomical Region Laterality Modality Other 05/31/2025 12:0 4 PM EDT Narrative 06/05/2025 1:28 [place] [address] Electrocardiograph Report Signed Patient: GEORGE MAYORGA MR#: [id number] : 1995 Acct:[id number] Age/Sex: 29 / F ADM Date: 05/31/25 Loc: CARD Attending Dr: Maribeth Carrillo Ordering Physician: Maribeth Carrillo Date of Service: 05/31/25 Procedure(s): ECG 12 lead Accession Number(s): [id number] cc: [facility] Test Date: 2025-05-31 Pat Name: GEORGE MAYORGA Department: Room: - Gender: Female 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 Signed By:06/05/25 1328 06/05/25 1328 DD/ 1204 TD/TT: Plaster Lather: us Maribeth [facility] Final Result * US OB follow up [...] II, MD, PHD at 01-May-2025 07:33:44 AM [facility] Procedure Note Cayla Silva MD - 05/01/2025 EXAM: US OB FOLLOW [...] signed by CAYLA SILVA II, MD, PHD [id number] 07:33:44 AM [facility] us Kannan J Carlos DO IMG OB US PROCEDURES Final Resul t * Urine culture (04/18/2025 11:18 AM EDT) Urine Urine specimen obtained by clean catch procedure / Unknown us Kannan J Carlos DO LAB MICROBIOLOGY - GENERAL ORDER MARIMAR Final Result EXTERNAL LAB * Pap Smear (02/29/2024 12:00 AM EDT) Swab Cervical swab / Unknown us J Carlos Nurse [facility] LAB CYTOLOGY ORDERABLES Final Result EXTERNAL LAB from Last 3 Months or Most Recently Relevant to Health Maintenance Insurance [facility] BCBS MEDICAID [place] Care Teams Business Editor Relationship Specialty Start Date End Date Kannan Whitman DO [address] [place], [place] [address] [address] PCP - [place] [employer] 03/03/25
--- OUTSIDE RECORDS SUMMARY | 2025-06-25 07:03 | XMS_ITS | Clinical Summary ---
Author Organization [employer] tem Address [id number] [address] [place] [address] Care Team Providers Care Field Service Rep Name Role Phone Unavailable Primary Care Provider [...] on last me nstrual period of 09/26/2024 Social History Tobacco Use Types Packs/Day Years [...] 02/28/2027 02/29/2024 Medical Devices Not on file Insurance [facility] ANTHEM MEDICAID Member Subscriber Plan / Payer (Ef fective 2025-Present) Name:Rhae Mayorga Relation to Subscriber:Self Name:Rhea Mayorga Payer ID:Not on file Group ID:[id number] Type:Not on file Address: [address] [place] [id number]
--- OUTSIDE RECORDS SUMMARY | 2025-06-25 07:04 | XMS_ITS | CCD ---
Author Organization [facility] Care Team Providers Care Conference Concierge Name Role Phone DR JUSTICE WHITMAN Admitting Unavailable J CARLOS, DR RENDON Consulting Unavailable J CARLOS, DR RENDON Attending Unavailable MISC, DR DOE Primary Care Unavailable DIDIERDESIREE Consulting Unavailable DIDIERDESIREE LOBO Attending Unavailable DIDIERDESIREE Admitting Unavailable MISC, DR DOE Primary Care Unavailable DIDIERDESIREE LOBO Consulting Unavailable DIDIER, DESIREE Attending Unavailable DIDIERDESIREE LOBO Admitting Unavailable MISC, DR DOE Primary Care Unavailable DIDIERDESIREE LOBO Admitting Unavailable DIDIER, DESIREE Consulting Unavailable DIDIERDESIREE LOBO Attending Unavailable MISC, DR DOE Primary Care Unavailable J CARLOS, DR RENDON Admitting Unavailable J CARLOS, DR RENDON Consulting Unavailable J CARLOS, DR RENDON Attending Unavailable MISC, DR DOE Primary Care Unavailable Keily, SEED DISTRICT SALES MANAGER Seble L Attending Unavailable Keily, SEED DISTRICT SALES MANAGER Seble L Attending Unavailable Keily, SEED DISTRICT SALES MANAGER Seble L Attending Unavailable Unavailable Primary Care Provider Unavailabl e Unavailable Primary Care Provider Unavailabl e JUSTICE WHITMAN R Referring Unavailable REID RAI Attending Unavailable CORDELIA HAMILTON Referring Unavailable J Carlos QUIROZ Justice Unavailable JUSTICE WHITMAN Attending Unavailable DIDIERDESIREE FUNES Attending Unavailable JUSTICE WHITMAN Attending Unavailable CLEMENTINAMARIBETH GALVAN Attending Unavailable JUSTICE WHITMAN Attending Unavailable DIDIERDESIREE LOBO Attending Unavailable JUSTICE WHITMAN Attending Unavailable CLEMENTINA, MARIBETH Attending Unavailable JUSTICE WHITMAN Attending Unavailable J CARLOSJUSTICE ROCA Attending Unavailable DIDIERDESIREE LOBO Attending Unavailable Allergies Allergy Classification Reported Allergen(s) Allergy Type Date of Onset Reaction(s) Facility (20 sources) Latex; Translations: [Latex] Propensity to adverse reactions (disorder) 4 Rash [facility] Repository (1 source) No Known Medication Allergies; Translations: [No Known Medication Allergies] Propensity to adverse reactions (disorder) [facility] Repository (20 sources) Other; Translations: [OTHER] Allergy to substance 3 [facility] Healthcare (9 sources) Wound Dressing Adhesive Propensity to adverse reactions 5 [facility] Healthcare Medications Current Medications Medication Drug [...] (Mag-Ox) 400 MG tablet Indications: Third trimester ([facility]) , 30 weeks gestation of ([facility]) Take 1 tablet (400 mg) by [...] pantoprazole 40 mg delayed release oral tablet (19 sources) Proton Pump Inhibitor Start: 04-18-2025 End: [...] MG capsule Indications: 29 weeks gestation of ([facility]) , Third trimester ([facility]) Take 1 capsule (391.3 mg) by mouth [...] [Encounter for sterilization] 05-15-2025 Episodic Esophageal disorders (20 sources) Gastroesophageal reflux disease without esophagitis; Translations: [...] 11-13-2024 Episodic Other and delivery including normal (20 sources) ; Translations: [Encounter for supervision of [...] (2 sources) Flushing; Translations: [Flushing] 05-29-2025 Episodic Residual codes; unclassified (2 sources) Gestation period, 36 weeks; Translations: [36 weeks gestation of ] 06-11-2025 Episodic Residual codes; unclassified (2 sources) Gestation period, 38 weeks; Translations: [38 weeks gestation of ] 06-19-2025 Episodic Unclassified (3 sources) CONTACT W/AND (SUSP) [...] Range Facility Urinalysis macro (dipstick) panel (U)on 06-19-2025 Bilirubin, UA Negative Negative - 4(70) +++ mg/dL [facility] Blood, UA Positive Negative - 50 Toni/mcL [facility] Comment on above: Trace Clarity, UA Clear [facility] re Color, UA Yellow [facility] Glucose, UA Negative Negative - 2000(110) ++++ mg/dL [facility] Interpretation and review of laboratory results Abnormal [facility] re Ketones, UA Negative Negative - 160(16) ++++ mg/dL [facility] Leukocytes, UA Positive Negative - 500+++ Amish/mcL [facility] Comment on above: 3+ Nitrite, UA Negative Negative - Positive [facility] pH, UA 6 5 - 9 [facility] Healthcar e Protein, UA Positive Negative - 1999(20) ++++ mg/dL [facility] Comment on above: Trace Spec Grav, UA 1.015 1 - 1.[address] [facility] Urobilinogen, UA 0.2 0.2 - 12 mg/dL [facility] Urinalysis macro (dipstick) panel (U)on 06-11-2025 Bilirubin, UA Negative Negative - 4(70) +++ mg/dL [facility] Blood, UA Positive Negative - 50 Toni/mcL [facility] Comment on above: Trace Clarity, UA Clear [facility] re Color, UA Yellow [facility] Glucose, UA Negative Negative - 1999(110) ++++ mg/dL [facility] Interpretation and review of laboratory results Abnormal [facility] Ketones, UA Negative Negative - 160(16) ++++ mg/dL [facility] Leukocytes, UA Positive Negative - 500+++ Amish/mcL [facility] Comment on above: 3+ Nitrite, UA Negative Negative - Positive [facility] pH, UA 6 5 - 9 [facility] Protein, UA Positive Negative - 1999(20) ++++ mg/dL [facility] Comment on above: Trace Spec Grav, UA 1.02 1 - 1.[address] 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 Signed By: 06/05/258 06/05/251327 DD/ 1204 TD/TT: Package Sealer: [facility] Shape [employer]age ECG 12-LEADOrdered By: Radio logist Radiology on 06-05-2025 [facility] [employer] Work Phone: Urinalysis macro (dipstick) panel (U)on 06-04-2025 Bilirubin, UA Negative Negative - 4(70) +++ mg/dL [facility] Healthcare Blood, UA Positive Negative - 50 Toni/mcL [facility] Clarity, UA Clear [facility] Color, UA Yellow [facility] Glucose, UA Negative Negative - 1999(110) ++++ mg/dL [facility] Interpretation and review of laboratory results Abnormal [facility] Ketones, UA Positive Negative - 160(16) ++++ mg/dL [facility] Healthcare Leukocytes, UA 1+ Negative - 500+++ Amish/mcL [facility] Healthcare Nitrite, UA Negative Negative - Positive [facility] Healthcare pH, UA 6 5 - 9 [facility] Protein, UA Positive Negative - 1999(20) ++++ mg/dL [facility] Healthcare Spec Grav, UA 1.01 1 - 1.03 [facility] Health care Urobilinogen, UA 1.0 0.2 - 12 mg/dL [facility] 12-LEADon 05-31-2025 Radiology Study observation (narrative) [facility] Urinalysis macro (dipstick) panel (U)on 05-29-2025 Bilirubin, UA Negative Negative - 4(70) +++ mg/dL [facility] Blood, UA Positive Negative - 50 Toni/mcL [facility] Healthcare Clarity, UA Clear [facility] Color, UA Yellow [facility] Glucose, UA Negative Negative - 1999(110) ++++ mg/dL [facility] Interpretation and review of laboratory results Abnormal [facility] Ketones, UA Negative Negative - 160(16) ++++ mg/dL [facility] Healthcare Leukocytes, UA 3+ Negative - 500+++ Amish/mcL [facility] Healthcare Nitrite, UA Negative Negative - Positive [facility] pH, UA 6 5 - 9 [facility] Protein, UA 1+ Negative - 1999(20) ++++ mg/dL [facility] Healthcare Spec Grav, UA 1.015 1 - 1.03 [facility] Urobilinogen, UA 1.0 0.2 - 12 mg/dL [facility] Urinalysis macro (dipstick) panel (U)on 05-15-2025 Bilirubin, UA Negative Negative - 4(70) +++ mg/dL [facility] Blood, UA Positive Negative - 50 Toni/mcL [facility] Comment on above: trace Clarity, UA Clear [facility] Color, UA Yellow [facility] Glucose, UA Negative Negative - 1999(110) ++++ mg/dL [facility] Interpretation and review of laboratory results Abnormal [facility] Ketones, UA Negative Negative - 160(16) ++++ mg/dL [facility] Healthcare Leukocytes, UA Moderate Negative - 500+++ Amish/mcL [facility] Healthcare Nitrite, UA Negative Negative - Positive [facility] Healthcare pH, UA 6 5 - 9 [facility] Protein, UA Positive Negative - 1999(20) ++++ mg/dL [facility] Comment on above: Trace Spec Grav, UA 1.015 1 - 1.03 [facility] Urobilinogen, UA 0.2 0.2 - 12 mg/dL [facility] Healthcare [facility] Health[facility] e Urinalysis macro (dipstick) panel (U)on 05-01-2025 Bilirubin, UA Negative Negative - 4(70) +++ mg/dL [facility] Blood, UA Negative Negative - 50 Toni/mcL [facility] Healthcare Clarity, UA Clear [facility] Color, UA Yellow [facility] Glucose, UA Negative Negative - 1999(110) ++++ mg/dL [facility] Interpretation and review of laboratory results Abnormal [facility] Ketones, UA Negative Negative - 160(16) ++++ mg/dL [facility] Healthcare Leukocytes, UA Moderate Negative - 500+++ Amish/mcL [facility] Healthcare Nitrite, UA Negative Negative - Positive [facility] pH, UA 6.5 5 - 9 [facility] Protein, UA Negative Negative - 1999(20) ++++ mg/dL [facility] Healthcare Spec Grav, UA 1.01 1 - 1.03 [facility] Urobilinogen, UA 0.2 0.2 - 12 mg/dL [facility] US OB FOLLOW UP TRANSABDOMIN [...] II, MD, PHD at 01-May-2025 07:33:44 AM [facility] Normal Not Available Comment on above: Order Comment: US OB SCAN FOR GROWTH Estimated Date of Delivery: 07/03/25 Gestational Age as of 04/30/2025: 30w6d ALL CBC WITH AUTO DIFFon BASOPHILS ABSOLUTE AUTO 0 [facility] Basophils/100 WBC (Bld) 0.4 % 0.2 - 2.0 % [facility] Eosinophils/100 WBC (Bld) 1.6 % 0.9 - 7.0 % [facility] Erythrocyte distribution width (RBC) [Ratio] 13.2 % 11.0 - 15.0 % [facility] Hematocrit (Bld) [Volume fraction] 31.1 % Low 36.0 - 48.0 % [facility] Hemoglobin (Bld) [Mass/Vol] 10.7 g/dL Low 12.0 - 16.0 g/dL [facility] IMMATURE GRANULOCYTES ABS AUTO 0.06 High [facility] Immature granulocytes/100 WBC (Bld) 0.7 % High 0.0 - 0.5 % [facility] Interpretation and review of laboratory results Abnormal [facility] LYMPHOCYTES ABSOLUTE AUTO 1.4 [facility] Lymphocytes/100 WBC (Bld) 15.2 % Low 20.5 - 60.0 % [facility] MCH (RBC) [Entitic mass] 30.9 pg 26.7 - 34.0 pg [facility] MCHC (RBC) [Mass/Vol] 34.4 g/dL 29.9 - 35.2 g/dL [facility] MCV (RBC) [Entitic vol] 89.9 fL 81.0 - 99.0 fL [facility] MONOCYTES ABSOLUTE AUTO 0.5 [facility] Monocytes/100 WBC (Bld) 5 % 1.7 - 12.0 % [facility] NEUTROPHILS ABSOLUTE AUTO 7.1 High [facility] Neutrophils/100 WBC (Bld) 77.1 % High 43.0 - 75.0 % [facility] Platelet mean volume (Bld) [Entitic vol] 9.8 fL 9.5 - 13.5 fL [facility] TBH EO # 0.2 [facility] [...] II, MD, PHD at 14-Feb-2025 11:33:18 AM [facility] Normal Not Available Comment on above: Order Comment: US OB ANATOMY SINGLE W US OB CERVICAL LENGTH Estimated Date of Delivery: 07/03/25 Gestational Age as of 01/23/2025: 17w0d Urinalysis macro (dipstick) panel (U)on 12-27-2024 Bilirubin, UA Negative Negative - 4(70) +++ mg/dL [facility] Blood, UA Negative Negative - 50 Toni/mcL [facility] Clarity, UA Clear [facility] re Color, UA Yellow [facility] Glucose, UA Negative Negative - 1999(110) ++++ mg/dL [facility] Interpretation and review of laboratory results Normal [facility] re Ketones, UA Negative Negative - 160(16) ++++ mg/dL [facility] Leukocytes, UA Positive Negative - 500+++ Amish/mcL [facility] Nitrite, UA Negative Negative - Positive [facility] pH, UA 6.5 5 - 9 [facility] e Protein, UA Negative Negative - 1999(20) ++++ mg/dL [facility] Spec Grav, UA 1.02 1 - 1.[address] [facility] Urobilinogen, UA 0.2 0.2 - 12 mg/dL [facility] US OB TRANSVAGINALon 025 US [...] II, MD, PHD at 01-Dec-2024 07:22:16 AM [facility] Normal Not Available Comment on above: Order Comment: US OB TRANSVAGINAL Patient's last menstrual period was 09/26/2024. HCG ( test) Ql (U)o n 11-23-2024 Interpretation and review of laboratory results Abnormal [facility] Preg Test, Ur Positive Negative [facility] CARDIOCHECK - LIPID AND GLUC OSEon 11-20-2024 Cholesterol [Mass/Vol] 115 mg/dL NINF - 200 [facility] Cholesterol in HDL [Mass/Vol] 55 mg/dL M: 35-65 F: 35-80 [facility] Cholesterol in LDL [Mass/Vol] 60 mg/dL NINF - 100 [facility] Glucose [Mass/Vol] 102 mg/dL NINF - 100 [facility] Interpretation and review of laboratory results Abnormal [facility] Triglyceride [Mass/Vol] 170 mg/dL NINF - 150 [facility] Family Medicine Office/Clini [...] Topical, BID, 45 gram, Refill(s) 0, [facility]/pharmacy #[id number], 157.4, cm, 07/20/24 14:43:00 EDT, Height/Length [...] Recorded Hib, unspecified formulation 02/05/1994 Recorded Normal [facility] Comment on above: Result Comment: Elec tronically Signed By: Seble Luna\.br\Date and Time Signed: 07/20/24 14:56 EDT RAD - Ultrasound Reporton RAD - Ultrasound Report [id number]. 00TIFF [facility] [place] 01-23-2024 Consent [id number] .00TIFF [facility] PAP ACOG PANEL 2: 21 to 29on 11-18-2022 . . [facility] Comment on above: Performed By: #### [id number] #### [facility] [address] [place] [address] Dr. Prashant Fletcher Age Gdln ACOG Testing 19- [facility] Comment on above: Performed By: #### [id number] #### [facility] [address] [place] [address] Dr. Prashant Fletcher DIAGNOSIS: Comment Normal [facility] Comment on above: Result Comment: NEGA TIVE FOR INTRAEPITHELIAL LESION OR MALIGNANCY. Performed By: #### [id number] #### [facility] [address] [place] [address] Dr. Prashant Fletcher Methodology: Comment Normal [facility] Comment on above: Result Comment: This liquid based ThinPrep(R) pap test was screened with the use of an image guided system. Performed By: #### [id number] #### [facility] [address] [place] [address] Dr. Prashant Fletcher Note: Comment Normal [facility] Comment on above: Result Comment: The Pap smear is a screening test designed to aid in the detection of premalignant and malignant conditions of the uterine cervix. It is not a diagnostic procedure and should not be used as the sole means of detecting cervical cancer. Both false-positive and false-negative reports do occur. . Performed By: #### [id number] #### [facility] [address] [place] [address] Dr. Prashant Fletcher Performed by: Comment Normal [facility] Comment on above: Result Comment: Pati Johnson, Food Safety Officer (ASCP) Performed By: #### [id number] #### [facility] [address] [place] [address] Dr. Prashant Fletcher Reflex Criteria: Comment Normal [facility] Comment on above: Result Comment: The HPV DNA reflex criteria were not met with this specimen result therefore, no HPV testing was performed. . Performed By: #### [id number] #### [facility] [address] [place] [address] Dr. Prashant Fletcher Specimen adequacy: Comment Normal [facility] Comment on above: Result Comment: Sati sfactory for evaluation. Endocervical and/or squamous metaplastic cells (endocervical component) are present. Performed By: #### [id number] #### [facility] [address] [place] [address] Dr. Prashant Fletcher SYMPTOMATIC COVID-19 ANTIGEN on 03-23-2022 EUA Statement SEE BELOW Normal [facility] Comment on above: [...] sooner. Performed By: #### C VDAGS #### [facility] [address] [place] [address] Dr. Prashant Fletcher SARS-CoV-2 (COVID-19) RNA DIAMOND+probe Ql (Unsp spec) Negative Normal NEGATIVE [facility] Comment on above: Performed By: #### C VDAGS #### [facility] [address] [place] [address] Dr. Prashant Fletcher SYMPTOMATIC COVID-19 ANTIGEN on 03-22-2022 EUA Statement SEE BELOW Normal [facility] Comment on above: Result Comment: This test [...] sooner. Performed By: #### C VDAGS #### [facility] [address] [place] [address] Dr. Prashant Fletcher SARS-CoV-2 (COVID-19) RNA DIAMOND+probe Ql (Unsp spec) Negative Normal NEGATIVE [facility] Comment on above: Performed By: #### C VDAGS #### [facility] [address] [place] [address] Dr. Prashant Fletcher Covid-19 PCR ([facility])on 01-01 SARS-CoV-2 (COVID-19) RNA DIAMOND+probe Ql (Unsp spec) Not detected Normal NOT DETECTED [facility] Comment on above: Result Comment: When diagnostic [...] for this test is supported by the [employer] of Health and Human Service's declaration that [...] used). Performed By: #### C VDTBH #### [facility] [address] [place] [address] Dr. Prashant Fletcher CBC AUTO DIFFon 12-09-2021 BASO # 0.0 103/ul Normal 0.0-0.1 [facility] Comment on above: Performed By: #### C BC #### [facility] [address] [place] [address] Dr. Prashant Fletcher Basophils/100 WBC (Bld) 0.7 % Normal 0.2-2.0 [facility] Comment on above: Performed By: #### C BC #### [facility] [address] [place] [address] Dr. Prashant Fletcher EO # 0.2 103/ul Normal 0.0-0.7 [facility] Comment on above: Performed By: #### C BC #### [facility] [address] [place] [address] Dr. Prashant Fletcher Eosinophils/100 WBC (Bld) 4.4 % Normal 0.9-7.0 [facility] Comment on above: Performed By: #### C BC #### [facility] [address] [place] [address] Dr. Prashant Fletcher Erythrocyte distribution width (RBC) [Ratio] 15.5 % Critically high 11.0-15.0 [facility] Comment on above: Performed By: #### C BC #### [facility] [address] [place] [address] Dr. Prashant Fletcher Hematocrit (Bld) [Volume fraction] 40.1 % Normal 36.0-48.0 [facility] Comment on above: Performed By: #### C BC #### [facility] [address] [place] [address] Dr. Prashant Fletcher Hemoglobin (Bld) [Mass/Vol] 12.4 g/dL Normal 12.0-16.0 [facility] Comment on above: Performed By: #### C BC #### [facility] [address] [place] [address] Dr. Prashant Fletcher IG # 0.01 10e3/ul Normal 0.00-0.03 [facility] Comment on above: Performed By: #### C BC #### [facility] [address] [place] [address] Dr. Prashant Fletcher IG % 0.2 % Normal 0.0-0.5 [facility] Comment on above: Performed By: #### C BC #### [facility] [address] [place] [address] Dr. Prashant Fletcher LYMPH # 1.8 103/ul Normal 1.2-3.8 [facility] Comment on above: Performed By: #### C BC #### [facility] [address] [place] [address] Dr. Prashant Fletcher Lymphocytes/100 WBC (Bld) 33.3 % Normal 20.5-60.0 [facility] Comment on above: Performed By: #### C BC #### [facility] [address] [place] [address] Dr. Prashant Fletcher MANUAL DIFF REQ NO Normal [facility] Comment on above: Performed By: #### C BC #### [facility] [address] [place] [address] Dr. Prashant Fletcher MCH (RBC) [Entitic mass] 26.1 pg Critically low 26.7-34.0 [facility] Comment on above: Performed By: #### C BC #### [facility] [address] [place] [address] Dr. Prashant Fletcher MCHC (RBC) [Mass/Vol] 30.9 g/dL Normal 29.9-35.2 [facility] Comment on above: Performed By: #### C BC #### [facility] [address] [place] [address] Dr. Prashant Fletcher MCV (RBC) [Entitic vol] 84.4 fL Normal 81.0-99.0 [facility] Comment on above: Performed By: #### C BC #### [facility] [address] [place] [address] Dr. Prashant Fletcher MONO # 0.6 103/ul Normal 0.3-0.8 [facility] Comment on above: Performed By: #### C BC #### [facility] [address] [place] [address] Dr. Prashant Fletcher Monocytes/100 WBC (Bld) 10.4 % Normal 1.7-12.0 [facility] Comment on above: Performed By: #### C BC #### [facility] [address] [place] [address] Dr. Prashant Fletcher NEUT # 2.8 103/ul Normal 1.4-6.5 [facility] Comment on above: Performed By: #### C BC #### [facility] [address] [place] [address] Dr. Prashant Fletcher Neutrophils/100 WBC (Bld) 51.0 % Normal 43.0-75.0 [facility] Comment on above: Performed By: #### C BC #### [facility] [address] [place] [address] Dr. Prashant Fletcher Platelet mean volume (Bld) [Entitic vol] 9.4 fL Critically low 9.5-13.5 [facility] Comment on above: Performed By: #### C BC #### [facility] [address] [place] [address] Dr. Prashant Fletcher PLT 184 103/ul Normal 150-450 [facility] Comment on above: Performed By: #### C BC #### [facility] [address] [place] [address] Dr. Prashant Fletcher RBC 4.75 106/ul Normal 4.20-5.40 [facility] Comment on above: Performed By: #### C BC #### [facility] [address] [place] [address] Dr. Prashant Fletcher WBC 5.5 103/ul Normal 4.0-11.0 [facility] Comment on above: Performed By: #### C BC #### [facility] [address] [place] [address] Dr. Prashant Fletcher FERRITINon 12-09-2021 Ferritin [Mass/Vol] 10.0 ng/mL Normal 6.2-137.0 [facility] Comment on above: Performed By: #### F ERR #### [facility] [address] [place] [address] Dr. Prashant Fletcher Vital Signs Date Time Vital Sign Value Performing Clinician Faci lity 06-19-2025 08:28-0400 Body mass index (BMI) [Ratio] 29.36 kg/m2 Desiree Velásquez GAUGER CHIEF Work Phone: [facility] 06-19-2025 08:28-040 Body weight 72.8 kg Desiree Velásquez GAUGER CHIEF Work Phone: [facility] 06-19-2025 08:28-0400 Diastolic blood pressure 60 mm[Hg] Desiree Velásquez GAUGER CHIEF Work Phone: [facility] 06-19-2025 08:28-0400 Systolic blood pressure 108 mm[Hg] Desiree Didier HARRELL Work Phone: [facility] 06-11-2025 08:48-0400 Body mass index (BMI) [Ratio] 29.7 kg/m2 Justice J Carlos DO Work Phone: [facility] 06-11-2025 08:48-0400 Body weight 73.66 kg Justice J Carlos DO Work Phone: [facility] 06-11-2025 08:48-0400 Diastolic blood pressure 62 mm[Hg] Justice J Carlos DO Work Phone: [facility] 06-11-2025 08:48-0400 Systolic blood pressure 122 mm[Hg] Justice J Carlos DO Work Phone: [facility] 06-04-2025 08:23-0400 Body mass index (BMI) [Ratio] 29.26 kg/m2 Justice J Calros DO Work Phone: [facility] 06-04-2025 08:23-0400 Body weight 72.58 kg Justice J Carlos DO Work Phone: [facility] 06-04-2025 08:23-0400 Diastolic blood pressure 64 mm[Hg] Justice J Carlos DO Work Phone: [facility] 06-04-2025 08:23-0400 Systolic blood pressure 114 mm[Hg] Justice J Carlos DO Work Phone: [facility] 05-29-2025 08:47-0400 Body mass index (BMI) [Ratio] 29.63 kg/m2 Maribeth GRAY Work Phone: [facility] 05-29-2025 08:47-0400 Body weight 73.48 kg Maribeth GRAY Work Phone: [facility] 05-29-2025 08:47-0400 Diastolic blood pressure 68 mm[Hg] Maribeth GRAY Work Phone: [facility] 05-29-2025 08:47-0400 Systolic blood pressure 112 mm[Hg] Maribeth GRAY Work Phone: [facility] 05-15-2025 10:17-0400 Body mass index (BMI) [Ratio] 28.94 kg/m2 Justice J Carlos DO Work Phone: [facility] 05-15-2025 10:17-0400 Body weight 71.78 kg Justice J Carlos DO Work Phone: [facility] 05-15-2025 10:17-0400 Diastolic blood pressure 60 mm[Hg] Justice J Carlos DO Work Phone: [facility] 05-15-2025 10:17-0400 Systolic blood pressure 120 mm[Hg] Justice J Carlos DO Work Phone: [facility] 05-01-2025 08:55-0400 Body mass index (BMI) [Ratio] 28.44 kg/m2 Desiree Velásquez GAUGER CHIEF Work Phone: [facility] 05-01-2025 08:55-0400 Body weight 70.53 kg Desiree Didier GAUGER CHIEF Work Phone: [facility] 05-01-2025 08:55-0400 Diastolic blood pressure 64 mm[Hg] Desiree Didier GAUGER CHIEF Work Phone: [facility] 05-01-2025 08:55-0400 Systolic blood pressure 120 mm[Hg] Desiree Didier GAUGER CHIEF Work Phone: [facility] 04-18-2025 08:40-0400 Body mass index (BMI) [Ratio] 27.98 kg/m2 Justice J Carlos DO Work Phone: [facility] 04-18-2025 08:40-0400 Body weight 69.4 kg Justice J Carlos DO Work Phone: [facility] 04-18-2025 08:40-0400 Diastolic blood pressure 70 mm[Hg] Justice J Carlos DO Work Phone: [facility] 04-18-2025 08:40-0400 Systolic blood pressure 120 mm[Hg] Justice Whitman DO Work Phone: [facility] 03-21-2025 09:10-0400 Body mass index (BMI) [Ratio] 26.89 kg/m2 Maribeth Seaton PA Work Phone: [facility] 03-21-2025 09:10-0400 Body weight 66.68 kg Maribeth Clementina PA Work Phone: [facility] 03-21-2025 09:10-0400 Diastolic blood pressure 72 mm[Hg] Maribeth Seaton PA Work Phone: [facility] 03-21-2025 09:10-0400 Systolic blood pressure 110 mm[Hg] Maribeth Clementina PA Work Phone: [facility] 03-12-2025 07:57-0400 Body height 157.5 cm Reid Rai MD Work Phone: [facility] 03-12-2025 07:57-0400 Body mass index (BMI) [Ratio] 26.15 kg/m2 Reid Rai MD Work Phone: [facility] 03-12-2025 07:57-0400 Body weight 64.86 kg Reid Rai MD Work Phone: [facility] 03-12-2025 07:57-0400 Diastolic blood pressure 73 mm[Hg] Reid Rai MD Work Phone: [facility] 03-12-2025 07:57-0400 Heart rate 88 /min Reid Rai MD Work Phone: [facility] 03-12-2025 07:57-0400 Systolic blood pressure 111 mm[Hg] Reid Rai MD Work Phone: [facility] 01-23-2025 08:54-0400 Body mass index (BMI) [Ratio] 23.23 kg/m2 Desiree Velásquez NP Work Phone: [facility] 01-23-2025 08:54-0400 Body weight 57.61 kg Desiree Didier GAUGER CHIEF Work Phone: [facility] 01-23-2025 08:54-0400 Diastolic blood pressure 72 mm[Hg] Desiree Didier GAUGER CHIEF Work Phone: [facility] 01-23-2025 08:54-0400 Systolic blood pressure 118 mm[Hg] Desiree Didier GAUGER CHIEF Work Phone: [facility] 12-27-2024 08:50-0400 Body mass index (BMI) [Ratio] 21.4 kg/m2 Justice J Carlos DO Work Phone: [facility] 12-27-2024 08:50-0400 Body weight 53.07 kg Justice J Carlos DO Work Phone: [facility] 12-27-2024 08:50-0400 Diastolic blood pressure 58 mm[Hg] Justice J Carlos DO Work Phone: [facility] 12-27-2024 08:50-0400 Systolic blood pressure 102 mm[Hg] Justice J Carlos DO Work Phone: [facility] 11-23-2024 09:08-0500 Body mass index (BMI) [Ratio] 20.67 kg/m2 Noms Nurse [facility] 11-23-2024 09:08-0500 Body weight 51.26 kg Noms Nurse [facility] 11-23-2024 09:08-0500 Diastolic blood pressure 62 mm[Hg] [facility]oms Nurse [facility] 11-23-2024 09:08-0500 Systolic blood pressure 102 mm[Hg] Noms Nurse [facility] Healthcare Encounters Encounter Date Encounter Type Care Provider Facility Start: 06-19-2025 End: 06-19-2025 Bamboo flowsheet Desiree Velásquez GAUGER CHIEF Work Phone: [facility] Rona BARRETT Start: 06-19-2025 End: 06-19-2025 Bamboo flowsheet Desiree Didier GAUGER CHIEF Work Phone: [facility] Start: 06-19-2025 End: 06-19-2025 flow sheet Desiree Didier GAUGER CHIEF Work Phone: [facility] Comment on above: Third trimester preg subha ([facility]); 38 weeks gestation of ([facility]) Start: 06-19-2025 End: 06-19-2025 ambulatory DESIREE DIDIER Not Available Start: 06-11-2025 End: 06-11-2025 Bamboo flowsheet Justice J Carlos DO Work Phone: [facility] Start: 06-11-2025 End: 06-11-2025 Bamboo flowsheet Justice J Carlos DO Work Phone: [facility] Start: 06-11-2025 End: 06-11-2025 flow sheet Justice J Carlos DO Work Phone: [facility] Comment on above: Third trimester preg subha ([facility]); 36 weeks gestation of ([facility]) Start: 06-11-2025 End: 06-11-2025 ambulatory JUSTICE J CARLOS Not Available Start: 06-04-2025 End: 06-04-2025 flow sheet Justice J Carlos DO Work Phone: [facility] Comment on above: 35 weeks gestation o f ([facility]); Third trimester ([facility]); Exposure to STD Start: 06-04-2025 End: 06-04-2025 ambulatory JUSTICE J CARLOS Not Available Start: 05-31-2025 End: 06-05-2025 Clinisync Result Encounter Maribeth GRAY Work Phone: [facility] Department Unsolicited Start: 05-31-2025 End: 06-05-2025 Clinisync Result Encounter Maribeth GRAY Work Phone: [facility] Unsolicited Start: 05-29-2025 End: 05-29-2025 Bamboo flowsheet Maribeth GRAY Work Phone: [facility] Start: 05-29-2025 End: 05-29-2025 Bamboo flowsheet Maribeth GRAY Work Phone: [facility] Start: 05-29-2025 End: 05-29-2025 flow sheet Maribeth GRAY Work Phone: [facility] Comment on above: Third trimester preg subha ([facility]); 35 weeks gestation of ([facility]); Weakness generalized; Hot flashes Start: 05-29-2025 End: 05-29-2025 ambulatory MARIBETH MCRAE Not Available Start: 05-15-2025 End: 05-15-2025 Office outpatient visit 15 minutes Justice J Carlos DO Work Phone: [facility] Comment on above: Third trimester preg subha ([facility]); 33 weeks gestation of ([facility]); Request for sterilization Start: 05-15-2025 End: 05-15-2025 ambulatory JUSTICE J CARLOS Not Available Start: 05-01-2025 End: 05-01-2025 Bamboo flowsheet Desiree Velásquez GAUGER CHIEF Work Phone: [facility] Start: 05-01-2025 End: 05-01-2025 Bamboo flowsheet Desiree Velásquez GAUGER CHIEF Work Phone: [facility] Start: 05-01-2025 End: 05-01-2025 ambulatory DESIREE DIDIER Not Available Start: 05-01-2025 End: 05-01-2025 flow sheet Desiree Velásquez GAUGER CHIEF Work Phone: [facility] Comment on above: Third trimester preg subha ([facility]); 30 weeks gestation of ([facility]) Start: 04-30-2025 End: 04-30-2025 ambulatory JUSTICE J CARLOS Not Available Start: 04-18-2025 End: 04-18-2025 Bamboo flowsheet Justice J Carlos DO Work Phone: [facility] Start: 04-18-2025 End: 04-18-2025 Bamboo flowsheet Justice J Carlos DO Work Phone: [facility] Start: 04-18-2025 End: 04-18-2025 flow sheet Justice J Carlos DO Work Phone: [facility] Comment on above: 29 weeks gestation o f ([facility]); Third trimester ([facility]); Gastroesophageal reflux disease without esophagitis Start: 04-18-2025 End: 04-18-2025 ambulatory JUSTICE J CARLOS Not Available Start: 03-23-2025 End: 03-23-2025 Clinisync Result Encounter Justice J Carlos DO Work Phone: [facility] External Department Unsolicited Start: 03-23-2025 End: 03-23-2025 Clinisync Result Encounter Justice J Carlos DO Work Phone: [facility] External Department Unsolicited Start: 03-21-2025 End: 03-21-2025 Bamboo flowsheet Maribeth GRAY Work Phone: [facility] Start: 03-21-2025 End: 03-21-2025 Bamboo flowsheet Maribeth GRAY Work Phone: [facility] Start: 03-21-2025 End: 03-21-2025 ambulatory MARIBETH MCRAE Not Available Start: 03-21-2025 End: 03-21-2025 Office outpatient visit 15 minutes Maribeth GRAY Work Phone: [facility] Comment on above: Second trimester pre gnancy ([facility]) (Primary Dx); 25 weeks gestation of ([facility]) Start: 03-12-2025 End: 03-12-2025 Office consultation new/estab patient 60 min Cordelia Hamilton MD Work Phone: [facility] Comment on above: Encounter for observ ation of suspected anomaly not found (Primary Dx) Start: 03-12-2025 End: 03-12-2025 ambulatory JUSTICE R J CARLOS [facility] Start: 02-21-2025 End: 02-21-2025 ambulatory JUSTICE J CARLOS Not Available Start: 02-13-2025 End: 02-13-2025 ambulatory JUSTICE J CARLOS Not Available Start: 01-23-2025 End: 01-23-2025 Bamboo flowsheet Desiree Velásquez GAUGER CHIEF Work Phone: [facility] Start: 01-23-2025 End: 01-23-2025 Bamboo flowsheet Desiree Velásquez GAUGER CHIEF Work Phone: [facility] Start: 01-23-2025 End: 01-23-2025 flow sheet Desiree Velásquez GAUGER CHIEF Work Phone: [facility] Comment on above: Second trimester pre gnancy; 17 weeks gestation of Start: 01-23-2025 End: 01-23-2025 ambulatory DESIREE DIDIER Not Available Start: 01-18-2025 ambulatory [employer] SALES MANAGER Seble Michaud Facil ity:[facility] Start: 12-27-2024 End: 12-27-2024 flow sheet Justice [...] [facility] Start: 07-20-2024 End: 07-20-2024 ambulatory SE[employer] DISTRICT SALES MANAGER Seble L Keily Facility:[facility] Start: 01-20-2024 End: 01-20-2024 ambulatory SE[employer] DISTRICT SALES MANAGER Seble L Keily Facility:[facility] Start: 11-10-2022 End: 11-10-[address] JUSTICE WHITMAN Facility:[facility] Start: 03-23-2022 End: 03-23-2022 ambulatory DESIREE VELÁSQUEZ Facility:[facility] Start: 03-22-2022 End: 03-22-2022 ambulatory DESIREE VELÁSQUEZ Facility:[facility] Start: 01-12-2022 End: 01-12-2022 ambulatory DESIREE VELÁSQUEZ Facility:[facility] Start: 12-09-2021 End: 12-10-[address] JUSTICE WHITMAN Facility:[facility] Procedures Date Procedure Procedure Detail Performing Clinician Start: 06-19-2025 Urnls dip stick/tabl et rgnt non-auto w/o micrscp Desiree Velásquez GAUGER CHIEF Work Phone: Start: 06-11-2025 Urnls dip stick/tabl et rgnt non-auto w/o micrscp Justice J Carlos DO Work Phone: Start: 06-04-2025 Urnls dip stick/tabl et rgnt non-auto w/o micrscp Justice J Carlos DO Work Phone: Start: 05-31-2025 ECG 12-LEAD Maribeth GRAY Work Phone: Start: 05-29-2025 Urnls dip stick/tabl et rgnt non-auto w/o micrscp Maribeth GRAY Work Phone: Start: 05-15-2025 Urnls dip stick/tabl et rgnt non-auto w/o micrscp Justice J Carlos DO Work Phone: Start: 05-01-2025 Urnls dip stick/tabl et rgnt non-auto w/o micrscp Desiree Velásquez GAUGER CHIEF Work Phone: Start: 03-23-2025 ALL CBC WITH [...] Screening for malign ant neoplasm of cervix [facility] Healthcare Start: 03-12-2026 Adult BMI Screening Adult BMI Screen [facility] Start: 07-03-2025 End: 07-03-2025 Patient encounter procedure 07/03/2025 10:30 AM EDT Office Visit [facility] [address] [place] [address] Desiree Velásquez, GAUGER CHIEF [address] [place] [address] [facility] BARRETT Start: 06-19-2025 End: 06-19-2025 Patient encounter procedure DEBORAH BARRETT Comment on above: Arrived Start: 06-11-2025 End: 06-11-2025 Patient encounter procedure DEBORAH BARRETT Comment on above: Arrived Start: 06-04-2025 End: 06-04-2026 CULTURE, GROUP B STREP WITH SUSCEPTIBLITY CULTURE, GROUP B STREP WITH SUSCEPTIBLITY Lab Routine Third trimester ([facility]) Expected: 06/04/2025, Expires: 06/04/2026 [facility] Work Phone: Comment on above: Expected: 06/04/2025 , Expires: 06/04/2026 Start: 06-04-2025 End: 06-04-2025 Patient encounter procedure 06/04/2025 8:30 AM EDT Routine [facility] [address] [phone] Justice Whitman DO [address] [place], [place] [id number] [facility] Start: 06-03-2025 Influenza vaccination [facility] Start: 05-29-2025 End: 05-29-2026 12 lead ECG ECG 12 lead unit performed ECG Routine Third trimester ([facility]) 35 weeks gestation of ([facility]) Weakness generalized Hot flashes Expected: 05/29/2025 (Approximate), Expires: 05/29/2026 [facility] Work Phone: Comment on above: Expected: 05/29/2025 (Approximate), Expires: 05/29/2026 Start: 05-29-2025 End: 05-29-2025 Patient encounter procedure 05/29/2025 9:20 AM EDT Routine [facility] [address] [phone] Maribeth Mcrae PA [address] [place] [address] Arrived [facility] Comment on above: Arrived Start: 05-01-2025 End: 05-01-2025 Patient encounter procedure 05/01/2025 8:30 AM EDT Routine [facility] [address] [place] [phone] Desiree Velásquez, SHARRI [address] [place] [place] [phone] [facility] Start: 04-30-2025 End: 04-30-2025 Professional / ancillary services management 04/30/2025 8:00 AM EDT Ancillary Procedure [facility] [address] [place] [phone] [facility] Start: 04-18-2025 End: 04-18-2025 Patient encounter procedure [facility] Comment on above: Arrived Start: 02-21-2025 End: 02-21-2025 Patient encounter procedure 02/21/2025 8:40 AM EDT Routine [facility] [address] [place] [phone] Justice Whitman DO [address] [place] [address] [facility] Start: 02-13-2025 End: 02-13-2025 Professional / ancillary services management 02/13/2025 8:00 AM EDT Ancillary Procedure [facility] [address] [phone] [facility] Start: 01-24-2025 End: 01-24-2025 Patient encounter procedure 01/24/2025 8:50 AM EDT Routine [facility] [address] [phone] Maribeth Mcrae PA [address] [place] [address] [facility] Start: 01-23-2025 End: 01-23-2025 Patient encounter procedure 01/23/2025 8:40 AM EDT Routine [facility] [address] [phone] Desiree Velásquez, SHARRI [address] [place] [place] [phone] Arrived [facility] Comment on above: Arrived Start: 11-30-2024 End: 11-30-2024 Professional / ancillary services management 11/30/2024 8:00 AM EST Ancillary Procedure [facility] [address] [address] [facility] Start: 11-23-2024 End: 11-23-2025 ABO/Rh ABO/Rh Lab Routine Missed menses , unspecified gestational age Expected: 11/23/2024 (Approximate), Expires: 11/23/2025 [facility] Comment on above: Expected: 11/23/2024 (Approximate), Expires: 11/23/2025 Start: 11-23-2024 End: 11-23-2025 Blood type and Indirect antibody screen panel - Blood Type and screen Lab Routine Missed menses , unspecified gestational age Expected: 11/23/2024 (Approximate), Expires: 11/23/2025 [facility] Healthcare Work Phone: Comment on above: Expected: 11/23/2024 (Approximate), Expires: 11/23/2025 Start: 11-23-2024 End: 11-23-2025 Drugs of abuse panel - Urine by Screen method Rapid drug screen, urine Lab Routine , unspecified gestational age Encounter for supervision of normal first in first trimester Expected: 11/23/2024 (Approximate), Expires: 11/23/2025 [facility] Comment on above: Expected: 11/23/2024 (Approximate), Expires: 11/23/2025 Start: 11-23-2024 End: 11-23-2024 ambulatory 11/23/2024 9:00 AM EST Initial [facility] [address] [phone] [facility] Start: 06-03-2024 Influenza vaccination Influenza Vacc ine (#1) [facility] Start: 12-07-2023 Screening for malign ant neoplasm of cervix HPV/Cotest [facility] Start: 12-07-2011 Adult BMI Follow Up Plan Adult BMI Follow Up Plan [facility] Start: 2005 Depression Screening Depression Scre ening [facility] Start: 2005 Tobacco Screening Tobacco Screening [facility] Start: 2004 DTaP,Tdap and Td Vaccines (5 - Tdap) DTaP,Tdap and Td Vaccines (5 - Tdap) [facility] Bacteria identified in Urine by Culture Urine culture Microbiology Routine Missed menses Ordered: 11/23/2024 [facility] Comment on above: Ordered: 11/23/2024 CBC W Auto Different ial panel - Blood CBC and differential Lab Routine Missed menses , unspecified gestational age Ordered: 11/23/2024 [facility] Comment on above: Ordered: 11/23/2024 CHLAMYDIA TRACHOMATI S (GENITO/STI) CHLAMYDIA TRACHOMATIS (GENITO/STI) Lab Routine Exposure to STD Ordered: 06/04/2025 [facility] Comment on above: Ordered: 06/04/2025 Hemoglobin A1c/Hemoglobin.total in Blood Hemoglobin A1c Lab Routine Missed menses , unspecified gestational age Ordered: 11/23/2024 [facility] Comment on above: Ordered: 11/23/2024 Hepatitis B virus surface Ag [Presence] in Serum or Plasma by Immunoassay Hepatitis B surface antigen Lab Routine Missed menses , unspecified gestational age Ordered: 11/23/2024 [facility] Comment on above: Ordered: 11/23/2024 Hepatitis C virus Ab [Presence] in Serum or Plasma by Immunoassay Hepatitis C antibody Lab Routine Missed menses , unspecified gestational age Ordered: 11/23/2024 [facility] Comment on above: Ordered: 11/23/2024 HIV-1/HIV-2 antigen/antibody combination immunoassay HIV-1 and HIV-2 antibodies Lab Routine Missed menses , unspecified gestational age Ordered: 11/23/2024 [facility] Comment on above: Ordered: 11/23/2024 Neisseria gonorrhoea e DNA [Presence] in Unspecified specimen by DIAMOND with probe detection Neisseria gonorrhea DNA probe, direct Lab Routine Exposure to STD Ordered: 06/04/2025 [facility] Comment on above: Ordered: 06/04/2025 Reagin Ab [Presence] in Serum by RPR RPR Lab Routine Missed menses , unspecified gestational age Ordered: 11/23/2024 [facility] Comment on above: Ordered: 11/23/2024 Rubella antibody, IgG Rubella an tibody, IgG Lab Routine Missed menses , unspecified gestational age Ordered: 11/23/2024 [facility] Comment on above: Ordered: 11/23/2024 SURESWAB(R) ADVANCED VAGINITIS PLUS, TMA SURESWAB(R) ADVANCED VAGINITIS PLUS, TMA Pathology and Cytology Routine Exposure to STD Ordered: 06/04/2025 [facility] Comment on above: Ordered: 06/04/2025 Immunizations Immunization Date Immunization Notes Care Provider Jonathon law 07-18-2018 influenza virus vacc ine, unspecified formulation Maribeth GRAY Work Phone: [facility] Healthcare Payers Date Payer Category Payer Medicaid [id number] 2024 Medicaid [id number] 2024 [employer] - PPO ANTHEM [id number] 2024 Unknown [id number] 2022 Private Health Insurance [id number] 2022 Unknown [id number] 1993 Unknown [id number] 2.16.840.1.082933.3.579.2. 593 1993 Unknown [id number] 2.16.840.1.626867.3.579.2. 593 1993 Unknown [id number] 2.16.840.1.398663.3.579.2. 593 1993 Unknown [id number] 2.16.840.1.689874.3.579.2. 593 1993 Unknown [id number] 2.16.840.1.720329.3.579.2. 593 1993 Unknown [id number] 2.16.840.1.451160.3.579.2. 727 1993 Unknown [id number] 2.16.840.1.562687.3.579.2. 727 1993 Unknown [id number] 2.16.840.1.867551.3.579.2. 727 1993 Unknown [id number] 2.16840.1.998250.3.579.2. 1286 1993 Unknown [id number] 2.16.840.1.261282.3.579.2. 1286 1993 Unknown [id number] 2.16840.1.628942.3.579.2. 1259 1993 Unknown [id number] 2.16840.1.096432.3.579.2. 1259 1993 Unknown [id number] 2.840.1.919856.3.579.2. 125 1993 Unknown [id number] 2.16840.1.439079.3.579.2. 1258 1993 Unknown [id number] 2.16840.1.187985.3.579.2. 1259 1993 Unknown [id number] 2.16840.1.087405.3.579.2. 1259 1993 Unknown [id number] 2.16840.1.124141.3.579.2. 1259 1993 Unknown [id number] 2.16840.1.176377.3.579.2. 125 1993 Unknown [id number] 2.16840.1.095345.3.579.2. 1259 1993 Unknown [id number] 2.16840.1.203645.3.579.2. 1259 1993 Unknown [id number] 1993 Unknown [id number] 1993 Unknown [id number] [id number] 1993 Unknown [id number] 1993 Unknown [id number] [id number] 1993 Unknown [id number] 1961 Self-pay 1961 Unknown [id number] Social History Date Type Detail Facility Tobacco smoking stat [facility] Tobacco smoking consumption unknown [facility] Start: 1993 Sex assigned at Not on file [facility] Start: 03-12-2025 Gender identity Not on file [facility] Start: 10-10-2024 [facility] Start: 03-12-2025 Tobacco smoking stat [facility] Never smoked tobacco [facility] Start: 03-12-2025 Tobacco use and exposure Smokeless tobacco non-user [facility] Start: 03-12-2025 Alcoholic beverage intake Ex-drinker (finding) [facility] Start: 03-12-2025 History of Social function [facility] Within the past 12 months we worried whether our food would run out before we got money to buy more. Never True [facility] Start: 02-15-2025 Sex Female (finding) [facility] Clinical Notes 11-13-2024 to 06-19-2025 Desiree Velásquez NP - 06/19/2025 8:50 AM Jaison Nash LPN - 06/11/2025 8:30 AM Jaison Nash LPN - 06/04/2025 8:30 AM MARINA Alexander - 05/29/2025 9:20 AM EDT Note Date & Type Note Facility 06-19-2025 History of Presen t illness Narrative Reason for Appointment: Patient ID: George Ruff is a 29 y.o. female who presents [...] nursing note reviewed. Exam conducted with a marketing operations assistant present. Vitals: Estimated body mass index is 29.36 kg/m as calculated from the following: Height as of 03/01/24: 5' 2 . Weight as of this encounter: 160 lb 8 oz. BP: 108/60 Patient's last menstrual period was 09/26/2024. ASSESSMENT & PLAN ICD-10-CM 1. Third trimester ([facility]) Z34.93 POCT urinalysis dipstick manually resulted 2. 38 weeks gestation of ([facility]) Z3A.38 Return OB: Patient presents today for [...] Desiree Velásquez NP documented in this encounter [facility] 06-11-2025 History of Presen t illness Narrative Reason for Appointment: Patient ID: George Ruff is a 29 y.o. female who presents [...] nursing note reviewed. Exam conducted with a marketing operations assistant present. Vitals: Estimated body mass index is 29.26 kg/m as calculated from the following: Height as of 03/01/24: 5' 2 . Weight as of 06/04/25: 160 lb. BP: Patient's last menstrual period was 09/26/2024. ASSESSMENT & PLAN ICD-10-CM 1. Third trimester ([facility]) Z34.93 POCT urinalysis dipstick manually resulted 2. 36 weeks gestation of ([facility]) Z3A.36 Return OB: Patient presents today for [...] Justice Whitman DO documented in this encounter [facility] 06-04-2025 History of Presen t illness Narrative Reason for Appointment: Patient ID: George Ruff is a 29 y.o. female who presents [...] nursing note reviewed. Exam conducted with a marketing operations assistant present. Vitals: Estimated body mass index is 29.26 kg/m as calculated from the following: Height as of 03/01/24: 5' 2 . Weight as of this encounter: 160 lb. BP: 114/64 Patient's last menstrual period was 09/26/2024. ASSESSMENT & PLAN ICD-10-CM 1. 35 weeks gestation of ([facility]) Z3A.35 2. Third trimester ([facility]) Z34.93 POCT urinalysis dipstick manually resulted CULTURE, [...] Justice Whitman DO documented in this encounter [facility] 05-29-2025 History of Presen t illness Narrative Reason for Appointment: Patient ID: George Ruff is a 29 y.o. female who presents [...] nursing note reviewed. Exam conducted with a marketing operations assistant present. Vitals: Estimated body mass index is 28.94 kg/m as calculated from the following: Height as of 03/01/24: 5' 2 . Weight as of 05/15/25: 158 lb 4 oz. BP: Patient's last menstrual period was 09/26/2024. ASSESSMENT & PLAN ICD-10-CM 1. Third trimester ([facility]) Z34.93 2. 35 weeks gestation of ([facility]) Z3A.35 Return OB: Patient presents today [...] of: MARINA Hi documented in this encounter [facility] 05-15-2025 History of Presen t illness Narrative Reason for Appointment: Patient ID: George Ruff is a 29 y.o. female who presents [...] nursing note reviewed. Exam conducted with a marketing operations assistant present. Vitals: Estimated body mass index is 28.94 kg/m as calculated from the following: Height as of 03/01/24: 5' 2 . Weight as of this encounter: 158 lb 4 oz. BP: 120/60 Patient's last menstrual period was 09/26/2024. ASSESSMENT & PLAN ICD-10-CM 1. Third trimester ([facility]) Z34.93 POCT urinalysis dipstick manually resulted 2. 33 weeks gestation of ([facility]) Z3A.33 Return OB: Patient presents today [...] Justice Whitman DO documented in this encounter [facility] 05-01-2025 History of Presen t illness Narrative Reason for Appointment: Patient ID: George Ruff is a 29 y.o. female who presents [...] nursing note reviewed. Exam conducted with a marketing operations assistant present. Vitals: Estimated body mass index is 28.44 kg/m as calculated from the following: Height as of 03/01/24: 5' 2 . Weight as of this encounter: 155 lb 8 oz. BP: 120/64 Patient's last menstrual period was 09/26/2024. ASSESSMENT & PLAN ICD-10-CM 1. Third trimester ([facility]) Z34.93 POCT urinalysis dipstick manually resulted 2. 30 weeks gestation of ([facility]) Z3A.30 Return OB: Patient presents today [...] Desiree Velásquez NP documented in this encounter [facility] 04-18-2025 History of Presen t illness Narrative Reason for Appointment: Patient ID: George Ruff is a 29 y.o. female who presents [...] nursing note reviewed. Exam conducted with a marketing operations assistant present. Vitals: Estimated body mass index is 27.98 kg/m as calculated from the following: Height as of 03/01/24: 5' 2 . Weight as of this encounter: 153 lb. BP: 120/70 Patient's last menstrual period was 09/26/2024. ASSESSMENT & PLAN ICD-10-CM 1. 29 weeks gestation of ([facility]) Z3A.29 POCT urinalysis dipstick manually resulted 2. Third trimester ([facility]) Z34.93 POCT urinalysis dipstick manually resulted [...] Justice Whitman DO documented in this encounter [facility] 03-21-2025 History of Presen t illness Narrative Reason for Appointment: Patient ID: George Ruff is a 29 y.o. female who presents [...] ASSESSMENT & PLAN ICD-10-CM 1. Second trimester ([facility]) Z34.92 2. 25 weeks gestation of ([facility]) Z3A.25 Return OB: Patient presents [...] of: MARINA Hi documented in this encounter [facility] 03-12-2025 History of Presen t illness [...] No Have you been seen here at [facility] in a previous ? No Recent ER visits or hospitalizations? No Bring blood sugar log or meter with you today? (Please bring them with you for every visit at [facility]) N/A Flu vaccine (Aug-December)? N/A Any concerns that you would like me to mention to the provider today? No REASON FOR CONSULTATION: Suspected abnormal cardiac axis ruled out. HISTORY OF PRESENT ILLNESS: George Ruff is a pleasant 29 y.o. 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 Patient does not have any future appointment scheduled with us Thank you for allowing me to participate in George Ruff . If there any questions please do not hesitate to contact us. Sincerely, REID RAI MD documented in this encounter [facility] 01-23-2025 History of Presen t illness Narrative Reason for Appointment: Patient ID: George Ruff is a 29 y.o. female who presents [...] nursing note reviewed. Exam conducted with a marketing operations assistant present. Vitals: Estimated body mass index is [...] Desiree Velásquez NP documented in this encounter [facility] 12-27-2024 History of Presen t illness Narrative Reason for Appointment: Patient ID: George Ruff is a 29 y.o. female who presents [...] nursing note reviewed. Exam conducted with a marketing operations assistant present. Vitals: Estimated body mass index is [...] or undercooked meat, and stay away from [facility]. Patient has been consulted regarding any [...] Justice Whitman DO documented in this encounter [facility] 11-23-2024 History of Presen t illness Narrative Reason for Appointment: Patient ID: George Ruff is a 28 y.o. female who presents [...] or undercooked meat, and stay away from [facility]. 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 documented in this encounter [facility] 11-13-2024 Telephone encount er Note Patient called stating she is nauseated and vomiting [facility] 11-13-2024 Miscellaneous Notes Formattin g of this note might be different from the original. Patient called stating she is nauseated and vomiting documented in this encounter [facility] Evaluation note Diagnosis Nausea- Primary Nausea alone documented in this encounter [facility]* Diagnosis Screening for lipoid disorders Screening for diabetes mellitus documented in this encounter [facility] note* Diagnosis Missed menses , unspecified gestational age Encounter for supervision of normal first in first trimester documented in this encounter [facility] note* Diagnosis Second trimester state, incidental 13 weeks gestation of documented in this encounter [facility]* Diagnosis Second trimester state, incidental 17 weeks gestation of documented in this encounter [facility] note* Diagnosis Encounter for observation of suspected anomaly not found- Primary Suspected anomaly not found [facility] Second trimester ([facility])- Primary state, incidental 25 weeks gestation of ([facility]) documented in this encounter [facility]* Diagnosis 29 weeks gestation of ([facility]) Third trimester ([facility]) state, incidental Gastroesophageal reflux disease without esophagitis Esophageal reflux documented in this encounter [facility]* Diagnosis Third trimester ([facility]) state, incidental 30 weeks gestation of ([facility]) documented in this encounter [facility]* Diagnosis Third trimester ([facility]) state, incidental 33 weeks gestation of ([facility]) Request for sterilization documented in this encounter [facility]* Diagnosis Third trimester ([facility]) state, incidental 35 weeks gestation of ([facility]) Weakness generalized Other malaise and fatigue Hot flashes [facility] Diagnosis 35 weeks gestation of ([facility]) Third trimester ([facility]) state, incidental Exposure to STD [facility] Diagnosis Third trimester ([facility]) state, incidental 36 weeks gestation of ([facility]) [facility] Diagnosis Third trimester ([facility]) state, incidental 38 weeks gestation of ([facility]) [facility] filed[facility]ed [facility] Purpose Family History No Family History Records FoundNo Family History Records FoundNo Family History Records FoundNo Family History Records Found Advance Directives No Advanced Directives Records FoundNo Advanced Directives Records FoundNo Advanced Directives Records FoundNo Advanced Directives Records Found Additional Source Comments INFORMATION SOURCE (unrecogn ized section and content) DATE CREATED AUTHOR 11/19/2022 Luisa Re[facility] DATE CREATED AUTHOR AUTHOR'S ORGANIZ ATION 07/22/2024 [facility] DATE CREATED AUTHOR AUTHOR'S ORGANIZ ATION 03/13/2025 [facility] DATE CREATED AUTHOR AUTHOR'S ORGANIZ ATION 06/20/2025 [facility] EPIC Reason for Visit (unrecogniz ed section and content) Reason Comments Amenorrhea Reason Comments Routine Visit Reason Comments Abnormal Ultrasound Care Teams (unrecognized sec tion and content) Conference Concierge Relationship Specialty Start Date End Date Justice Whitman DO [address] [place] [address] PCP - [employer] 03/03/25 Conference Concierge Relationship Specialty Start Date End Date Justice Whitman DO [address] [place] [place] [address] PCP - [employer] 03/03/25 Conference Concierge Relationship Specialty Start Date End Date Justice Whitman DO [address] [place] [address] PCP - [employer] 03/03/25 Conference Concierge Relationship Specialty Start Date End Date Justice Whitman, DO [address] [place] [address] PCP - [employer] 03/03/25 Conference Concierge Relationship Specialty Start Date End Date Justice Whitman, DO [address] [place] [address] PCP - [employer] 03/03/25 Conference Concierge Relationship Specialty Start Date End Date Justice Whitman, DO [address] [place] [address] PCP - [employer] 03/03/25 Conference Concierge Relationship Specialty Start Date End Date Justice Whitman, DO [address] [place] [address] PCP - [employer] 03/03/25 FOR RECORDS PERTAINING TO PATIENTS WHO [...] BE BASED ON THE PRIMARY CLINICAL RECORDS. [employer] [facility]. provides no warranty or guarantee of the accuracy or completeness of information in this document.
[2025-06-25] MEDS: 0.9 % SODIUM CHLORIDE 1,000 ML 1000 ML IV ×2 (07:28→08:39)
[2025-06-25 07:35] LABS: Hematocrit 30.9 % (36.0-48.0); Hemoglobin 10.0 g/dL (12.0-16.0); Immature Granulocytes Abs Auto 0.06 10^3/uL (0.00-0.03); Immature Granulocytes Pct Auto 0.5 % (0.0-0.5); Lymphocytes Absolute Auto 1.1 10^3/uL (1.2-3.8); Mean Corpuscular HGB Conc 32.4 g/dL (29.9-35.2); Mean Corpuscular Hemoglobin 25.8 pg (26.7-34.0); Mean Corpuscular Volume 79.8 fL (81.0-99.0); Platelet Count 180 10^3/uL (150-450); Red Blood Count 3.87 10^6/uL (4.20-5.40); White Blood Count 12.5 10^3/uL (4.0-11.0)
[2025-06-25 07:52] LABS: Cannabinoid Screen Urine NEGATIVE (NEGATIVE); Methamphetamines Screen Urine NEGATIVE (NEGATIVE); Tricyclic Antidepressant Urine NEGATIVE (NEGATIVE)
[2025-06-25] MEDS: CITRIC ACID/SODIUM CITRATE 30 ML SOLUTION ORACIT SHOHL'S SOLN PO (08:37)
[2025-06-25] MEDS: FAMOTIDINE/PF 20 MG/2 ML VIAL IV (08:37)
[2025-06-25] MEDS: CEFAZOLIN SODIUM/DEXTROSE,ISO 2 GM/50 ML PIGGYBACK IV ×2 (08:59→15:15)
--- NOTE | 2025-06-25 09:45 | PM.ONB ---
Brief Operative Note Date of procedure: 06/25/25 Pre-op diagnosis general: iup at term gestation, active labor, previous c/s, desires tubal Post-op diagnosis: same as pre-op Procedure: NAME OF PROCEDURE: [ section with bilateral salpingectomy ] PROCEDURE: Patient was taken back to the Operating Room where she was given a spinal anesthesia with Duramorph without difficulty. She was prepped and draped in the normal sterile fashion. A Pfannenstiel skin incision was then made 2?cm above the symphysis pubis and carried down to underlying rectus fascia using a Bovie. The fascia was incised in the midline and extended laterally using Jo scissors. Two Rae clamps were placed on the superior aspect of the fascia and dissected off the underlying rectus muscles. The same was performed on the inferior aspect as well. The muscles were then in the midline. Peritoneum was identified and entered bluntly. The peritoneum was then extended superiorly and inferiorly with good visualization of the bladder. The bladder blade was inserted. Vesicouterine peritoneum was identified, tented up, and entered with Metzenbaum scissors. A bladder flap was then created digitally. The bladder blade was reinserted. A low transverse incision was made on the patient's uterus and extended laterally digitally. The infant was then delivered atraumatically after the bladder blade was removed in the cephalic position. The cord was clamped and cut. Cord blood was obtained. The was handed off to awaiting team. The patient's placenta was spontaneously delivered. The uterus was then exteriorized. The uterus was cleared of all clots and debris. The bladder blade was reinserted. The patient's uterine incision was closed using #0 Vicryl in a running lock fashion. Excellent hemostasis was assured.? The rt tube was identified and grasped with babock, the ligasure was used to transect and ligate the tube in its entirity, this was done on the contralateral side as well. The uterus was then returned to the patient's abdomen. The patient's abdomen was copiously irrigated using warm saline. Peritoneal gutters were cleared of all clots and debris. Again excellent hemostasis was assured. The patient's fascia was closed using #0 Vicryl in a running fashion. The patient's skin was closed using 4-0 Vicryl subcuticularly. The patient tolerated the procedure well. Sponge, lap, and needle counts were correct x2. The patient was taken to the Recovery Room in stable condition. Anesthesia: spinal Surgeon: Kannan Whitman Boat Crew Deck Hand: Magy Terry Estimated blood loss (mL): 575 Pathology: other (tubes) Condition: stable Disposition: PACU Urinary Catheter Management Urinary Catheter Management Urethral: Cath placed during this visit: no
--- NOTE | 2025-06-25 09:47 | PM.OBPRCCS ---
Procedure Pre-op/Post-op diagnoses: Pre-Op/Post-Op Diagnoses Operation Date: 06/25/25 08:20 <No data on this case meets the specified criteria> Procedure: Procedures Operation Date: 06/25/25 08:20 Actual Procedure Side Surgeon p Repeat with Bilateral Salpingectomy Bilateral Kannan Whitman DO International Manager: Magy Terry Estimated blood loss (mL): 575 Disposition: PACU Anesthesia type: Spinal
[2025-06-25] MEDS: KETOROLAC TROMETHAMINE 30 MG/ML VIAL IVP ×2 (15:15→22:13)
[2025-06-25] MEDS: ENOXAPARIN SODIUM 40 MG/0.4 ML SYRINGE SUBQ (22:13)
[2025-06-26 01:53] VITALS: BP 115/70; PULSE 82; TEMP 36.7
[2025-06-26 05:10] VITALS: BP 125/68; TEMP 36.9
[2025-06-26 07:05] LABS: Hematocrit 26.7 % (36.0-48.0); Hemoglobin 8.5 g/dL (12.0-16.0); Mean Corpuscular HGB Conc 31.8 g/dL (29.9-35.2); Mean Corpuscular Hemoglobin 25.5 pg (26.7-34.0); Mean Corpuscular Volume 80.2 fL (81.0-99.0); Platelet Count 194 10^3/uL (150-450); Red Blood Count 3.33 10^6/uL (4.20-5.40); White Blood Count 19.5 10^3/uL (4.0-11.0)
[2025-06-26 07:29] LABS: Anisocytosis 1+; Band Neutrophils Absolute 1.8 10^3/uL (0.0-0.3); Basophils Abs Manual 0.00 10^3/uL (0.00-0.10); Basophils Percent Manual 0.0 % (0.2-2.0); Eosinophils Absolute Manual 0.00 10^3/uL (0.00-0.70); Eosinophils Percent Manual 0.0 % (0.9-7.0); Lymphocytes Absolute Manual 3.51 10^3/uL (1.20-3.80); Lymphocytes Percent Manual 18.0 % (20.5-60.0); Microcytosis 1+; Monocytes Absolute Manual 1.56 10^3/uL (0.30-0.80); Monocytes Percent Manual 8.0 % (1.7-12.0); Segmented Neut Absolute Manual 12.67 10^3/uL (1.4-6.5); Segmented Neutrophils % Manual 65.0 (43.0-75.0)
[2025-06-26 08:17] VITALS: BP 123/82; TEMP 36.7; O2SAT 98
[2025-06-26] MEDS: DOCUSATE SODIUM 100 MG CAPSULE PO ×2 (08:19→21:03)
[2025-06-26] MEDS: KETOROLAC TROMETHAMINE 30 MG/ML VIAL IVP ×2 (08:19→14:08)
--- NOTE | 2025-06-26 08:57 | PM.OBPN ---
OB - PN: Subj Subjective Patient comments: no complaints [place] status: doing well [place] feeding status: exclusively bottle feeding Exam Constitutional Vital Signs, click to edit/add: Last Vital Signs Temp 98.1 F 06/26/25 08:17 Pulse 82 06/26/25 01:53 Resp 17 06/26/25 05:10 BP 123/82 06/26/25 08:17 Pulse Ox 98 06/26/25 08:17 O2 Del Method Room Air 06/26/25 08:26 Documenting provider has reviewed patient's vital signs: yes Common normals: no apparent distress General appearance: cooperative, comfortable and well kempt Orientation/consciousness: Yes awake, Yes oriented to person, Yes oriented to place and Yes oriented to time HENMT Common normals: normocephalic Eye Common normals: EOMs intact bilaterally General eye: normal appearance of both eyes Visual acuity: acuity normal Alignment: alignment normal Neck & C-Spine Common normals: full ROM and no lymphadenopathy General: normal visual inspection Lymph Lymphatic: no lymphadenopathy noted Chest Common normals: inspection of chest normal Respiratory Common normals: normal respiratory effort, no retractions, no use of accessory muscles and clear to auscultation bilaterally Cardio Common normals: regular rate and regular rhythm Rate: regular rate Rhythm: regular rhythm GI Common normals: Normal to inspection, nondistended, normoactive bowel sounds present Inspection: normal to inspection Palpation: soft Common normals: no CVA tenderness Back & Pelvis Common normals: no CVA tenderness Extremity Common normals: normal to inspection Neuro Common normals: oriented x3 Sensorium/orientation: awake, alert, oriented to person, oriented to place and oriented to time Psych Common normals: mental status grossly normal, thought process normal, cooperative, affect normal, speech normal, activity/motor behavior normal, denies hallucinations, denies homicidal ideation and denies suicidal ideation Attitude: calm Results Labs Labs: Short CBC 06/26/25 Range/Units 06:48 WBC 19.5 H (4.0-11.0) 10^3/uL Hgb 8.5 L (12.0-16.0) g/dL Hct 26.7 L (36.0-48.0) % Plt Count 194 (150-450) 10^3/uL Urinary Catheter Management Urinary Catheter Management Urethral: Cath placed during this visit: yes, but has since been removed by the nurse Insertion date: 06/25/25 Insertion time: 09:20 Removal date: 06/25/25 Removal time: 19:20 OB - PN: A/P Plan - day: 1 Plan: routine postop care Time Spent with Patient Time: Total time spent is greater than 50% in coordination of care (as documented) at patient's floor/unit and/or counseling patient: Total time spent with greater than 50% in coordination of care (as documented) at patient's floor/unit and/or counseling patient: less than 15 minutes
[2025-06-26 16:47] VITALS: BP 112/69; PULSE 87
[2025-06-26 17:15] VITALS: BP 112/69; PULSE 87; TEMP 36.5
--- NOTE | 2025-06-26 17:22 | PC.NURSE ---
Abigail up in about in room, just walked the halls with . States feels good to be up and moving. Denies concerns or complaints at this time. Rates incisional pain 3/10, no need for meds, just know I have an incision Assessment WNL and VSS.
[2025-06-26] MEDS: IBUPROFEN 400 MG TABLET 800 MG PO (21:03)
[2025-06-26] MEDS: ENOXAPARIN SODIUM 40 MG/0.4 ML SYRINGE SUBQ (21:04)
[2025-06-27 00:30] VITALS: BP 119/77; PULSE 81; TEMP 36.7
[2025-06-27] MEDS: ACETAMINOPHEN 500 MG TABLET 1000 MG PO ×2 (01:03→09:35)
[2025-06-27] MEDS: IBUPROFEN 400 MG TABLET 800 MG PO (06:37)
--- NOTE | 2025-06-27 08:05 | PM.OBPN ---
OB - PN: Subj Subjective Patient comments: no complaints and pain well controlled [place] status: doing well Exam Constitutional Vital Signs, click to edit/add: Last Vital Signs Temp 98.0 F 06/27/25 00:30 Pulse 81 06/27/25 00:30 Resp 15 06/27/25 00:30 BP 119/77 06/27/25 00:30 Pulse Ox 98 06/26/25 08:17 O2 Del Method Room Air 06/27/25 00:30 Documenting provider has reviewed patient's vital signs: yes Common normals: no apparent distress Respiratory Common normals: normal respiratory effort and clear to auscultation bilaterally Cardio Common normals: regular rate and regular rhythm GI Common normals: Normal to inspection, nondistended, normoactive bowel sounds present Extremity Common normals: no clubbing, cyanosis or edema and no calf tenderness Urinary Catheter Management Urinary Catheter Management Urethral: Cath placed during this visit: yes, but has since been removed by the nurse Insertion date: 06/25/25 Insertion time: 09:20 Removal date: 06/25/25 Removal time: 19:20 OB - PN: A/P Plan - day: 2 Plan: routine postop care, discharge home and other (fu 1wk) Time Spent with Patient Time: Total time spent is greater than 50% in coordination of care (as documented) at patient's floor/unit and/or counseling patient: Total time spent with greater than 50% in coordination of care (as documented) at patient's floor/unit and/or counseling patient: less than 15 minutes
[2025-06-27] MEDS: DOCUSATE SODIUM 100 MG CAPSULE PO (09:35)
[2025-06-27 10:05] VITALS: BP 120/73; PULSE 78
== END 2025-06-27 12:40 | disposition home or self-care (01) | DRG 785 ==
PROVIDERS: Admitting Provider Obstetrics & Gynecology; PCP Nurse Practitioner; Visit Provider Obstetrics & Gynecology
PROC: 10D00Z1 Extraction of Products of Conception, Low, Open Approach (ICD-10-PCS; CPT 59514; principal; 2025-06-25 08:20)
DX: O75.82 Onset (spontaneous) of labor after 37 completed weeks of gestation but before 39 completed weeks gestation, with delivery by (planned) cesarean section (principal); O99.824 Streptococcus B carrier state complicating childbirth; Z3A.38 38 weeks gestation of pregnancy; Z37.0 Single live birth; Z30.2 Encounter for sterilization
CPT/HCPCS: 36415; 59050; 80307; 85007; 85025; 85027; 86850; 86900; 86901; 94667; 94668; J0131; J0690; J1100; J1200; J1650; J1885; J2274; J2371; J2405; J2590; J3490